=== PATIENT | female | born 1945 | race Caucasian/White ===

== ENCOUNTER → 2024-10-01 | Outpatient (CLI) | payer MEDICARE, MEDICAID, SELFPAY ==
[2024-10-01 12:05] LABS: Basophils % (Auto) 0 % (0-2.5); Eosinophils % (Auto) 0 % (0-10); Hemoglobin 9.4 g/dL (12.0-16.0); Immature Granulocytes % (Auto) 1 % (0-0); Immature Granulocytes Auto 0.05 Thou/mm3 (0.00-0.00); Lymphocytes % (Auto) 11 % (10-50); Mean Corpuscular HGB Conc 33.6 g/dl (31.0-37.0); Mean Corpuscular Hemoglobin 33.2 pg (25.0-35.0); Mean Corpuscular Volume 99 fL (80-100); Monocytes # (Auto) 0.6 Thou/mm3 (0.0-0.8); Monocytes % (Auto) 7 % (0-12); Neutrophils # (Auto) 7.2 Thou/mm3 (1.8-7.7); Neutrophils % (Auto) 81 % (37-80); Nucleated Red Blood Cell % 0 /100 WBC (0); Platelet Count 254 Thou/mm3 (140-440); Red Blood Count 2.83 Miln/mm3 (4.00-5.20)
[2024-10-01 12:12] LABS: Partial Thromboplastin Time 24.7 Seconds (22.0-36.0); Prothrombin Time 10.9 Seconds (9.0-12.2)
[2024-10-01 12:57] LABS: Alanine Aminotransferase 8 U/L (10-49); Albumin, Serum 3.8 gm/dL (3.4-4.8); Albumin/Globulin Ratio 1.3 (1.2-2.2); Alkaline Phosphatase 50 U/L (46-116); Anion Gap 8 (7-16); Aspartate Amino Transferase 18 U/L (0-34); BUN/Creatinine Ratio 23 Ratio (12-20); Bilirubin,Total 0.3 mg/dL (0.3-1.2); Blood Urea Nitrogen 18 mg/dL (9-23); Calcium 9.1 mg/dL (8.3-10.6); Calcium (Corrected) 9.3 mg/dL (8.5-10.1); Carbon Dioxide 34.2 mMol/L (20.0-31.0); Chloride 88 mMol/L (98-107); Creatinine (Component) 0.8 mg/dL (0.6-1.3); Glucose 104 mg/dL (74-106); Osmolality,Calculated 262 (275-295); Sodium 130 mMol/L (136-145); Total Protein 6.8 gm/dL (5.7-8.2); eGFR > 60 See Note
== END | disposition home or self-care (01) ==
PROVIDERS: PCP Physician Assistant; Referring Provider Internal Medicine Gastroenterology; Visit Provider Internal Medicine Gastroenterology
DX: D64.9 Anemia, unspecified (principal)
CPT/HCPCS: 36415; 80053; 85025; 85610; 85730

== ENCOUNTER → 2024-10-16 | Outpatient (CLI) | payer MEDICARE, MEDICAID, SELFPAY ==
[2024-10-16 14:20] LABS: Basophils % (Auto) 0 % (0-2.5); Eosinophils % (Auto) 0 % (0-10); Hematocrit 30.8 % (36.0-46.0); Hemoglobin 10.7 g/dL (12.0-16.0); Immature Granulocytes % (Auto) 0 % (0-0); Immature Granulocytes Auto 0.01 Thou/mm3 (0.00-0.00); Lymphocytes # (Auto) 1.6 Thou/mm3 (1.0-4.8); Lymphocytes % (Auto) 30 % (10-50); Mean Corpuscular HGB Conc 34.7 g/dl (31.0-37.0); Mean Corpuscular Hemoglobin 33.5 pg (25.0-35.0); Mean Corpuscular Volume 97 fL (80-100); Monocytes # (Auto) 0.4 Thou/mm3 (0.0-0.8); Monocytes % (Auto) 7 % (0-12); Neutrophils # (Auto) 3.3 Thou/mm3 (1.8-7.7); Neutrophils % (Auto) 62 % (37-80); Nucleated Red Blood Cell % 0 /100 WBC (0); Platelet Count 295 Thou/mm3 (140-440); RDW Standard Deviation 48.2 fL (36.4-46.3); Red Blood Count 3.19 Miln/mm3 (4.00-5.20); White Blood Count 5.3 Thou/mm3 (3.6-11.0)
[2024-10-16 14:48] LABS: Alanine Aminotransferase 9 U/L (10-49); Albumin/Globulin Ratio 1.3 (1.2-2.2); Alkaline Phosphatase 50 U/L (46-116); Anion Gap 8 (7-16); Aspartate Amino Transferase 21 U/L (0-34); BUN/Creatinine Ratio 23 Ratio (12-20); Bilirubin,Total 0.5 mg/dL (0.3-1.2); Blood Urea Nitrogen 16 mg/dL (9-23); Calcium 9.3 mg/dL (8.3-10.6); Calcium (Corrected) 9.3 mg/dL (8.5-10.1); Carbon Dioxide 31.9 mMol/L (20.0-31.0); Chloride 84 mMol/L (98-107); Creatinine (Component) 0.7 mg/dL (0.6-1.3); Folate 11.47 ng/mL (>5.38); Globulin 3.2 gm/dL (2.3-3.5); Glucose 123 mg/dL (74-106); LDH (Lactate Dehydrogenase) 138 U/L (120-246); Osmolality,Calculated 251 (275-295); Potassium 3.7 mMol/L (3.4-5.1); Sodium 124 mMol/L (136-145); Total Protein 7.2 gm/dL (5.7-8.2); Vitamin B12 484 pg/mL (211-911); eGFR > 60 See Note
[2024-10-16 15:26] LABS: Ferritin 818 ng/mL (7.3-270.7); Total Iron Binding Capacity 256 mcg/dL (250-425)
[2024-10-16 15:38] LABS: Iron 93 mcg/dL (50-170); Percent Iron Saturation 36 % (20-55); Unsaturated Iron Binding 163 (225-295)
== END | disposition home or self-care (01) ==
LOC: SCTO 12:59
PROVIDERS: PCP Family Medicine; Referring Provider Nurse Practitioner Family; Visit Provider Nurse Practitioner Family
DX: C85.85 Other specified types of non-Hodgkin lymphoma, lymph nodes of inguinal region and lower limb (principal)
CPT/HCPCS: 36415; 80053; 82607; 82728; 82746; 83540; 83550; 83615; 85025

== ENCOUNTER 2024-10-18 14:50 | Outpatient (RCR) | payer MEDICARE, MEDICAID, SELFPAY | END 2024-10-26 23:59 | disposition home or self-care (01) | LOC: SCTC 14:50 | PROVIDERS: PCP Family Medicine; Referring Provider Family Medicine; Visit Provider Nurse Practitioner Family | DX: Z08 Encounter for follow-up examination after completed treatment for malignant neoplasm (principal); Z85.72 Personal history of non-Hodgkin lymphomas; J44.9 Chronic obstructive pulmonary disease, unspecified; Z99.81 Dependence on supplemental oxygen; D51.9 Vitamin B12 deficiency anemia, unspecified; D50.9 Iron deficiency anemia, unspecified; E87.1 Hypo-osmolality and hyponatremia | CPT/HCPCS: 99212; G0463 ==

== ENCOUNTER → 2024-10-18 | Outpatient (CLI) | payer MEDICARE, MEDICAID, SELFPAY ==
[2024-10-18 17:38] LABS: Basophils % (Auto) 0 % (0-2.5); Eosinophils % (Auto) 0 % (0-10); Hemoglobin 10.3 g/dL (12.0-16.0); Immature Granulocytes % (Auto) 0 % (0-0); Immature Granulocytes Auto 0.02 Thou/mm3 (0.00-0.00); Lymphocytes # (Auto) 2.3 Thou/mm3 (1.0-4.8); Lymphocytes % (Auto) 34 % (10-50); Mean Corpuscular HGB Conc 34.3 g/dl (31.0-37.0); Mean Corpuscular Hemoglobin 33.8 pg (25.0-35.0); Mean Corpuscular Volume 98 fL (80-100); Monocytes # (Auto) 0.6 Thou/mm3 (0.0-0.8); Monocytes % (Auto) 8 % (0-12); Neutrophils % (Auto) 57 % (37-80); Nucleated Red Blood Cell % 0 /100 WBC (0); Platelet Count 288 Thou/mm3 (140-440); RDW Standard Deviation 48.5 fL (36.4-46.3); Red Blood Count 3.05 Miln/mm3 (4.00-5.20); White Blood Count 6.9 Thou/mm3 (3.6-11.0)
[2024-10-18 18:39] LABS: Alanine Aminotransferase < 7 U/L (10-49); Albumin, Serum 4.1 gm/dL (3.4-4.8); Albumin/Globulin Ratio 1.3 (1.2-2.2); Alkaline Phosphatase 55 U/L (46-116); Anion Gap 9 (7-16); Aspartate Amino Transferase 21 U/L (0-34); BUN/Creatinine Ratio 23 Ratio (12-20); Bilirubin,Total 0.4 mg/dL (0.3-1.2); Blood Urea Nitrogen 18 mg/dL (9-23); Calcium 9.2 mg/dL (8.3-10.6); Calcium (Corrected) 9.2 mg/dL (8.5-10.1); Carbon Dioxide 31.2 mMol/L (20.0-31.0); Chloride 82 mMol/L (98-107); Creatinine (Component) 0.8 mg/dL (0.6-1.3); Globulin 3.2 gm/dL (2.3-3.5); Glucose 94 mg/dL (74-106); Osmolality,Calculated 247 (275-295); Potassium 3.6 mMol/L (3.4-5.1); Sodium 122 mMol/L (136-145); Total Protein 7.3 gm/dL (5.7-8.2); eGFR > 60 See Note
== END | disposition home or self-care (01) ==
PROVIDERS: PCP Family Medicine; Referring Provider Nurse Practitioner Family; Visit Provider Nurse Practitioner Family
DX: C85.85 Other specified types of non-Hodgkin lymphoma, lymph nodes of inguinal region and lower limb (principal)
CPT/HCPCS: 36415; 80053; 85025

== ENCOUNTER 2024-10-19 12:53 | Emergency (ER) | payer MEDICARE, MEDICAID, SELFPAY ==
[2024-10-19 12:54] VITALS: BMI 21.5
[2024-10-19 13:29] VITALS: BP 111/66; PULSE 65; RESP 17; TEMP 36.9; O2SAT 93; BMI 21.5
--- NOTE | 2024-10-19 13:29 | PD.EDRECHK ---
ED Recheck Abnl Lab Rx-RME/HPI General Chief Complaint: Recheck/Abnormal Lab/Rx Stated Complaint: Per, Oncologist: low sodium Time Seen by Provider: 10/19/24 13:25 Arrival date/time: 10/19/24 12:53 RME / HPI RME / HPI narrative: 78-year-old female patient with significant history of T-cell lymphoma, was sent to [facility] from cancer center for hyponatremia. Apparently patient's sodium today was noted to be 122. Patient is complaining of on and off headache and abdominal discomfort. No vomiting no diarrhea no fever no cough. Patient is on 24/ oxygen due to COPD. Related Data Home Medications ?Medication ?Instructions ?Recorded ?Confirmed atorvastatin 20 mg tablet 10 mg PO HS 01/14/20 08/01/23 docusate sodium 100 mg capsule 200 mg PO BID 10/20/22 08/01/23 cetirizine 10 mg tablet 10 mg PO DAILY PRN Allergy Symptoms 05/03/23 08/01/23 famotidine 20 mg tablet 20 mg PO DAILY PRN Acid Reflux 05/03/23 08/01/23 fluticasone fur. 200 mcg-umeclid 2 inh inhalation QDAY PRN 05/03/23 08/01/23 62.5 mcg-vilant 25 mcg shortness of breath inhalat.powder (Trelegy Ellipta) acetaminophen 300 mg-codeine 30 mg 1 tab PO TID PRN Pain 06/07/23 08/01/23 tablet aspirin 81 mg capsule 81 mg PO QDAY 06/07/23 08/01/23 furosemide 20 mg tablet 20 mg PO QDAY 08/01/23 08/01/23 metoprolol succinate 25 mg 25 mg PO DAILY 08/01/23 08/01/23 tablet,extended release 24 hr sacubitril 24 mg-valsartan 26 mg 1 tab PO BID 08/01/23 08/01/23 tablet (Entresto) Previous Rx's ?Medication ?Instructions ?Recorded albuterol sulfate 90 mcg/actuation 2 puff inhalation Q6H PRN 10/23/22 aerosol inhaler shortness of breath or wheezing #6.7 grams levofloxacin 250 mg tablet 250 mg PO QDAY #3 tabs 08/02/23 sennosides 8.6 mg capsule (senna) 8.6 mg PO QDAY PRN constipation 08/03/23 #30 caps sodium chloride 1,000 mg soluble 1,000 mg PO QDAY #10 tabs 10/19/24 tablet Allergies Allergy/AdvReac Type Severity Reaction Status Date / Time ciprofloxacin [From Cipro] Allergy Severe Rash Verified 06/06/20 07:09 Sulfa (Sulfonamide Allergy Severe nausea, Verified 06/06/20 07:09 Antibiotics) itchy all over Review of Systems Review of Systems Narrative Review of Systems: Review of system reviewed and within normal limits except mentioned in HPI ED Exam Narrative Physical exam: VITAL SIGNS: Reviewed. GENERAL APPEARANCE: Alert and interactive, follows commands, no acute distress, HEAD AND FACE: Non-traumatic. ENT: PERRL, pink conjunctivitis, eyelid no trauma, Mucous membrane moist. NECK: Supple, nontender, no nuchal rigidity. CHEST: No tenderness, no crepitus, no paradoxical movement, no retractions. LUNGS: Clear, well ventilated, symmetric, no rales, no wheezing, no ronchi, no stridor, good breath sounds bilaterally. HEART: Regular rate, regular rhythm, no murmur, no gallops. ABDOMEN: Soft, positive bowel sounds, nondistended, no guarding, nontender, no rebound, no masses, RECTAL: Deferred. GENITAL: Deferred. NEUROLOGICAL: Gross motor function intact sensory function intact, Appropriate for age. MUSCULOSKELETAL: low back nontender, full range of motion. EXTREMITIES: Nontender, full range of motion. SKIN: Color pink, dry, no rash, no lacerations, no abrasions, no contusions. LYMPHATICS: Deferred. Course Quality Measures none Orders Category Date Time Status CBC [CBC] Stat Lab 10/19/24 13:54 Completed CMP [Comprehensive Metabolic Panel] Stat Lab 10/19/24 13:54 Completed Magnesium Stat Lab 10/19/24 13:54 Completed UA, C/S IF [Urinalysis, C/S if Indicated] Stat Lab 10/19/24 14:15 Completed Magnesium Sulfate 2 GM Ivpb [Magnesium Sulfate Ivpb] Med 10/19/24 15:27 Discontinued 2 gm in 50 ml IV X1 Sodium Chloride 0.9% 1000 ml [Ns] 1,000 ml Med 10/19/24 15:24 Discontinued IV 999 mls/hr Vital Signs Vital signs: Vital Signs Temperature 98.4 F 10/19/24 13:29 Pulse Rate 65 10/19/24 13:29 Respiratory Rate 17 10/19/24 13:29 Blood Pressure 111/66 10/19/24 13:29 Pulse Oximetry (%) 93 L 10/19/24 13:29 Oxygen Delivery Method Nasal Cannula 10/19/24 13:29 Oxygen Flow Rate 2 10/19/24 13:29 Recheck / Abnormal Lab / Rx MDM Narrative MDM Narrative:: 78-year-old female patient with significant history of T-cell lymphoma, was sent to us from [facility] for hyponatremia. Apparently patient's sodium today was noted to be 122. Patient is complaining of on and off headache and abdominal discomfort. No vomiting no diarrhea no fever no cough. Patient is on 24/7 oxygen due to COPD. Patient surgeon today was noted to be 122 magnesium of 1.4 the rest of the labs unremarkable. Urinalysis no UTI. Patient received IV NS and magnesium sulfate IV. Prior to discharge patient is denying any complaints. Patient appears nontoxic and hemodynamically stable. Patient discharged home and instructed to follow-up with primary care provider in 24 to 48 hours. Instructed to return to the emergency department immediately if worsening of symptoms Patient data External records reviewed:: None Clinical information provided by:: patient Social determinants that could affect healthcare access:: none Patient has the following chronic illnesses:: None How is presenting disease/condition affected by chronic disease/condition?: no chronic disease Evaluation data The following diagnostics were reviewed and interpreted by me:: lab results Lab and/or radiology exams considered but not ordered:: None Interpretation Summary: See results in MDM Medications / Prescriptions Medications or Prescriptions considered but not ordered:: None Medication administrations:: Medication Administration History Discontinued Medications Sodium Chloride (Ns) 1,000 mls @ 999 mls/hr IV .Q1H1M ONE Stop: 10/19/24 16:24 Last Admin: 10/19/24 20:37 Dose: 999 mls/hr Documented By: KIRSTEN Magnesium Sulfate (Magnesium Sulfate Ivpb) 2 gm in 50 mls @ 25 mls/hr IV X1 ONE Stop: 10/19/24 17:26 Last Admin: 10/19/24 20:36 Dose: 25 mls/hr Documented By: KIRSTEN Magnesium sulfate and IV fluid NS Consultations Consultation(s) initiated? (list below): No Diagnosis Recheck Differential Diagnosis: other (Hyponatremia, hypomagnesemia, dehydration) Most likely diagnosis given after review of the tests above:: Hyponatremia Admission Indicated Admission indicated?: not indicated Explain why admission is indicated or not indicated:: Stable Admission Request Was there a request for admission?: No Disposition Plan Disposition Plan: Discharge Discharge Attestation Discharge Attestation: The patient and all family members were given an opportunity to ask questions and understood the discharge instructions. Discharge instructions specifically effects, indications for sooner follow up or return to the emergency department, and the expected course of current diagnosis. Patient condition: Stable Discharge Plan Plan Patient Disposition: HOME (Self Care) Disposition Comment: Stable Prescriptions/Referrals Prescriptions/Med Rec: New sodium chloride 1,000 mg tablet,soluble 1,000 mg PO QDAY Qty: 10 0RF No Action atorvastatin 20 mg tablet 10 mg PO HS docusate sodium 100 mg Capsule 200 mg PO BID albuterol sulfate 90 mcg/actuation HFA aerosol inhaler 2 puff inhalation Q6H PRN (Reason: shortness of breath or wheezing) Qty: 6.7 0RF Trelegy Ellipta 200-62.5-25 mcg blister with device 2 inh INHALATION QDAY PRN (Reason: shortness of breath) cetirizine 10 mg tablet 10 mg PO DAILY PRN (Reason: Allergy Symptoms) famotidine 20 mg tablet 20 mg PO DAILY PRN (Reason: Acid Reflux) aspirin 81 mg Capsule 81 mg PO QDAY acetaminophen-codeine 300-30 mg tablet 1 tab PO TID PRN (Reason: Pain) metoprolol succinate 25 mg tablet extended release 24 hr 25 mg PO DAILY Entresto 24-26 mg tablet 1 tab PO BID furosemide 20 mg tablet 20 mg PO QDAY levofloxacin 250 mg Tablet 250 mg PO QDAY Qty: 3 0RF senna 8.6 mg capsule 8.6 mg PO QDAY PRN (Reason: constipation) Qty: 30 0RF Referrals: No Primary/Family,Physician [Primary Care Provider] - In 1 week Problem List Clinical Impression: Hyponatremia Patient/Caregiver Discharge Instructions Discharge Activity: activity as tolerated Education Materials: ED Hyponatremia Additional Instructions: Thank you for the opportunity for serving you today. You are stable for discharged . 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
[2024-10-19 14:16] LABS: Basophils % (Auto) 0 % (0-2.5); Eosinophils % (Auto) 1 % (0-10); Hematocrit 31.5 % (36.0-46.0); Hemoglobin 10.9 g/dL (12.0-16.0); Immature Granulocytes % (Auto) 0 % (0-0); Immature Granulocytes Auto 0.02 Thou/mm3 (0.00-0.00); Lymphocytes # (Auto) 2.2 Thou/mm3 (1.0-4.8); Lymphocytes % (Auto) 30 % (10-50); Mean Corpuscular HGB Conc 34.6 g/dl (31.0-37.0); Mean Corpuscular Hemoglobin 33.5 pg (25.0-35.0); Mean Corpuscular Volume 97 fL (80-100); Monocytes # (Auto) 0.4 Thou/mm3 (0.0-0.8); Monocytes % (Auto) 6 % (0-12); Neutrophils # (Auto) 4.6 Thou/mm3 (1.8-7.7); Neutrophils % (Auto) 63 % (37-80); Nucleated Red Blood Cell % 0 /100 WBC (0); Platelet Count 280 Thou/mm3 (140-440); RDW Standard Deviation 47.7 fL (36.4-46.3); Red Blood Count 3.25 Miln/mm3 (4.00-5.20); White Blood Count 7.3 Thou/mm3 (3.6-11.0)
[2024-10-19 14:23] LABS: Collection Type, Urine Clean Catch
[2024-10-19 14:42] LABS: Alanine Aminotransferase 8 U/L (10-49); Albumin, Serum 4.2 gm/dL (3.4-4.8); Albumin/Globulin Ratio 1.3 (1.2-2.2); Alkaline Phosphatase 53 U/L (46-116); Anion Gap 6 (7-16); Aspartate Amino Transferase 17 U/L (0-34); BUN/Creatinine Ratio 20 Ratio (12-20); Bilirubin,Total 0.5 mg/dL (0.3-1.2); Blood Urea Nitrogen 16 mg/dL (9-23); Calcium 9.1 mg/dL (8.3-10.6); Calcium (Corrected) 9.1 mg/dL (8.5-10.1); Carbon Dioxide 33.1 mMol/L (20.0-31.0); Chloride 83 mMol/L (98-107); Creatinine (Component) 0.8 mg/dL (0.6-1.3); Globulin 3.2 gm/dL (2.3-3.5); Glucose 105 mg/dL (74-106); Magnesium 1.4 mg/dL (1.6-2.6); Osmolality,Calculated 247 (275-295); Potassium 3.7 mMol/L (3.4-5.1); Sodium 122 mMol/L (136-145); Total Protein 7.4 gm/dL (5.7-8.2); eGFR > 60 See Note
[2024-10-19 14:51] LABS: Bilirubin,Urine Negative (Negative); Blood,Urine Negative (Negative); Clarity,Urine Clear (Clear/Hazy); Color,Urine Lt-Yellow (Lt Yel-Yel); Culture Indicated,Urine Not Indicated; Glucose, Urine Negative (Negative); Ketones,Urine Negative (Negative); Leukocyte Esterase,Urine Negative (Negative); Nitrite,Urine Negative (Negative); Protein,Urine Trace (Neg - Trace); RBC,Urine 2 /hpf (0-3); Squamous Epithelial Cell,Urine 3 /hpf (0-5); Urobilinogen,Urine Negative mg/dL (0.0-1.0); WBC,Urine 5 /hpf (0-5)
[2024-10-19 19:29] VITALS: BP 147/80; PULSE 72; RESP 18; TEMP 36.5; O2SAT 95
[2024-10-19] MEDS: Magnesium Sulfate 2 GM Ivpb 2 GM/50 ML BAG IV (20:36)
[2024-10-19] MEDS: SODIUM CHLORIDE 0.9% 1000 ML 1,000 ML 999 ML IV (20:37)
[2024-10-19 21:39] VITALS: BP 168/83; PULSE 72; RESP 18; TEMP 36.6; O2SAT 98
== END 2024-10-19 22:15 | disposition home or self-care (01) ==
PROVIDERS: Nurse Practitioner Family; Emergency Provider Emergency Medicine
DX: E87.1 Hypo-osmolality and hyponatremia (principal)
CPT/HCPCS: 36415; 80053; 81001; 83735; 85025; 96365; 96366; 99284; J3475; J7030

== ENCOUNTER 2024-10-28 20:53 | Inpatient (IN) | payer MEDICARE, MEDICAID, SELFPAY ==
[2024-10-28] VITALS (18 sets, daily range): BP systolic 119–207; BP diastolic 68–109; PULSE 95–122; RESP 20–34; TEMP 38–38.5; O2SAT 92–100; BMI 21.0
--- NOTE | 2024-10-28 20:56 | EDNOTE_ITS ---
ED SOB =RME/HPI General Chief Complaint: Shortness of Breath/Dyspnea Stated Complaint: SHORTNESS OF BREATH Time Seen by Provider: 10/28/24 20:57 Source: patient and EMS Arrival date/time: 10/28/24 20:53 Mode of arrival: EMS Limitations: no limitations RME / HPI RME / HPI Narrative: Dr. Briceno?s Main ED Evaluation: The patient is a 79-year-old female with a known history of COPD who was brought to the emergency department via ambulance due to worsening shortness of breath. The symptoms began two days ago with mild shortness of breath that progressively worsened. This morning, the patient experienced severe difficulty breathing, describing an inability to catch her breath. Upon EMS arrival, the patient was in respiratory distress, exhibiting audible wheezing and an oxygen saturation of 85%. She was noted to be tripoding and reported that her rescue inhaler was no longer providing relief. EMS initiated treatment with CPAP and administered two doses of albuterol, which provided partial improvement in her symptoms. The patient was also placed on cardiac monitoring during transport. Related Data Home Medications ?Medication ?Instructions ?Recorded ?Confirmed docusate sodium 100 mg capsule 200 mg PO BID 10/20/22 10/28/24 cetirizine 10 mg tablet 10 mg PO DAILY PRN Allergy S ymptoms 05/03/23 10/28/24 famotidine 20 mg tablet 20 mg PO DAILY PRN Acid Refl ux 05/03/23 10/28/24 fluticasone fur. 200 mcg-umeclid 2 inh inhalation QDAY PRN 05/03/23 10/28/24 62.5 mcg-vilant 25 mcg shortness of breath inhalat.powder (Trelegy Ellipta) acetaminophen 300 mg-codeine 30 mg 1 tab PO TID PRN Pa in 06/07/23 10/28/24 tablet metoprolol succinate 25 mg 25 mg PO DAILY 08/01/2311/20 tablet,extended release 24 hr sacubitril 24 mg-valsartan 26 mg 1 tab PO BID 08/01/23 10/28/24 tablet (Entresto) clopidogrel 75 mg tablet 75 mg PO DAILY 10/28/2411/20 hydrochlorothiazide 25 mg tablet 25 mg PO DAILY 10/28/24 lactulose 10 gram/15 mL oral 15 ml PO DAILY PRN consti pation 10/28/24 10/28/24 solution metolazone 2.5 mg tablet 2.5 mg PO DAILY 10/28/2411/20 prednisone 5 mg tablet 5 mg PO DAILY 10/28/2410/28 Previous Rx's ?Medication ?Instructions ?Recorded albuterol sulfate 90 mcg/actuation 2 puff inhalation Q 6H PRN 10/23/22 aerosol inhaler shortness of breath or wheez ing #6.7 grams sennosides 8.6 mg capsule (senna) 8.6 mg PO QDAY PRN c onstipation 08/03/23 #30 caps Allergies Allergy/AdvReac Type Severity Reaction Status Date / Time ciprofloxacin (From Cipro) Allergy Severe Rash Verified 10/28/24 21:18 Sulfa (Sulfonamide Allergy Severe nausea, Verified 10/28/24 21:18 Antibiotics) itchy all over Review of Systems Review of Systems Systems Reviewed: All systems reviewed, normal except as documented Past Medical History Past Medical History NEUROLOGIC: Positive Neurological Disorders, Cerebrovascular Accident and Transient Ischemic Attacks (TIA); Negative Seizures CARDIAC: Positive Atherosclerotic Heart Disease, Peripheral Vascular Disease, Hypercholesterolemia, Congestive Heart Failure, Deep Vein Thrombosis and Hypertension; Negative Cardiac Disorders RESPIRATORY: Positive Chronic Obstructive Pulmonary Disease (COPD), Asthma, Bronchitis and Pneumonia GASTROINTESTINAL: Positive Gastrointestinal Disorders and Obstructive Bowel GENITOURINARY: Negative Genitourinary Disorders or Renal Disease REPRODUCTIVE: Positive Previous Pregnancies MUSCULOSKELETAL: Positive Musculoskeletal Disorders and Arthritis ENT: Positive Cataracts and Deafness ENDOCRINE: Negative Endocrine Disorders, Diabetes Mellitus Type 1 or Diabetes M ellitus Type 2 HEMATOLOGIC: Positive Anemia and Clotting Problems; Negative Blood Disorders or Sickle Cell Disease PSYCHO/SOCIAL: Positive Depression and Anxiety OTHER HISTORY: Positive Hospitalization, Falls, Blood Transfusions, Chemotherapy, Chicken Pox, Measles, Mumps, Pertussis and Cancer; Negative Blood Transfusion Reaction or Anesthesia Reactions Family History FAMILY HISTORY: Positive Family Respiratory Disorders, Family Cancer and Family Surgery; Negative Family Cardiac Disorders Surgical History SURGICAL: Positive Vascular Surgery, Coronary Stent, Eye Surgery and Hysterectomy Social History SMOKING STATUS: Never smoker SECOND HAND EXPOSURE: No SUBSTANCE USE: does not use ED Exam Narrative Physical exam: GENERAL: In general the patient is awake, interactive, in an emergency department gurney. Currently on CPAP. HEAD/EYES/EARS/NOSE/THROAT: normo-cephalic, atraumatic, mucus membranes are moist. No cervical tenderness palpation midline. Supple neck. CARDIOVASCULAR: Heart rate tachycardic at 127 bpm, regular rhythm. no murmurs, heart sounds are not distant, strong pulses in all four extremities that are equal and symmetric bilateral upper and lower extremities, normal capillary refill. CHEST/PULMONARY: normal chest rise and fall. Increased chest wall retractions noted. Audible wheezing. No cyanosis or mottling observed. Oxygen saturation improving with CPAP. ABDOMEN: soft, not tender, no masses appreciated BACK: normal range of motion without pain. NEUROLOGICAL: cranio-facial features are symmetric, moves all four extremities equally without obvious limitations or weakness. EXTREMITY: no tenderness to palpation over the long bones or large joints of the bilateral upper and lower extremities, no joint swelling, no joint erythema, no signs of trauma, no unilateral leg swelling and no peripheral edema. Distal extremities show chronic vascular changes without acute signs of ischemia or cyanosis. SKIN: warm, dry, well-perfused, no jaundice, no rash, no telangiectasias or petechia. No mottling or cyanosis. PSYCH: calm, cooperative, no evidence of psychosis or agitation General Limitations: Present no limitations Course Course Course Narrative: CXR is ordered for determining etiology of shortness of breath. 2115 Sepsis alert initiated. Orders made at this time are congruent with ED Adult Sepsis Order List. Re-evaluation is to be completed. 2145 Sepsis reassessment performed consisting of lab review, vitals, physical exam including auscultation of heart, lungs, and visual evaluation of capillary refills, mucosal membranes and extremities. Quality Measures Current suspected stage: sepsis Possible source: unknown Blood cultures ordered: yes Antibiotic ordered: Yes Pertinent labs: 10/28/24 10/28/24 21:35 21:42 Lactic Acid 1.4 mMol/L (0.4-2.0) Procalcitonin 0.19 ng/ml (0.0-0.49) sepsis Orders Category Date Time Status COVID-19 Screening Questionnaire NOW Care 10/29/24 03:[address] Screening NOW Care 10/29/24 00:22 Active Decision to Admit X1 Care 10/29/24 03:14 Completed EKG (ED ONLY) *Do not use* NOW Care 10/28/24 21:[address] angio chest Stat Exams 10/29/24 00:22 Completed EKG (ED Only) Stat Exams 10/28/24 21:41 Ordered XR chest 1V portable Stat Exams 10/28/24 21:49 Completed ABG [Arterial Blood Gas] Stat Lab 10/28/24 22:30 Completed B-Type Natriuretic Peptide Stat Lab 10/28/24 21:35 Completed Blood Culture (Lab) Stat Lab 10/28/24 21:42 Results CBC Stat Lab 10/28/24 21:35 Completed Comprehensive Metabolic Panel Stat Lab 10/28/24 21:35 Completed Drug Screen,Urine Stat Lab 10/29/24 03:40 Completed Lactate (Lactic Acid) Stat Lab 10/28/24 21:42 Completed Magnesium Stat Lab 10/28/24 21:35 Completed Partial Thromboplastin Time Stat Lab 10/28/24 21:35 Completed Procalcitonin Stat Lab 10/28/24 21:35 Completed Prothrombin Time with INR Stat Lab 10/28/24 21:35 Completed Troponin I Stat Lab 10/28/24 21:35 Completed Urinalysis Stat Lab 10/29/24 03:40 Completed Acetaminophen Ivpb [Ofirmev Inj] Med 10/28/24 21:23 Discontinued 1,000 mg in 100 ml IV X1 Azithromycin Inj [Zithromax Inj] 500 mg Med 10/29/24 00:23 Discontinued Sodium Chloride 0.9% 250 ml [Ns] 250 ml IV QDAY Azithromycin Inj [Zithromax Inj] 500 mg Med 10/29/24 00:45 Discontinued Sodium Chloride 0.9% 250 ml [Ns] 250 ml IV X1 Ketorolac Inj [Toradol Inj] Med 10/28/24 23:26 Discontinued 30 mg IVP X1 ONE Levalbuterol Rt [Xopenex Rt Bhavana] Med 10/28/24 21:07 Discontinued 5 mg INH X1 ONE Magnesium Sulfate 2 GM Ivpb [Magnesium Sulfate Ivpb] Med 10/28/24 20:58 Discontinued 2 gm in 50 ml IV X1 MethylPREDNISolone.* [SoluMEDROL Inj] Med 10/28/24 20:57 Discontinued 125 mg IVP X1 ONE Sodium Chloride Rt Bhavana 0.9% [NS Rt Bhavana 0.9%] Med 10/28/24 21:07 Discontinued 3 ml INH PRN PRN cefTRIAXone [Rocephin] 1,000 mg Med 10/29/24 00:23 Discontinued Sodium Chloride 0.9% [Ns] 50 ml IV X1 BiPAP / CPAP NOW RT 10/28/24 21:01 Active Vital Signs Vital signs: Vital Signs Pulse Rate 122 H 10/28/24 21:02 Respiratory Rate 24 H 10/28/24 21:02 Pulse Oximetry (%) 93 L 10/28/24 21:02 Fraction of Inspired Oxygen 60 10/28/24 21:02 Procedures -ED EKG Interpretation #1: Additional EKG comment: The EKG, performed on 10/28/2024 at 21:04, shows sinus tachycardia with a heart rate of 108 bpm, poor baseline quality, and no ST elevations noted in leads II, aVF, or the inter-lateral leads. Shortness of Breath / Dyspnea MDM Narrative MDM Narrative:: The differential diagnosis includes COPD exacerbation, congestive heart failure (CHF), pneumonia (PNA), pulmonary embolism (PE), ST-elevation myocardial infarction (STEMI), [id number] myocardial infarction (NSTEMI), pericarditis, and issues related to medication or treatment noncompliance. Scribe Attestation: I, Cordell Huynh, am scribing for and in the presence of Dr. Briceno. Provider Notation: Although this document has been carefully reviewed, there may still be some phonetic and other typographical errors. These errors are purely grammatical due to imperfections in the software program and should not be construed in any way to compromise the substance of the patient's medical care during this visit. Patient data External records reviewed:: EMS form Clinical information provided by:: EMS Social determinants that could affect healthcare access:: none Patient has the following chronic illnesses:: see PMH How is presenting disease/condition affected by chronic disease/condition?: u neffected by Evaluation data The following diagnostics were reviewed and interpreted by me:: lab results, radiology exam(s) and EKG tracing(s) Lab and/or radiology exams considered but not ordered:: none Interpretation Summary: I personally reviewed the radiology data and agree with the radiologist's interpretation. CT angiogram of the chest with intravenous contrast Clinical History: Chronic obstructive pulmonary disease and shortness of breath Comparison: CT of June 18, 2023. Findings: There is no filling defect within the pulmonary artery divisions to suggest pulmonary thromboembolism. The mediastinum demonstrates no evidence of mass or lymphadenopathy. The thoracic aorta is unremarkable. There is no pericardial effusion. Mild to moderate lungs emphysema. Consolidation in the left upper lobe. Small consolidation in the right middle lobe. Consolidation in the right lower lobe. No evidence of pleural effusion or pneumothorax. Right renal simple cyst. Degenerative changes of the imaged portions of the spine. No acute fractures. Bilateral breast implants. Dilated left atrium. Impression: No CT evidence of pulmonary thromboembolism. Multifocal pneumonia in the background of emphysema. Dilated left atrium. Medications / Prescriptions Medications or Prescriptions considered but not ordered:: none Medication administrations:: Medication Administration History Acetaminophen (Acetaminophen 325 Mg Tablet) 650 mg PO Q6H PRN PRN Reason: PAIN SCALE 1-3 (mild Stop: 11/28/24 03:15 Acetaminophen (Acetaminophen 325 Mg Tablet) 650 mg PO Q6H PRN PRN Reason: Fever >100 Stop: 11/28/24 03:15 Acetaminophen/Codeine Phosphate (Acetaminophen W/Cod 300-30 Tablet) 1 tab PO TID LELE Stop: 11/03/24 05:59 Last Admin: 11/01/24 13:37 Dose: 1 tab Documented By: Admin: 11/01/24 06:28 Dose: 1 tab Documented By: Admin: 10/31/24 21:33 Dose: 1 tab Documented By: Admin: 10/31/24 15:29 Dose: 1 tab Documented By: Admin: 10/31/24 05:17 Dose: 1 tab Documented By: Admin: 10/30/24 21:11 Dose: 1 tab Documented By: Admin: 10/30/24 13:44 Dose: 1 tab Documented By: Admin: 10/30/24 05:22 Dose: 1 tab Documented By: Admin: 10/29/24 21:30 Dose: 1 tab Documented By: Admin: 10/29/24 13:33 Dose: Not Given Documented By: CB Non-Admin Reason: Pt states she only wants it in AM & before HS Admin: 10/29/24 07:59 Dose: 1 tab Documented By: BELGICA Azithromycin (Azithromycin 250 Mg Tablet) 250 mg PO HS LELE Stop: 11/03/24 20:59 Last Admin: 10/31/24 21:33 Dose: 250 mg Documented By: Admin: 10/30/24 21:11 Dose: 250 mg Documented By: Admin: 10/29/24 21:31 Dose: 250 mg Documented By: CCT Clopidogrel Bisulfate (Clopidogrel Bisulfate 75 Mg Tablet) 75 mg PO QDAY [facility] Stop: 11/28/24 08:59 Last Admin: 11/01/24 09:14 Dose: 75 mg Documented By: Admin: 10/31/24 09:55 Dose: 75 mg Documented By: Admin: 10/30/24 08:04 Dose: 75 mg Documented By: Admin: 10/29/24 09:34 Dose: 75 mg Documented By: Guaifenesin (Guaifenesin Syrup 200 Mg/10 Ml Udc) 100 mg PO QID [facility]; Protocol Stop: 12/01/24 16:59 Heparin Sodium (Porcine) (Heparin Sod Inj 5000 Unit/Ml Vial) 5,000 unit SC Q8HR [facility] Stop: 11/12/24 05:59 Last Admin: 11/01/24 13:37 Dose: 5,000 unit Documented By: BUNNY Co-signed By: VILMA Admin: 11/01/24 06:28 Dose: 5,000 unit Documented By: KYRA Co-signed By: RANDY Admin: 10/31/24 21:34 Dose: 5,000 unit Documented By: KYRA Co-signed By: RANDY Admin: 10/31/24 15:29 Dose: 5,000 unit Documented By: LAURIE Co-signed By: ARY Admin: 10/31/24 05:16 Dose: 5,000 unit Documented By: CODY Co-signed By: REY Admin: 10/30/24 21:10 Dose: 5,000 unit Documented By: CODY Co-signed By: REY Admin: 10/30/24 13:44 Dose: 5,000 unit Documented By: Co-signed By: KIRSTEN Admin: 10/30/24 05:22 Dose: 5,000 unit Documented By: CCT Co-signed By: RANDY(2) Admin: 10/29/24 21:41 Dose: 5,000 unit Documented By: CCT Co-signed By: JESSICA Admin: 10/29/24 13:33 Dose: Not Given Documented By: KIRSTEN Non-Admin Reason: Bleeding Admin: 10/29/24 07:58 Dose: 5,000 unit Documented By: BELGICA Co-signed By: NIKHIL Piperacillin/Tazobactam/Dextrose (Zosyn) 50 mls @ 12.5 mls/hr IV Q8HR [facility]; Protocol Stop: 11/08/24 13:59 Last Admin: 11/01/24 13:36 Dose: 12.5 mls/hr Documented By: BUNNY Ipratropium [place] (Ipratropium Rt 0.5 Mg/ 2.5 Ml Nebu) 0.5 mg INH Q6HRRT [facility] Stop: 11/30/24 18:59 Last Admin: 11/01/24 12:27 Dose: 0.5 mg Documented By: Admin: 11/01/24 06:13 Dose: 0.5 mg Documented By: Admin: 11/01/24 01:15 Dose: 0.5 mg Documented By: Admin: 10/31/24 19:30 Dose: 0.5 mg Documented By: ALEX Levalbuterol HCl (Levalbuterol Rt 1.25 Mg/0.5 Ml Nebu) 1.25 mg INH Q6HRRT [facility] Stop: 11/30/24 18:59 Last Admin: 11/01/24 12:26 Dose: 1.25 mg Documented By: Admin: 11/01/24 06:13 Dose: 1.25 mg Documented By: Admin: 11/01/24 01:15 Dose: 1.25 mg Documented By: Admin: 10/31/24 19:30 Dose: 1.25 mg Documented By: ALEX Melatonin (Melatonin 3 Mg Tablet) 6 mg PO [facility] Stop: 11/29/24 20:59 Last Admin: 10/31/24 21:33 Dose: 6 mg Documented By: Admin: 10/30/24 21:12 Dose: 6 mg Documented By: CODY Methylprednisolone Sodium Succinate (Methylprednisolone Sod Succ 40 Mg Vial) 40 mg IVP BID [facility] Stop: 11/04/24 20:59 Last Admin: 11/01/24 09:14 Dose: 40 mg Documented By: Admin: 10/31/24 21:33 Dose: 40 mg Documented By: Admin: 10/31/24 09:55 Dose: 40 mg Documented By: Admin: 10/30/24 21:13 Dose: 40 mg Documented By: CODY Naloxegol (Naloxegol Oxalate 25 Mg Tablet (Non-Formulary)) 12.5 mg PO ACBR [facility] Stop: 11/28/24 08:59 Last Admin: 11/01/24 06:28 Dose: 12.5 mg Documented By: Admin: 10/31/24 09:55 Dose: 12.5 mg Documented By: ER Ondansetron HCl (Ondansetron Inj 2 Mg/Ml Inj 2 Ml) 4 mg IV Q6H PRN; Protocol PRN Reason: NAUSEA OR VOMITING Stop: 11/28/24 03:15 Pantoprazole Sodium (Pantoprazole Inj 40 Mg Vial) 40 mg IVP QDAY [facility] Stop: 11/28/24 08:59 Last Admin: 11/01/24 09:14 Dose: 40 mg Documented By: Admin: 10/31/24 09:55 Dose: 40 mg Documented By: Admin: 10/30/24 08:05 Dose: 40 mg Documented By: Admin: 10/29/24 09:20 Dose: 40 mg Documented By: Pharmacy Consult (Pharmacy Renal Dose Adjustment 1 Ea) 1 each XX QDAY PRN PRN Reason: PROTOCOL Stop: 11/29/24 16:44 Polyethylene Glycol (Polyethylene Glycol 17 Gm Packet) 17 gm PO QDAY LELE Stop: 11/28/24 08:59 Last Admin: 11/01/24 09:14 Dose: 17 gm Documented By: Admin: 10/31/24 09:55 Dose: 17 gm Documented By: Admin: 10/30/24 08:04 Dose: 17 gm Documented By: Admin: 10/29/24 09:34 Dose: 17 gm Documented By: Sennosides (Senna/Docusate Sod 1 Tab Tablet) 1 tab PO QDAY PRN; Protocol PRN Reason: CONSTIPATION Stop: 11/28/24 04:29 Sodium Chloride (Sodium Chloride Rt Bhavana 0.9% 3 Ml Nebu) 3 ml INH PRN PRN PRN Reason: SOLN Stop: 11/30/24 15:59 Sodium Chloride (Sodium Chloride 1 Gm Tablet) 1 gm PO TID LELE Stop: 12/01/24 14:59 Last Admin: 11/01/24 15:37 Dose: 1 gm Documented By: LW Discontinued Medications Albuterol (Albuterol Rt 2.5 Mg/0.5 Ml Nebu) 10 mg INH X1 ONE Stop: 10/30/24 19:31 Last Admin: 10/30/24 20:15 Dose: 10 mg Documented By: ALEX Albuterol/Ipratropium (Albuterol/Ipratropium (Duoneb) Rt Bhavana 3 Ml Nebu) 3 ml INH Q6HRRT LELE Stop: 11/28/24 06:59 Last Admin: 10/31/24 09:22 Dose: Not Given Documented By: ER Non-Admin Reason: d/c chart clean up Admin: 10/31/24 09:21 Dose: Not Given Documented By: ER Non-Admin Reason: d/c chart clean up Admin: 10/30/24 01:23 Dose: Not Given Documented By: KARINA Non-Admin Reason: per MD [place] Admin: 10/29/24 18:57 Dose: 3 ml Documented By: KARINA Albuterol/Ipratropium (Albuterol/Ipratropium (Duoneb) Rt Bhavana 3 Ml Nebu) 3 ml INH X1 ONE Stop: 10/29/24 05:27 Last Admin: 10/29/24 05:29 Dose: 3 ml Documented By: LARRY Albuterol/Ipratropium (Albuterol/Ipratropium (Duoneb) Rt Bhavana 3 Ml Nebu) 3 ml INH Q2HR PRN PRN Reason: SHORTNESS OF BREATH OR WHEEZE Stop: 11/28/24 22:54 Last Admin: 10/29/24 22:59 Dose: 3 ml Documented By: KARINA Albuterol/Ipratropium (Albuterol/Ipratropium (Duoneb) Rt Bhavana 3 Ml Nebu) 3 ml INH Q4HRRT LELE Stop: 11/29/24 18:59 Last Admin: 10/31/24 09:21 Dose: Not Given Documented By: ER Non-Admin Reason: d/c chart clean up Albuterol/Ipratropium (Albuterol/Ipratropium (Duoneb) Rt Bhavana 3 Ml Nebu) 3 ml INH Q4HRRT LELE Stop: 11/29/24 22:59 Last Admin: 10/31/24 15:53 Dose: Not Given Documented By: JAMESON Non-Admin Reason: Patient Refused Admin: 10/31/24 11:22 Dose: Not Given Documented By: JAMESON Non-Admin Reason: Patient Refused Comments: Pt stated Albuterol makes her anxious Admin: 10/31/24 06:40 Dose: 3 ml Documented By: Admin: 10/31/24 03:15 Dose: 3 ml Documented By: Admin: 10/30/24 22:45 Dose: 3 ml Documented By: AL Albuterol/Ipratropium (Albuterol/Ipratropium (Duoneb) Rt Bhavana 3 Ml Nebu) 3 ml INH Q2HR PRN PRN Reason: SHORTNESS OF BREATH OR WHEEZE Stop: 11/29/24 18:59 Sodium Chloride 240 ml/ (Albuterol 80 mg) 0 ml TOP Q8H LELE Stop: 10/30/24 20:05 Last Admin: 10/31/24 09:21 Dose: Not Given Documented By: ER Non-Admin Reason: d/c chart clean up Magnesium Sulfate (Magnesium Sulfate Ivpb) 2 gm in 50 mls @ 25 mls/hr IV X1 ONE Stop: 10/28/24 22:57 Last Infusion: 10/28/24 21:32 Dose: Infused Documented By: Admin: 10/28/24 21:01 Dose: 25 mls/hr Documented By: KG Acetaminophen (Ofirmev Inj) 1,000 mg in 100 mls @ 250 mls/hr IV X1 ONE Stop: 10/28/24 21:46 Last Infusion: 10/28/24 22:48 Dose: Infused Documented By: Admin: 10/28/24 22:10 Dose: 250 mls/hr Documented By: TC Ceftriaxone Sodium 1,000 mg/ (Sodium Chloride) 50 mls @ 100 mls/hr IV X1 ONE Stop: 10/29/24 00:52 Last Infusion: 10/29/24 01:41 Dose: Infused Documented By: Admin: 10/29/24 01:07 Dose: 100 mls/hr Documented By: KG Azithromycin 500 mg/ Sodium (Chloride) 250 mls @ 250 mls/hr IV QDAY [facility] Stop: 11/05/24 00:22 Last Admin: 10/31/24 09:22 Dose: Not Given Documented By: ER Non-Admin Reason: d/c chart clean up Azithromycin 500 mg/ Sodium (Chloride) 250 mls @ 250 mls/hr IV X1 ONE Stop: 10/29/24 01:44 Last Infusion: 10/29/24 02:12 Dose: Infused Documented By: Admin: 10/29/24 01:17 Dose: 250 mls/hr Documented By: TC Sodium Chloride (Ns) 1,000 mls @ 70 mls/hr IV .[id number] ONE Stop: 10/29/24 17:33 Last Admin: 10/29/24 04:16 Dose: 70 mls/hr Documented By: MOHIT Ceftriaxone Sodium/Dextrose (Rocephin/D5w 1gm Iv Premix) 50 mls @ 100 mls/hr IV HS LELE Stop: 11/05/24 20:59 Last Admin: 10/31/24 21:33 Dose: 100 mls/hr Documented By: Infusion: 10/30/24 21:41 Dose: Infused Documented By: Admin: 10/30/24 21:11 Dose: 100 mls/hr Documented By: Infusion: 10/29/24 22:01 Dose: Infused Documented By: Admin: 10/29/24 21:31 Dose: 100 mls/hr Documented By: CHRIST Azithromycin 250 mg/ Sodium (Chloride) 250 mls @ 250 mls/hr IV QDAY LELE Stop: 11/05/24 03:17 Last Admin: 10/29/24 03:28 Dose: Not Given Documented By: MOHIT Non-Admin Reason: Duplicate Medication on eMAR Magnesium Sulfate (Magnesium Sulfate Ivpb) 4 gm in 50 mls @ 12.5 mls/hr IV X1 ONE Stop: 10/29/24 07:48 Last Admin: 10/29/24 04:16 Dose: 12.5 mls/hr Documented By: MOHIT Potassium Chloride (Kcl Ivpb) 10 meq in 100 mls @ 100 mls/hr IV Q1H LELE Stop: 10/29/24 13:30 Last Admin: 10/29/24 15:50 Dose: 50 mls/hr Documented By: Infusion: 10/29/24 14:10 Dose: Infused Documented By: Infusion: 10/29/24 13:25 Dose: 75 mls/hr Documented By: Admin: 10/29/24 12:33 Dose: 100 mls/hr Documented By: Magnesium Sulfate (Magnesium Sulfate Ivpb) 2 gm in 50 mls @ 25 mls/hr IV X1 ONE Stop: 10/30/24 01:32 Last Infusion: 10/30/24 01:45 Dose: Infused Documented By: Admin: 10/29/24 23:45 Dose: 25 mls/hr Documented By: CCT Piperacillin/Tazobactam/Dextrose (Zosyn) 50 mls @ 100 mls/hr IV X1 ONE Stop: 11/01/24 10:14 Last Admin: 11/01/24 10:37 Dose: 100 mls/hr Documented By: BUNNY Ipratropium [place] (Ipratropium Rt 0.5 Mg/ 2.5 Ml Nebu) 0.5 mg INH Q4HRRT [facility] Stop: 11/30/24 15:59 Last Admin: 10/31/24 17:02 Dose: Not Given Documented By: ER Non-Admin Reason: Patient Refused Ketorolac Tromethamine (Ketorolac Inj 30 Mg/Ml Vial) 30 mg IVP X1 ONE Stop: 10/28/24 23:27 Last Admin: 10/28/24 23:29 Dose: 30 mg Documented By: TC Levalbuterol HCl (Levalbuterol Rt 1.25 Mg/0.5 Ml Nebu) 5 mg INH X1 ONE Stop: 10/28/24 21:08 Last Admin: 10/28/24 21:12 Dose: 5 mg Documented By: LARRY Levalbuterol HCl (Levalbuterol Rt 0.63 Mg/3 Ml Nebu) 0.63 mg INH X1 ONE Stop: 10/30/24 03:16 Last Admin: 10/30/24 03:26 Dose: 0.63 mg Documented By: KARINA Levalbuterol HCl (Levalbuterol Rt 0.63 Mg/3 Ml Nebu) 0.63 mg INH Q6H PRN PRN Reason: WHEEZING Stop: 11/29/24 06:59 Levalbuterol HCl (Levalbuterol Rt 0.63 Mg/3 Ml Nebu) 0.63 mg INH Q6H [facility] Stop: 11/29/24 09:59 Levalbuterol HCl (Levalbuterol Rt 0.63 Mg/3 Ml Nebu) 0.63 mg INH Q6HRRT [facility] Stop: 11/29/24 12:59 Last Admin: 10/31/24 09:21 Dose: Not Given Documented By: ER Non-Admin Reason: d/c chart clean up Levalbuterol HCl (Levalbuterol Rt 1.25 Mg/0.5 Ml Nebu) 1.25 mg INH Q8HRRT [facility] Stop: 11/30/24 15:59 Last Admin: 10/31/24 17:02 Dose: Not Given Documented By: ER Non-Admin Reason: Patient Refused Lidocaine (Lidocaine 5% 1 Patch) 1 patch TOP X1 ONE Stop: 10/30/24 20:31 Last Admin: 10/30/24 21:12 Dose: 1 patch Documented By: CODY Lorazepam (Lorazepam 0.5 Mg Tablet) 0.5 mg PO X1 ONE Stop: 10/29/24 23:36 Last Admin: 10/29/24 23:45 Dose: 0.5 mg Documented By: CCT Lorazepam (Lorazepam 2 Mg/Ml Vial) 0.5 mg IVP X1 ONE Stop: 10/30/24 02:02 Last Admin: 10/30/24 02:36 Dose: 0.5 mg Documented By: CCT Methylprednisolone Sodium Succinate (Methylprednisolone Sod Succ 62.5 Mg/Ml 2ml Vial) 125 mg IVP X1 ONE Stop: 10/28/24 20:58 Last Admin: 10/28/24 21:01 Dose: 125 mg Documented By: KG Methylprednisolone Sodium Succinate (Methylprednisolone Sod Succ 40 Mg Vial) 40 mg IVP QDAY [facility] Stop: 11/03/24 08:59 Last Admin: 10/30/24 08:04 Dose: 40 mg Documented By: Admin: 10/29/24 09:33 Dose: 40 mg Documented By: Methylprednisolone Sodium Succinate (Methylprednisolone Sod Succ 40 Mg Vial) 40 mg IVP X1 ONE Stop: 10/30/24 09:53 Last Admin: 10/30/24 10:36 Dose: 40 mg Documented By: Naloxegol (Naloxegol Oxalate 25 Mg Tablet (Non-Formulary)) 12.5 mg PO QDAY [facility] Stop: 11/28/24 08:59 Last Admin: 10/30/24 08:20 Dose: 12.5 mg Documented By: Admin: 10/29/24 12:29 Dose: Not Given Documented By: CB Non-Admin Reason: Medication Not Available Oxycodone/Acetaminophen (Oxycodone/Apap 5/325 Tablet) 1 tab PO Q6H PRN PRN Reason: PAIN SCALE 4-6 (Moderate Stop: 11/03/24 03:15 Potassium Chloride (Potassium Chloride 20 Meq Tabcr) 40 meq PO X1 ONE Stop: 10/29/24 11:31 Last Admin: 10/29/24 12:34 Dose: 40 meq Documented By: Sacubitril/Valsartan (Sacubitril 24 Mg/Valsartan 26 Mg Tablet) 1 tab PO BID LELE Stop: 11/28/24 08:59 Last Admin: 11/01/24 09:14 Dose: 1 tab Documented By: Admin: 10/31/24 21:32 Dose: 1 tab Documented By: Admin: 10/31/24 09:55 Dose: 1 tab Documented By: Admin: 10/30/24 21:12 Dose: 1 tab Documented By: Admin: 10/30/24 08:04 Dose: 1 tab Documented By: Admin: 10/29/24 21:31 Dose: 1 tab Documented By: Admin: 10/29/24 09:34 Dose: 1 tab Documented By: Sodium Chloride (Sodium Chloride Rt Bhavana 0.9% 3 Ml Nebu) 3 ml INH PRN PRN PRN Reason: SOLN Stop: 11/27/24 21:06 Last Admin: 10/28/24 21:12 Dose: 3 ml Documented By: LARRY Sodium Chloride (Sodium Chloride Rt 10% 15 Ml Nebu) 5 ml INH X1 ONE Stop: 10/29/24 03:22 Last Admin: 10/29/24 05:00 Dose: 5 ml Documented By: LARRY Sodium Chloride (Sodium Chloride 1 Gm Tablet) 1 gm PO BID LELE Stop: 12/01/24 09:44 Last Admin: 11/01/24 10:37 Dose: 1 gm Documented By: BUNNY as above, if any Consultations Consultation(s) initiated? (list below): Yes Diagnosis Shortness of Breath Differential Diagnosis: other (see narrative) Most likely diagnosis given after review of the tests above:: see clinical impression Admission Indicated Admission indicated?: indicated Admission Request Was there a request for admission?: Yes Admission Attestation Admission request attestation: Discussed case with [] from Hospitalist service regarding admission. Discussed patients ED course, exam findings, labs, and radiology results. The Hospitalist [agrees,declines] to accept the patient for admission. Disposition Plan Disposition Plan: Admit Critical Care Time Critical Care Time Critical Care Time: Yes Total Critical Care Time (min.): 45 Attestation: The high probability of sudden, clinically significant deterioration in the patient?s condition required the highest level of my preparedness to intervene urgently. ? The services I provided to this patient were to treat and/or prevent clinically significant deterioration. Services included the following: chart data review, reviewing nursing notes and/or old charts, documentation time, strategy execution consultant collaboration regarding findings and treatment options, medication orders and management, direct patient care, vital sign assessments and ordering, interpreting and reviewing diagnostic studies and lab tests. ? Aggregate critical care time includes only time during which I was engaged in work directly related to the patient?s care, as described above, whether at bedside or elsewhere in the Emergency Department. It did not include time spent performing other reported procedures or the services of residents, students, nurses or physician assistants. Discharge Plan Plan Patient Disposition: Admit Acute Care w/in Hospital Patient condition on transfer: Stable Problem List Clinical Impression: Acute exacerbation of chronic obstructive pulmonary disease
[2024-10-28] MEDS: MethylPREDNISolone SOD SUCC 62.5 MG/ML 2ML VIAL 125 MG IVP (21:01)
[2024-10-28] MEDS: Magnesium Sulfate 2 GM Ivpb 2 GM/50 ML BAG IV (21:01)
[2024-10-28] MEDS: SODIUM CHLORIDE RT SOL 0.9% 3 ML NEBU INH (21:12)
[2024-10-28] MEDS: LEVALBUTEROL RT 1.25 MG/0.5 ML NEBU 5 MG INH (21:12)
--- NOTE | 2024-10-28 21:49 | XR_ITS ---
Examination: AP chest single view TECHNIQUE: AP portable upright chest single view Exam date and time: October 28, 2024 at 9:49 PM Comparison July 30, 2023 INDICATIONS: Shortness of breath today. FINDINGS: Moderate hyperexpansion Normal heart size. Minor scarring in the left mid lung Blunting of the left lateral costophrenic angle Prominent osteopenia IMPRESSION: COPD No pneumonia or pulmonary edema
[2024-10-28 21:51] LABS: Lactate (Lactic Acid) 1.4 mMol/L (0.4-2.0)
[2024-10-28 21:55] LABS: Basophils % (Auto) 0 % (0-2.5); Eosinophils # (Auto) 0.1 Thou/mm3 (0.0-0.5); Eosinophils % (Auto) 1 % (0-10); Hematocrit 31.9 % (36.0-46.0); Hemoglobin 11.2 g/dL (12.0-16.0); Immature Granulocytes % (Auto) 0 % (0-0); Immature Granulocytes Auto 0.05 Thou/mm3 (0.00-0.00); Lymphocytes # (Auto) 7.7 Thou/mm3 (1.0-4.8); Lymphocytes % (Auto) 55 % (10-50); Mean Corpuscular HGB Conc 35.1 g/dl (31.0-37.0); Mean Corpuscular Hemoglobin 34.3 pg (25.0-35.0); Mean Corpuscular Volume 98 fL (80-100); Monocytes # (Auto) 1.1 Thou/mm3 (0.0-0.8); Monocytes % (Auto) 8 % (0-12); Neutrophils # (Auto) 5.3 Thou/mm3 (1.8-7.7); Neutrophils % (Auto) 37 % (37-80); Nucleated Red Blood Cell % 0 /100 WBC (0); Platelet Count 202 Thou/mm3 (140-440); RDW Standard Deviation 47.9 fL (36.4-46.3); Red Blood Count 3.27 Miln/mm3 (4.00-5.20); White Blood Count 14.2 Thou/mm3 (3.6-11.0)
--- NOTE | 2024-10-28 21:56 | PC.RT ---
fio2 titrated to 45% at 21:25 sats 100%.
[2024-10-28 22:10] LABS: Partial Thromboplastin Time 21.9 Seconds (22.0-36.0); Prothrombin Time 10.7 Seconds (9.0-12.2)
[2024-10-28] MEDS: ACETAMINOPHEN IVPB 1,000 MG/100 ML VIAL 250 MG IV (22:10)
[2024-10-28 22:19] LABS: Alanine Aminotransferase 10 U/L (10-49); Albumin, Serum 4.3 gm/dL (3.4-4.8); Albumin/Globulin Ratio 1.2 (1.2-2.2); Alkaline Phosphatase 54 U/L (46-116); Anion Gap 9 (7-16); Aspartate Amino Transferase 35 U/L (0-34); BUN/Creatinine Ratio 24 Ratio (12-20); Bilirubin,Total 0.4 mg/dL (0.3-1.2); Blood Urea Nitrogen 17 mg/dL (9-23); Calcium 9.5 mg/dL (8.3-10.6); Calcium (Corrected) 9.5 mg/dL (8.5-10.1); Carbon Dioxide 33.1 mMol/L (20.0-31.0); Chloride 86 mMol/L (98-107); Creatinine (Component) 0.7 mg/dL (0.6-1.3); Estimated Creatinine Clearance 52.4 mL/min (>60); Globulin 3.5 gm/dL (2.3-3.5); Glucose 118 mg/dL (74-106); Magnesium 1.4 mg/dL (1.6-2.6); Osmolality,Calculated 259 (275-295); Potassium 3.9 mMol/L (3.4-5.1); Sodium 128 mMol/L (136-145); Total Protein 7.8 gm/dL (5.7-8.2); Troponin I < 0.020 ng/mL (0.0-0.045); eGFR > 60 See Note
[2024-10-28 22:23] LABS: Procalcitonin 0.19 ng/ml (0.0-0.49)
[2024-10-28 22:37] LABS: B-Type Natriuretic Peptide 1001 pg/mL (0-100)
[2024-10-28 22:37] LABS: Base Excess 7 (-3-3); HCO3 34 mEq/L (20-26); Inspired Oxygen, FIO2 45 %; O2 Saturation 96 % (91-98); PCO2 62 mmHg (32.0-48.0); PO2 93 mmHg (83-108); pH, Arterial 7.35 (7.35-7.45)
[2024-10-28 22:58] LABS: Allen Test Performed/OK; Puncture Site Left Radial
--- NOTE | 2024-10-28 23:01 | PC.RT ---
fio2 titrated to 30% per abg results.
[2024-10-28] MEDS: KETOROLAC INJ 30 MG/ML VIAL IVP (23:29)
[2024-10-29] VITALS (29 sets, daily range): BP systolic 114–174; BP diastolic 55–93; PULSE 70–130; RESP 17–32; TEMP 36.3–37.4; O2SAT 76–100
--- NOTE | 2024-10-29 00:22 | XR_ITS ---
Examination: CTA chest with intravenous contrast 2-D reconstructions 3-D reconstructions, vascular Date and time of exam: October 29, 2024 0056 hours Comparison July 30, 2023 INDICATIONS: Chest pain shortness of breath today CTDI: vol (mGy) 13.48 DLP: (mGycm) 305 Technique: Multiple axial sections of the thorax have been obtained. 3 mm slice thickness, from below the hemidiaphragms to above the apices of the lungs. Mediastinal and lung density settings have been obtained. 2-D sagittal and coronal reconstructions. 3-D angiographic renderings, 3-D volume renderings, 3D post processing, vascular maximum intensity projections obtained. Contrast administered is 100 cc Isovue-370 intravenous. Low dose protocols were performed. One or more of the following dose reduction techniques were used; automated exposure control, adjustment of the mA and/or KV according to patient size, use of iterative reconstruction technique. Findings: AP dimension ascending thoracic aorta 3.3 cm No thoracic aortic dissection Enlarged left atrium No pulmonary artery filling defects Mild right hilar lymphadenopathy Soft areas of opacity throughout both lungs consistent with pneumonia No significant pleural disease No visualized liver lesion Lateral right renal cyst 3.5 cm No definite gallstones IMPRESSION: Negative for pulmonary artery emboli Bilateral pneumonia
--- NOTE | 2024-10-29 00:38 | PC.NURSE ---
assisting primary RN for break. Pt straight cathed without any urine return. Purewick placed.
--- NOTE | 2024-10-29 00:48 | PC.NURSE ---
Pt to CT scan at this time. Rt came and switched pt from bipap to oxymask.
[2024-10-29] MEDS: AZITHROMYCIN INJ 500 MG in SODIUM CHLORIDE 0.9% 250 ML 250 ML 250 MG IV (01:17)
--- NOTE | 2024-10-29 02:16 | PRELIM_ITS ---
CT angiogram of the chest with intravenous contrast (axial sections with sagittal and coronal reformats) October 29, 2024 0056 hours Clinical History: Chronic obstructive pulmonary disease and shortness of breath Technique:Helical axial sections with sagittal and coronal reformats of the chest were obtained with intravenous contrast. Iterative reconstruction technique was employed to reduce patient radiation exposure. 3D/MIP reconstructed images were also provided. Comparison: CT of June 18, 2023. Findings: There is no filling defect within the pulmonary artery divisions to suggest pulmonary thromboembolism. The mediastinum demonstrates no evidence of mass or lymphadenopathy. The thoracic aorta is unremarkable. There is no pericardial effusion. Mild to moderate lungs emphysema. Consolidation in the left upper lobe. Small consolidation in the right middle lobe. Consolidation in the right lower lobe. No evidence of pleural effusion or pneumothorax. Right renal simple cyst. Degenerative changes of the imaged portions of the spine. No acute fractures. Bilateral breast implants. Dilated left atrium. Impression: No CT evidence of pulmonary thromboembolism. Multifocal pneumonia in the background of emphysema. Dilated left atrium. Report Electronically Signed By: Dimitri Gallagher 10/29/2024 2:16:05 AM [EST]
--- NOTE | 2024-10-29 03:30 | PD.RESHP ---
Documentation for date of: 10/29/24 HPI History of Present Illness History of present illness: This is a 71-year-old female with PMHx of COPD on 2 L home oxygen, Stage II diastolic dysfunction, HTN, possible A-fib, CVA, lymphoma in remission, PAD s/p vascular intervention of lower extremity, presenting to the ED with shortness of breath and cough. Reports 3 days of worsening dry, nonproductive cough and SOB, requiring increased dose of home oxygen. She states has been taking her home inhaler as prescribed but has persistent symptoms despite. She has not taken anything for the cough, had assumed it would go away. However, she decided to come to the hospital because of worsening SOB. Denies fever, chills, headaches, sick exposure, recent travel history, recent ANTIBIOTICS use, chest pain, chest pressure or palpitations, GI symptoms including abdominal pain or N/V/D/C, urinary symptoms such as dysuria, frequency or urgency. ED COURSE: T101.3, BP 207/109, HR 122, RR 24, initially on BiPAP, now on 1 L NC, satting mid 90s. WBC 14.2, Hgb 11 around baseline. Normal coag studies. Sodium 128, magnesium 1.4, AST 35, BNP 1000, troponin negative. UA negative for UTI. ABG showed pH 7.35, pCO2 62, pO2 93, bicarb 34. Negative COVID, influenza A/B. CXR no pneumonia or pulmonary edema. CTA chest showed multifocal pneumonia, chronic emphysema. She was started on BiPAP in ED. Currently on 1 L NC, satting well. ED gave STEROIDS, AZITHROMYCIN, and CEFTRIAXONE x 1. Patient admitted for COPD exacerbation. PMHx: COPD on 2 L home oxygen, HFpEF, HTN, possible A-fib, CVA, former in remission, PAD PSHx: LE vascular intervention for PAD. MEDS: CODEINE, ALBUTEROL, CETIRIZINE, CLOPIDOGREL, DOCUSATE, FAMOTIDINE, HYDROCHLOROTHIAZIDE, LACTULOSE, METOLAZONE, METOPROLOL SUCCINATE, PREDNISONE, ENTRESTO, senna, TRELEGY. ALLERGIES: SULFA DRUGS SH: Distant history of smoking, denies alcohol or drug use. Exam Vital Signs Temp Pulse Resp BP Pulse Ox O2 Del Method FiO2 99.3 F 89 18 118/61 100 CPAP 45 10/29/24 01:15 10/29/24 02:00 10/29/24 02:00 10/29/24 02:00 10/29/24 02:00 10/28/24 21:08 10/28/24 22:14 Narrative Exam GENERAL Ill-appearing elderly female, in mild distress due to cough. On 1 L NC, satting well, speaking in short sentences. HEENT NCAT.?DELFIN. Oral mucosa is moist. Patent Nares NECK Supple, nontender, no thyromegaly, no meningismus, no JVD, no step offs CHEST RRR, no m/g/r Coarse breath sound bilaterally, worse on the right. Diffuse bilateral wheezing No intercostal subcostal retraction Atraumatic, nontender, no crepitus, symmetrical expansion. ABDOMEN Soft, flat, nontender. No guarding/rebound tenderness/masses. Bowel sounds presents EXTREMITIES Nontender, no cyanosis, no edema No edema/cyanosis.? SKIN Warm and dry, no jaundice/rashes. Bilateral lower extremity senile purpura NEUROMUSCULAR No lumbar or midline, no CVA, no paraspinal muscle spasm or tenderness. Moves all 4 extremities well, with full ROM and good CSM. CASTLE x4, CN II-XII grossly intact. No focal neurologic deficits. PSYCHIATRY Normal mood and affect, cooperative, no SI or HI or hallucinations. Results: Labs 10/28/24 21:35 10/29/24 04:47 Labs: Short CBC 10/28/24 Range/Units 21:35 WBC 14.2 H (3.6-11.0) Thou/mm3 Hgb 11.2 L (12.0-16.0) g/dL Hct 31.9 L (36.0-46.0) % Plt Count 202 D (140-440) Thou/mm3 BMP 10/28/24 21:35 Sodium 128 L Potassium 3.9 Chloride 86 L Carbon Dioxide 33.1 H BUN 17 Creatinine 0.7 Glucose 118 H Calcium 9.5 Cardiac Enzymes 10/28/24 Range/Units 21:35 Troponin I < 0.020 (0.0-0.045) ng/mL Liver Function 10/28/24 Range/Units 21:35 Total Bilirubin 0.4 (0.3-1.2) mg/dL AST 35 H (0-34) U/L ALT 10 (10-49) U/L Alkaline Phosphatase 54 (46-116) U/L Albumin 4.3 (3.4-4.8) gm/dL ABG Interpretation ABG results: 10/28/24 22:30 ABG pH 7.35 ABG pCO2 62 H ABG pO2 93 ABG HCO3 34 H ABG O2 Saturation 96 ABG Base Excess 7 H Quality Measures Quality Measures sepsis Current suspected stage: ruled out Possible source: unknown Blood cultures ordered: yes Antibiotic ordered: Yes Advance care planning discussed with:: patient Medications Home Medications and Allergies Home Medications ?Medication ?Instructions ?Recorded ?Confirmed ?Type docusate sodium 100 mg capsule 200 mg PO BID 10/20/22 10/28/24 History cetirizine 10 mg tablet 10 mg PO DAILY PRN Allergy Symptoms 05/03/23 10/28/24 History famotidine 20 mg tablet 20 mg PO DAILY PRN Acid Reflux 05/03/23 10/28/24 History fluticasone fur. 200 mcg-umeclid 2 inh inhalation QDAY PRN 05/03/23 10/28/24 History 62.5 mcg-vilant 25 mcg shortness of breath inhalat.powder (Trelegy Ellipta) acetaminophen 300 mg-codeine 30 mg 1 tab PO TID PRN Pain 06/07/23 10/28/24 History tablet metoprolol succinate 25 mg 25 mg PO DAILY 08/01/23 10/28/24 History tablet,extended release 24 hr sacubitril 24 mg-valsartan 26 mg 1 tab PO BID 08/01/23 10/28/24 History tablet (Entresto) clopidogrel 75 mg tablet 75 mg PO DAILY 10/28/24 10/28/24 History hydrochlorothiazide 25 mg tablet 25 mg PO DAILY 10/28/24 10/28/24 History lactulose 10 gram/15 mL oral 15 ml PO DAILY PRN constipation 10/28/24 10/28/24 History solution metolazone 2.5 mg tablet 2.5 mg PO DAILY 10/28/24 10/28/24 History prednisone 5 mg tablet 5 mg PO DAILY 10/28/24 10/28/24 History Allergies Allergy/AdvReac Type Severity Reaction Status Date / Time ciprofloxacin (From Cipro) Allergy Severe Rash Verified 10/28/24 21:18 Sulfa (Sulfonamide Allergy Severe nausea, Verified 10/28/24 21:18 Antibiotics) itchy all over Visit Medications Acetaminophen (Acetaminophen 325 Mg Tablet) 650 mg PO Q6H PRN PRN Reason: PAIN SCALE 1-3 (mild Stop: 11/28/24 03:15 Acetaminophen (Acetaminophen 325 Mg Tablet) 650 mg PO Q6H PRN PRN Reason: Fever >100 Stop: 11/28/24 03:15 Albuterol/Ipratropium (Albuterol/Ipratropium (Duoneb) Rt Bhavana 3 Ml Nebu) 3 ml INH Q6HRRT LELE Stop: 11/28/24 06:59 Azithromycin 500 mg/ Sodium (Chloride) 250 mls @ 250 mls/hr IV QDAY [facility] Stop: 11/05/24 00:22 Sodium Chloride (Ns) 1,000 mls @ 70 mls/hr IV .[id number] ONE Stop: 10/29/24 17:33 Ceftriaxone Sodium/Dextrose (Rocephin/D5w 1gm Iv Premix) 50 mls @ 100 mls/hr IV QDAY [facility] Stop: 11/05/24 08:59 Azithromycin 250 mg/ Sodium (Chloride) 250 mls @ 250 mls/hr IV QDAY [facility] Stop: 11/05/24 03:17 Last Admin: 10/29/24 03:28 Dose: Not Given Methylprednisolone Sodium Succinate (Methylprednisolone Sod Succ 40 Mg Vial) 40 mg IVP QDAY [facility] Stop: 11/03/24 08:59 Ondansetron HCl (Ondansetron Inj 2 Mg/Ml Inj 2 Ml) 4 mg IV Q6H PRN; Protocol PRN Reason: NAUSEA OR VOMITING Stop: 11/28/24 03:15 Oxycodone/Acetaminophen (Oxycodone/Apap 5/325 Tablet) 1 tab PO Q6H PRN PRN Reason: PAIN SCALE 4-6 (Moderate Stop: 11/03/24 03:15 Pantoprazole Sodium (Pantoprazole Inj 40 Mg Vial) 40 mg IVP QDAY [facility] Stop: 11/28/24 08:59 Sodium Chloride (Sodium Chloride Rt Bhavana 0.9% 3 Ml Nebu) 3 ml INH PRN PRN PRN Reason: SOLN Stop: 11/27/24 21:06 Last Admin: 10/28/24 21:12 Dose: 3 ml Discontinued Medications Magnesium Sulfate (Magnesium Sulfate Ivpb) 2 gm in 50 mls @ 25 mls/hr IV X1 ONE Stop: 10/28/24 22:57 Last Infusion: 10/28/24 21:32 Dose: Infused Acetaminophen (Ofirmev Inj) 1,000 mg in 100 mls @ 250 mls/hr IV X1 ONE Stop: 10/28/24 21:46 Last Infusion: 10/28/24 22:48 Dose: Infused Ceftriaxone Sodium 1,000 mg/ (Sodium Chloride) 50 mls @ 100 mls/hr IV X1 ONE Stop: 10/29/24 00:52 Last Infusion: 10/29/24 01:41 Dose: Infused Azithromycin 500 mg/ Sodium (Chloride) 250 mls @ 250 mls/hr IV X1 ONE Stop: 10/29/24 01:44 Last Infusion: 10/29/24 02:12 Dose: Infused Ketorolac Tromethamine (Ketorolac Inj 30 Mg/Ml Vial) 30 mg IVP X1 ONE Stop: 10/28/24 23:27 Last Admin: 10/28/24 23:29 Dose: 30 mg Levalbuterol HCl (Levalbuterol Rt 1.25 Mg/0.5 Ml Nebu) 5 mg INH X1 ONE Stop: 10/28/24 21:08 Last Admin: 10/28/24 21:12 Dose: 5 mg Methylprednisolone Sodium Succinate (Methylprednisolone Sod Succ 62.5 Mg/Ml 2ml Vial) 125 mg IVP X1 ONE Stop: 10/28/24 20:58 Last Admin: 10/28/24 21:01 Dose: 125 mg Sodium Chloride (Sodium Chloride Rt 10% 15 Ml Nebu) 5 ml INH X1 ONE Stop: 10/29/24 03:22 Assessment & Plan Plan In summary: 71-year-old female PMHx of COPD on 2 L oxygen, HFpEF, HTN, possible A-fib, CVA, lymphoma in remission, PAD, presenting with cough and shortness of breath. Admitted for COPD exacerbation. Acute on chronic hypoxemic respiratory failure Sepsis secondary to pneumonia, 4/4 SIRS positive COPD exacerbation Possible CHF exacerbation Community-acquired pneumonia Has 3 days of dry cough and SOB, requiring increased oxygen requirement. History of COPD on 2 L home oxygen. BNP 1000, previously as high as >3200k. Last echo 2022, EF 55?60, diastolic dysfunction stage II. No signs of fluid overload. Wheezing and coarse breath sounds on exam. CXR clear. CTA showed focal pneumonia. Negative COVID and influenza. Met 4/4 SIRS criteria on admission. Tachypnea and tachycardia improved with BiPAP. Currently on 1 L NC, satting well. Less likely she has sepsis, no signs endorgan damage, but will proceed with gentle fluid as below. A1c 5.1 from 03/2024, normal lipid panel from 03/2024. ? Admission to telemetry ? Continue CEFTRIAXONE (2/3 to present) ? Continue AZITHROMYCIN (2/3 to present) ? Continue METHYLPREDNISOLONE (2/3 to present) ? Continue DuoNebs q.6h. PRN ? Continue home ENTRESTO 1 tab BID ? Oxygen PRN, titrate to 88-92% ? Pending echocardiogram ? Pending pancultures ? Pending TSH, free T4 ? Holding home METOPROLOL 25 mg daily possible CHF exacerbation. ? Consider resuming home HCTZ, METOLAZONE when hemodynamics permit ? Consider cocci IgG/IgM Hyponatremia Hypomagnesemia Sodium 128. Magnesium 1.4. Likely dehydrational and malnutrition. Reports decreased appetite and oral intake. ? Repleted magnesium ? Started 1 L normal saline at 70 cc/H Hypertensive urgencies (resolved) Tachycardia (resolved) HTN Admission BP 207/109, HR 122. Troponin negative. Likely reactive 2/2 hypoxemia. Currently BP 144/82, HR 82. ? Started home ENTRESTO BID ? Consider restarting home HCTZ and METOLAZONE as indicated. ? A-fib Per chart review. She is unaware of having A-fib. Not currently on medications. Appears in sinus rhythm on telemetry. ? Pending EKG Hx of CVA Hx of PAD Per chart review, she has history of CVA. Had vascular intervention for PAD previously. ? Continue home CLOPIDOGREL 75 mg daily Chronic constipation On multiple home bowel regimen. Likely related to chronic CODEINE use. Last bowel movement 7 days ago. Positive bowel sounds on exam. Advised against coding, however she states she is very dependent on CODEINE for pain. ? Started scheduled daily MOVANTIK, SENNA?DOCUSATE, and MIRALAX Chronic lumbago Narcotics dependency ? Continue home TYLENOL-CODEINE 1 tablet TID for pain. Health maintenance Diet: Cardiac GI prophylaxis: PROTONIX DVT prophylaxis: HEPARIN subcu CODE STATUS: Full code Disposition: COPD versus CHF exacerbation workup. Health maintenance Diet: Cardiac GI prophylaxis: PROTONIX DVT prophylaxis: HEPARIN subcu Antibiotics: CEFTRIAXONE, AZITHROMYCIN CODE STATUS: Full code Disposition: Manage COPD exacerbation. Patient case was discussed with attending, Emerita Sanchez MD. Laura Costa DO PGYI Attending Provider Attestation/Addendum I attest that I was physically present for the evaluation, physical examination, lab and imaging review of the patient with the residents. I discussed the case with the residents and agree with the findings and plans of care as documented above. Patient is a 71 years old female with past medical history of COPD on 2 L home oxygen, HFpEF, hypertension, possible A-fib, CVA, lymphoma in remission, PAD status post vascular intervention presented to the ED with complaint of shortness of breath and cough. Patient has been having dry nonproductive cough and shortness of breath for last 3 days needing increased home oxygen. She denies fever, chills, chest pain or palpitations. In the ED, she was found to have a temperature of 101.3, elevated blood pressure at 207/109, heart rate 122 and respiratory 22. Saturating well on nasal cannula. WBC count is 14.2, sodium 128, magnesium 1.4, BNP thousand. ABG was done, showed pH of 7.35, pCO2 62 and pO2 of 93. CTA chest was done which showed multifocal pneumonia and chronic emphysema. We will admit patient for acute on chronic hypoxemic respiratory failure likely secondary to COPD exacerbation from community acquired pneumonia. Patient appears dry on examination, less likely to be on CHF exacerbation although her BNP was thousand, which was improvement compared to her last visit. We will start patient on IV azithromycin and Rocephin along with steroids, DuoNebs, supplemental oxygen. We will also obtain an echocardiogram. Noted to have some electrolyte imbalances, we will correct accordingly. Nasrin Sanchez MD
--- NOTE | 2024-10-29 03:32 | ECHO_ITS ---
Transthoracic Echo Report Ht (in): 62 Wt (lb): 115 Exam Location: Echo Lab Status: Inpatient Graduate Internship: Karime Mayo Indications: Procedure Performed: BP: 163 / 84 HR: Technical Quality: Technically difficult study MEASUREMENTS (Male / Female) Normal Values 2D ECHO LV Diastolic Diameter PLAX 3.5 cm 4.2 - 5.9 / 3.9 - 5.3 cm LV Systolic Diameter PLAX 2.5 cm IVS Diastolic Thickness 1.1 cm 0.6 - 1.0 / 0.6 - 0.9 cm LVPW Diastolic Thickness 1.0 cm 0.6 - 1.0 / 0.6 - 0.9 cm LV Relative Wall Thickness 0.6 LVOT Diameter 1.3 cm M-MODE Aortic Root Diameter MM 1.8 cm AV Cusp Separation MM 1.2 cm DOPPLER AV Peak Velocity 116.0 cm/s AV Peak Gradient 5.4 mmHg AV Mean Gradient 3.0 mmHg AV Velocity Time Integral 22.5 cm LVOT Peak Velocity 103.0 cm/s LVOT Peak Gradient 4.2 mmHg LVOT Velocity Time Integral 18.1 cm AV Area Cont Eq vti 1.1 cm? AV Area Cont Eq pk 1.2 cm? MV Peak Velocity 84.6 cm/s MV Peak Gradient 2.9 mmHg MV Mean Velocity 62.2 cm/s MV Mean Gradient 2.0 mmHg MV Area PHT 4.9 cm? MR Peak Velocity 384.0 cm/s MR Peak Gradient 59.0 mmHg Mitral E Point Velocity 67.9 cm/s Mitral A Point Velocity 95.6 cm/s Mitral E to A Ratio 0.7 LV E' Lateral Velocity 6.5 cm/s Mitral E to LV E' Lateral Ratio 10.4 LV E' Septal Velocity 3.3 cm/s Mitral E to LV E' Septal Ratio 20.8 FINDINGS Left Ventricle Normal left ventricular size and systolic function with no obvious regional wall motion abnormalities. Mild LVH. Normal left ventricular diastolic filling pattern for age. The ejection fraction is visually estimated at 55%. Right Ventricle The right ventricle is normal in size and systolic function. Left Atrium Left atrium not well visualized. Right Atrium Right atrium is not well visualized. Atrial Septum The interatrial septum appears normal with no evidence of a shunt. Aorta The aorta is normal by two-dimensional, color flow and Doppler interrogation. Mitral Valve Mild mitral regurgitation. Moderate mitral annular calcification. Aortic Valve The aortic valve is trileaflet and normal by two-dimensional, color flow and Doppler interrogation. There is no significant aortic valve regurgitation. Tricuspid Valve The tricuspid valve is normal by two-dimensional, color flow and Doppler interrogation. There is no significant tricuspid valve regurgitation. Pulmonic Valve The pulmonic valve is not well visualized. There is no significant pulmonic valve regurgitation. Vessels The pulmonary artery appears normal. The inferior vena cava pulmonary and hepatic veins appear normal. Pericardium The pericardium is normal by two-dimensional imaging. There is no significant pericardial effusion. CONCLUSIONS Indication: Elevated BNP, dyspnea BiPAP Normal left ventricular size and function. Estimated EF 55%. RV is normal in size and systolic function. Moderate MAC with mild MR Guillermina Benz (Electronically Signed) Final Date: 31 October 2024 00:53
[2024-10-29 03:52] LABS: Collection Type, Urine Clean Catch; RBC,Urine 0 /hpf (0-3); WBC,Urine 0 /hpf (0-5)
[2024-10-29] MEDS: SODIUM CHLORIDE 0.9% 1000 ML 1,000 ML 70 ML IV (04:16)
[2024-10-29] MEDS: Magnesium Sulfate 4 GM Ivpb 4 GM/50 ML BAG IV (04:16)
[2024-10-29] MEDS: SODIUM CHLORIDE RT 10% 15 ML NEBU 5 ML INH (05:00)
--- NOTE | 2024-10-29 05:05 | PC.NURSE ---
Called resident, because pt became SOB and working harder to breath. Pt tripoding and placed back on BiPAP. Respiratory called and physican ordered another breathing tx for pt.
[2024-10-29 05:10] LABS: Bacteria,Urine Rare; Bilirubin,Urine Negative (Negative); Blood,Urine Negative (Negative); Clarity,Urine Clear (Clear/Hazy); Color,Urine Lt-Yellow (Lt Yel-Yel); Glucose, Urine Negative (Negative); Ketones,Urine Negative (Negative); Leukocyte Esterase,Urine Negative (Negative); Nitrite,Urine Negative (Negative); PH,Urine 6.5 (5.0-7.0); Protein,Urine 2+ (Neg - Trace); Specific Gravity,Urine 1.041 (1.001-1.035); Squamous Epithelial Cell,Urine < 1 /hpf (0-5); Urobilinogen,Urine Negative mg/dL (0.0-1.0)
[2024-10-29 05:13] LABS: Amphetamine/Methamp Scrn,U Negative (Negative); Barbiturate Screen,Urine Negative (Negative); Benzodiazepines Screen,Urine Negative (Negative); Benzoylecgonine Screen, Ur Negative (Negative); Fentanyl Screen,Urine Negative (Negative); Opiate Screen,Urine Positive (Negative); THC Screen,Urine Negative (Negative)
[2024-10-29] MEDS: ALBUTEROL/IPRATROPIUM (Duoneb) RT SOL 3 ML NEBU INH ×3 (05:29→22:59)
[2024-10-29 06:21] LABS: Free T4 (Free Thyroxine) 1.08 ng/dL (0.89-1.76); Thyroid Stimulating Hormone 0.34 uIU/mL (0.55-4.78)
[2024-10-29] MEDS: HEPARIN SOD INJ 5000 UNIT/ML VIAL SC ×2 (07:58→21:41)
[2024-10-29] MEDS: ACETAMINOPHEN w/COD 300-30 TABLET 1 TAB PO ×2 (07:59→21:30)
[2024-10-29] MEDS: PANTOPRAZOLE INJ 40 MG VIAL IVP (09:20)
[2024-10-29] MEDS: POLYETHYLENE GLYCOL 17 GM PACKET PO (09:34)
[2024-10-29] MEDS: CLOPIDOGREL BISULFATE 75 MG TABLET PO (09:34)
[2024-10-29] MEDS: SACUBITRIL 24 MG/VALSARTAN 26 MG TABLET 1 TAB PO ×2 (09:34→21:31)
[2024-10-29 09:53] LABS: Anion Gap 8 (7-16); BUN/Creatinine Ratio 27 Ratio (12-20); Blood Urea Nitrogen 19 mg/dL (9-23); Calcium 8.5 mg/dL (8.3-10.6); Carbon Dioxide 33.8 mMol/L (20.0-31.0); Chloride 85 mMol/L (98-107); Creatinine (Component) 0.7 mg/dL (0.6-1.3); Estimated Creatinine Clearance 52.4 mL/min (>60); Glucose 195 mg/dL (74-106); Osmolality,Calculated 262 (275-295); Potassium 3.2 mMol/L (3.4-5.1); Sodium 127 mMol/L (136-145); eGFR > 60 See Note
[2024-10-29] MEDS: POTASSIUM CHL 10 mEq IVPB 10 MEQ/100 ML BAG 100 MEQ IV (12:33)
[2024-10-29] MEDS: POTASSIUM CHLORIDE 20 mEq TABCR 40 MEQ PO (12:34)
[2024-10-29] MEDS: POTASSIUM CHL 10 mEq IVPB 10 MEQ/100 ML BAG 50 MEQ IV (15:50)
--- NOTE | 2024-10-29 19:11 | ESPR_ITS ---
<Statement entered by Loreto Estrella MD - 10/29/24 19:22> I discussed with and supervised my co-resident involved in the care of this patient. I agree with the assessment and plan as documented above. Patient seen and examine at bedside. She is feeling much better. Off BIPAP. ABG looks unremarkable for CO2 retention. Patient appears euvolemic on physical exam, trace swelling in legs. Sodium stable from admission despite NS. Suspect hyponatremia due to pulmonary infection. Will discontinue IVF, hold home metalozone and thiazide, and and order fluid restriction and urine electrolytes. Will continue IV antibiotics and follow up cultures. Loreto Estrella MD PGY-3 Documentation for date of: 10/29/24 Subjective Subjective Interval history: Patient seen and examined at bedside. States that her symptoms have improved with no shortness of breath, no chest pain, no fever noted. No longer on BiPAP and adequately saturating 98% O2 via 2 L nasal cannula. Physical exam positive for expiratory wheezing. WBC 14, sodium 127, osm 262 potassium 3.2, magnesium 1.4. Repleted potassium, follow-up with urine electrolytes and osmolarity, supportive care for pneumonia. Hold hydrochlorothiazide and metolazone due to hyponatremia. Continue fluid restriction repeat CMP. Exam Vital Signs Temp Pulse Resp BP Pulse Ox O2 Del Method O2 Flow Rate 97.9 F 88 19 146/85 H 100 BiPAP 2 10/29/24 16:00 10/29/24 19:00 10/29/24 19:00 10/29/24 16:00 10/29/24 19:00 10/29/24 08:06 10/29/24 19:00 FiO2 30 10/29/24 06:11 Narrative Exam General: Elderly female, sitting comfortably, no acute distress, cooperative HEENT: NCAT, No JVD noted. Mucosa moist. Pupils are equal and reactive to light bilaterally Cardiovascular: Normal S1 and S2. Regular rate and rhythm. Respiratory: No crackles, expiratory wheezing auscultated., On 2 L NC Abdomen: Soft, nontender, not distended, normal bowel sounds. Skin: Warm to touch, dry, or lower extremity dermatitis, senile purpura upper extremity Musculoskeletal: No gross injuries. Able to move all 4 extremities. No pitting edema Neuro: Alert and oriented x3. No focal neuro deficits. Psych: Normal affect and mood Objective Labs 11/01/24 04:15 11/01/24 21:10 Labs: Laboratory Results - last 24 hr 10/28/24 10/28/24 10/28/24 21:35 21:42 22:30 WBC 14.2 H RBC 3.27 L Hgb 11.2 L Hct 31.9 L MCV 98 MCH 34.3 MCHC 35.1 RDW Std Deviation 47.9 H Plt Count 202 D Neut % (Auto) 37 Lymph % (Auto) 55 H [place] % (Auto) 8 Eos % (Auto) 1 Baso % (Auto) 0 Neut # (Auto) 5.3 Lymph # (Auto) 7.7 H [place] # (Auto) 1.1 H Eos # (Auto) 0.1 Baso # (Auto) 0.0 Immature Gran # (Auto) 0.05 H Absolute Nucleated RBC 0.00 Immature Gran % 0 Nucleated RBC % 0 PT 10.7 INR 1.0 APTT 21.9 L Puncture Site Left Radial ABG pH 7.35 ABG pCO2 62 H ABG pO2 93 ABG HCO3 34 H ABG O2 Saturation 96 ABG Base Excess 7 H FiO2 45 Sodium 128 L Potassium 3.9 Chloride 86 L Carbon Dioxide 33.1 H Anion Gap 9 BUN 17 Creatinine 0.7 Estim Creat Clear Calc 52.4 L eGFR > 60 BUN/Creatinine Ratio 24 H Glucose 118 H Calculated Osmolality 259 L Lactic Acid 1.4 Calcium 9.5 Corrected Calcium 9.5 Magnesium 1.4 L Total Bilirubin 0.4 AST 35 H ALT 10 Alkaline Phosphatase 54 Troponin I < 0.020 B-Natriuretic Peptide 1001 H* Total Protein 7.8 Albumin 4.3 Globulin 3.5 Albumin/Globulin Ratio 1.2 Procalcitonin 0.19 TSH Free T4 Ur Collection Type Urine Color Urine Clarity Urine pH Ur Specific [place] Urine Protein Urine Glucose (UA) Urine Ketones Urine Blood Urine Nitrite Urine Bilirubin Urine Urobilinogen (Auto) Ur Leukocyte Esterase Urine RBC Urine WBC Ur Squamous Epith Cells Urine Bacteria Urine Opiates Screen Urine Fentanyl Screen Ur Barbiturates Screen U Amphetamin/Meth Scrn U Benzodiazepines Scrn U Cocaine Metab Screen U Marijuana (THC) Screen 10/29/24 10/29/24 03:40 04:47 WBC RBC Hgb Hct MCV MCH MCHC RDW Std Deviation Plt Count Neut % (Auto) Lymph % (Auto) [place] % (Auto) Eos % (Auto) Baso % (Auto) Neut # (Auto) Lymph # (Auto) [place] # (Auto) Eos # (Auto) Baso # (Auto) Immature Gran # (Auto) Absolute Nucleated RBC Immature Gran % Nucleated RBC % PT INR APTT Puncture Site ABG pH ABG pCO2 ABG pO2 ABG HCO3 ABG O2 Saturation ABG Base Excess FiO2 Sodium 127 L Potassium 3.2 L D Chloride 85 L Carbon Dioxide 33.8 H Anion Gap 8 BUN 19 Creatinine 0.7 Estim Creat Clear Calc 52.4 L eGFR > 60 BUN/Creatinine Ratio 27 H Glucose 195 H D Calculated Osmolality 262 L Lactic Acid Calcium 8.5 Corrected Calcium Magnesium Total Bilirubin AST ALT Alkaline Phosphatase Troponin I B-Natriuretic Peptide Total Protein Albumin Globulin Albumin/Globulin Ratio Procalcitonin TSH 0.34 L Free T4 1.08 Ur Collection Type Clean Catch Urine Color Lt-Yellow Urine Clarity Clear Urine pH 6.5 Ur Specific [place] 1.041 H Urine Protein 2+ A Urine Glucose (UA) Negative Urine Ketones Negative Urine Blood Negative Urine Nitrite Negative Urine Bilirubin Negative Urine Urobilinogen (Auto) Negative Ur Leukocyte Esterase Negative Urine RBC 0 Urine WBC 0 Ur Squamous Epith Cells < 1 Urine Bacteria Rare Urine Opiates Screen Positive A Urine Fentanyl Screen Negative Ur Barbiturates Screen Negative U Amphetamin/Meth Scrn Negative U Benzodiazepines Scrn Negative U Cocaine Metab Screen Negative U Marijuana (THC) Screen Negative ABG Interpretation ABG results: 10/28/24 22:30 ABG pH 7.35 ABG pCO2 62 H ABG pO2 93 ABG HCO3 34 H ABG O2 Saturation 96 ABG Base Excess 7 H Quality Measures Quality Measures sepsis Current suspected stage: sepsis Possible source: unknown Blood cultures ordered: yes Antibiotic ordered: Yes Advance care planning discussed with:: patient Assessment & Plan Assessment Current Active Medications: Generic Name Dose Route Start Last Admin Trade Name Freq PRN Reason Stop Dose Admin Acetaminophen 650 mg 10/29/24 03:16 Acetaminophen 325 Mg Tablet PO 11/28/24 03:15 Q6H PRN PAIN SCALE 1-3 (mild Acetaminophen 650 mg 10/29/24 03:16 Acetaminophen 325 Mg Tablet PO 11/28/24 03:15 Q6H PRN Fever >100 Acetaminophen/Codeine Phosphate 1 tab 10/29/24 06:00 10/29/24 13:33 Acetaminophen W/Cod 300-30 Tablet PO 11/03/24 05:59 Not Given TID LELE Albuterol/Ipratropium 3 ml 10/29/24 07:00 10/29/24 18:57 Albuterol/Ipratropium (Duoneb) Rt Bhavana 3 Ml Nebu INH 11/28/24 06:59 3 ml Q6HRRT LELE Administration Azithromycin 250 mg 10/29/24 21:00 Azithromycin 250 Mg Tablet PO 11/05/24 03:17 HS [facility] Clopidogrel Bisulfate 75 mg 10/29/24 09:00 10/29/24 09:34 Clopidogrel Bisulfate 75 Mg Tablet PO 11/28/24 08:59 75 mg QDAY LELE Administration Heparin Sodium (Porcine) 5,000 unit 10/29/24 06:00 10/29/24 13:33 Heparin Sod Inj 5000 Unit/Ml Vial SC 11/12/24 05:59 Not Given Q8HR LELE Ceftriaxone Sodium/Dextrose 50 mls @ 100 mls/hr 10/29/24 21:00 Rocephin/D5w 1gm Iv Premix IV 11/05/24 20:59 HS [facility] Methylprednisolone Sodium Succinate 40 mg 10/29/24 09:00 10/29/24 09:33 Methylprednisolone Sod Succ 40 Mg Vial IVP 11/03/24 08:59 40 mg QDAY LLEE Administration Naloxegol 12.5 mg 10/29/24 09:00 10/29/24 12:29 Naloxegol Oxalate 25 Mg Tablet (Non-Formulary) PO 11/28/24 08:59 Not Given QDAY LELE Ondansetron HCl 4 mg 10/29/24 03:16 Ondansetron Inj 2 Mg/Ml Inj 2 Ml IV 11/28/24 03:15 Q6H PRN NAUSEA OR VOMITING Protocol Pantoprazole Sodium 40 mg 10/29/24 09:00 10/29/24 09:20 Pantoprazole Inj 40 Mg Vial IVP 11/28/24 08:59 40 mg QDAY LELE Administration Polyethylene Glycol 17 gm 10/29/24 09:00 10/29/24 09:34 Polyethylene Glycol 17 Gm Packet PO 11/28/24 08:59 17 gm QDAY LELE Administration Sacubitril/Valsartan 1 tab 10/29/24 09:00 10/29/24 09:34 Sacubitril 24 Mg/Valsartan 26 Mg Tablet PO 11/28/24 08:59 1 tab BID LELE Administration Sennosides 1 tab 10/29/24 04:30 Senna/Docusate Sod 1 Tab Tablet PO 11/28/24 04:29 QDAY PRN CONSTIPATION Protocol Sodium Chloride 3 ml 10/28/24 21:07 10/28/24 21:12 Sodium Chloride Rt Bhavana 0.9% 3 Ml Nebu INH 11/27/24 21:06 3 ml PRN PRN Administration SOLN Plan 71-year-old female PMHx of COPD on 2 L oxygen, HFpEF, HTN, possible A-fib, CVA, lymphoma in remission, PAD, presenting with cough and shortness of breath. Admitted for COPD exacerbation. #Acute on chronic hypoxemic respiratory failure #Sepsis 2/2 pneumonia, 4/4 SIRS positive #COPD exacerbation #Hx HFpEF, 55-60% #Community-acquired pneumonia Has 3 days of dry cough and SOB, requiring increased oxygen requirement. History of COPD on 2 L home oxygen. BNP 1000, previously as high as >3200k. Last echo 2022, EF 55?60, diastolic dysfunction stage II. No signs of fluid overload. Wheezing and coarse breath sounds on exam. CTA showed focal pneumonia. Negative COVID and influenza. Met 4/4 SIRS criteria on admission. Tachypnea and tachycardia improved with BiPAP. A1c 5.1 from 03/2024, normal lipid panel from 03/2024. ? Continue CEFTRIAXONE (2/3 to present) ? Continue AZITHROMYCIN (2/3 to present) ? Continue METHYLPREDNISOLONE (2/3 to present) ? Continue DuoNebs q.6h. PRN ? Continue home ENTRESTO 1 tab BID ? Oxygen PRN, titrate to 88-92% ? Pending echocardiogram ? Pending pancultures ? Holding home METOPROLOL 25 mg daily possible CHF exacerbation. # Hypoosmolar hyponatremia #hypomagnesemia Sodium 128. Magnesium 1.4. DDx: dehydration, SIADH, diuretics Reports decreased appetite and oral intake. -keep Mg >2, K>4 -fluid restriction -follow up urine electrolytes/osmolarity -Hold HCTZ and metolazone in setting of hyponatremia -Repeat CMP #Hypertensive urgencies (resolved) #Tachycardia (resolved) #HTN Admission BP 207/109, HR 122. Troponin negative. Likely reactive 2/2 hypoxemia. ? continue home ENTRESTO BID ? Hold home HCTZ and METOLAZONE due to hyponatremia ? A-fib Per chart review. She is unaware of having A-fib. Not currently on medications. Appears in sinus rhythm on telemetry. ? Pending EKG #Hx of CVA #Hx of PAD Per chart review, she has history of CVA. Had vascular intervention for PAD previously. ? Continue home CLOPIDOGREL 75 mg daily #Chronic constipation On multiple home bowel regimen. Likely related to chronic CODEINE use. Last bowel movement 7 days ago. Positive bowel sounds on exam. Advised against codeine, however she states she is very dependent on CODEINE for pain. ? Started scheduled daily MOVANTIK, SENNA?DOCUSATE, and MIRALAX #Chronic back pain #Narcotics dependency ? Continue home TYLENOL-CODEINE 1 tablet TID for pain. Health maintenance Diet: Cardiac GI prophylaxis: PROTONIX DVT prophylaxis: HEPARIN subcu CODE STATUS: Full code Disposition: tx PNA, hyponatremia The patient's management plan was discussed with my attending physician Dr. Lehman and senior Dr. Estrella. Damaris Ragsdale, PGY-1 Attending Provider Attestation/Addendum Face to face evaluation was performed by me. I have personally seen and examined the patient. I discussed the assessment and plan with the entire medicine team. I reviewed available medical records, imaging studies, laboratory results. I agree with the above subjective data, objective findings, assessment and plan except as corrected by me or noted below #Acute on chronic hypoxemic respiratory failure #Sepsis 2/2 pneumonia, POA, without septic shock #COPD with acute exacerbation #Hx HFpEF, 55-60% seems to be compensated #Community-acquired pneumonia [employer] was called, ICU team consulted for evaluation of the patient and help with Resp failure management requiring BiPAP ABG repeat was worse, went up on IPAP , repeat ABG again Systemic steroids RSV+ Abxs
--- NOTE | 2024-10-29 20:38 | PC.RT ---
sputum sample collected and sent to lab at this time.
[2024-10-29] MEDS: AZITHROMYCIN 250 MG TABLET PO (21:31)
[2024-10-29] MEDS: cefTRIAXone/D5w 1gm IV premix 50 ML IV (21:31)
--- NOTE | 2024-10-29 23:25 | PC.NURSE ---
Called hospitalist spoke to resident Dr. Yudy Amaro. Made aware pt was placed on the Bipap, pt desaturated to 76 after breathing tx. However, pt states she does not want the Bipap, she feels claustrophobic. Per Dr. Yudy Amaro, will come see pt.
--- NOTE | 2024-10-29 23:35 | PC.NURSE ---
Dr. Yudy Amaro and Juan RT at bedside. Per Md, will put in orders for Magnesium IV and PO Ativan.
--- NOTE | 2024-10-29 23:36 | PC.RT ---
called to bedside by RN stating the pt was SOB, upon arrival md was contacted to order a duoneb PRN and medication was given. post treatment pts breathing became labored and desaturated to 76%. pt placed on bipap, and RN called to bedside refused to cont wearing the bipap stating it makes her claustrophobic. MD winston stated for me to hold the breathing treatments for the night.
[2024-10-29] MEDS: Magnesium Sulfate 2 GM Ivpb 2 GM/50 ML BAG IV (23:45)
[2024-10-29] MEDS: LORazepam 0.5 MG TABLET PO (23:45)
[2024-10-30] VITALS (17 sets, daily range): BP systolic 121–173; BP diastolic 77–100; PULSE 95–125; RESP 17–29; TEMP 36.2–36.6; O2SAT 93–100; BMI 21.0
--- NOTE | 2024-10-30 02:00 | PC.NURSE ---
At this time, pt states she is claustrophobic and wants the Bipap off. Called hospitalist, spoke resident Dr. Costa made aware pt is anxious and wanting Bipap removed. Per Md will order medications for anxiety.
[2024-10-30] MEDS: LORazepam 2 MG/ML VIAL 0.5 MG IVP (02:36)
--- NOTE | 2024-10-30 03:10 | PC.NURSE ---
At this time, pt removed Bipap, refuses Bipap. RT at bedside. Placed on 2LNC. Called hospital, spoke to Dr. Costa. Made aware of current situation. Per MD will put in new orders for breathing tx.
[2024-10-30] MEDS: LEVALBUTEROL RT 0.63 MG/3 ML NEBU INH (03:26)
--- NOTE | 2024-10-30 03:45 | PC.NURSE ---
Both Emelia and Maninder RT at bedside. Educated pt the benefits of using Bipap. Pt verbalized understanding and agreed to have Bipap on again.
[2024-10-30 04:43] LABS: Base Excess 6 (-3-3); HCO3 35 mEq/L (20-26); Inspired Oxygen, FIO2 45 %; O2 Saturation 97 % (91-98); PCO2 76 mmHg (32.0-48.0); PO2 95 mmHg (83-108); pH, Arterial 7.27 (7.35-7.45)
[2024-10-30 04:47] LABS: Allen Test Performed/OK; Puncture Site Left Radial
--- NOTE | 2024-10-30 04:55 | PC.NURSE ---
Resident Dr. Amaro and attending MD at bedside. Aware of increased respiratory rate and work of breathing, HR in 120-130s, and BP 170/90 throughout the night. Pt currently on Bipap, setting of Bipap changed as per MD order.. Pt is awake/alert/oriented x3. Verbalized understanding with plan of care.
[2024-10-30] MEDS: ACETAMINOPHEN w/COD 300-30 TABLET 1 TAB PO ×3 (05:22→21:11)
[2024-10-30] MEDS: HEPARIN SOD INJ 5000 UNIT/ML VIAL SC ×3 (05:22→21:10)
[2024-10-30 06:16] LABS: Basophils % (Auto) 0 % (0-2.5); Eosinophils % (Auto) 0 % (0-10); Hematocrit 33.5 % (36.0-46.0); Hemoglobin 11.1 g/dL (12.0-16.0); Immature Granulocytes % (Auto) 0 % (0-0); Immature Granulocytes Auto 0.05 Thou/mm3 (0.00-0.00); Lymphocytes # (Auto) 1.6 Thou/mm3 (1.0-4.8); Lymphocytes % (Auto) 13 % (10-50); Mean Corpuscular HGB Conc 33.1 g/dl (31.0-37.0); Mean Corpuscular Hemoglobin 33.6 pg (25.0-35.0); Mean Corpuscular Volume 102 fL (80-100); Monocytes % (Auto) 8 % (0-12); Neutrophils # (Auto) 9.9 Thou/mm3 (1.8-7.7); Neutrophils % (Auto) 79 % (37-80); Nucleated Red Blood Cell % 0 /100 WBC (0); Platelet Count 275 Thou/mm3 (140-440); RDW Standard Deviation 50.5 fL (36.4-46.3); White Blood Count 12.5 Thou/mm3 (3.6-11.0)
[2024-10-30 06:39] LABS: Alanine Aminotransferase 31 U/L (10-49); Albumin, Serum 4.3 gm/dL (3.4-4.8); Albumin/Globulin Ratio 1.2 (1.2-2.2); Alkaline Phosphatase 59 U/L (46-116); Anion Gap 9 (7-16); Aspartate Amino Transferase 69 U/L (0-34); BUN/Creatinine Ratio 20 Ratio (12-20); Bilirubin,Total 0.3 mg/dL (0.3-1.2); Blood Urea Nitrogen 16 mg/dL (9-23); Calcium 9.2 mg/dL (8.3-10.6); Calcium (Corrected) 9.2 mg/dL (8.5-10.1); Carbon Dioxide 30.7 mMol/L (20.0-31.0); Chloride 87 mMol/L (98-107); Creatinine (Component) 0.8 mg/dL (0.6-1.3); Estimated Creatinine Clearance 45.8 mL/min (>60); Globulin 3.6 gm/dL (2.3-3.5); Glucose 128 mg/dL (74-106); Magnesium 3.1 mg/dL (1.6-2.6); Osmolality,Calculated 258 (275-295); Phosphorous 3.9 mg/dL (2.4-5.1); Potassium 4.6 mMol/L (3.4-5.1); Sodium 127 mMol/L (136-145); Total Protein 7.9 gm/dL (5.7-8.2); eGFR > 60 See Note
[2024-10-30 06:45] LABS: Base Excess 5 (-3-3); HCO3 34 mEq/L (20-26); Inspired Oxygen, FIO2 45 %; O2 Saturation 98 % (91-98); PCO2 75 mmHg (32.0-48.0); PO2 103 mmHg (83-108); pH, Arterial 7.26 (7.35-7.45)
[2024-10-30 06:47] LABS: Allen Test Performed/OK; Puncture Site Left Radial
[2024-10-30] MEDS: CLOPIDOGREL BISULFATE 75 MG TABLET PO (08:04)
[2024-10-30] MEDS: SACUBITRIL 24 MG/VALSARTAN 26 MG TABLET 1 TAB PO ×2 (08:04→21:12)
[2024-10-30] MEDS: POLYETHYLENE GLYCOL 17 GM PACKET PO (08:04)
[2024-10-30] MEDS: PANTOPRAZOLE INJ 40 MG VIAL IVP (08:05)
[2024-10-30] MEDS: NALOXEGOL OXALATE 25 MG TABLET (NON-FORMULARY) 12.5 MG PO (08:20)
--- NOTE | 2024-10-30 09:44 | XR_ITS ---
Examination: AP chest single view TECHNIQUE: AP portable sitting chest single view Exam date and time: October 30, 2024 1002 hours INDICATIONS: Difficulty breathing today FINDINGS: Normal heart size No lobar pneumonia Prominent osteopenia IMPRESSION: No pneumonia or pulmonary edema
--- NOTE | 2024-10-30 09:54 | PC.SS ---
Patient Sachin Conte is a 79 Year old female admitted for COPD Exacerbation. SS met with patient at bedside, however patient had a hard time breathing, Dr. Estrella at bedside. SS informed patient that SS would contact Patients sonNegro. SS attempted to contact patient's son, SS left Voicemail. SS contacted patients daughter in law, Lisa Conte. She reports patient lives at home with them. She reports she assist patient with ADL's, patient is on 2L of 02. Patient utilizes a wheelchair. Choice of pharmacy is [facility]. Patient's PCP is Dutch Casillas. At time of discharge patient will return home, patients daughter in law informed SS they do not want SNF for patient. Family will provide transportation. Next of Kin: Negro Smith Discharge Plan: Home
[2024-10-30 11:26] LABS: Respiratory Syncytial Virus Ag Positive (Negative)
[2024-10-30 11:53] LABS: Allen Test Not Performed; Base Excess 3 (-3-3); HCO3 33 mEq/L (20-26); Inspired Oxygen, FIO2 45 %; O2 Saturation 98 % (91-98); PCO2 81 mmHg (32.0-48.0); PO2 106 mmHg (83-108); Puncture Site Right Radial; pH, Arterial 7.21 (7.35-7.45)
--- NOTE | 2024-10-30 12:13 | PC.RT ---
Dr Eller aware of ABG results. No new orders at this time.
--- NOTE | 2024-10-30 13:32 | ESPR_ITS ---
<Statement entered by Loreto Estrella MD - 10/30/24 18:27> I discussed with and supervised my co-resident involved in the care of this patient. I agree with the assessment and plan as documented above. Patient had RR this morning for respiratory distress, refusing BIPAP. Explained to patient importance of wearing BIPAP due to worsening hypercarbonemia. With family at bedside, patient tolerated BIPAP and hypercarbonemia on ABGs improved. See rapid response note. Blood and urine culture return positive for GPC. Pending final cultures. Will continue IV antibiotics, increase steroids, and give magnesium. If respiratory status does not improve, patient may need to be intubated. Patient is agreeable to intubation should it come to that. Loreto Estrella MD PGY-3 Documentation for date of: 10/30/24 Subjective Subjective Interval history: Patient was seen at bedside this morning. Today patient had a rapid response called due to increased work of breathing and she was eventually placed on BiPAP, please refer to event note from today for more details. After the rapid response was called patient remained on BiPAP and repeat ABG was drawn which showed worsening acidosis as well as hypercapnia. ICU was consulted due to worsening respiratory distress and possibility for need of intubation. Patient remained on BiPAP aftrer rapid for which another repeat ABG was drawn later in the afternoon and showed improvement in the patient's acidosis as well as hypercapnia. Will follow-up with ABG at 4 PM. Patient was found to be RSV positive. No other complaints at this time. Exam Vital Signs Temp Pulse Resp BP Pulse Ox O2 Del Method O2 Flow Rate 97.8 F 121 H 25 H 166/86 H 97 BiPAP 2 10/30/24 08:00 10/30/24 10:47 10/30/24 10:47 10/30/24 08:00 10/30/24 10:47 10/30/24 08:00 10/30/24 08:00 FiO2 45 10/30/24 10:47 Narrative Exam General: A/O x3, moderate respiratory distress, ill appearing thin elderly Eyes: PERRL, EOMI. Anicteric, vision grossly intact. Ears: No ear pain, no ear discharge, Hearing mildly impaired Nose: No nasal discharge. Mouth/Throat: Dry mucous membranes, no redness, no lesions. Neck: Neck supple, non-tender, no cervical lymphadenopathy. Lungs: Wheezing, No accessory muscle use. Cardio: Normal S1/S2, regular rhythm, no murmurs, no JVD Abdomen: Soft, non-tender, no palpable masses, peristalsis present, no guarding or rebound. Extremities: Symmetrical, no significant deformities, no peripheral edema , non-tender, peripheral pulses presents. Skin: No rashes, no lesions, warm to touch. Neuro: No focal neurological deficits. motor and sensory intact Psych: Cooperative, appropriate mood and effect. Objective Labs 10/30/24 04:47 10/30/24 17:00 Labs: Laboratory Results - last 24 hr 10/30/24 10/30/24 10/30/24 04:30 04:47 06:40 WBC 12.5 H RBC 3.30 L Hgb 11.1 L Hct 33.5 L MCV 102 H MCH 33.6 MCHC 33.1 RDW Std Deviation 50.5 H Plt Count 275 D Neut % (Auto) 79 Lymph % (Auto) 13 [place] % (Auto) 8 Eos % (Auto) 0 Baso % (Auto) 0 Neut # (Auto) 9.9 H Lymph # (Auto) 1.6 [place] # (Auto) 1.0 H Eos # (Auto) 0.0 Baso # (Auto) 0.0 Immature Gran # (Auto) 0.05 H Absolute Nucleated RBC 0.00 Immature Gran % 0 Nucleated RBC % 0 Puncture Site Left Radial Left Radial ABG pH 7.27 L 7.26 L ABG pCO2 76 H* D 75 H* ABG pO2 95 103 ABG HCO3 35 H 34 H ABG O2 Saturation 97 98 ABG Base Excess 6 H 5 H FiO2 45 45 Sodium 127 L Potassium 4.6 D Chloride 87 L Carbon Dioxide 30.7 Anion Gap 9 BUN 16 Creatinine 0.8 Estim Creat Clear Calc 45.8 L eGFR > 60 BUN/Creatinine Ratio 20 Glucose 128 H D Calculated Osmolality 258 L Calcium 9.2 Corrected Calcium 9.2 Phosphorus 3.9 Magnesium 3.1 H Total Bilirubin 0.3 AST 69 H ALT 31 Alkaline Phosphatase 59 Total Protein 7.9 Albumin 4.3 Globulin 3.6 H Albumin/Globulin Ratio 1.2 RSV Rapid 10/30/24 10/30/24 10:43 11:00 WBC RBC Hgb Hct MCV MCH MCHC RDW Std Deviation Plt Count Neut % (Auto) Lymph % (Auto) [place] % (Auto) Eos % (Auto) Baso % (Auto) Neut # (Auto) Lymph # (Auto) [place] # (Auto) Eos # (Auto) Baso # (Auto) Immature Gran # (Auto) Absolute Nucleated RBC Immature Gran % Nucleated RBC % Puncture Site Right Radial ABG pH 7.21 L ABG pCO2 81 H* ABG pO2 106 ABG HCO3 33 H ABG O2 Saturation 98 ABG Base Excess 3 FiO2 45 Sodium Potassium Chloride Carbon Dioxide Anion Gap BUN Creatinine Estim Creat Clear Calc eGFR BUN/Creatinine Ratio Glucose Calculated Osmolality Calcium Corrected Calcium Phosphorus Magnesium Total Bilirubin AST ALT Alkaline Phosphatase Total Protein Albumin Globulin Albumin/Globulin Ratio RSV Rapid Positive A ABG Interpretation ABG results: 10/28/24 10/30/24 10/30/24 22:30 04:30 06:40 ABG pH 7.35 7.27 L 7.26 L ABG pCO2 62 H 76 H* D 75 H* ABG pO2 93 95 103 ABG HCO3 34 H 35 H 34 H ABG O2 Saturation 96 97 98 ABG Base Excess 7 H 6 H 5 H 10/30/24 11:00 ABG pH 7.21 L ABG pCO2 81 H* ABG pO2 106 ABG HCO3 33 H ABG O2 Saturation 98 ABG Base Excess 3 Quality Measures Quality Measures sepsis Current suspected stage: ruled out Possible source: unknown Blood cultures ordered: yes Antibiotic ordered: Yes Advance care planning discussed with:: patient and child Assessment & Plan Assessment Current Active Medications: Generic Name Dose Route Start Last Admin Trade Name Freq PRN Reason Stop Dose Admin Acetaminophen 650 mg 10/29/24 03:16 Acetaminophen 325 Mg Tablet PO 11/28/24 03:15 Q6H PRN PAIN SCALE 1-3 (mild Acetaminophen 650 mg 10/29/24 03:16 Acetaminophen 325 Mg Tablet PO 11/28/24 03:15 Q6H PRN Fever >100 Acetaminophen/Codeine Phosphate 1 tab 10/29/24 06:00 10/30/24 05:22 Acetaminophen W/Cod 300-30 Tablet PO 11/03/24 05:59 1 tab TID LELE Administration Albuterol/Ipratropium 3 ml 10/29/24 07:00 10/30/24 01:23 Albuterol/Ipratropium (Duoneb) Rt Bhavana 3 Ml Nebu INH 11/28/24 06:59 Not Given Q6HRRT LELE Albuterol/Ipratropium 3 ml 10/29/24 22:55 10/29/24 22:59 Albuterol/Ipratropium (Duoneb) Rt Bhavana 3 Ml Nebu INH 11/28/24 22:54 3 ml Q2HR PRN Administration SHORTNESS OF BREATH OR WHEEZE Azithromycin 250 mg 10/29/24 21:00 10/29/24 21:31 Azithromycin 250 Mg Tablet PO 11/05/24 03:17 250 mg HS LELE Administration Clopidogrel Bisulfate 75 mg 10/29/24 09:00 10/30/24 08:04 Clopidogrel Bisulfate 75 Mg Tablet PO 11/28/24 08:59 75 mg QDAY LELE Administration Heparin Sodium (Porcine) 5,000 unit 10/29/24 06:00 10/30/24 05:22 Heparin Sod Inj 5000 Unit/Ml Vial SC 11/12/24 05:59 5,000 unit Q8HR LELE Administration Ceftriaxone Sodium/Dextrose 50 mls @ 100 mls/hr 10/29/24 21:00 10/29/24 21:31 Rocephin/D5w 1gm Iv Premix IV 11/05/24 20:59 100 mls/hr HS LELE Administration Levalbuterol HCl 0.63 mg 10/30/24 13:00 Levalbuterol Rt 0.63 Mg/3 Ml Nebu INH 11/29/24 12:59 Q6HRRT LELE Melatonin 6 mg 10/30/24 21:00 Melatonin 3 Mg Tablet PO 11/29/24 20:59 HS LELE Methylprednisolone Sodium Succinate 40 mg 10/30/24 21:00 Methylprednisolone Sod Succ 40 Mg Vial IVP 11/04/24 20:59 BID LELE Naloxegol 12.5 mg 10/29/24 09:00 10/30/24 08:20 Naloxegol Oxalate 25 Mg Tablet (Non-Formulary) PO 11/28/24 08:59 12.5 mg QDAY LELE Administration Ondansetron HCl 4 mg 10/29/24 03:16 Ondansetron Inj 2 Mg/Ml Inj 2 Ml IV 11/28/24 03:15 Q6H PRN NAUSEA OR VOMITING Protocol Pantoprazole Sodium 40 mg 10/29/24 09:00 10/30/24 08:05 Pantoprazole Inj 40 Mg Vial IVP 11/28/24 08:59 40 mg QDAY LELE Administration Polyethylene Glycol 17 gm 10/29/24 09:00 10/30/24 08:04 Polyethylene Glycol 17 Gm Packet PO 11/28/24 08:59 17 gm QDAY LELE Administration Sacubitril/Valsartan 1 tab 10/29/24 09:00 10/30/24 08:04 Sacubitril 24 Mg/Valsartan 26 Mg Tablet PO 11/28/24 08:59 1 tab BID LELE Administration Sennosides 1 tab 10/29/24 04:30 Senna/Docusate Sod 1 Tab Tablet PO 11/28/24 04:29 QDAY PRN CONSTIPATION Protocol Sodium Chloride 3 ml 10/28/24 21:07 10/28/24 21:12 Sodium Chloride Rt Bhavana 0.9% 3 Ml Nebu INH 11/27/24 21:06 3 ml PRN PRN Administration SOLN Plan 79-year-old female with past medical history of COPD (2 L O2 at home), HFpEF (55 to 60% on 2022), hypertension, CVA, 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 #Acute on chronic hypoxic and hypercapnic respiratory failure likely secondary to #COPD exacerbation in the setting of #Community-acquired pneumonia, RSV positive #Respiratory acidosis #Hx of COPD #GPC bacteremia? ? Patient came in initially with complaints of cough, shortness of breath, and increased requirements of oxygen. ? Patient has a history of COPD ??Patient met SIRS 4 out of 4 criteria on admission, but there was no signs of endorgan damage ? qSOFA score of 1 ? Initial chest x-ray showed vascular congestion ?Chest CTA showed bilateral pneumonia ?Repeat chest x-ray on 10/30/2024 showed no pneumonia pulmonary edema ?Blood cultures grew GPC's preliminary ? Latest ABG showed pH 7.32, pCO2 61, pO2 121 Plan: ?Continue azithromycin and Rocephin [10/29/2024?] ? Continue albuterol/ipratropium every 4 hours ? Continue methylprednisolone 40 mg twice daily [12/13/2024?] ? Pending blood and urine cultures ? 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 Patient sodium appears to be low in the past was 122 on September. ? DDx includes SIADH versus dehydration versus medication induced as he was on hydrochlorothiazide and metolazone Plan: ? Fluid restrictions ?Urine sodium and electrolytes pending ? Holding hydrochlorothiazide metolazone ?Will continue to monitor #Hx of HFpEF (55 to 60% on 2022) ?Patient came in initially with complaints of shortness of breath and requiring increased levels of oxygen ? Patient does not seem to be in CHF exacerbation at this time she does not appear to be fluid overloaded and there is no pulmonary edema. ? BNP initially was 1001 Plan: ? Echo pending ?Will continue Entresto ? Fluid restrictions ? Cardiac diet ? Will continue to monitor #Hypertensive urgency #Hx of hypertension ? Patient came in with blood pressure of 207/109 ? Patient's blood pressure continues to be elevated today at 163/84 Plan: ? Will continue patient on Entresto ? 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 #Hx of CVA #Hx of PAD ? Continue Plavix #Hx of chronic constipation in the setting of #Chronic back pain on narcotics ? Continue patient's Tylenol?codeine 1 tablet 3 times daily for pain ? Continue scheduled daily Movantik, senna, and MiraLAX Disposition: Patient admitted to telemetry. Diet: Regular GI prophylaxis: protonix DVT prophylaxis: heparin sc Code: full code Case disclosed with Attending Dr. Lehman and My senior Dr. Estrella PGY3. Naresh Camargo PGY1 Attending Provider Attestation/Addendum Face to face evaluation was performed by me. I have personally seen and examined the patient. I discussed the assessment and plan with the entire medicine team. I reviewed available medical records, imaging studies, laboratory results. 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 ICU consultation, discussed with Dr Ross, they will evaluate the patient, if not improved/or worse upgrade to ICU
--- NOTE | 2024-10-30 13:32 | PD.RESEVENT ---
Documentation for date of: 10/30/24 Event Note Event Note: Rapid response was called at around 9:30 AM this morning due to patient having increased work of breathing with tachypnea. At this time patient was saturating well at 94%. Patient was also tachycardic in the 110s and she did have some visible increased work of breathing. At this time patient did not want to be placed on the BiPAP, but after discussing with the patient the risk about her not being on the BiPAP and benefits of her being on the BiPAP she agreed to being on the BiPAP. During this time patient was also given 1 extra dose of steroids 40 mg, ABG was ordered, chest x-ray was ordered, and Solu-Medrol was then scheduled for twice daily. At the end of the rapid response patient was on BiPAP and saturating well. Case disclosed with Attending Dr. Fallon Camargo PGY1
[2024-10-30 14:50] LABS: Cocci Serology, IgM Negative (Negative)
[2024-10-30 14:54] LABS: Base Excess 4 (-3-3); HCO3 31 mEq/L (20-26); Inspired Oxygen, FIO2 45 %; O2 Saturation 98 % (91-98); PCO2 61 mmHg (32.0-48.0); PO2 121 mmHg (83-108); pH, Arterial 7.32 (7.35-7.45)
[2024-10-30 14:56] LABS: Allen Test Performed/OK; Puncture Site Right Brachial
[2024-10-30 17:39] LABS: Base Excess 4 (-3-3); HCO3 31 mEq/L (20-26); Inspired Oxygen, FIO2 40 %; O2 Saturation 98 % (91-98); PCO2 56 mmHg (32.0-48.0); PO2 106 mmHg (83-108); pH, Arterial 7.35 (7.35-7.45)
[2024-10-30 17:41] LABS: Alanine Aminotransferase 25 U/L (10-49); Albumin/Globulin Ratio 1.2 (1.2-2.2); Alkaline Phosphatase 50 U/L (46-116); Anion Gap 10 (7-16); Aspartate Amino Transferase 45 U/L (0-34); BUN/Creatinine Ratio 26 Ratio (12-20); Bilirubin,Total 0.2 mg/dL (0.3-1.2); Blood Urea Nitrogen 23 mg/dL (9-23); Calcium 8.8 mg/dL (8.3-10.6); Calcium (Corrected) 8.8 mg/dL (8.5-10.1); Carbon Dioxide 28.7 mMol/L (20.0-31.0); Chloride 86 mMol/L (98-107); Creatinine (Component) 0.9 mg/dL (0.6-1.3); Estimated Creatinine Clearance 40.7 mL/min (>60); Globulin 3.3 gm/dL (2.3-3.5); Glucose 137 mg/dL (74-106); Osmolality,Calculated 257 (275-295); Potassium 4.9 mMol/L (3.4-5.1); Sodium 125 mMol/L (136-145); Total Protein 7.3 gm/dL (5.7-8.2); eGFR > 60 See Note
[2024-10-30 17:44] LABS: Allen Test Performed/OK; Puncture Site Right Brachial
--- NOTE | 2024-10-30 19:05 | ESCONSULT_ITS ---
HPI Data of Consult Requesting Physician: Jessie Arias MD Admitting Provider: Nasrin Sanchez MD Attending Provider: Jessie Arias MD Primary Care Provider: Dutch Casillas MD Consult Narrative History of present illness: Sachin Conte is a 71-year-old female with a past medical history of COPD on 2 L home oxygen, HFpEF (EF 55-60% in 2022), CVA, lymphoma in remission (last treatment 7 years ago), and PAD s/p vascular intervention in lower extremity who presented to the ED with shortness of breath and associated worsening, dry cough with increased home oxygen requirements for approximately 3 days prior to admission. Denied fever, chills, or sick contacts at home but son at bedside states that she was recently in ED for hyponatremia on 10/19. In ED, patient noted to be saturating 93% and was started on BiPAP but was then able to be weaned down to 1 L nasal cannula, saturating in the mid 90s. ABG in ED obtained showed pH of 7.35, pCO2 62, pO2 93, and HCO3 34. Found to be positive for RSV, negative for COVID and influenza A/P. CXR without any infiltrates, CTA chest showed multifocal pneumonia and chronic emphysema. Labs significant for sodium 128, osm 259, magnesium 1.4, BNP 1000, troponin negative. Given azithromycin, ceftriaxone, and steroids. Admitted for acute on chronic hypoxic respiratory failure secondary to COPD exacerbation. On 10/30, patient had rapid response for tachypnea and increased work of breathing but was noted to be saturating well at 94% and was tachycardic in 110s. She was eventually placed on BiPAP and given extra dose of steroids. ABG and CXR were ordered and Solu-Medrol was changed to twice daily. ABG showed pH 7.2, pCO2 81, and pO2 116. CXR unchanged. Afterwards, ICU was consulted for acute hypercapnic respiratory failure and patient will be upgraded to ICU for close monitoring. BiPAP settings were changed to FiO2 40% and AVAPS mode and ABG has since improved, showing pH of 7.35, pCO2 56, pO2 106. cc:: cc: Jessie Arias MD Review of Systems Review of Systems Systems Reviewed: All systems reviewed, normal except as documented Exam Vital Signs Temp Pulse Resp BP Pulse Ox O2 Del Method O2 Flow Rate 97.8 F 95 29 H 121/77 94 L BiPAP 2 10/30/24 16:00 10/30/24 16:00 10/30/24 16:21 10/30/24 16:00 10/30/24 16:21 10/30/24 16:00 10/30/24 16:00 FiO2 40 10/30/24 16:21 Narrative Exam General: pleasant, frail and elderly woman, AOx3, no acute distress HEENT: NC/AT, mucous membranes moist, bilateral sclera anicteric Cardiovascular: regular rate and rhythm, S1/S2 present, no murmurs appreciated Pulmonary: bibasilar crackles appreciated on auscultation Abdominal: soft, non-tender, non-distended, midline scar present in lower quarants Musculoskeletal: bilateral breast augmentation, no peripheral edema, dorsalis pedis pulse unappreciable B/L, posterior popliteal pulse unappreciable on R, posterior popliteal 2+ on L, femoral pulse 2+ B/L Skin: purpura in upper and lower extremities bilaterally Neuro: CN II-XII intact, no focal deficits, sensation intact, strength 4/5 in upper and lower extremities bilaterally Results Labs 10/31/24 04:27 10/31/24 04:27 Labs: Short CBC 10/30/24 Range/Units 04:47 WBC 12.5 H (3.6-11.0) Thou/mm3 Hgb 11.1 L (12.0-16.0) g/dL Hct 33.5 L (36.0-46.0) % Plt Count 275 D (140-440) Thou/mm3 BMP 10/30/24 10/30/24 04:47 17:00 Sodium 127 L 125 L Potassium 4.6 D 4.9 Chloride 87 L 86 L Carbon Dioxide 30.7 28.7 BUN 16 23 Creatinine 0.8 0.9 Glucose 128 H D 137 H Calcium 9.2 8.8 Liver Function 10/30/24 10/30/24 Range/Units 04:47 17:00 Total Bilirubin 0.3 0.2 L (0.3-1.2) mg/dL AST 69 H 45 H (0-34) U/L ALT 31 25 (10-49) U/L Alkaline Phosphatase 59 50 (46-116) U/L Albumin 4.3 4.0 (3.4-4.8) gm/dL ABG Interpretation ABG results: 10/28/24 10/30/24 10/30/24 22:30 04:30 06:40 ABG pH 7.35 7.27 L 7.26 L ABG pCO2 62 H 76 H* D 75 H* ABG pO2 93 95 103 ABG HCO3 34 H 35 H 34 H ABG O2 Saturation 96 97 98 ABG Base Excess 7 H 6 H 5 H 10/30/24 10/30/24 10/30/24 11:00 14:47 17:32 ABG pH 7.21 L 7.32 L D 7.35 ABG pCO2 81 H* 61 H D 56 H ABG pO2 106 121 H 106 ABG HCO3 33 H 31 H 31 H ABG O2 Saturation 98 98 98 ABG Base Excess 3 4 H 4 H Quality Measures Quality Measures sepsis Current suspected stage: ruled out Possible source: unknown Blood cultures ordered: yes Antibiotic ordered: Yes Advance care planning discussed with:: patient and child Medications Home Medications and Allergies Home Medications ?Medication ?Instructions ?Recorded ?Confirmed ?Type docusate sodium 100 mg capsule 200 mg PO BID 10/20/22 10/28/24 History cetirizine 10 mg tablet 10 mg PO DAILY PRN Allergy S ymptoms 05/03/23 10/28/24 History famotidine 20 mg tablet 20 mg PO DAILY PRN Acid Refl ux 05/03/23 10/28/24 History fluticasone fur. 200 mcg-umeclid 2 inh inhalation QDAY PRN 05/03/23 10/28/24 History 62.5 mcg-vilant 25 mcg shortness of breath inhalat.powder (Trelegy Ellipta) acetaminophen 300 mg-codeine 30 mg 1 tab PO TID PRN Pa in 06/07/23 10/28/24 History tablet metoprolol succinate 25 mg 25 mg PO DAILY 08/01/2311/20 History tablet,extended release 24 hr sacubitril 24 mg-valsartan 26 mg 1 tab PO BID 08/01/23 10/28/24 History tablet (Entresto) clopidogrel 75 mg tablet 75 mg PO DAILY 10/28/2411/20 History hydrochlorothiazide 25 mg tablet 25 mg PO DAILY 10/28/24 History lactulose 10 gram/15 mL oral 15 ml PO DAILY PRN consti pation 10/28/24 10/28/24 History solution metolazone 2.5 mg tablet 2.5 mg PO DAILY 10/28/2411/20 History prednisone 5 mg tablet 5 mg PO DAILY 10/28/2410/28 History Allergies Allergy/AdvReac Type Severity Reaction Status Date / Time ciprofloxacin (From Cipro) Allergy Severe Rash Verified 10/28/24 21:18 Sulfa (Sulfonamide Allergy Severe nausea, Verified 10/28/24 21:18 Antibiotics) itchy all over Visit Medications Acetaminophen (Acetaminophen 325 Mg Tablet) 650 mg PO Q6H PRN PRN Reason: PAIN SCALE 1-3 (mild Stop: 11/28/24 03:15 Acetaminophen (Acetaminophen 325 Mg Tablet) 650 mg PO Q6H PRN PRN Reason: Fever >100 Stop: 11/28/24 03:15 Acetaminophen/Codeine Phosphate (Acetaminophen W/Cod 300-30 Tablet) 1 tab PO TID [facility] Stop: 11/03/24 05:59 Last Admin: 10/30/24 13:44 Dose: 1 tab Albuterol/Ipratropium (Albuterol/Ipratropium (Duoneb) Rt Bhavana 3 Ml Nebu) 3 ml INH Q4HRRT LELE Stop: 11/29/24 22:59 Albuterol/Ipratropium (Albuterol/Ipratropium (Duoneb) Rt Bhavana 3 Ml Nebu) 3 ml INH Q2HR PRN PRN Reason: SHORTNESS OF BREATH OR WHEEZE Stop: 11/29/24 18:59 Azithromycin (Azithromycin 250 Mg Tablet) 250 mg PO HS [facility] Stop: 11/05/24 03:17 Last Admin: 10/29/24 21:31 Dose: 250 mg Clopidogrel Bisulfate (Clopidogrel Bisulfate 75 Mg Tablet) 75 mg PO QDAY LELE Stop: 11/28/24 08:59 Last Admin: 10/30/24 08:04 Dose: 75 mg Heparin Sodium (Porcine) (Heparin Sod Inj 5000 Unit/Ml Vial) 5,000 unit SC Q8HR LELE Stop: 11/12/24 05:59 Last Admin: 10/30/24 13:44 Dose: 5,000 unit Ceftriaxone Sodium/Dextrose (Rocephin/D5w 1gm Iv Premix) 50 mls @ 100 mls/hr IV HS [facility] Stop: 11/05/24 20:59 Last Admin: 10/29/24 21:31 Dose: 100 mls/hr Melatonin (Melatonin 3 Mg Tablet) 6 mg PO HS [facility] Stop: 11/29/24 20:59 Methylprednisolone Sodium Succinate (Methylprednisolone Sod Succ 40 Mg Vial) 40 mg IVP BID [facility] Stop: 11/04/24 20:59 Naloxegol (Naloxegol Oxalate 25 Mg Tablet (Non-Formulary)) 12.5 mg PO QDAY [facility] Stop: 11/28/24 08:59 Last Admin: 10/30/24 08:20 Dose: 12.5 mg Ondansetron HCl (Ondansetron Inj 2 Mg/Ml Inj 2 Ml) 4 mg IV Q6H PRN; Protocol PRN Reason: NAUSEA OR VOMITING Stop: 11/28/24 03:15 Pantoprazole Sodium (Pantoprazole Inj 40 Mg Vial) 40 mg IVP QDAY [facility] Stop: 11/28/24 08:59 Last Admin: 10/30/24 08:05 Dose: 40 mg Pharmacy Consult (Pharmacy Renal Dose Adjustment 1 Ea) 1 each XX QDAY PRN PRN Reason: PROTOCOL Stop: 11/29/24 16:44 Polyethylene Glycol (Polyethylene Glycol 17 Gm Packet) 17 gm PO QDAY [facility] Stop: 11/28/24 08:59 Last Admin: 10/30/24 08:04 Dose: 17 gm Sacubitril/Valsartan (Sacubitril 24 Mg/Valsartan 26 Mg Tablet) 1 tab PO BID [facility] Stop: 11/28/24 08:59 Last Admin: 10/30/24 08:04 Dose: 1 tab Sennosides (Senna/Docusate Sod 1 Tab Tablet) 1 tab PO QDAY PRN; Protocol PRN Reason: CONSTIPATION Stop: 11/28/24 04:29 Sodium Chloride (Sodium Chloride Rt Bhavana 0.9% 3 Ml Nebu) 3 ml INH PRN PRN PRN Reason: SOLN Stop: 11/27/24 21:06 Last Admin: 10/28/24 21:12 Dose: 3 ml Discontinued Medications Albuterol/Ipratropium (Albuterol/Ipratropium (Duoneb) Rt Bhavana 3 Ml Nebu) 3 ml INH Q6HRRT [facility] Stop: 11/28/24 06:59 Last Admin: 10/30/24 01:23 Dose: Not Given Albuterol/Ipratropium (Albuterol/Ipratropium (Duoneb) Rt Bhavana 3 Ml Nebu) 3 ml INH X1 ONE Stop: 10/29/24 05:27 Last Admin: 10/29/24 05:29 Dose: 3 ml Albuterol/Ipratropium (Albuterol/Ipratropium (Duoneb) Rt Bhavana 3 Ml Nebu) 3 ml INH Q2HR PRN PRN Reason: SHORTNESS OF BREATH OR WHEEZE Stop: 11/28/24 22:54 Last Admin: 10/29/24 22:59 Dose: 3 ml Albuterol/Ipratropium (Albuterol/Ipratropium (Duoneb) Rt Bhavana 3 Ml Nebu) 3 ml INH Q4HRRT [facility] Stop: 11/29/24 18:59 Magnesium Sulfate (Magnesium Sulfate Ivpb) 2 gm in 50 mls @ 25 mls/hr IV X1 ONE Stop: 10/28/24 22:57 Last Infusion: 10/28/24 21:32 Dose: Infused Acetaminophen (Ofirmev Inj) 1,000 mg in 100 mls @ 250 mls/hr IV X1 ONE Stop: 10/28/24 21:46 Last Infusion: 10/28/24 22:48 Dose: Infused Ceftriaxone Sodium 1,000 mg/ (Sodium Chloride) 50 mls @ 100 mls/hr IV X1 ONE Stop: 10/29/24 00:52 Last Infusion: 10/29/24 01:41 Dose: Infused Azithromycin 500 mg/ Sodium (Chloride) 250 mls @ 250 mls/hr IV QDAY LELE Stop: 11/05/24 00:22 Azithromycin 500 mg/ Sodium (Chloride) 250 mls @ 250 mls/hr IV X1 ONE Stop: 10/29/24 01:44 Last Infusion: 10/29/24 02:12 Dose: Infused Sodium Chloride (Ns) 1,000 mls @ 70 mls/hr IV .[id number] ONE Stop: 10/29/24 17:33 Last Admin: 10/29/24 04:16 Dose: 70 mls/hr Azithromycin 250 mg/ Sodium (Chloride) 250 mls @ 250 mls/hr IV QDAY LELE Stop: 11/05/24 03:17 Last Admin: 10/29/24 03:28 Dose: Not Given Magnesium Sulfate (Magnesium Sulfate Ivpb) 4 gm in 50 mls @ 12.5 mls/hr IV X1 ONE Stop: 10/29/24 07:48 Last Admin: 10/29/24 04:16 Dose: 12.5 mls/hr Potassium Chloride (Kcl Ivpb) 10 meq in 100 mls @ 100 mls/hr IV Q1H LELE Stop: 10/29/24 13:30 Last Admin: 10/29/24 15:50 Dose: 50 mls/hr Magnesium Sulfate (Magnesium Sulfate Ivpb) 2 gm in 50 mls @ 25 mls/hr IV X1 ONE Stop: 10/30/24 01:32 Last Infusion: 10/30/24 01:45 Dose: Infused Ketorolac Tromethamine (Ketorolac Inj 30 Mg/Ml Vial) 30 mg IVP X1 ONE Stop: 10/28/24 23:27 Last Admin: 10/28/24 23:29 Dose: 30 mg Levalbuterol HCl (Levalbuterol Rt 1.25 Mg/0.5 Ml Nebu) 5 mg INH X1 ONE Stop: 10/28/24 21:08 Last Admin: 10/28/24 21:12 Dose: 5 mg Levalbuterol HCl (Levalbuterol Rt 0.63 Mg/3 Ml Nebu) 0.63 mg INH X1 ONE Stop: 10/30/24 03:16 Last Admin: 10/30/24 03:26 Dose: 0.63 mg Levalbuterol HCl (Levalbuterol Rt 0.63 Mg/3 Ml Nebu) 0.63 mg INH Q6H PRN PRN Reason: WHEEZING Stop: 11/29/24 06:59 Levalbuterol HCl (Levalbuterol Rt 0.63 Mg/3 Ml Nebu) 0.63 mg INH Q6H LELE Stop: 11/29/24 09:59 Levalbuterol HCl (Levalbuterol Rt 0.63 Mg/3 Ml Nebu) 0.63 mg INH Q6HRRT LELE Stop: 11/29/24 12:59 Lorazepam (Lorazepam 0.5 Mg Tablet) 0.5 mg PO X1 ONE Stop: 10/29/24 23:36 Last Admin: 10/29/24 23:45 Dose: 0.5 mg Lorazepam (Lorazepam 2 Mg/Ml Vial) 0.5 mg IVP X1 ONE Stop: 10/30/24 02:02 Last Admin: 10/30/24 02:36 Dose: 0.5 mg Methylprednisolone Sodium Succinate (Methylprednisolone Sod Succ 62.5 Mg/Ml 2ml Vial) 125 mg IVP X1 ONE Stop: 10/28/24 20:58 Last Admin: 10/28/24 21:01 Dose: 125 mg Methylprednisolone Sodium Succinate (Methylprednisolone Sod Succ 40 Mg Vial) 40 mg IVP QDAY LELE Stop: 11/03/24 08:59 Last Admin: 10/30/24 08:04 Dose: 40 mg Methylprednisolone Sodium Succinate (Methylprednisolone Sod Succ 40 Mg Vial) 40 mg IVP X1 ONE Stop: 10/30/24 09:53 Last Admin: 10/30/24 10:36 Dose: 40 mg Oxycodone/Acetaminophen (Oxycodone/Apap 5/325 Tablet) 1 tab PO Q6H PRN PRN Reason: PAIN SCALE 4-6 (Moderate Stop: 11/03/24 03:15 Potassium Chloride (Potassium Chloride 20 Meq Tabcr) 40 meq PO X1 ONE Stop: 10/29/24 11:31 Last Admin: 10/29/24 12:34 Dose: 40 meq Sodium Chloride (Sodium Chloride Rt 10% 15 Ml Nebu) 5 ml INH X1 ONE Stop: 10/29/24 03:22 Last Admin: 10/29/24 05:00 Dose: 5 ml Assessment & Plan Plan Sachin Conte is a 71-year-old female with a past medical history of COPD on 2 L home oxygen, HFpEF (EF 55-60% in 2022), CVA, lymphoma in remission (last treatment 7 years ago), and PAD s/p vascular intervention in lower extremity who was admitted for acute on chronic hypoxic respiratory failure secondary to COPD exacerbation. ICU consulted acute hypercapnic respiratory failure and patient will be upgraded to ICU for close monitoring. Neurological #History of CVA ? Plavix Cardiovascular #HFpEF (EF 55-60%) Presented with BNP 1000 with SOB. Does have crackles on exam but no lower extremity edema and CXR not suggestive of fluid overload. If symptoms do not resolve, can consider trial of diuretics. ? Entresto ? Holding home metoprolol ? Pending echo #PAD status post vascular procedure ? Clopidogrel 75 mg p.o. daily #Hypertensive urgency, resolved BP currently stable. Has home metoprolol and HCTZ that are currently being held for possible CHF exacerbation and hypoosmolar hyponatremia, respectively. Pulmonary #Acute hypercapnic respiratory failure Rapid response for tachypnea and increased work of breathing but was noted to be saturating well at 94% and was tachycardic in 110s. She was eventually placed on BiPAP and given extra dose of steroids. ABG and CXR were ordered and Solu- Medrol was changed to twice daily. ABG showed pH 7.2, pCO2 81, and pO2 116. CXR unchanged. Afterwards, ICU was consulted for acute hypercapnic respiratory failure and patient will be upgraded to ICU for close monitoring. BiPAP settings were changed to FiO2 40% and AVAPS mode and ABG has since improved, showing pH of 7.35, pCO2 56, pO2 106. ? Continue BiPAP, FiO2 40%, AVAPS mode #COPD exacerbation secondary to RSV pneumonia Presents with increased oxygen requirements, dry cough, and shortness of breath. Has been compliant with home medications. ? Albuterol 10 mg inh administered over 1 hour x1 ? Duonebs q4hr ? Solu-Medrol 40 mg IV twice daily #RSV pneumonia #Community-acquired pneumonia ? See infectious disease below Renal #Hypoosmolar hyponatremia Sodium of 127 and has home prescription of hydrochlorothiazide. Consider possible SIADH/paraneoplastic syndrome as patient has a long-standing history of tobacco use and COPD. ? Hold hydrochlorothiazide ? Follow-up urine electrolytes Gastrointestinal #Transaminitis ? Continue to monitor Hematological #Leukocytosis, improving #Chronic microcytic anemia, stable Endocine #Subclinical hypothyroidism TSH 0.34, T4 WNL ? No treatment indicated Infectious disease #RSV pneumonia ? Chest physiotherapy ? Supportive treatment #Community-acquired pneumonia ? Ceftriaxone and azithromycin Hospital management: Disposition: acute on chronic hypoxic respiratory failure requiring BiPAP Pressors: none Sedation: none Fluids: not indicated Diet: regular Lines: peripheral DVT prophylaxis: heparin SC q8hr GI prophylaxis: pantoprazole 40 mg IV daily Rosalino: Kaity luis CODE STATUS: full code ----- Plan discussed with attending physician Dr. Ross. Edgar Harkins MD PGY-1 Internal Medicine Attending Provider Attestation/Addendum pt seen and examined with resident. agree with above, in brief this is a 79yo F admitted to the floor with RSV and COPDE. She developed respiratory acidosis and a bipap was placed. An ICU consult was requested. Pt was seen in her room on medsurge with family at bedside. Pt has a h/o chronic resp failure and is on 2lts home O2 with a 55yr h/o smoking. On exam there is some increase WOB noted. She is awake alert and mentating. This is a thin elderly female in NAD. lung murillo very diminished with scattered expiratory wheeze, HRRR. D/w family at bedside and pt is full code with intubation and CPR. At this point in time due to her tenous respiratory state with respiratory acidosis on bipap will transfer to the ICU for possible intubation. Pts bipap was changed to AVAPS mode and will see if adjustments improve her overall status. labs, imaging, records reviewed case d/w ICU team and family ~55ccmin required for eval, exam , review, intervention, discussion and formulation of POC for this critically ill pt with acute/chronic resp failure at high risk for further and ongoing decompensation.
[2024-10-30] MEDS: ALBUTEROL RT 2.5 MG/0.5 ML NEBU 10 MG INH (20:15)
[2024-10-30] MEDS: cefTRIAXone/D5w 1gm IV premix 50 ML IV (21:11)
[2024-10-30] MEDS: AZITHROMYCIN 250 MG TABLET PO (21:11)
[2024-10-30] MEDS: LIDOCAINE 5% 1 PATCH TOP (21:12)
[2024-10-30] MEDS: MELATONIN 3 MG TABLET 6 MG PO (21:12)
[2024-10-30] MEDS: ALBUTEROL/IPRATROPIUM (Duoneb) RT SOL 3 ML NEBU INH (22:45)
[2024-10-31] VITALS (24 sets, daily range): BP systolic 138–184; BP diastolic 74–113; PULSE 89–126; RESP 15–35; O2SAT 89–100
[2024-10-31] MEDS: ALBUTEROL/IPRATROPIUM (Duoneb) RT SOL 3 ML NEBU INH ×2 (03:15→06:40)
[2024-10-31 04:50] LABS: Basophils % (Auto) 0 % (0-2.5); Eosinophils % (Auto) 0 % (0-10); Hematocrit 30.3 % (36.0-46.0); Hemoglobin 10.2 g/dL (12.0-16.0); Immature Granulocytes % (Auto) 1 % (0-0); Immature Granulocytes Auto 0.06 Thou/mm3 (0.00-0.00); Lymphocytes # (Auto) 0.8 Thou/mm3 (1.0-4.8); Lymphocytes % (Auto) 7 % (10-50); Mean Corpuscular HGB Conc 33.7 g/dl (31.0-37.0); Mean Corpuscular Hemoglobin 33.6 pg (25.0-35.0); Mean Corpuscular Volume 100 fL (80-100); Monocytes # (Auto) 0.5 Thou/mm3 (0.0-0.8); Monocytes % (Auto) 5 % (0-12); Neutrophils # (Auto) 9.8 Thou/mm3 (1.8-7.7); Neutrophils % (Auto) 88 % (37-80); Nucleated Red Blood Cell % 0 /100 WBC (0); Platelet Count 258 Thou/mm3 (140-440); RDW Standard Deviation 48.2 fL (36.4-46.3); Red Blood Count 3.04 Miln/mm3 (4.00-5.20); White Blood Count 11.2 Thou/mm3 (3.6-11.0)
[2024-10-31 05:07] LABS: Alanine Aminotransferase 20 U/L (10-49); Albumin/Globulin Ratio 1.2 (1.2-2.2); Alkaline Phosphatase 50 U/L (46-116); Anion Gap 8 (7-16); Aspartate Amino Transferase 38 U/L (0-34); BUN/Creatinine Ratio 33 Ratio (12-20); Bilirubin,Total 0.2 mg/dL (0.3-1.2); Blood Urea Nitrogen 30 mg/dL (9-23); Calcium 8.9 mg/dL (8.3-10.6); Calcium (Corrected) 8.9 mg/dL (8.5-10.1); Chloride 85 mMol/L (98-107); Creatinine (Component) 0.9 mg/dL (0.6-1.3); Estimated Creatinine Clearance 37.8 mL/min (>60); Globulin 3.3 gm/dL (2.3-3.5); Glucose 133 mg/dL (74-106); Magnesium 2.6 mg/dL (1.6-2.6); Osmolality,Calculated 257 (275-295); Phosphorous 4.7 mg/dL (2.4-5.1); Potassium 4.6 mMol/L (3.4-5.1); Sodium 124 mMol/L (136-145); Total Protein 7.3 gm/dL (5.7-8.2); eGFR > 60 See Note
[2024-10-31] MEDS: HEPARIN SOD INJ 5000 UNIT/ML VIAL SC ×3 (05:16→21:34)
[2024-10-31] MEDS: ACETAMINOPHEN w/COD 300-30 TABLET 1 TAB PO ×3 (05:17→21:33)
--- NOTE | 2024-10-31 08:55 | PC.PT ---
PT eval will be canceled 2/ patient was transferred to ICU.
[2024-10-31] MEDS: PANTOPRAZOLE INJ 40 MG VIAL IVP (09:55)
[2024-10-31] MEDS: CLOPIDOGREL BISULFATE 75 MG TABLET PO (09:55)
[2024-10-31] MEDS: NALOXEGOL OXALATE 25 MG TABLET (NON-FORMULARY) 12.5 MG PO (09:55)
[2024-10-31] MEDS: SACUBITRIL 24 MG/VALSARTAN 26 MG TABLET 1 TAB PO ×2 (09:55→21:32)
[2024-10-31] MEDS: POLYETHYLENE GLYCOL 17 GM PACKET PO (09:55)
--- NOTE | 2024-10-31 10:36 | PD.RESPRO ---
Documentation for date of: 10/31/24 Exam Vital Signs Temp Pulse Resp BP Pulse Ox O2 Del Method O2 Flow Rate 97.8 F 113 H 24 H 121/77 100 BiPAP 2 10/30/24 16:00 10/31/24 06:53 10/31/24 06:53 10/30/24 16:00 10/31/24 06:53 10/30/24 16:00 10/30/24 16:00 FiO2 426 10/31/24 06:53 Objective Labs 10/31/24 04:27 10/31/24 04:27 Labs: Laboratory Results - last 24 hr 10/30/24 10/30/24 10/30/24 09:00 10:43 11:00 WBC RBC Hgb Hct MCV MCH MCHC RDW Std Deviation Plt Count Neut % (Auto) Lymph % (Auto) [place] % (Auto) Eos % (Auto) Baso % (Auto) Neut # (Auto) Lymph # (Auto) [place] # (Auto) Eos # (Auto) Baso # (Auto) Immature Gran # (Auto) Absolute Nucleated RBC Immature Gran % Nucleated RBC % Puncture Site Right Radial ABG pH 7.21 L ABG pCO2 81 H* ABG pO2 106 ABG HCO3 33 H ABG O2 Saturation 98 ABG Base Excess 3 FiO2 45 Sodium Potassium Chloride Carbon Dioxide Anion Gap BUN Creatinine Estim Creat Clear Calc eGFR BUN/Creatinine Ratio Glucose Calculated Osmolality Calcium Corrected Calcium Phosphorus Magnesium Total Bilirubin AST ALT Alkaline Phosphatase Total Protein Albumin Globulin Albumin/Globulin Ratio Coccidioides IgM Ab Negative RSV Rapid Positive A 10/30/24 10/30/24 10/30/24 14:47 17:00 17:32 WBC RBC Hgb Hct MCV MCH MCHC RDW Std Deviation Plt Count Neut % (Auto) Lymph % (Auto) [place] % (Auto) Eos % (Auto) Baso % (Auto) Neut # (Auto) Lymph # (Auto) [place] # (Auto) Eos # (Auto) Baso # (Auto) Immature Gran # (Auto) Absolute Nucleated RBC Immature Gran % Nucleated RBC % Puncture Site Right Brachial Right Brachial ABG pH 7.32 L D 7.35 ABG pCO2 61 H D 56 H ABG pO2 121 H 106 ABG HCO3 31 H 31 H ABG O2 Saturation 98 98 ABG Base Excess 4 H 4 H FiO2 45 40 Sodium 125 L Potassium 4.9 Chloride 86 L Carbon Dioxide 28.7 Anion Gap 10 BUN 23 Creatinine 0.9 Estim Creat Clear Calc 40.7 L eGFR > 60 BUN/Creatinine Ratio 26 H Glucose 137 H Calculated Osmolality 257 L Calcium 8.8 Corrected Calcium 8.8 Phosphorus Magnesium Total Bilirubin 0.2 L AST 45 H ALT 25 Alkaline Phosphatase 50 Total Protein 7.3 Albumin 4.0 Globulin 3.3 Albumin/Globulin Ratio 1.2 Coccidioides IgM Ab RSV Rapid 10/31/24 04:27 WBC 11.2 H RBC 3.04 L Hgb 10.2 L Hct 30.3 L MCV 100 MCH 33.6 MCHC 33.7 RDW Std Deviation 48.2 H Plt Count 258 Neut % (Auto) 88 H Lymph % (Auto) 7 L [place] % (Auto) 5 Eos % (Auto) 0 Baso % (Auto) 0 Neut # (Auto) 9.8 H Lymph # (Auto) 0.8 L [place] # (Auto) 0.5 Eos # (Auto) 0.0 Baso # (Auto) 0.0 Immature Gran # (Auto) 0.06 H Absolute Nucleated RBC 0.00 Immature Gran % 1 H Nucleated RBC % 0 Puncture Site ABG pH ABG pCO2 ABG pO2 ABG HCO3 ABG O2 Saturation ABG Base Excess FiO2 Sodium 124 L Potassium 4.6 Chloride 85 L Carbon Dioxide 31.0 Anion Gap 8 BUN 30 H Creatinine 0.9 Estim Creat Clear Calc 37.8 L eGFR > 60 BUN/Creatinine Ratio 33 H Glucose 133 H Calculated Osmolality 257 L Calcium 8.9 Corrected Calcium 8.9 Phosphorus 4.7 Magnesium 2.6 Total Bilirubin 0.2 L AST 38 H ALT 20 Alkaline Phosphatase 50 Total Protein 7.3 Albumin 4.0 Globulin 3.3 Albumin/Globulin Ratio 1.2 Coccidioides IgM Ab RSV Rapid ABG Interpretation ABG results: 10/28/24 10/30/24 10/30/24 22:30 04:30 06:40 ABG pH 7.35 7.27 L 7.26 L ABG pCO2 62 H 76 H* D 75 H* ABG pO2 93 95 103 ABG HCO3 34 H 35 H 34 H ABG O2 Saturation 96 97 98 ABG Base Excess 7 H 6 H 5 H 10/30/24 10/30/24 10/30/24 11:00 14:47 17:32 ABG pH 7.21 L 7.32 L D 7.35 ABG pCO2 81 H* 61 H D 56 H ABG pO2 106 121 H 106 ABG HCO3 33 H 31 H 31 H ABG O2 Saturation 98 98 98 ABG Base Excess 3 4 H 4 H Quality Measures Quality Measures sepsis Possible source: unknown Blood cultures ordered: yes Assessment & Plan Assessment Current Active Medications: Generic Name Dose Route Start Last Admin Trade Name Freq PRN Reason Stop Dose Admin Acetaminophen 650 mg 10/29/24 03:16 Acetaminophen 325 Mg Tablet PO 11/28/24 03:15 Q6H PRN PAIN SCALE 1-3 (mild Acetaminophen 650 mg 10/29/24 03:16 Acetaminophen 325 Mg Tablet PO 11/28/24 03:15 Q6H PRN Fever >100 Acetaminophen/Codeine Phosphate 1 tab 10/29/24 06:00 10/31/24 05:17 Acetaminophen W/Cod 300-30 Tablet PO 11/03/24 05:59 1 tab TID LELE Administration Albuterol/Ipratropium 3 ml 10/30/24 23:00 10/31/24 06:40 Albuterol/Ipratropium (Duoneb) Rt Bhavana 3 Ml Nebu INH 11/29/24 22:59 3 ml Q4HRRT LELE Administration Albuterol/Ipratropium 3 ml 10/30/24 19:00 Albuterol/Ipratropium (Duoneb) Rt Bhavana 3 Ml Nebu INH 11/29/24 18:59 Q2HR PRN SHORTNESS OF BREATH OR WHEEZE Azithromycin 250 mg 10/29/24 21:00 10/30/24 21:11 Azithromycin 250 Mg Tablet PO 11/05/24 03:17 250 mg HS LELE Administration Clopidogrel Bisulfate 75 mg 10/29/24 09:00 10/31/24 09:55 Clopidogrel Bisulfate 75 Mg Tablet PO 11/28/24 08:59 75 mg QDAY LELE Administration Heparin Sodium (Porcine) 5,000 unit 10/29/24 06:00 10/31/24 05:16 Heparin Sod Inj 5000 Unit/Ml Vial SC 11/12/24 05:59 5,000 unit Q8HR LELE Administration Ceftriaxone Sodium/Dextrose 50 mls @ 100 mls/hr 10/29/24 21:00 10/30/24 21:11 Rocephin/D5w 1gm Iv Premix IV 11/05/24 20:59 100 mls/hr HS LELE Administration Melatonin 6 mg 10/30/24 21:00 10/30/24 21:12 Melatonin 3 Mg Tablet PO 11/29/24 20:59 6 mg HS LELE Administration Methylprednisolone Sodium Succinate 40 mg 10/30/24 21:00 10/31/24 09:55 Methylprednisolone Sod Succ 40 Mg Vial IVP 11/04/24 20:59 40 mg BID LELE Administration Naloxegol 12.5 mg 10/31/24 09:00 10/31/24 09:55 Naloxegol Oxalate 25 Mg Tablet (Non-Formulary) PO 11/28/24 08:59 12.5 mg ACBR LELE Administration Ondansetron HCl 4 mg 10/29/24 03:16 Ondansetron Inj 2 Mg/Ml Inj 2 Ml IV 11/28/24 03:15 Q6H PRN NAUSEA OR VOMITING Protocol Pantoprazole Sodium 40 mg 10/29/24 09:00 10/31/24 09:55 Pantoprazole Inj 40 Mg Vial IVP 11/28/24 08:59 40 mg QDAY LELE Administration Pharmacy Consult 1 each 10/30/24 16:45 Pharmacy Renal Dose Adjustment 1 Ea XX 11/29/24 16:44 QDAY PRN PROTOCOL Polyethylene Glycol 17 gm 10/29/24 09:00 10/31/24 09:55 Polyethylene Glycol 17 Gm Packet PO 11/28/24 08:59 17 gm QDAY LELE Administration Sacubitril/Valsartan 1 tab 10/29/24 09:00 10/31/24 09:55 Sacubitril 24 Mg/Valsartan 26 Mg Tablet PO 11/28/24 08:59 1 tab BID LELE Administration Sennosides 1 tab 10/29/24 04:30 Senna/Docusate Sod 1 Tab Tablet PO 11/28/24 04:29 QDAY PRN CONSTIPATION Protocol Sodium Chloride 3 ml 10/28/24 21:07 10/28/24 21:12 Sodium Chloride Rt Bhavana 0.9% 3 Ml Nebu INH 11/27/24 21:06 3 ml PRN PRN Administration SOLN
--- NOTE | 2024-10-31 12:10 | ESPR_ITS ---
Documentation for date of: 10/31/24 Subjective Subjective Interval history: Sachin Conte is a 71-year-old female with a past medical history of COPD on 2 L home oxygen, HFpEF (EF 55-60% in 2022), CVA, lymphoma in remission (last treatment 7 years ago), and PAD s/p vascular intervention in lower extremity who presented to the ED with shortness of breath and associated worsening, dry cough with increased home oxygen requirements for approximately 3 days prior to admission. Denied fever, chills, or sick contacts at home but son at bedside states that she was recently in ED for hyponatremia on 10/19. In ED, patient noted to be saturating 93% and was started on BiPAP but was then able to be weaned down to 1 L nasal cannula, saturating in the mid 90s. ABG in ED obtained showed pH of 7.35, pCO2 62, pO2 93, and HCO3 34. Found to be positive for RSV, negative for COVID and influenza A/P. CXR without any infiltrates, CTA chest showed multifocal pneumonia and chronic emphysema. Labs significant for sodium 128, osm 259, magnesium 1.4, BNP 1000, troponin negative. Given azithromycin, ceftriaxone, and steroids. Admitted for acute on chronic hypoxic respiratory failure secondary to COPD exacerbation. On 10/30, patient had rapid response for tachypnea and increased work of breathing but was noted to be saturating well at 94% and was tachycardic in 110s. She was eventually placed on BiPAP and given extra dose of steroids. ABG and CXR were ordered and Solu-Medrol was changed to twice daily. ABG showed pH 7.2, pCO2 81, and pO2 116. CXR unchanged. Afterwards, ICU was consulted for acute hypercapnic respiratory failure and patient will be upgraded to ICU for close monitoring. BiPAP settings were changed to FiO2 40% and AVAPS mode and ABG has since improved, showing pH of 7.35, pCO2 56, pO2 106. 10/31: No acute overnight events noted. She was able to tolerate BiPAP 40% throughout the night but was transition to 2 L nasal cannula at around 9 AM and has been tolerating saturating well, in mid 90s. Urine output 200 cc during shift but also noted to have wet pads so likely not an accurate UOP. Lidocaine patch also placed during retail sales vitamin consultant. Patient was monitored in ICU while on 2 L nasal cannula and has maintained her O2 well. Repeat ABGs yesterday showed continuous improvement and scheduled DuoNebs were changed from every 6 hours to every 4 hours with every 2 hours as needed. Given patient's stable clinical status, will be downgraded to floors. Exam Vital Signs Temp Pulse Resp BP Pulse Ox O2 Del Method O2 Flow Rate 97.8 F 113 H 24 H 121/77 100 BiPAP 2 10/30/24 16:00 10/31/24 08:00 10/31/24 06:53 10/30/24 16:00 10/31/24 06:53 10/30/24 16:00 10/30/24 16:00 FiO2 426 10/31/24 06:53 Narrative Exam General: pleasant, frail and elderly woman on 2 L NC, AOx3, no acute distress HEENT: NC/AT, mucous membranes moist, bilateral sclera anicteric Cardiovascular: regular rate and rhythm, S1/S2 present, no murmurs appreciated Pulmonary: inspiratory wheezes and expiratory crackles on auscultation Abdominal: soft, non-tender, non-distended, midline scar present in lower quadrants Musculoskeletal: bilateral breast augmentation, no peripheral edema, L dorsalis pedis and posterior tibial unappreciable, L femoral 2+, R dorsalis pedis unappreciable, R posterior popliteal and femoral 2+ Skin: purpura in upper and lower extremities bilaterally Neuro: CN II-XII intact, no focal deficits, sensation intact, strength 4/5 in upper and lower extremities bilaterally Objective Labs 11/01/24 04:15 11/01/24 17:15 Labs: Laboratory Results - last 24 hr 10/30/24 10/30/24 10/30/24 09:00 14:47 17:00 WBC RBC Hgb Hct MCV MCH MCHC RDW Std Deviation Plt Count Neut % (Auto) Lymph % (Auto) Baker % (Auto) Eos % (Auto) Baso % (Auto) Neut # (Auto) Lymph # (Auto) Baker # (Auto) Eos # (Auto) Baso # (Auto) Immature Gran # (Auto) Absolute Nucleated RBC Immature Gran % Nucleated RBC % Puncture Site Right Brachial ABG pH 7.32 L D ABG pCO2 61 H D ABG pO2 121 H ABG HCO3 31 H ABG O2 Saturation 98 ABG Base Excess 4 H FiO2 45 Sodium 125 L Potassium 4.9 Chloride 86 L Carbon Dioxide 28.7 Anion Gap 10 BUN 23 Creatinine 0.9 Estim Creat Clear Calc 40.7 L eGFR > 60 BUN/Creatinine Ratio 26 H Glucose 137 H Calculated Osmolality 257 L Calcium 8.8 Corrected Calcium 8.8 Phosphorus Magnesium Total Bilirubin 0.2 L AST 45 H ALT 25 Alkaline Phosphatase 50 Total Protein 7.3 Albumin 4.0 Globulin 3.3 Albumin/Globulin Ratio 1.2 Coccidioides IgM Ab Negative 10/30/24 10/31/24 17:32 04:27 WBC 11.2 H RBC 3.04 L Hgb 10.2 L Hct 30.3 L MCV 100 MCH 33.6 MCHC 33.7 RDW Std Deviation 48.2 H Plt Count 258 Neut % (Auto) 88 H Lymph % (Auto) 7 L Baker % (Auto) 5 Eos % (Auto) 0 Baso % (Auto) 0 Neut # (Auto) 9.8 H Lymph # (Auto) 0.8 L Baker # (Auto) 0.5 Eos # (Auto) 0.0 Baso # (Auto) 0.0 Immature Gran # (Auto) 0.06 H Absolute Nucleated RBC 0.00 Immature Gran % 1 H Nucleated RBC % 0 Puncture Site Right Brachial ABG pH 7.35 ABG pCO2 56 H ABG pO2 106 ABG HCO3 31 H ABG O2 Saturation 98 ABG Base Excess 4 H FiO2 40 Sodium 124 L Potassium 4.6 Chloride 85 L Carbon Dioxide 31.0 Anion Gap 8 BUN 30 H Creatinine 0.9 Estim Creat Clear Calc 37.8 L eGFR > 60 BUN/Creatinine Ratio 33 H Glucose 133 H Calculated Osmolality 257 L Calcium 8.9 Corrected Calcium 8.9 Phosphorus 4.7 Magnesium 2.6 Total Bilirubin 0.2 L AST 38 H ALT 20 Alkaline Phosphatase 50 Total Protein 7.3 Albumin 4.0 Globulin 3.3 Albumin/Globulin Ratio 1.2 Coccidioides IgM Ab ABG Interpretation ABG results: 10/28/24 10/30/24 10/30/24 22:30 04:30 06:40 ABG pH 7.35 7.27 L 7.26 L ABG pCO2 62 H 76 H* D 75 H* ABG pO2 93 95 103 ABG HCO3 34 H 35 H 34 H ABG O2 Saturation 96 97 98 ABG Base Excess 7 H 6 H 5 H 10/30/24 10/30/24 10/30/24 11:00 14:47 17:32 ABG pH 7.21 L 7.32 L D 7.35 ABG pCO2 81 H* 61 H D 56 H ABG pO2 106 121 H 106 ABG HCO3 33 H 31 H 31 H ABG O2 Saturation 98 98 98 ABG Base Excess 3 4 H 4 H Quality Measures Quality Measures sepsis Current suspected stage: ruled out Possible source: unknown Blood cultures ordered: yes Antibiotic ordered: Yes Advance care planning discussed with:: patient and child Assessment & Plan Assessment Current Active Medications: Generic Name Dose Route Start Last Admin Trade Name Freq PRN Reason Stop Dose Admin Acetaminophen 650 mg 10/29/24 03:16 Acetaminophen 325 Mg Tablet PO 11/28/24 03:15 Q6H PRN PAIN SCALE 1-3 (mild Acetaminophen 650 mg 10/29/24 03:16 Acetaminophen 325 Mg Tablet PO 11/28/24 03:15 Q6H PRN Fever >100 Acetaminophen/Codeine Phosphate 1 tab 10/29/24 06:00 10/31/24 05:17 Acetaminophen W/Cod 300-30 Tablet PO 11/03/24 05:59 1 tab TID LELE Administration Albuterol/Ipratropium 3 ml 10/30/24 23:00 10/31/24 06:40 Albuterol/Ipratropium (Duoneb) Rt Bhavana 3 Ml Nebu INH 11/29/24 22:59 3 ml Q4HRRT LELE Administration Albuterol/Ipratropium 3 ml 10/30/24 19:00 Albuterol/Ipratropium (Duoneb) Rt Bhavana 3 Ml Nebu INH 11/29/24 18:59 Q2HR PRN SHORTNESS OF BREATH OR WHEEZE Azithromycin 250 mg 10/29/24 21:00 10/30/24 21:11 Azithromycin 250 Mg Tablet PO 11/05/24 03:17 250 mg HS LELE Administration Clopidogrel Bisulfate 75 mg 10/29/24 09:00 10/31/24 09:55 Clopidogrel Bisulfate 75 Mg Tablet PO 11/28/24 08:59 75 mg QDAY LELE Administration Heparin Sodium (Porcine) 5,000 unit 10/29/24 06:00 10/31/24 05:16 Heparin Sod Inj 5000 Unit/Ml Vial SC 11/12/24 05:59 5,000 unit Q8HR LELE Administration Ceftriaxone Sodium/Dextrose 50 mls @ 100 mls/hr 10/29/24 21:00 10/30/24 21:11 Rocephin/D5w 1gm Iv Premix IV 11/05/24 20:59 100 mls/hr HS LELE Administration Melatonin 6 mg 10/30/24 21:00 10/30/24 21:12 Melatonin 3 Mg Tablet PO 11/29/24 20:59 6 mg HS LELE Administration Methylprednisolone Sodium Succinate 40 mg 10/30/24 21:00 10/31/24 09:55 Methylprednisolone Sod Succ 40 Mg Vial IVP 11/04/24 20:59 40 mg BID LELE Administration Naloxegol 12.5 mg 10/31/24 09:00 10/31/24 09:55 Naloxegol Oxalate 25 Mg Tablet (Non-Formulary) PO 11/28/24 08:59 12.5 mg ACBR LELE Administration Ondansetron HCl 4 mg 10/29/24 03:16 Ondansetron Inj 2 Mg/Ml Inj 2 Ml IV 11/28/24 03:15 Q6H PRN NAUSEA OR VOMITING Protocol Pantoprazole Sodium 40 mg 10/29/24 09:00 10/31/24 09:55 Pantoprazole Inj 40 Mg Vial IVP 11/28/24 08:59 40 mg QDAY LELE Administration Pharmacy Consult 1 each 10/30/24 16:45 Pharmacy Renal Dose Adjustment 1 Ea XX 11/29/24 16:44 QDAY PRN PROTOCOL Polyethylene Glycol 17 gm 10/29/24 09:00 10/31/24 09:55 Polyethylene Glycol 17 Gm Packet PO 11/28/24 08:59 17 gm QDAY LELE Administration Sacubitril/Valsartan 1 tab 10/29/24 09:00 10/31/24 09:55 Sacubitril 24 Mg/Valsartan 26 Mg Tablet PO 11/28/24 08:59 1 tab BID LELE Administration Sennosides 1 tab 10/29/24 04:30 Senna/Docusate Sod 1 Tab Tablet PO 11/28/24 04:29 QDAY PRN CONSTIPATION Protocol Sodium Chloride 3 ml 10/28/24 21:07 10/28/24 21:12 Sodium Chloride Rt Bhavana 0.9% 3 Ml Nebu INH 11/27/24 21:06 3 ml PRN PRN Administration SOLN Plan Sachin Conte is a 71-year-old female with a past medical history of COPD on 2 L home oxygen, HFpEF (EF 55-60% in 2022), CVA, lymphoma in remission (last treatment 7 years ago), and PAD s/p vascular intervention in lower extremity who was admitted for acute on chronic hypoxic respiratory failure secondary to COPD exacerbation. ICU consulted acute hypercapnic respiratory failure and patient will be upgraded to ICU for close monitoring. Neurological #History of CVA ? Plavix Cardiovascular #HFpEF (EF 55-60%) Presented with BNP 1000 with SOB. Does have crackles on exam but no lower extremity edema and CXR not suggestive of fluid overload. If symptoms do not resolve, can consider trial of diuretics. ? Entresto ? Holding home metoprolol ? Pending echo #PAD status post vascular procedure ? Clopidogrel 75 mg p.o. daily #Hypertensive urgency, resolved BP currently stable. Has home metoprolol and HCTZ that are currently being held for possible CHF exacerbation and hypoosmolar hyponatremia, respectively. Pulmonary #Acute hypercapnic respiratory failure Rapid response for tachypnea and increased work of breathing but was noted to be saturating well at 94% and was tachycardic in 110s. She was eventually placed on BiPAP and given extra dose of steroids. ABG and CXR were ordered and Solu- Medrol was changed to twice daily. ABG showed pH 7.2, pCO2 81, and pO2 116. CXR unchanged. Afterwards, ICU was consulted for acute hypercapnic respiratory failure and patient will be upgraded to ICU for close monitoring. BiPAP settings were changed to FiO2 40% and AVAPS mode and ABG has since improved, showing pH of 7.35, pCO2 56, pO2 106. Continued to be on BiPAP overnight and tolerated well. She was then taken off BiPAP around 9:15 AM and transitioned to 2 L NC and has since tolerated it well. ? See COPD exacerbation below #COPD exacerbation secondary to RSV pneumonia Presents with increased oxygen requirements, dry cough, and shortness of breath. Has been compliant with home medications. ? Albuterol 10 mg inh administered over 1 hour x1 ? Duonebs q4hr ? Solu-Medrol 40 mg IV twice daily #RSV pneumonia #Community-acquired pneumonia ? See infectious disease below Renal #Hypoosmolar hyponatremia Sodium of 127 and has home prescription of hydrochlorothiazide. Consider possible SIADH/paraneoplastic syndrome as patient has a long-standing history of tobacco use and COPD. ? Hold hydrochlorothiazide ? Follow-up urine electrolytes Gastrointestinal #Transaminitis ? Continue to monitor Hematological #Leukocytosis, improving #Chronic microcytic anemia, stable Endocine #Subclinical hypothyroidism TSH 0.34, T4 WNL ? No treatment indicated Infectious disease #RSV pneumonia Chest physiotherapy no longer indicated as patient does not appear to have mucosal secretions or coarse lung sounds on exam. ? Supportive treatment #Community-acquired pneumonia ? Ceftriaxone and azithromycin Hospital management: Disposition: acute on chronic hypoxic respiratory failure requiring BiPAP Pressors: none Sedation: none Fluids: not indicated Diet: regular Lines: peripheral DVT prophylaxis: heparin SC q8hr GI prophylaxis: pantoprazole 40 mg IV daily Jerry: Kaity luis CODE STATUS: full code ----- Plan discussed with attending physician Dr. Ross. Edgar Harkins MD PGY-1 Internal Medicine Attending Provider Attestation/Addendum pt seen and examined, agree with above. In brief this is a 79yo F admitted to the ICU for acute hypercapneic resp failure with COPDE on bipap. Overnight she has improved and is down to 2lts NC. She has some underlying anxiety however overall is doing much better. On exam the lung murillo have improved with decreased expiratory wheeze. Overall she is much better and would cont with nebs q4hrs. At this point in time she can be downgraded back to med tele case d/w ICU team and family at bedside labs, imaging, records reviewed ~36min required for eval, exam , review, intervention, discussion and formulation of POC for this pt
--- NOTE | 2024-10-31 13:49 | PD.RESEVENT ---
Documentation for date of: 10/31/24 Event Note Event Note: 79-year-old female with past medical history of COPD (2 L O2 at home), HFpEF (55 to 60% on 2022), hypertension, CVA, 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 Patient was upgraded to the ICU on 10/30/2024 after she had increased work of breathing and there was a possibility for the patient to be intubated given her worsening respiratory distress. Today patient is saturating well on 2 L of O2 by nasal cannula. Patient's ABG also improved. At this time patient will be downgraded to the medical floors on 11/01/2024 and assigned to team C. Case disclosed with Attending Dr. Max Camargo PGY1
--- NOTE | 2024-10-31 16:15 | PC.SS ---
Update: Patient currently on nasal cannula, transitions to C-PAP at night. Patient is not receiving pressor support. P.O. feeding. Possible downgrade to Med/Surg.
[2024-10-31] MEDS: LEVALBUTEROL RT 1.25 MG/0.5 ML NEBU INH (19:30)
[2024-10-31] MEDS: IPRATROPIUM RT 0.5 MG/ 2.5 ML NEBU INH (19:30)
[2024-10-31] MEDS: MELATONIN 3 MG TABLET 6 MG PO (21:33)
[2024-10-31] MEDS: AZITHROMYCIN 250 MG TABLET PO (21:33)
[2024-10-31] MEDS: cefTRIAXone/D5w 1gm IV premix 50 ML IV (21:33)
[2024-11-01] VITALS (14 sets, daily range): BP systolic 135–144; BP diastolic 70–100; PULSE 103–125; RESP 18–26; TEMP 36.1–36.9; O2SAT 92–99; BMI 18.7; BMI 18.8
[2024-11-01] MEDS: IPRATROPIUM RT 0.5 MG/ 2.5 ML NEBU INH ×4 (01:15→18:20)
[2024-11-01] MEDS: LEVALBUTEROL RT 1.25 MG/0.5 ML NEBU INH ×4 (01:15→18:20)
[2024-11-01 04:38] LABS: Basophils % (Auto) 0 % (0-2.5); Eosinophils % (Auto) 0 % (0-10); Hemoglobin 9.5 g/dL (12.0-16.0); Immature Granulocytes % (Auto) 1 % (0-0); Immature Granulocytes Auto 0.07 Thou/mm3 (0.00-0.00); Lymphocytes # (Auto) 1.1 Thou/mm3 (1.0-4.8); Lymphocytes % (Auto) 9 % (10-50); Mean Corpuscular HGB Conc 33.9 g/dl (31.0-37.0); Mean Corpuscular Hemoglobin 33.6 pg (25.0-35.0); Mean Corpuscular Volume 99 fL (80-100); Monocytes # (Auto) 0.5 Thou/mm3 (0.0-0.8); Monocytes % (Auto) 4 % (0-12); Neutrophils # (Auto) 10.2 Thou/mm3 (1.8-7.7); Neutrophils % (Auto) 86 % (37-80); Nucleated Red Blood Cell % 0 /100 WBC (0); Platelet Count 232 Thou/mm3 (140-440); RDW Standard Deviation 45.5 fL (36.4-46.3); Red Blood Count 2.83 Miln/mm3 (4.00-5.20); White Blood Count 11.8 Thou/mm3 (3.6-11.0)
[2024-11-01 05:01] LABS: Alanine Aminotransferase 17 U/L (10-49); Albumin, Serum 3.6 gm/dL (3.4-4.8); Albumin/Globulin Ratio 1.2 (1.2-2.2); Alkaline Phosphatase 49 U/L (46-116); Anion Gap 6 (7-16); Aspartate Amino Transferase 30 U/L (0-34); BUN/Creatinine Ratio 57 Ratio (12-20); Bilirubin,Total 0.2 mg/dL (0.3-1.2); Blood Urea Nitrogen 51 mg/dL (9-23); Calcium 9.1 mg/dL (8.3-10.6); Calcium (Corrected) 9.4 mg/dL (8.5-10.1); Carbon Dioxide 31.6 mMol/L (20.0-31.0); Chloride 84 mMol/L (98-107); Creatinine (Component) 0.9 mg/dL (0.6-1.3); Estimated Creatinine Clearance 37.8 mL/min (>60); Glucose 136 mg/dL (74-106); Magnesium 2.4 mg/dL (1.6-2.6); Osmolality,Calculated 261 (275-295); Phosphorous 4.4 mg/dL (2.4-5.1); Sodium 122 mMol/L (136-145); Total Protein 6.6 gm/dL (5.7-8.2); eGFR > 60 See Note
[2024-11-01] MEDS: NALOXEGOL OXALATE 25 MG TABLET (NON-FORMULARY) 12.5 MG PO (06:28)
[2024-11-01] MEDS: HEPARIN SOD INJ 5000 UNIT/ML VIAL SC ×3 (06:28→21:40)
[2024-11-01] MEDS: ACETAMINOPHEN w/COD 300-30 TABLET 1 TAB PO ×3 (06:28→21:39)
[2024-11-01] MEDS: POLYETHYLENE GLYCOL 17 GM PACKET PO (09:14)
[2024-11-01] MEDS: PANTOPRAZOLE INJ 40 MG VIAL IVP (09:14)
[2024-11-01] MEDS: SACUBITRIL 24 MG/VALSARTAN 26 MG TABLET 1 TAB PO (09:14)
[2024-11-01] MEDS: CLOPIDOGREL BISULFATE 75 MG TABLET PO (09:14)
[2024-11-01] MEDS: SODIUM CHLORIDE 1 GM TABLET PO ×3 (10:37→21:39)
[2024-11-01] MEDS: PIPER/TAZO 3.375 GM 50 ML IV ×3 (10:37→21:40)
[2024-11-01 10:53] LABS: Sodium 121 mMol/L (136-145)
--- NOTE | 2024-11-01 11:26 | ESPR_ITS ---
<Statement entered by Loreto Estrella MD - 11/01/24 11:51> Patient seen and examined at bedside. Saturating well on NC. No acute complaints other than feeling hungry. RSV+. Sputum culturew grew pseudomonas, blood culture grew MSSA and urine culture grew E Faecalis. Discontinued rocephin and started Zosyn for coverage of all 3 bacterias. Sodium is low, urine electrolytes pending. Does not appear volume overloaded on exam. Will restart home sodium tablets and follow sodium closely. Loreto Estrella MD PGY-3 Documentation for date of: 11/01/24 Subjective Subjective Interval history: Patient was seen at bedside this morning. No overnight events. Patient was on BiPAP throughout the night and this morning with some sedation nasal cannula again and she was saturating well on 3 to 4 L. Patient sputum came back positive for Pseudomonas, urine culture came back positive for Enterococcus faecalis, and blood culture came back MSSA. Change antibiotics to Zosyn and azithromycin and will get infectious disease consult. Start patient on sodium tablets twice daily as sodium is downtrending and currently at 122, Na check q4h. Will continue to monitor. Exam Vital Signs Temp Pulse Resp BP Pulse Ox O2 Del Method O2 Flow Rate 98.4 F 103 H 26 H 144/75 H 99 BiPAP 2 11/01/24 04:00 11/01/24 06:15 11/01/24 06:15 11/01/24 04:00 11/01/24 06:15 10/30/24 16:00 11/01/24 04:00 FiO2 40 11/01/24 06:15 Narrative Exam General: A/O x3, no acute distress, ill appearing thin elderly Eyes: PERRL, EOMI. Anicteric, vision grossly intact. Ears: No ear pain, no ear discharge, Hearing mildly impaired Nose: No nasal discharge. Mouth/Throat: Dry mucous membranes, no redness, no lesions. Neck: Neck supple, non-tender, no cervical lymphadenopathy. Lungs: Expiratory Wheezing with some inspiratory crackles, No accessory muscle use. Cardio: Normal S1/S2, regular rhythm, no murmurs, no JVD Abdomen: Soft, non-tender, no palpable masses, peristalsis present, no guarding or rebound. Extremities: Symmetrical, no significant deformities, no peripheral edema , non-tender, peripheral pulses presents. Skin: No rashes, no lesions, warm to touch. АНДРЕЙ LE venous stasis changes and L UE with red discoloration from elbow level to wrist. Neuro: No focal neurological deficits. motor and sensory intact Psych: Cooperative, appropriate mood and effect. Objective Labs 11/01/24 04:15 11/01/24 09:55 Labs: Laboratory Results - last 24 hr 11/01/24 11/01/24 04:15 09:55 WBC 11.8 H RBC 2.83 L Hgb 9.5 L Hct 28.0 L MCV 99 MCH 33.6 MCHC 33.9 RDW Std Deviation 45.5 Plt Count 232 Neut % (Auto) 86 H Lymph % (Auto) 9 L Nicholas % (Auto) 4 Eos % (Auto) 0 Baso % (Auto) 0 Neut # (Auto) 10.2 H Lymph # (Auto) 1.1 Nicholas # (Auto) 0.5 Eos # (Auto) 0.0 Baso # (Auto) 0.0 Immature Gran # (Auto) 0.07 H Absolute Nucleated RBC 0.00 Immature Gran % 1 H Nucleated RBC % 0 Sodium 122 L 121 L Potassium 5.0 Chloride 84 L Carbon Dioxide 31.6 H Anion Gap 6 L BUN 51 H Creatinine 0.9 Estim Creat Clear Calc 37.8 L eGFR > 60 BUN/Creatinine Ratio 57 H Glucose 136 H Calculated Osmolality 261 L Calcium 9.1 Corrected Calcium 9.4 Phosphorus 4.4 Magnesium 2.4 Total Bilirubin 0.2 L AST 30 ALT 17 Alkaline Phosphatase 49 Total Protein 6.6 Albumin 3.6 Globulin 3.0 Albumin/Globulin Ratio 1.2 ABG Interpretation ABG results: 10/28/24 10/30/24 10/30/24 22:30 04:30 06:40 ABG pH 7.35 7.27 L 7.26 L ABG pCO2 62 H 76 H* D 75 H* ABG pO2 93 95 103 ABG HCO3 34 H 35 H 34 H ABG O2 Saturation 96 97 98 ABG Base Excess 7 H 6 H 5 H 10/30/24 10/30/24 10/30/24 11:00 14:47 17:32 ABG pH 7.21 L 7.32 L D 7.35 ABG pCO2 81 H* 61 H D 56 H ABG pO2 106 121 H 106 ABG HCO3 33 H 31 H 31 H ABG O2 Saturation 98 98 98 ABG Base Excess 3 4 H 4 H Quality Measures Quality Measures sepsis Current suspected stage: ruled out Possible source: unknown Blood cultures ordered: yes Antibiotic ordered: Yes Advance care planning discussed with:: patient and child Assessment & Plan Assessment Current Active Medications: Generic Name Dose Route Start Last Admin Trade Name Freq PRN Reason Stop Dose Admin Acetaminophen 650 mg 10/29/24 03:16 Acetaminophen 325 Mg Tablet PO 11/28/24 03:15 Q6H PRN PAIN SCALE 1-3 (mild Acetaminophen 650 mg 10/29/24 03:16 Acetaminophen 325 Mg Tablet PO 11/28/24 03:15 Q6H PRN Fever >100 Acetaminophen/Codeine Phosphate 1 tab 10/29/24 06:00 11/01/24 06:28 Acetaminophen W/Cod 300-30 Tablet PO 11/03/24 05:59 1 tab TID LELE Administration Azithromycin 250 mg 10/29/24 21:00 10/31/24 21:33 Azithromycin 250 Mg Tablet PO 11/03/24 20:59 250 mg HS LELE Administration Clopidogrel Bisulfate 75 mg 10/29/24 09:00 11/01/24 09:14 Clopidogrel Bisulfate 75 Mg Tablet PO 11/28/24 08:59 75 mg QDAY LELE Administration Heparin Sodium (Porcine) 5,000 unit 10/29/24 06:00 11/01/24 06:28 Heparin Sod Inj 5000 Unit/Ml Vial SC 11/12/24 05:59 5,000 unit Q8HR LELE Administration Piperacillin/Tazobactam/Dextrose 50 mls @ 12.5 mls/hr 11/01/24 14:00 Zosyn IV 11/08/24 13:59 Q8HR LELE Protocol Ipratropium [place] 0.5 mg 10/31/24 19:00 11/01/24 06:13 Ipratropium Rt 0.5 Mg/ 2.5 Ml Nebu INH 11/30/24 18:59 0.5 mg Q6HRRT LELE Administration Levalbuterol HCl 1.25 mg 10/31/24 19:00 11/01/24 06:13 Levalbuterol Rt 1.25 Mg/0.5 Ml Nebu INH 11/30/24 18:59 1.25 mg Q6HRRT LELE Administration Melatonin 6 mg 10/30/24 21:00 10/31/24 21:33 Melatonin 3 Mg Tablet PO 11/29/24 20:59 6 mg HS LELE Administration Methylprednisolone Sodium Succinate 40 mg 10/30/24 21:00 11/01/24 09:14 Methylprednisolone Sod Succ 40 Mg Vial IVP 11/04/24 20:59 40 mg BID LELE Administration Naloxegol 12.5 mg 10/31/24 09:00 11/01/24 06:28 Naloxegol Oxalate 25 Mg Tablet (Non-Formulary) PO 11/28/24 08:59 12.5 mg ACBR LELE Administration Ondansetron HCl 4 mg 10/29/24 03:16 Ondansetron Inj 2 Mg/Ml Inj 2 Ml IV 11/28/24 03:15 Q6H PRN NAUSEA OR VOMITING Protocol Pantoprazole Sodium 40 mg 10/29/24 09:00 11/01/24 09:14 Pantoprazole Inj 40 Mg Vial IVP 11/28/24 08:59 40 mg QDAY LELE Administration Pharmacy Consult 1 each 10/30/24 16:45 Pharmacy Renal Dose Adjustment 1 Ea XX 11/29/24 16:44 QDAY PRN PROTOCOL Polyethylene Glycol 17 gm 10/29/24 09:00 11/01/24 09:14 Polyethylene Glycol 17 Gm Packet PO 11/28/24 08:59 17 gm QDAY LELE Administration Sacubitril/Valsartan 1 tab 10/29/24 09:00 11/01/24 09:14 Sacubitril 24 Mg/Valsartan 26 Mg Tablet PO 11/28/24 08:59 1 tab BID LELE Administration Sennosides 1 tab 10/29/24 04:30 Senna/Docusate Sod 1 Tab Tablet PO 11/28/24 04:29 QDAY PRN CONSTIPATION Protocol Sodium Chloride 3 ml 10/31/24 16:00 Sodium Chloride Rt Bhavana 0.9% 3 Ml Nebu INH 11/30/24 15:59 PRN PRN SOLN Sodium Chloride 1 gm 11/01/24 09:45 11/01/24 10:37 Sodium Chloride 1 Gm Tablet PO 12/01/24 09:44 1 gm BID LELE Administration Plan 79-year-old female with past medical history of COPD (2 L O2 at home), HFpEF (55 to 60% on 2022), hypertension, CVA, lymphoma currently on remission, chronic back pain on narcotics, and chronic constipation, and PAD who was admitted to the hospital on 10/29/2024 due to acute on chronic hypoxic respiratory failure likely secondary to COPD exacerbation in the setting of community-acquired pneumonia. #Acute on chronic hypoxic and hypercapnic respiratory failure likely secondary to #COPD exacerbation in the setting of #Pneumonia, RSV positive and Pseudomonas #Respiratory acidosis, improving #Hx of COPD #MSSA bacteremia #E. Faecalis in urine ? Patient came in initially with complaints of cough, shortness of breath, and increased requirements of oxygen. ? Patient has a history of COPD ??Patient met SIRS 4 out of 4 criteria on admission, but there was no signs of endorgan damage ? qSOFA score of 1 ? Initial chest x-ray showed vascular congestion ?Initial Chest CTA showed bilateral pneumonia ?Repeat chest x-ray on 10/30/2024 showed no pneumonia pulmonary edema ? Latest ABG showed pH 7.32, pCO2 61, pO2 121 - Rocephin [10/29/2024?11/01/2024] ? Blood culture grew MSSA ? Urine cultures grew Enterococcus faecalis ? Sputum cultures grew Pseudomonas Plan: ?Continue azithromycin [10/29/2024?] ? Started Zosyn [03/15/2025?] ? Continue breathing treatments ? Continue methylprednisolone 40 mg twice daily [12/13/2024?] ? License Inspector consulted, appreciate recommendations ? ID consulted, appreciate commendations ?Will continue to monitor #Hypoosmolar hyponatremia, chronic ?Patient came in with sodium of 127, currently 122. ? Patient sodium appears to be low in the past was 122 on September. ? DDx includes SIADH versus dehydration versus medication induced as he was on hydrochlorothiazide and metolazone Plan: ? Fluid restrictions - Na tab BID ?Urine sodium and electrolytes pending -Na check q4h ? Holding hydrochlorothiazide metolazone ?Will continue to monitor #Hx of HFpEF (55% on 10/2023) ?Patient came in initially with complaints of shortness of breath and requiring increased levels of oxygen ? Patient does not seem to be in CHF exacerbation at this time she does not appear to be fluid overloaded and there is no pulmonary edema. ? BNP initially was 1001 ? Echo showed 55% EF Plan: ?Will continue Entresto ? Fluid restrictions ? Cardiac diet ? Will continue to monitor #Hypertensive urgency #Hx of hypertension ? Patient came in with blood pressure of 207/109 ? Patient's blood pressure continues to be elevated today at 163/84 Plan: ? Will continue patient on Entresto ? Will hold off on patient's home medication beta-yola as she is on [employer] exacerbation. #Hx of CVA #Hx of PAD ? Continue Plavix #Hx of chronic constipation in the setting of #Chronic back pain on narcotics ? Continue patient's Tylenol?codeine 1 tablet 3 times daily for pain ? Continue scheduled daily Movantik, senna, and MiraLAX Disposition: Patient seen in telemetry, Zosyn/Ncithro to cover MSSA, Pseudo, E. faecalis. Pending ID consult. Continue Na checks q4h and Na tab BID Diet: Regular GI prophylaxis: protonix DVT prophylaxis: heparin sc Code: full code Case disclosed with Attending Dr. Santana and My senior Dr. Estrella PGY3. Naresh Camargo PGY1 Attending Provider Attestation/Addendum I, Mulu Santana, DO, attest that I was physically present for the jones portions of the service and evaluated the patient with the resident and I reviewed and discussed the case with the resident and agree with the resident's findings and plans of care as documented above Patient seen and evaluated this AM. Patient downgraded from ICU and currently on 4L/NC. She complains of productive sputum and noted to have scattered rhonchi. Patient uses 2L/NC at home and, as per daughter in law, has been declining in functional status. Pt ambulates with walker at home, but requires wheelchair assistance when leaving the house. Will continue with steroids, chest PT and IV abx. Patient found to have pseudomonas in sputum, enterococcus in urine and MSSA in blood. Will switch abx to zosyn and obtain further recommendations from ID to further narrow abx.
[2024-11-01 12:27] LABS: Cocci Serology, IgG Negative (Negative)
[2024-11-01 14:09] LABS: Sodium 118 mMol/L (136-145)
--- NOTE | 2024-11-01 15:56 | PC.SS ---
Patient has been downgraded from ICU to tele.
--- NOTE | 2024-11-01 17:36 | ESCONSULT_ITS ---
HPI Data of Consult Consult date: 11/01/24 Requesting Physician: Mulu Santana DO Admitting Provider: Nasrin Sanchez MD Attending Provider: Mulu Santana DO Primary Care Provider: Dutch Casillas MD Consult Narrative Reason for consult: Severe hyponatremia History of present illness: Mr. Conte is a 79-year-old female with significant past medical history of COPD on 2 L home oxygen, HFpEF, hypertension, possible A-fib, CVA, lymphoma in remission, PAD s/p vascular intervention of lower extremity presented to ED with shortness of breath and was found to have COPD exacerbation secondary to RSV pneumonia. She was initially admitted to ICU, and was on BiPAP, later downgraded to telemetry unit. Currently, patient reported mild SOB, but denied any headache, lightheadedness, nausea or vomiting, subjective fever or chills, any changes in bowel or bladder habit or leg edema. During evaluation, her vitals were significant for blood pressure 141/70, pulse rate 116, and saturating 97% on 4 L NC. Labs are significant for white count 11.8, hemoglobin 9.5, chemistry panel significant for sodium of 118, bicarb 31.6, chloride 84, BUN 51 with creatinine 0.9 and calculated osmolality 261. Echo has been significant for ejection fraction 55%. Chest x-ray significant for no pneumonia or pulmonary edema. PMH: As mentioned above PSHx: Lower extremity vascular intervention for PAD Meds: Codeine, albuterol, cetirizine, clopidogrel, docusate, famotidine, HCTZ, lactulose, metolazone, metoprolol succinate, prednisone, Entresto, senna, Trelegy. Allergies: Sulfa drugs Social history: Remote history of smoking, denies alcohol or drug use. Nephrology consultation was done for further management of severe hyponatremia. cc:: cc: Mulu Santana DO Review of Systems Review of Systems Systems Reviewed: All systems reviewed, normal except as documented Past Medical History Past Medical History NEUROLOGIC: Positive Neurological Disorders, Cerebrovascular Accident and Transient Ischemic Attacks (TIA); Negative Seizures CARDIAC: Positive Cardiac Disorders, Atherosclerotic Heart Disease, Peripheral Vascular Disease, Hypercholesterolemia, Congestive Heart Failure, Deep Vein Thrombosis and Hypertension RESPIRATORY: Positive Chronic Obstructive Pulmonary Disease (COPD), Asthma (COPD), Bronchitis and Pneumonia GASTROINTESTINAL: Positive Gastrointestinal Disorders and Obstructive Bowel GENITOURINARY: Negative Genitourinary Disorders or Renal Disease REPRODUCTIVE: Positive Previous Pregnancies MUSCULOSKELETAL: Positive Musculoskeletal Disorders and Arthritis ENT: Positive Cataracts and Deafness (Yun Hearing Aides) ENDOCRINE: Negative Endocrine Disorders, Diabetes Mellitus Type 1 or Diabetes Mellitus Type 2 HEMATOLOGIC: Positive Anemia and Clotting Problems; Negative Blood Disorders or Sickle Cell Disease PSYCHO/SOCIAL: Positive Depression and Anxiety OTHER HISTORY: Positive Hospitalization, Falls, Blood Transfusions, Chemotherapy, Chicken Pox, Measles, Mumps, Pertussis and Cancer; Negative Blood Transfusion Reaction or Anesthesia Reactions Family History FAMILY HISTORY: Positive Family Respiratory Disorders, Family Cancer and Family Surgery; Negative Family Cardiac Disorders Surgical History SURGICAL: Positive Vascular Surgery, Coronary Stent, Eye Surgery and Hysterectomy (+ yun salpingoophorectomy) Social History SMOKING STATUS: Former smoker SECOND HAND EXPOSURE: No SUBSTANCE USE: does not use Exam Vital Signs Temp Pulse Resp BP Pulse Ox O2 Del Method O2 Flow Rate 97.3 F 116 H 20 141/70 H 99 Nasal Cannula 4 11/01/24 12:00 11/01/24 12:28 11/01/24 12:28 11/01/24 12:00 11/01/24 12:28 11/01/24 12:00 11/01/24 12:28 FiO2 40 11/01/24 08:00 Narrative Exam General: Elderly cooperative female, hard of hearing, no acute distress, Alert and Oriented x 3 HEENT: Moist mucous membranes, oropharynx clear Neck: Supple, No masses, No JVD CVS: Tachycardic, no murmur or rubs Lungs: Distant and decreased breath sound with wheezing throughout the lung field, mild crackles over lower bibasilar lung field, no rhonchi Abd: Soft, NT/ND, +BS, no organomegaly Ext: No edema, warm and well perfused, right leg darkening skin changes Psych: Tired appearing Results Labs 11/01/24 04:15 11/01/24 17:15 Labs: Short CBC 11/01/24 Range/Units 04:15 WBC 11.8 H (3.6-11.0) Thou/mm3 Hgb 9.5 L (12.0-16.0) g/dL Hct 28.0 L (36.0-46.0) % Plt Count 232 (140-440) Thou/mm3 BMP 11/01/24 11/01/24 11/01/24 04:15 09:55 13:30 Sodium 122 L 121 L 118 L* Potassium 5.0 Chloride 84 L Carbon Dioxide 31.6 H BUN 51 H Creatinine 0.9 Glucose 136 H Calcium 9.1 Liver Function 11/01/24 Range/Units 04:15 Total Bilirubin 0.2 L (0.3-1.2) mg/dL AST 30 (0-34) U/L ALT 17 (10-49) U/L Alkaline Phosphatase 49 (46-116) U/L Albumin 3.6 (3.4-4.8) gm/dL ABG Interpretation ABG results: 10/28/24 10/30/24 10/30/24 22:30 04:30 06:40 ABG pH 7.35 7.27 L 7.26 L ABG pCO2 62 H 76 H* D 75 H* ABG pO2 93 95 103 ABG HCO3 34 H 35 H 34 H ABG O2 Saturation 96 97 98 ABG Base Excess 7 H 6 H 5 H 10/30/24 10/30/24 10/30/24 11:00 14:47 17:32 ABG pH 7.21 L 7.32 L D 7.35 ABG pCO2 81 H* 61 H D 56 H ABG pO2 106 121 H 106 ABG HCO3 33 H 31 H 31 H ABG O2 Saturation 98 98 98 ABG Base Excess 3 4 H 4 H Quality Measures Quality Measures sepsis Current suspected stage: sepsis Possible source: unknown Blood cultures ordered: yes Antibiotic ordered: Yes Advance care planning discussed with:: patient and other (Daughter in law's) Medications Home Medications and Allergies Home Medications ?Medication ?Instructions ?Recorded ?Confirmed ?Type docusate sodium 100 mg capsule 200 mg PO BID 10/20/22 10/28/24 History cetirizine 10 mg tablet 10 mg PO DAILY PRN Allergy S ymptoms 05/03/23 10/28/24 History famotidine 20 mg tablet 20 mg PO DAILY PRN Acid Refl ux 05/03/23 10/28/24 History fluticasone fur. 200 mcg-umeclid 2 inh inhalation QDAY PRN 05/03/23 10/28/24 History 62.5 mcg-vilant 25 mcg shortness of breath inhalat.powder (Trelegy Ellipta) acetaminophen 300 mg-codeine 30 mg 1 tab PO TID PRN Pa in 06/07/23 10/28/24 History tablet metoprolol succinate 25 mg 25 mg PO DAILY 08/01/2311/20 History tablet,extended release 24 hr sacubitril 24 mg-valsartan 26 mg 1 tab PO BID 08/01/23 10/28/24 History tablet (Entresto) clopidogrel 75 mg tablet 75 mg PO DAILY 10/28/2411/20 History hydrochlorothiazide 25 mg tablet 25 mg PO DAILY 10/28/24 History lactulose 10 gram/15 mL oral 15 ml PO DAILY PRN consti pation 10/28/24 10/28/24 History solution metolazone 2.5 mg tablet 2.5 mg PO DAILY 10/28/2411/20 History prednisone 5 mg tablet 5 mg PO DAILY 10/28/2410/28 History Allergies Allergy/AdvReac Type Severity Reaction Status Date / [facility]ergy Severe Rash Verified 10/28/24 21:18 Sulfa (Sulfonamide Allergy Severe nausea, Verified 10/28/24 21:18 Antibiotics) itchy all over Visit Medications Acetaminophen (Acetaminophen 325 Mg Tablet) 650 mg PO Q6H PRN PRN Reason: PAIN SCALE 1-3 (mild Stop: 11/28/24 03:15 Acetaminophen (Acetaminophen 325 Mg Tablet) 650 mg PO Q6H PRN PRN Reason: Fever >100 Stop: 11/28/24 03:15 Acetaminophen/Codeine Phosphate (Acetaminophen W/Cod 300-30 Tablet) 1 tab PO TID [facility] Stop: 11/03/24 05:59 Last Admin: 11/01/24 13:37 Dose: 1 tab Azithromycin (Azithromycin 250 Mg Tablet) 250 mg PO HS [facility] Stop: 11/03/24 20:59 Last Admin: 10/31/24 21:33 Dose: 250 mg Clopidogrel Bisulfate (Clopidogrel Bisulfate 75 Mg Tablet) 75 mg PO QDAY [facility] Stop: 11/28/24 08:59 Last Admin: 11/01/24 09:14 Dose: 75 mg Guaifenesin (Guaifenesin Syrup 200 Mg/10 Ml Udc) 100 mg PO QID [facility]; Protocol Stop: 12/01/24 16:59 Heparin Sodium (Porcine) (Heparin Sod Inj 5000 Unit/Ml Vial) 5,000 unit SC Q8HR [facility] Stop: 11/12/24 05:59 Last Admin: 11/01/24 13:37 Dose: 5,000 unit Piperacillin/Tazobactam/Dextrose (Zosyn) 50 mls @ 12.5 mls/hr IV Q8HR [facility]; Protocol Stop: 11/08/24 13:59 Last Admin: 11/01/24 13:36 Dose: 12.5 mls/hr Ipratropium Woodward (Ipratropium Rt 0.5 Mg/ 2.5 Ml Nebu) 0.5 mg INH Q6HRRT [facility] Stop: 11/30/24 18:59 Last Admin: 11/01/24 12:27 Dose: 0.5 mg Levalbuterol HCl (Levalbuterol Rt 1.25 Mg/0.5 Ml Nebu) 1.25 mg INH Q6HRRT [facility] Stop: 11/30/24 18:59 Last Admin: 11/01/24 12:26 Dose: 1.25 mg Melatonin (Melatonin 3 Mg Tablet) 6 mg PO HS [facility] Stop: 11/29/24 20:59 Last Admin: 10/31/24 21:33 Dose: 6 mg Methylprednisolone Sodium Succinate (Methylprednisolone Sod Succ 40 Mg Vial) 40 mg IVP BID [facility] Stop: 11/04/24 20:59 Last Admin: 11/01/24 09:14 Dose: 40 mg Naloxegol (Naloxegol Oxalate 25 Mg Tablet (Non-Formulary)) 12.5 mg PO ACBR [facility] Stop: 11/28/24 08:59 Last Admin: 11/01/24 06:28 Dose: 12.5 mg Ondansetron HCl (Ondansetron Inj 2 Mg/Ml Inj 2 Ml) 4 mg IV Q6H PRN; Protocol PRN Reason: NAUSEA OR VOMITING Stop: 11/28/24 03:15 Pantoprazole Sodium (Pantoprazole Inj 40 Mg Vial) 40 mg IVP QDAY [facility] Stop: 11/28/24 08:59 Last Admin: 11/01/24 09:14 Dose: 40 mg Pharmacy Consult (Pharmacy Renal Dose Adjustment 1 Ea) 1 each XX QDAY PRN PRN Reason: PROTOCOL Stop: 11/29/24 16:44 Polyethylene Glycol (Polyethylene Glycol 17 Gm Packet) 17 gm PO QDAY [facility] Stop: 11/28/24 08:59 Last Admin: 11/01/24 09:14 Dose: 17 gm Sennosides (Senna/Docusate Sod 1 Tab Tablet) 1 tab PO QDAY PRN; Protocol PRN Reason: CONSTIPATION Stop: 11/28/24 04:29 Sodium Chloride (Sodium Chloride Rt Bhavana 0.9% 3 Ml Nebu) 3 ml INH PRN PRN PRN Reason: SOLN Stop: 11/30/24 15:59 Sodium Chloride (Sodium Chloride 1 Gm Tablet) 1 gm PO TID [facility] Stop: 12/01/24 14:59 Last Admin: 11/01/24 15:37 Dose: 1 gm Discontinued Medications Albuterol (Albuterol Rt 2.5 Mg/0.5 Ml Nebu) 10 mg INH X1 ONE Stop: 10/30/24 19:31 Last Admin: 10/30/24 20:15 Dose: 10 mg Albuterol/Ipratropium (Albuterol/Ipratropium (Duoneb) Rt Bhavana 3 Ml Nebu) 3 ml INH Q6HRRT [facility] Stop: 11/28/24 06:59 Last Admin: 10/31/24 09:22 Dose: Not Given Albuterol/Ipratropium (Albuterol/Ipratropium (Duoneb) Rt Bhavana 3 Ml Nebu) 3 ml INH X1 ONE Stop: 10/29/24 05:27 Last Admin: 10/29/24 05:29 Dose: 3 ml Albuterol/Ipratropium (Albuterol/Ipratropium (Duoneb) Rt Bhavana 3 Ml Nebu) 3 ml INH Q2HR PRN PRN Reason: SHORTNESS OF BREATH OR WHEEZE Stop: 11/28/24 22:54 Last Admin: 10/29/24 22:59 Dose: 3 ml Albuterol/Ipratropium (Albuterol/Ipratropium (Duoneb) Rt Bhavana 3 Ml Nebu) 3 ml INH Q4HRRT [facility] Stop: 11/29/24 18:59 Last Admin: 10/31/24 09:21 Dose: Not Given Albuterol/Ipratropium (Albuterol/Ipratropium (Duoneb) Rt Bhavana 3 Ml Nebu) 3 ml INH Q4HRRT [facility] Stop: 11/29/24 22:59 Last Admin: 10/31/24 15:53 Dose: Not Given Albuterol/Ipratropium (Albuterol/Ipratropium (Duoneb) Rt Bhavana 3 Ml Nebu) 3 ml INH Q2HR PRN PRN Reason: SHORTNESS OF BREATH OR WHEEZE Stop: 11/29/24 18:59 Sodium Chloride 240 ml/ (Albuterol 80 mg) 0 ml TOP Q8H [facility] Stop: 10/30/24 20:05 Last Admin: 10/31/24 09:21 Dose: Not Given Magnesium Sulfate (Magnesium Sulfate Ivpb) 2 gm in 50 mls @ 25 mls/hr IV X1 ONE Stop: 10/28/24 22:57 Last Infusion: 10/28/24 21:32 Dose: Infused Acetaminophen (Ofirmev Inj) 1,000 mg in 100 mls @ 250 mls/hr IV X1 ONE Stop: 10/28/24 21:46 Last Infusion: 10/28/24 22:48 Dose: Infused Ceftriaxone Sodium 1,000 mg/ (Sodium Chloride) 50 mls @ 100 mls/hr IV X1 ONE Stop: 10/29/24 00:52 Last Infusion: 10/29/24 01:41 Dose: Infused Azithromycin 500 mg/ Sodium (Chloride) 250 mls @ 250 mls/hr IV QDAY [facility] Stop: 11/05/24 00:22 Last Admin: 10/31/24 09:22 Dose: Not Given Azithromycin 500 mg/ Sodium (Chloride) 250 mls @ 250 mls/hr IV X1 ONE Stop: 10/29/24 01:44 Last Infusion: 10/29/24 02:12 Dose: Infused Sodium Chloride (Ns) 1,000 mls @ 70 mls/hr IV .[id number] ONE Stop: 10/29/24 17:33 Last Admin: 10/29/24 04:16 Dose: 70 mls/hr Ceftriaxone Sodium/Dextrose (Rocephin/D5w 1gm Iv Premix) 50 mls @ 100 mls/hr IV HS [facility] Stop: 11/05/24 20:59 Last Admin: 10/31/24 21:33 Dose: 100 mls/hr Azithromycin 250 mg/ Sodium (Chloride) 250 mls @ 250 mls/hr IV QDAY [facility] Stop: 11/05/24 03:17 Last Admin: 10/29/24 03:28 Dose: Not Given Magnesium Sulfate (Magnesium Sulfate Ivpb) 4 gm in 50 mls @ 12.5 mls/hr IV X1 ONE Stop: 10/29/24 07:48 Last Admin: 10/29/24 04:16 Dose: 12.5 mls/hr Potassium Chloride (Kcl Ivpb) 10 meq in 100 mls @ 100 mls/hr IV Q1H [facility] Stop: 10/29/24 13:30 Last Admin: 10/29/24 15:50 Dose: 50 mls/hr Magnesium Sulfate (Magnesium Sulfate Ivpb) 2 gm in 50 mls @ 25 mls/hr IV X1 ONE Stop: 10/30/24 01:32 Last Infusion: 10/30/24 01:45 Dose: Infused Piperacillin/Tazobactam/Dextrose (Zosyn) 50 mls @ 100 mls/hr IV X1 ONE Stop: 11/01/24 10:14 Last Admin: 11/01/24 10:37 Dose: 100 mls/hr Ipratropium Woodward (Ipratropium Rt 0.5 Mg/ 2.5 Ml Nebu) 0.5 mg INH Q4HRRT [facility] Stop: 11/30/24 15:59 Last Admin: 10/31/24 17:02 Dose: Not Given Ketorolac Tromethamine (Ketorolac Inj 30 Mg/Ml Vial) 30 mg IVP X1 ONE Stop: 10/28/24 23:27 Last Admin: 10/28/24 23:29 Dose: 30 mg Levalbuterol HCl (Levalbuterol Rt 1.25 Mg/0.5 Ml Nebu) 5 mg INH X1 ONE Stop: 10/28/24 21:08 Last Admin: 10/28/24 21:12 Dose: 5 mg Levalbuterol HCl (Levalbuterol Rt 0.63 Mg/3 Ml Nebu) 0.63 mg INH X1 ONE Stop: 10/30/24 03:16 Last Admin: 10/30/24 03:26 Dose: 0.63 mg Levalbuterol HCl (Levalbuterol Rt 0.63 Mg/3 Ml Nebu) 0.63 mg INH Q6H PRN PRN Reason: WHEEZING Stop: 11/29/24 06:59 Levalbuterol HCl (Levalbuterol Rt 0.63 Mg/3 Ml Nebu) 0.63 mg INH Q6H [facility] Stop: 11/29/24 09:59 Levalbuterol HCl (Levalbuterol Rt 0.63 Mg/3 Ml Nebu) 0.63 mg INH Q6HRRT [facility] Stop: 11/29/24 12:59 Last Admin: 10/31/24 09:21 Dose: Not Given Levalbuterol HCl (Levalbuterol Rt 1.25 Mg/0.5 Ml Nebu) 1.25 mg INH Q8HRRT [facility] Stop: 11/30/24 15:59 Last Admin: 10/31/24 17:02 Dose: Not Given Lidocaine (Lidocaine 5% 1 Patch) 1 patch TOP X1 ONE Stop: 10/30/24 20:31 Last Admin: 10/30/24 21:12 Dose: 1 patch Lorazepam (Lorazepam 0.5 Mg Tablet) 0.5 mg PO X1 ONE Stop: 10/29/24 23:36 Last Admin: 10/29/24 23:45 Dose: 0.5 mg Lorazepam (Lorazepam 2 Mg/Ml Vial) 0.5 mg IVP X1 ONE Stop: 10/30/24 02:02 Last Admin: 10/30/24 02:36 Dose: 0.5 mg Methylprednisolone Sodium Succinate (Methylprednisolone Sod Succ 62.5 Mg/Ml 2ml Vial) 125 mg IVP X1 ONE Stop: 10/28/24 20:58 Last Admin: 10/28/24 21:01 Dose: 125 mg Methylprednisolone Sodium Succinate (Methylprednisolone Sod Succ 40 Mg Vial) 40 mg IVP QDAY [facility] Stop: 11/03/24 08:59 Last Admin: 10/30/24 08:04 Dose: 40 mg Methylprednisolone Sodium Succinate (Methylprednisolone Sod Succ 40 Mg Vial) 40 mg IVP X1 ONE Stop: 10/30/24 09:53 Last Admin: 10/30/24 10:36 Dose: 40 mg Naloxegol (Naloxegol Oxalate 25 Mg Tablet (Non-Formulary)) 12.5 mg PO QDAY [facility] Stop: 11/28/24 08:59 Last Admin: 10/30/24 08:20 Dose: 12.5 mg Oxycodone/Acetaminophen (Oxycodone/Apap 5/325 Tablet) 1 tab PO Q6H PRN PRN Reason: PAIN SCALE 4-6 (Moderate Stop: 11/03/24 03:15 Potassium Chloride (Potassium Chloride 20 Meq Tabcr) 40 meq PO X1 ONE Stop: 10/29/24 11:31 Last Admin: 10/29/24 12:34 Dose: 40 meq Sacubitril/Valsartan (Sacubitril 24 Mg/Valsartan 26 Mg Tablet) 1 tab PO BID [facility] Stop: 11/28/24 08:59 Last Admin: 11/01/24 09:14 Dose: 1 tab Sodium Chloride (Sodium Chloride Rt Bhavana 0.9% 3 Ml Nebu) 3 ml INH PRN PRN PRN Reason: SOLN Stop: 11/27/24 21:06 Last Admin: 10/28/24 21:12 Dose: 3 ml Sodium Chloride (Sodium Chloride Rt 10% 15 Ml Nebu) 5 ml INH X1 ONE Stop: 10/29/24 03:22 Last Admin: 10/29/24 05:00 Dose: 5 ml Sodium Chloride (Sodium Chloride 1 Gm Tablet) 1 gm PO BID [facility] Stop: 12/01/24 09:44 Last Admin: 11/01/24 10:37 Dose: 1 gm Assessment & Plan Plan The patient is a 79-year-old female with significant past medical history of COPD on 2 L home oxygen, HFpEF, hypertension, possible A-fib, CVA, lymphoma in remission, PAD s/p vascular intervention of lower extremity presented to ED with shortness of breath and was found to have COPD exacerbation secondary to RSV pneumonia further complicated by Pseudomonas aeruginosa pneumonia. Nephrology consultation was done for further management of severe hypoosmolar hypervolemic hyponatremia. #Severe hyponatremia Likely secondary to SIADH in the setting of acute exacerbation of COPD secondary to RSV pneumonia. 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 Presented with sodium level up 128 that slowly trended down to 118 this morning, with possible CHF exacerbation and calculated osmolality 261. -Started the patient on salt tablet 1 g 3 times daily -Sodium level every 4 hourly -Goal level of sodium will be 124 in 24 hours. -We will consider 3% hypertonic saline 40 cc/h for 3 hours if sodium level does not improve from 118 or if patient develops any encephalopathy. -Continue to monitor closely #Elevated BUN Likely catabolic state in the setting of severe current illness with bacteremia, COPD exacerbation and possible UTI, steroids -Continue to monitor BUN levels daily -Treat underlying cause #Acute on chronic hypoxic and hypercapnic respiratory failure likely secondary to #COPD exacerbation in the setting of #Pneumonia, RSV positive and Pseudomonas #Respiratory acidosis, improving #Hx of COPD #MSSA bacteremia #E. Faecalis in urine #Hypoosmolar hyponatremia, chronic #Hx of HFpEF (55% on 10/2023) #Hypertensive urgency #Hx of hypertension #Hx of CVA #Hx of PAD #Hx of chronic constipation in the setting of #Chronic back pain on narcotics -Management deferred to primary hospitalist team Your opportunity to participate nephrology team in this patient care. The patient's management plan was discussed with my attending physician MD Raciel Mahan MD, PGY2 Attending Provider Attestation/Addendum Patient seen and examined with resident physician Dr. Hernandez. Note reviewed, agree with findings and recommendations. Patient noted to have severe hyponatremia-asymptomatic. Did drop from 122-118. Suspect SIADH from underlying pulmonary process. Agree with starting him on salt tablets. Fluid restriction. If no improvement will consider 3% hypertonic saline and close monitoring of the serum sodium. Medications have been reviewed. Significant elevation in BUN probably related to catabolic state from steroids, underlying infection Thank you Khadijah for allowing me to participate in the care of Ms. Conte
[2024-11-01] MEDS: guaiFENesin SYRUP 200 MG/10 ML UDC 100 MG PO ×2 (17:40→21:40)
[2024-11-01 18:42] LABS: Uric Acid 7.7 mg/dL (3.1-7.8)
[2024-11-01 19:27] LABS: Sodium 118 mMol/L (136-145)
[2024-11-01 21:32] LABS: Sodium 118 mMol/L (136-145)
[2024-11-01 21:36] LABS: Sodium,Urine Random < 10.0 mMol/L (20.0-110.0)
[2024-11-01] MEDS: MELATONIN 3 MG TABLET 6 MG PO (21:38)
[2024-11-01] MEDS: AZITHROMYCIN 250 MG TABLET PO (21:39)
[2024-11-02] VITALS (16 sets, daily range): BP systolic 133–146; BP diastolic 74–89; PULSE 100–132; RESP 12–28; TEMP 36.1–36.8; O2SAT 90–100; BMI 20.7
[2024-11-02] MEDS: IPRATROPIUM RT 0.5 MG/ 2.5 ML NEBU INH ×4 (01:25→20:10)
[2024-11-02] MEDS: LEVALBUTEROL RT 1.25 MG/0.5 ML NEBU INH ×4 (01:25→20:09)
[2024-11-02 01:47] LABS: Sodium 121 mMol/L (136-145)
[2024-11-02 05:52] LABS: Basophils % (Auto) 0 % (0-2.5); Eosinophils % (Auto) 0 % (0-10); Hemoglobin 9.5 g/dL (12.0-16.0); Immature Granulocytes % (Auto) 1 % (0-0); Immature Granulocytes Auto 0.07 Thou/mm3 (0.00-0.00); Lymphocytes # (Auto) 0.8 Thou/mm3 (1.0-4.8); Lymphocytes % (Auto) 9 % (10-50); Mean Corpuscular HGB Conc 35.2 g/dl (31.0-37.0); Mean Corpuscular Hemoglobin 34.4 pg (25.0-35.0); Mean Corpuscular Volume 98 fL (80-100); Monocytes # (Auto) 0.3 Thou/mm3 (0.0-0.8); Monocytes % (Auto) 3 % (0-12); Neutrophils # (Auto) 8.6 Thou/mm3 (1.8-7.7); Neutrophils % (Auto) 87 % (37-80); Nucleated Red Blood Cell # 0.04 Thou/mm3 (0.00-0.00); Nucleated Red Blood Cell % 0 /100 WBC (0); Platelet Count 269 Thou/mm3 (140-440); RDW Standard Deviation 43.7 fL (36.4-46.3); Red Blood Count 2.76 Miln/mm3 (4.00-5.20); White Blood Count 9.9 Thou/mm3 (3.6-11.0)
[2024-11-02] MEDS: ACETAMINOPHEN w/COD 300-30 TABLET 1 TAB PO ×2 (06:21→13:28)
[2024-11-02] MEDS: NALOXEGOL OXALATE 25 MG TABLET (NON-FORMULARY) 12.5 MG PO (06:21)
[2024-11-02] MEDS: guaiFENesin SYRUP 200 MG/10 ML UDC 100 MG PO ×3 (06:21→16:55)
[2024-11-02] MEDS: SODIUM CHLORIDE 1 GM TABLET PO (06:21)
[2024-11-02] MEDS: HEPARIN SOD INJ 5000 UNIT/ML VIAL SC ×3 (06:26→21:26)
[2024-11-02] MEDS: PIPER/TAZO 3.375 GM 50 ML IV (06:26)
[2024-11-02 06:48] LABS: Alanine Aminotransferase 17 U/L (10-49); Albumin, Serum 3.7 gm/dL (3.4-4.8); Albumin/Globulin Ratio 1.3 (1.2-2.2); Alkaline Phosphatase 43 U/L (46-116); Anion Gap 7 (7-16); Aspartate Amino Transferase 29 U/L (0-34); BUN/Creatinine Ratio 52 Ratio (12-20); Bilirubin,Total 0.2 mg/dL (0.3-1.2); Blood Urea Nitrogen 52 mg/dL (9-23); Calcium 9.4 mg/dL (8.3-10.6); Calcium (Corrected) 9.6 mg/dL (8.5-10.1); Carbon Dioxide 30.5 mMol/L (20.0-31.0); Chloride 81 mMol/L (98-107); Globulin 2.8 gm/dL (2.3-3.5); Glucose 122 mg/dL (74-106); Magnesium 2.1 mg/dL (1.6-2.6); Osmolality,Calculated 253 (275-295); Phosphorous 3.1 mg/dL (2.4-5.1); Potassium 5.6 mMol/L (3.4-5.1); Total Protein 6.5 gm/dL (5.7-8.2); eGFR 58 See Note
[2024-11-02 07:21] LABS: Sodium 118 mMol/L (136-145)
[2024-11-02 07:50] LABS: Hepatitis C Antibody Non Reactive (Non React)
--- NOTE | 2024-11-02 09:05 | ESPR_ITS ---
Documentation for date of: 11/02/24 Subjective Subjective Interval history: Ms. Conte is a 79-year-old female with significant past medical history of COPD on 2 L home oxygen, HFpEF, hypertension, possible A-fib, CVA, lymphoma in remission, PAD s/p vascular intervention of lower extremity presented to ED with shortness of breath and was found to have COPD exacerbation secondary to RSV pneumonia. She was initially admitted to ICU, and was on BiPAP, later downgraded to telemetry unit. Currently, patient reported mild SOB, but denied any headache, lightheadedness, nausea or vomiting, subjective fever or chills, any changes in bowel or bladder habit or leg edema. During evaluation, her vitals were significant for blood pressure 141/70, pulse rate 116, and saturating 97% on 4 L NC. Labs are significant for white count 11.8, hemoglobin 9.5, chemistry panel significant for sodium of 118, bicarb 31.6, chloride 84, BUN 51 with creatinine 0.9 and calculated osmolality 261. Echo has been significant for ejection fraction 55%. Chest x-ray significant for no pneumonia or pulmonary edema. PMH: As mentioned above PSHx: Lower extremity vascular intervention for PAD Meds: Codeine, albuterol, cetirizine, clopidogrel, docusate, famotidine, HCTZ, lactulose, metolazone, metoprolol succinate, prednisone, Entresto, senna, Trelegy. Allergies: Sulfa drugs Social history: Remote history of smoking, denies alcohol or drug use. Nephrology consultation was done for further management of severe hyponatremia. 11/02/2024: The patient reported doing well, and admitted mild abdominal upset. She denied any headache, chest pain, fever or chills. Her vitals were significant for blood pressure 133/82, pulse 111, saturating 99% on 3 L NC. Physical examination was significant for distant breath sound and wheezing. CBC at baseline, sodium overnight increased up to 121, but this morning again came back to 118. She was started on 3% hypertonic saline, we will continue to monitor her sodium level every 4 hourly, and goal level of correction would be 124. We will also continue with salt tablet 1 g 3 times daily. Exam Vital Signs Temp Pulse Resp BP Pulse Ox O2 Del Method O2 Flow Rate 97.5 F 111 H 14 133/82 H 99 Nasal Cannula 3 11/02/24 08:00 11/02/24 08:00 11/02/24 08:00 11/02/24 08:00 11/02/24 08:00 11/02/24 08:00 11/02/24 08:00 FiO2 40 11/02/24 06:21 Narrative Exam General: Elderly cooperative female, hard of hearing, no acute distress, Alert and Oriented x 3 HEENT: Moist mucous membranes, oropharynx clear Neck: Supple, No masses, No JVD CVS: Tachycardic, no murmur or rubs Lungs: Distant and decreased breath sound with wheezing throughout the lung field, mild crackles over lower bibasilar lung field, no rhonchi Abd: Soft, NT/ND, +BS, no organomegaly Ext: No edema, warm and well perfused, bilateral leg darkening skin changes Psych: Appropriate mood and affect Objective Labs 11/04/24 05:42 11/04/24 05:42 Labs: Laboratory Results - last 24 hr 10/30/24 11/01/24 11/01/24 09:00 09:55 13:30 WBC RBC Hgb Hct MCV MCH MCHC RDW Std Deviation Plt Count Neut % (Auto) Lymph % (Auto) [place] % (Auto) Eos % (Auto) Baso % (Auto) Neut # (Auto) Lymph # (Auto) [place] # (Auto) Eos # (Auto) Baso # (Auto) Immature Gran # (Auto) Absolute Nucleated RBC Immature Gran % Nucleated RBC % Sodium 121 L 118 L* Potassium Chloride Carbon Dioxide Anion Gap BUN Creatinine Estim Creat Clear Calc eGFR BUN/Creatinine Ratio Glucose Calculated Osmolality Uric Acid Calcium Corrected Calcium Phosphorus Magnesium Total Bilirubin AST ALT Alkaline Phosphatase Total Protein Albumin Globulin Albumin/Globulin Ratio Ur Random Sodium Coccidioides IgG Ab Negative Hepatitis C Antibody 11/01/24 11/01/24 11/01/24 17:15 18:15 21:10 WBC RBC Hgb Hct MCV MCH MCHC RDW Std Deviation Plt Count Neut % (Auto) Lymph % (Auto) [place] % (Auto) Eos % (Auto) Baso % (Auto) Neut # (Auto) Lymph # (Auto) [place] # (Auto) Eos # (Auto) Baso # (Auto) Immature Gran # (Auto) Absolute Nucleated RBC Immature Gran % Nucleated RBC % Sodium 118 L* 118 L* Potassium Chloride Carbon Dioxide Anion Gap BUN Creatinine Estim Creat Clear Calc eGFR BUN/Creatinine Ratio Glucose Calculated Osmolality Uric Acid 7.7 Calcium Corrected Calcium Phosphorus Magnesium Total Bilirubin AST ALT Alkaline Phosphatase Total Protein Albumin Globulin Albumin/Globulin Ratio Ur Random Sodium < 10.0 L Coccidioides IgG Ab Hepatitis C Antibody 11/02/24 11/02/24 11/02/24 01:19 05:31 05:35 WBC 9.9 RBC 2.76 L Hgb 9.5 L Hct 27.0 L MCV 98 MCH 34.4 MCHC 35.2 RDW Std Deviation 43.7 Plt Count 269 D Neut % (Auto) 87 H Lymph % (Auto) 9 L [place] % (Auto) 3 Eos % (Auto) 0 Baso % (Auto) 0 Neut # (Auto) 8.6 H Lymph # (Auto) 0.8 L [place] # (Auto) 0.3 Eos # (Auto) 0.0 Baso # (Auto) 0.0 Immature Gran # (Auto) 0.07 H Absolute Nucleated RBC 0.04 H Immature Gran % 1 H Nucleated RBC % 0 Sodium 121 L 118 L* Potassium 5.6 H D Chloride 81 L Carbon Dioxide 30.5 Anion Gap 7 BUN 52 H Creatinine 1.0 Estim Creat Clear Calc 35.0 L eGFR 58 L BUN/Creatinine Ratio 52 H Glucose 122 H Calculated Osmolality 253 L Uric Acid Calcium 9.4 Corrected Calcium 9.6 Phosphorus 3.1 Magnesium 2.1 Total Bilirubin 0.2 L AST 29 ALT 17 Alkaline Phosphatase 43 L Total Protein 6.5 Albumin 3.7 Globulin 2.8 Albumin/Globulin Ratio 1.3 Ur Random Sodium Coccidioides IgG Ab Hepatitis C Antibody Non Reactive ABG Interpretation ABG results: 10/28/24 10/30/24 10/30/24 22:30 04:30 06:40 ABG pH 7.35 7.27 L 7.26 L ABG pCO2 62 H 76 H* D 75 H* ABG pO2 93 95 103 ABG HCO3 34 H 35 H 34 H ABG O2 Saturation 96 97 98 ABG Base Excess 7 H 6 H 5 H 10/30/24 10/30/24 10/30/24 11:00 14:47 17:32 ABG pH 7.21 L 7.32 L D 7.35 ABG pCO2 81 H* 61 H D 56 H ABG pO2 106 121 H 106 ABG HCO3 33 H 31 H 31 H ABG O2 Saturation 98 98 98 ABG Base Excess 3 4 H 4 H Quality Measures Quality Measures sepsis Current suspected stage: sepsis Possible source: unknown Blood cultures ordered: yes Antibiotic ordered: Yes Advance care planning discussed with:: patient Assessment & Plan Assessment Current Active Medications: Generic Name Dose Route Start Last Admin Trade Name Freq PRN Reason Stop Dose Admin Acetaminophen 650 mg 10/29/24 03:16 Acetaminophen 325 Mg Tablet PO 11/28/24 03:15 Q6H PRN PAIN SCALE 1-3 (mild Acetaminophen 650 mg 10/29/24 03:16 Acetaminophen 325 Mg Tablet PO 11/28/24 03:15 Q6H PRN Fever >100 Acetaminophen/Codeine Phosphate 1 tab 10/29/24 06:00 11/02/24 06:21 Acetaminophen W/Cod 300-30 Tablet PO 11/03/24 05:59 1 tab TID LELE Administration Azithromycin 250 mg 10/29/24 21:00 11/01/24 21:39 Azithromycin 250 Mg Tablet PO 11/03/24 20:59 250 mg HS LELE Administration Clopidogrel Bisulfate 75 mg 10/29/24 09:00 11/01/24 09:14 Clopidogrel Bisulfate 75 Mg Tablet PO 11/28/24 08:59 75 mg QDAY LELE Administration Guaifenesin 100 mg 11/01/24 17:00 11/02/24 06:21 Guaifenesin Syrup 200 Mg/10 Ml Udc PO 12/01/24 16:59 100 mg QID LELE Administration Protocol Heparin Sodium (Porcine) 5,000 unit 10/29/24 06:00 11/02/24 06:26 Heparin Sod Inj 5000 Unit/Ml Vial SC 11/12/24 05:59 5,000 unit Q8HR LELE Administration Piperacillin/Tazobactam/Dextrose 50 mls @ 12.5 mls/hr 11/01/24 14:00 11/02/24 06:26 Zosyn IV 11/08/24 13:59 12.5 mls/hr Q8HR LELE Administration Protocol Sodium Chloride 500 ml/ IV 500 mls @ 40 mls/hr 11/02/24 08:41 Miscellaneous Supplies IV 11/02/24 21:10 X1 ONE Ipratropium Nerinx 0.5 mg 10/31/24 19:00 11/02/24 06:19 Ipratropium Rt 0.5 Mg/ 2.5 Ml Nebu INH 11/30/24 18:59 0.5 mg Q6HRRT LELE Administration Levalbuterol HCl 1.25 mg 10/31/24 19:00 11/02/24 06:19 Levalbuterol Rt 1.25 Mg/0.5 Ml Nebu INH 11/30/24 18:59 1.25 mg Q6HRRT LELE Administration Melatonin 6 mg 10/30/24 21:00 11/01/24 21:38 Melatonin 3 Mg Tablet PO 11/29/24 20:59 6 mg HS LELE Administration Methylprednisolone Sodium Succinate 40 mg 10/30/24 21:00 11/01/24 21:39 Methylprednisolone Sod Succ 40 Mg Vial IVP 11/04/24 20:59 40 mg BID LELE Administration Naloxegol 12.5 mg 10/31/24 09:00 11/02/24 06:21 Naloxegol Oxalate 25 Mg Tablet (Non-Formulary) PO 11/28/24 08:59 12.5 mg ACBR LELE Administration Ondansetron HCl 4 mg 10/29/24 03:16 Ondansetron Inj 2 Mg/Ml Inj 2 Ml IV 11/28/24 03:15 Q6H PRN NAUSEA OR VOMITING Protocol Pantoprazole Sodium 40 mg 10/29/24 09:00 11/01/24 09:14 Pantoprazole Inj 40 Mg Vial IVP 11/28/24 08:59 40 mg QDAY LELE Administration Pharmacy Consult 1 each 10/30/24 16:45 Pharmacy Renal Dose Adjustment 1 Ea XX 11/29/24 16:44 QDAY PRN PROTOCOL Polyethylene Glycol 17 gm 10/29/24 09:00 11/01/24 09:14 Polyethylene Glycol 17 Gm Packet PO 11/28/24 08:59 17 gm QDAY LELE Administration Sennosides 1 tab 10/29/24 04:30 Senna/Docusate Sod 1 Tab Tablet PO 11/28/24 04:29 QDAY PRN CONSTIPATION Protocol Sodium Chloride 3 ml 10/31/24 16:00 Sodium Chloride Rt Bhavana 0.9% 3 Ml Nebu INH 11/30/24 15:59 PRN PRN SOLN Sodium Chloride 1 gm 11/01/24 15:00 11/02/24 06:21 Sodium Chloride 1 Gm Tablet PO 12/01/24 14:59 1 gm TID LELE Administration Plan The patient is a 79-year-old female with significant past medical history of COPD on 2 L home oxygen, HFpEF, hypertension, possible A-fib, CVA, lymphoma in remission, PAD s/p vascular intervention of lower extremity presented to ED with shortness of breath and was found to have COPD exacerbation secondary to RSV pneumonia further complicated by Pseudomonas aeruginosa pneumonia. Nephrology consultation was done for further management of severe hypoosmolar hypervolemic hyponatremia. #Severe hyponatremia Likely secondary to SIADH in the setting of acute exacerbation of COPD secondary to RSV pneumonia. 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 Presented with sodium level up 128 that slowly trended down to 118 this morning, with possible CHF exacerbation and calculated osmolality 261. -Started the patient on salt tablet 1 g 3 times daily -Sodium level every 4 hourly -Goal level of sodium will be 124 in 24 hours. -Started on 3% hypertonic saline 40 cc/h with goal level of sodium to be 124 in 24 hours. -Continue to monitor closely #Elevated BUN Likely catabolic state in the setting of severe current illness with bacteremia, COPD exacerbation and possible UTI, steroids -Continue to monitor BUN levels daily -Treat underlying cause #Acute on chronic hypoxic and hypercapnic respiratory failure likely secondary to #COPD exacerbation in the setting of #Pneumonia, RSV positive and Pseudomonas #Respiratory acidosis, improving #Hx of COPD #MSSA bacteremia #E. Faecalis in urine #Hypoosmolar hyponatremia, chronic #Hx of HFpEF (55% on 10/2023) #Hypertensive urgency #Hx of hypertension #Hx of CVA #Hx of PAD #Hx of chronic constipation in the setting of #Chronic back pain on narcotics -Management deferred to primary hospitalist team Your opportunity to participate nephrology team in this patient care. The patient's management plan was discussed with my attending physician MD Raciel Mahan MD, PGY2 Attending Provider Attestation/Addendum Patient seen and examined with resident physician Dr. Hernandez. Note reviewed, agree with findings and recommendations. Patient noted to have severe hyponatremia-asymptomatic. Did drop from 122-118. Suspect SIADH from underlying pulmonary process. Agree with starting him on salt tablets. Fluid restriction. If no improvement will consider 3% hypertonic saline and close monitoring of the serum sodium. Medications have been reviewed. Significant elevation in BUN probably related to catabolic state from steroids, underlying infection 11/02/2024 patient was started on 3% hypertonic saline as sodium did not improve. Will monitor closely. No more than 4 to 6 mEq in 24 hours. Her pulmonary status still remains poor with significant wheezing and rhonchi. Patient has a severe COPD exacerbation. On steroids.
[2024-11-02 09:37] LABS: Sodium 120 mMol/L (136-145)
--- NOTE | 2024-11-02 09:52 | PD.IDPROG ---
Subjective Subjective Interval history: pt with copd exac. ok to move to po abx. psa on cx. [place]. Exam Vital Signs Temp Pulse Resp BP Pulse Ox O2 Del Method O2 Flow Rate 97.5 F 111 H 14 133/82 H 99 Nasal Cannula 3 11/02/24 08:00 11/02/24 08:00 11/02/24 08:00 11/02/24 08:00 11/02/24 08:00 11/02/24 08:00 11/02/24 08:00 FiO2 40 11/02/24 06:21 Narrative Exam ON 3 lpm O2. is on 2 lpm at home. poor historian and very [place]. Objective - Internal Medicine Labs 11/02/24 05:31 11/02/24 08:55 Labs: Laboratory Results - last 24 hr 10/30/24 11/01/24 11/01/24 09:00 09:55 13:30 WBC RBC Hgb Hct MCV MCH MCHC RDW Std Deviation Plt Count Neut % (Auto) Lymph % (Auto) [place] % (Auto) Eos % (Auto) Baso % (Auto) Neut # (Auto) Lymph # (Auto) [place] # (Auto) Eos # (Auto) Baso # (Auto) Immature Gran # (Auto) Absolute Nucleated RBC Immature Gran % Nucleated RBC % Sodium 121 L 118 L* Potassium Chloride Carbon Dioxide Anion Gap BUN Creatinine Estim Creat Clear Calc eGFR BUN/Creatinine Ratio Glucose Calculated Osmolality Uric Acid Calcium Corrected Calcium Phosphorus Magnesium Total Bilirubin AST ALT Alkaline Phosphatase Total Protein Albumin Globulin Albumin/Globulin Ratio Ur Random Sodium Coccidioides IgG Ab Negative Hepatitis C Antibody 11/01/24 11/01/24 11/01/24 17:15 18:15 21:10 WBC RBC Hgb Hct MCV MCH MCHC RDW Std Deviation Plt Count Neut % (Auto) Lymph % (Auto) [place] % (Auto) Eos % (Auto) Baso % (Auto) Neut # (Auto) Lymph # (Auto) [place] # (Auto) Eos # (Auto) Baso # (Auto) Immature Gran # (Auto) Absolute Nucleated RBC Immature Gran % Nucleated RBC % Sodium 118 L* 118 L* Potassium Chloride Carbon Dioxide Anion Gap BUN Creatinine Estim Creat Clear Calc eGFR BUN/Creatinine Ratio Glucose Calculated Osmolality Uric Acid 7.7 Calcium Corrected Calcium Phosphorus Magnesium Total Bilirubin AST ALT Alkaline Phosphatase Total Protein Albumin Globulin Albumin/Globulin Ratio Ur Random Sodium < 10.0 L Coccidioides IgG Ab Hepatitis C Antibody 11/02/24 11/02/24 11/02/24 01:19 05:31 05:35 WBC 9.9 RBC 2.76 L Hgb 9.5 L Hct 27.0 L MCV 98 MCH 34.4 MCHC 35.2 RDW Std Deviation 43.7 Plt Count 269 D Neut % (Auto) 87 H Lymph % (Auto) 9 L [place] % (Auto) 3 Eos % (Auto) 0 Baso % (Auto) 0 Neut # (Auto) 8.6 H Lymph # (Auto) 0.8 L [place] # (Auto) 0.3 Eos # (Auto) 0.0 Baso # (Auto) 0.0 Immature Gran # (Auto) 0.07 H Absolute Nucleated RBC 0.04 H Immature Gran % 1 H Nucleated RBC % 0 Sodium 121 L 118 L* Potassium 5.6 H D Chloride 81 L Carbon Dioxide 30.5 Anion Gap 7 BUN 52 H Creatinine 1.0 Estim Creat Clear Calc 35.0 L eGFR 58 L BUN/Creatinine Ratio 52 H Glucose 122 H Calculated Osmolality 253 L Uric Acid Calcium 9.4 Corrected Calcium 9.6 Phosphorus 3.1 Magnesium 2.1 Total Bilirubin 0.2 L AST 29 ALT 17 Alkaline Phosphatase 43 L Total Protein 6.5 Albumin 3.7 Globulin 2.8 Albumin/Globulin Ratio 1.3 Ur Random Sodium Coccidioides IgG Ab Hepatitis C Antibody Non Reactive 11/02/24 08:55 WBC RBC Hgb Hct MCV MCH MCHC RDW Std Deviation Plt Count Neut % (Auto) Lymph % (Auto) [place] % (Auto) Eos % (Auto) Baso % (Auto) Neut # (Auto) Lymph # (Auto) [place] # (Auto) Eos # (Auto) Baso # (Auto) Immature Gran # (Auto) Absolute Nucleated RBC Immature Gran % Nucleated RBC % Sodium 120 L Potassium Chloride Carbon Dioxide Anion Gap BUN Creatinine Estim Creat Clear Calc eGFR BUN/Creatinine Ratio Glucose Calculated Osmolality Uric Acid Calcium Corrected Calcium Phosphorus Magnesium Total Bilirubin AST ALT Alkaline Phosphatase Total Protein Albumin Globulin Albumin/Globulin Ratio Ur Random Sodium Coccidioides IgG Ab Hepatitis C Antibody ABG Interpretation ABG results: 10/28/24 10/30/24 10/30/24 22:30 04:30 06:40 ABG pH 7.35 7.27 L 7.26 L ABG pCO2 62 H 76 H* D 75 H* ABG pO2 93 95 103 ABG HCO3 34 H 35 H 34 H ABG O2 Saturation 96 97 98 ABG Base Excess 7 H 6 H 5 H 10/30/24 10/30/24 10/30/24 11:00 14:47 17:32 ABG pH 7.21 L 7.32 L D 7.35 ABG pCO2 81 H* 61 H D 56 H ABG pO2 106 121 H 106 ABG HCO3 33 H 31 H 31 H ABG O2 Saturation 98 98 98 ABG Base Excess 3 4 H 4 H Assessment & Plan A&P Narrative copd exac acute on chronic resp failure, hypoxic hx cva hx pvd, s/p vascular intervention [place], very changed to po levaquin for remainder of 7d. psa may or may not be pathogenic for her but since we can treat it , we will. quinolones also are effective for atypical infection so no need for azithro. can see tuesday if she remains in house at that time. Time Spent With Patient Time: Total time spent is greater than 50% in coordination of care (as documented) at patient's floor/unit and/or counseling patient:
--- NOTE | 2024-11-02 09:56 | PD.IDPROG ---
Subjective Subjective Interval history: few complaints. not a great historian. very [place]. Exam Vital Signs Temp Pulse Resp BP Pulse Ox O2 Del Method O2 Flow Rate 97.5 F 111 H 14 133/82 H 99 Nasal Cannula 3 11/02/24 08:00 11/02/24 08:00 11/02/24 08:00 11/02/24 08:00 11/02/24 08:00 11/02/24 08:00 11/02/24 08:00 FiO2 40 11/02/24 06:21 Narrative Exam benign. ON O2 at 3 lpm but is on 2 lpm at home Objective - Internal Medicine Labs 11/02/24 05:31 11/02/24 08:55 Labs: Laboratory Results - last 24 hr 10/30/24 11/01/24 11/01/24 09:00 09:55 13:30 WBC RBC Hgb Hct MCV MCH MCHC RDW Std Deviation Plt Count Neut % (Auto) Lymph % (Auto) [place] % (Auto) Eos % (Auto) Baso % (Auto) Neut # (Auto) Lymph # (Auto) [place] # (Auto) Eos # (Auto) Baso # (Auto) Immature Gran # (Auto) Absolute Nucleated RBC Immature Gran % Nucleated RBC % Sodium 121 L 118 L* Potassium Chloride Carbon Dioxide Anion Gap BUN Creatinine Estim Creat Clear Calc eGFR BUN/Creatinine Ratio Glucose Calculated Osmolality Uric Acid Calcium Corrected Calcium Phosphorus Magnesium Total Bilirubin AST ALT Alkaline Phosphatase Total Protein Albumin Globulin Albumin/Globulin Ratio Ur Random Sodium Coccidioides IgG Ab Negative Hepatitis C Antibody 11/01/24 11/01/24 11/01/24 17:15 18:15 21:10 WBC RBC Hgb Hct MCV MCH MCHC RDW Std Deviation Plt Count Neut % (Auto) Lymph % (Auto) [place] % (Auto) Eos % (Auto) Baso % (Auto) Neut # (Auto) Lymph # (Auto) [place] # (Auto) Eos # (Auto) Baso # (Auto) Immature Gran # (Auto) Absolute Nucleated RBC Immature Gran % Nucleated RBC % Sodium 118 L* 118 L* Potassium Chloride Carbon Dioxide Anion Gap BUN Creatinine Estim Creat Clear Calc eGFR BUN/Creatinine Ratio Glucose Calculated Osmolality Uric Acid 7.7 Calcium Corrected Calcium Phosphorus Magnesium Total Bilirubin AST ALT Alkaline Phosphatase Total Protein Albumin Globulin Albumin/Globulin Ratio Ur Random Sodium < 10.0 L Coccidioides IgG Ab Hepatitis C Antibody 11/02/24 11/02/24 11/02/24 01:19 05:31 05:35 WBC 9.9 RBC 2.76 L Hgb 9.5 L Hct 27.0 L MCV 98 MCH 34.4 MCHC 35.2 RDW Std Deviation 43.7 Plt Count 269 D Neut % (Auto) 87 H Lymph % (Auto) 9 L [place] % (Auto) 3 Eos % (Auto) 0 Baso % (Auto) 0 Neut # (Auto) 8.6 H Lymph # (Auto) 0.8 L [place] # (Auto) 0.3 Eos # (Auto) 0.0 Baso # (Auto) 0.0 Immature Gran # (Auto) 0.07 H Absolute Nucleated RBC 0.04 H Immature Gran % 1 H Nucleated RBC % 0 Sodium 121 L 118 L* Potassium 5.6 H D Chloride 81 L Carbon Dioxide 30.5 Anion Gap 7 BUN 52 H Creatinine 1.0 Estim Creat Clear Calc 35.0 L eGFR 58 L BUN/Creatinine Ratio 52 H Glucose 122 H Calculated Osmolality 253 L Uric Acid Calcium 9.4 Corrected Calcium 9.6 Phosphorus 3.1 Magnesium 2.1 Total Bilirubin 0.2 L AST 29 ALT 17 Alkaline Phosphatase 43 L Total Protein 6.5 Albumin 3.7 Globulin 2.8 Albumin/Globulin Ratio 1.3 Ur Random Sodium Coccidioides IgG Ab Hepatitis C Antibody Non Reactive 11/02/24 08:55 WBC RBC Hgb Hct MCV MCH MCHC RDW Std Deviation Plt Count Neut % (Auto) Lymph % (Auto) [place] % (Auto) Eos % (Auto) Baso % (Auto) Neut # (Auto) Lymph # (Auto) [place] # (Auto) Eos # (Auto) Baso # (Auto) Immature Gran # (Auto) Absolute Nucleated RBC Immature Gran % Nucleated RBC % Sodium 120 L Potassium Chloride Carbon Dioxide Anion Gap BUN Creatinine Estim Creat Clear Calc eGFR BUN/Creatinine Ratio Glucose Calculated Osmolality Uric Acid Calcium Corrected Calcium Phosphorus Magnesium Total Bilirubin AST ALT Alkaline Phosphatase Total Protein Albumin Globulin Albumin/Globulin Ratio Ur Random Sodium Coccidioides IgG Ab Hepatitis C Antibody ABG Interpretation ABG results: 10/28/24 10/30/24 10/30/24 22:30 04:30 06:40 ABG pH 7.35 7.27 L 7.26 L ABG pCO2 62 H 76 H* D 75 H* ABG pO2 93 95 103 ABG HCO3 34 H 35 H 34 H ABG O2 Saturation 96 97 98 ABG Base Excess 7 H 6 H 5 H 10/30/24 10/30/24 10/30/24 11:00 14:47 17:32 ABG pH 7.21 L 7.32 L D 7.35 ABG pCO2 81 H* 61 H D 56 H ABG pO2 106 121 H 106 ABG HCO3 33 H 31 H 31 H ABG O2 Saturation 98 98 98 ABG Base Excess 3 4 H 4 H Assessment & Plan A&P Narrative copd exac with neg cxr and pos smoking hx acute on chronic resp failure, hypoxic and hypercarbic (mixed) hx cva hx pvd, s/p vascular intervention [place], very possible pneumonia changed to po doxy for remainder of 7d. psa may or may not be pathogenic for her, cipro allergy noted. doxy is also effective for atypical pathogens so no need for additional azithro. not neg cocci testing 10/30/24and prior can see tuesday if she remains in house at that time. stopped iv steroids. ok to go with po and let her go back where she was living. wean steroids as you normally would. Time Spent With Patient Time: Total time spent is greater than 50% in coordination of care (as documented) at patient's floor/unit and/or counseling patient:
[2024-11-02] MEDS: POLYETHYLENE GLYCOL 17 GM PACKET PO (10:18)
[2024-11-02] MEDS: CLOPIDOGREL BISULFATE 75 MG TABLET PO (10:18)
[2024-11-02] MEDS: PANTOPRAZOLE INJ 40 MG VIAL IVP (10:18)
[2024-11-02] MEDS: SOD POLYSTYRENE SULFON SUSP 15 GM/60 ML BTL 30 GM PO (10:37)
[2024-11-02] MEDS: SODIUM CHLORIDE 3%(Hypertonic) 500 ML in PRE-MIXED 1 BAG 40 ML IV (10:38)
--- NOTE | 2024-11-02 12:41 | ESCONSULT_ITS ---
RE: CHOCO BAUER : 1945 DATE OF CONSULTATION: 11/02/2024 REFERRING PHYSICIAN: Dr. Santana, hospitalist. REASON FOR CONSULTATION: Acute on chronic respiratory failure, both hypoxic and hypercarbic with possible pneumonia on imaging, particularly CT, but not seen on x-ray. She has a history of stroke, lymphoma in remission, and COPD on home oxygen. She states she lives with her brother, but is positive for RSV, but is in isolation for such. She has both hypoxic and hypercarbic gases and has stabilized. She has been given azithromycin vanco, and steroids. The IV treatment is probably overkill at this point. She would probably go to pills. 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 PAST MEDICAL HISTORY: Her medical problems include significant hardness of hearing, COPD, prior stroke, history of lymphoma and known peripheral vascular disease. She is markedly hyponatremic, which is likely multifactorial. PAST SURGICAL HISTORY: She has had a prior vascular intervention procedure. ALLERGIES: KNOWN NOTED. NOTED IN THE RECORD CIPRO AND SULFA. CIPRO CAUSES A RASH. I DO NOT KNOW ABOUT OTHER QUINOLONEs. SULFA CAUSED ITCHING ALL over DOXYCYCLINE ALSO IS EFFECTIVE FOR ATYPICAL ORGANISMS. THERE IS NO NEED FOR ADDITIONAL AZITHROMYCIN COVERAGE. SHE MOST LIKELY HAS RSV. PE: benign A : copd exac from RSV COPD ETC. RECOMMENDATIONS: I am going to go ahead and change her to the doxycycline. She can try to get her home. Her sputum is properly colonized with pseudomonas, so additional efforts to target that are probably unnecessary. Treatment is due to on Tuesday, after about a week of treatment. DT: 10:03:39 TT: 11:09:00 Ref: [id number] - TID: [id number] MTDD
--- NOTE | 2024-11-02 13:42 | ESPR_ITS ---
<Statement entered by Loreto Estrella MD - 11/02/24 14:43> I discussed with and supervised my co-resident involved in the care of this patient. I agree with the assessment and plan as documented above. Patient seen and examined at bedside. This morning, patient on NC. Finished breakfast, feeling full. Still sounds congested on auscultation. Regarding labs, leukocytosis improved. Remains hyponatremic at 118 this morning, despite sodium tablets. Patient asymptomatic. Nephrology consulted and recommended starting hypertonic saline. Hyperkalemia also noted, given kayexelate. ID Dr. Marin consulted and antibiotics changed to doxycyline. Will follow up repeat cultures. Loreto Estrella MD PGY-3 Documentation for date of: 11/02/24 Subjective Subjective Interval history: Patient seen and examined at bedside. No acute events overnight. Per nephrology recommendations, patient was started on 3% hypertonic saline at 40 cc/h for treatment of hypoosmolar hyponatremia. No signs of encephalopathy. Continue sodium check every 4 hours, most recent sodium was 120. Correction of no more than 128 in next 24 hrs. ID, Dr Marin was consulted for patient's RSV, Pseudomonas pneumonia and MSSA bacteremia. Per his recommendations, azithromycin and Zosyn were stopped. Patient to continue with doxycycline for another 3 days covering atypicals as well. Oxygen requirement is improving. 3 L NC saturating 99% this morning. Continue to titrate O2. Leukocytosis improving to 9.9. CMP significant for hyperkalemia 5.6. Patient was started on Kayexalate. Continue PT, chest physiotherapy, continue to hold Entresto in setting of hyponatremia/hyperkalemia. Exam Vital Signs Temp Pulse Resp BP Pulse Ox O2 Del Method O2 Flow Rate 97.9 F 117 H 21 H 143/89 H 100 Nasal Cannula 3 11/02/24 12:00 11/02/24 12:04 11/02/24 12:04 11/02/24 12:11/02/24 12:11/02/24 12:11/02/24 12:04 FiO2 40 11/02/24 06:21 Narrative Exam General: A/O x3, no acute distress, ill appearing thin elderly Eyes: PERRL, EOMI. Anicteric, vision grossly intact. Ears: No ear pain, no ear discharge, Hearing impaired Nose: No nasal discharge. Mouth/Throat: Dry mucous membranes Neck: Neck supple, non-tender, no cervical lymphadenopathy. Lungs: b/L rhonci, No accessory muscle use, on 3L NC Cardio: Normal S1/S2, regular rhythm, no murmurs, b/L JVD, tachycardic Abdomen: Soft, non-tender, no palpable masses, peristalsis present, no guarding or rebound. Extremities: no significant deformities, no peripheral edema , non-tender Skin: АНДРЕЙ LE venous stasis changes and L UE with red discoloration from elbow level to wrist. Neuro: No focal neurological deficits. motor and sensory intact Psych: Cooperative, appropriate mood and effect. Objective Labs 11/02/24 05:31 11/02/24 13:15 Labs: Laboratory Results - last 24 hr 11/01/24 11/01/24 11/01/24 13:30 17:15 18:15 WBC RBC Hgb Hct MCV MCH MCHC RDW Std Deviation Plt Count Neut % (Auto) Lymph % (Auto) [place] % (Auto) Eos % (Auto) Baso % (Auto) Neut # (Auto) Lymph # (Auto) [place] # (Auto) Eos # (Auto) Baso # (Auto) Immature Gran # (Auto) Absolute Nucleated RBC Immature Gran % Nucleated RBC % Sodium 118 L* 118 L* Potassium Chloride Carbon Dioxide Anion Gap BUN Creatinine Estim Creat Clear Calc eGFR BUN/Creatinine Ratio Glucose Calculated Osmolality Uric Acid 7.7 Calcium Corrected Calcium Phosphorus Magnesium Total Bilirubin AST ALT Alkaline Phosphatase Total Protein Albumin Globulin Albumin/Globulin Ratio Ur Random Sodium < 10.0 L Hepatitis C Antibody 11/01/24 11/02/24 11/02/24 21:10 01:19 05:31 WBC 9.9 RBC 2.76 L Hgb 9.5 L Hct 27.0 L MCV 98 MCH 34.4 MCHC 35.2 RDW Std Deviation 43.7 Plt Count 269 D Neut % (Auto) 87 H Lymph % (Auto) 9 L [place] % (Auto) 3 Eos % (Auto) 0 Baso % (Auto) 0 Neut # (Auto) 8.6 H Lymph # (Auto) 0.8 L [place] # (Auto) 0.3 Eos # (Auto) 0.0 Baso # (Auto) 0.0 Immature Gran # (Auto) 0.07 H Absolute Nucleated RBC 0.04 H Immature Gran % 1 H Nucleated RBC % 0 Sodium 118 L* 121 L 118 L* Potassium 5.6 H D Chloride 81 L Carbon Dioxide 30.5 Anion Gap 7 BUN 52 H Creatinine 1.0 Estim Creat Clear Calc 35.0 L eGFR 58 L BUN/Creatinine Ratio 52 H Glucose 122 H Calculated Osmolality 253 L Uric Acid Calcium 9.4 Corrected Calcium 9.6 Phosphorus 3.1 Magnesium 2.1 Total Bilirubin 0.2 L AST 29 ALT 17 Alkaline Phosphatase 43 L Total Protein 6.5 Albumin 3.7 Globulin 2.8 Albumin/Globulin Ratio 1.3 Ur Random Sodium Hepatitis C Antibody 11/02/24 11/02/24 05:35 08:55 WBC RBC Hgb Hct MCV MCH MCHC RDW Std Deviation Plt Count Neut % (Auto) Lymph % (Auto) [place] % (Auto) Eos % (Auto) Baso % (Auto) Neut # (Auto) Lymph # (Auto) [place] # (Auto) Eos # (Auto) Baso # (Auto) Immature Gran # (Auto) Absolute Nucleated RBC Immature Gran % Nucleated RBC % Sodium 120 L Potassium Chloride Carbon Dioxide Anion Gap BUN Creatinine Estim Creat Clear Calc eGFR BUN/Creatinine Ratio Glucose Calculated Osmolality Uric Acid Calcium Corrected Calcium Phosphorus Magnesium Total Bilirubin AST ALT Alkaline Phosphatase Total Protein Albumin Globulin Albumin/Globulin Ratio Ur Random Sodium Hepatitis C Antibody Non Reactive ABG Interpretation ABG results: 10/28/24 10/30/24 10/30/24 22:30 04:30 06:40 ABG pH 7.35 7.27 L 7.26 L ABG pCO2 62 H 76 H* D 75 H* ABG pO2 93 95 103 ABG HCO3 34 H 35 H 34 H ABG O2 Saturation 96 97 98 ABG Base Excess 7 H 6 H 5 H 10/30/24 10/30/24 10/30/24 11:00 14:47 17:32 ABG pH 7.21 L 7.32 L D 7.35 ABG pCO2 81 H* 61 H D 56 H ABG pO2 106 121 H 106 ABG HCO3 33 H 31 H 31 H ABG O2 Saturation 98 98 98 ABG Base Excess 3 4 H 4 H Quality Measures Quality Measures sepsis Current suspected stage: sepsis Possible source: unknown Blood cultures ordered: yes Antibiotic ordered: Yes Advance care planning discussed with:: child Assessment & Plan Assessment Current Active Medications: Generic Name Dose Route Start Last Admin Trade Name Freq PRN Reason Stop Dose Admin Acetaminophen 650 mg 10/29/24 03:16 Acetaminophen 325 Mg Tablet PO 11/28/24 03:15 Q6H PRN PAIN SCALE 1-3 (mild Acetaminophen 650 mg 10/29/24 03:16 Acetaminophen 325 Mg Tablet PO 11/28/24 03:15 Q6H PRN Fever >100 Acetaminophen/Codeine Phosphate 1 tab 10/29/24 06:00 11/02/24 13:28 Acetaminophen W/Cod 300-30 Tablet PO 11/03/24 05:59 1 tab TID LELE Administration Clopidogrel Bisulfate 75 mg 10/29/24 09:00 11/02/24 10:18 Clopidogrel Bisulfate 75 Mg Tablet PO 11/28/24 08:59 75 mg QDAY LELE Administration Doxycycline Hyclate 100 mg 11/02/24 21:00 Doxycycline 100 Mg Tablet PO 11/05/24 12:00 BID LELE Guaifenesin 100 mg 11/01/24 17:00 11/02/24 11:37 Guaifenesin Syrup 200 Mg/10 Ml Udc PO 12/01/24 16:59 100 mg QID LELE Administration Protocol Heparin Sodium (Porcine) 5,000 unit 10/29/24 06:00 11/02/24 13:34 Heparin Sod Inj 5000 Unit/Ml Vial SC 11/12/24 05:59 5,000 unit Q8HR LELE Administration Sodium Chloride 500 ml/ IV 500 mls @ 40 mls/hr 11/02/24 09:30 11/02/24 10:38 Miscellaneous Supplies IV 11/02/24 21:59 40 mls/hr X1 ONE Administration Protocol Ipratropium [place] 0.5 mg 10/31/24 19:00 11/02/24 12:00 Ipratropium Rt 0.5 Mg/ 2.5 Ml Nebu INH 11/30/24 18:59 0.5 mg Q6HRRT LELE Administration Levalbuterol HCl 1.25 mg 10/31/24 19:00 11/02/24 12:00 Levalbuterol Rt 1.25 Mg/0.5 Ml Nebu INH 11/30/24 18:59 1.25 mg Q6HRRT LELE Administration Melatonin 6 mg 10/30/24 21:00 11/01/24 21:38 Melatonin 3 Mg Tablet PO 11/29/24 20:59 6 mg HS LELE Administration Ondansetron HCl 4 mg 10/29/24 03:16 Ondansetron Inj 2 Mg/Ml Inj 2 Ml IV 11/28/24 03:15 Q6H PRN NAUSEA OR VOMITING Protocol Pantoprazole Sodium 40 mg 10/29/24 09:00 11/02/24 10:18 Pantoprazole Inj 40 Mg Vial IVP 11/28/24 08:59 40 mg QDAY LELE Administration Pharmacy Consult 1 each 10/30/24 16:45 Pharmacy Renal Dose Adjustment 1 Ea XX 11/29/24 16:44 QDAY PRN PROTOCOL Polyethylene Glycol 17 gm 10/29/24 09:00 11/02/24 10:18 Polyethylene Glycol 17 Gm Packet PO 11/28/24 08:59 17 gm QDAY LELE Administration Sennosides 1 tab 10/29/24 04:30 Senna/Docusate Sod 1 Tab Tablet PO 11/28/24 04:29 QDAY PRN CONSTIPATION Protocol Sodium Chloride 3 ml 10/31/24 16:00 Sodium Chloride Rt Bhavana 0.9% 3 Ml Nebu INH 11/30/24 15:59 PRN PRN SOLN Sodium Chloride 1 gm 11/01/24 15:00 11/02/24 06:21 Sodium Chloride 1 Gm Tablet PO 12/01/24 14:59 1 gm TID LELE Administration Plan 79-year-old female with past medical history of COPD (2 L O2 at home), HFpEF (55 to 60% on 2022), hypertension, CVA, lymphoma currently on remission, chronic back pain on narcotics, and chronic constipation, and PAD who was admitted to the hospital on 10/29/2024 due to acute on chronic hypoxic respiratory failure likely secondary to COPD exacerbation in the setting of community-acquired pneumonia. #Acute on chronic hypoxic and hypercapnic respiratory failure likely secondary to #COPD exacerbation in the setting of #Pneumonia, RSV positive and Pseudomonas #Respiratory acidosis, improving #Hx of COPD #MSSA bacteremia #E. Faecalis in urine ? Patient came in initially with complaints of cough, shortness of breath, and increased requirements of oxygen. ? Patient has a history of COPD ??Patient met SIRS 4 out of 4 criteria on admission, but there was no signs of endorgan damage ? qSOFA score of 1 ? Initial chest x-ray showed vascular congestion ?Initial Chest CTA showed bilateral pneumonia ?Repeat chest x-ray on 10/30/2024 showed no pneumonia pulmonary edema ? Latest ABG showed pH 7.32, pCO2 61, pO2 121 - Rocephin [10/29/2024?11/01/2024] ? Blood culture grew MSSA ? Urine cultures grew Enterococcus faecalis ? Sputum cultures grew Pseudomonas Plan: ?Per ID, recs to stop azithromycin [10/29/2024?11/02/24] ? stop Zosyn [10/28/2024?11/02/24) ? Continue breathing treatments ? per ID, stopped methylprednisolone 40 mg twice daily [10/29/2024?11/02/24) ? Trip Motor Operator consulted, appreciate recommendations ? ID consulted, appreciate commendations ?Will continue to monitor #Hypoosmolar hyponatremia, chronic ?Patient came in with sodium of 127, currently 122. ? Patient sodium appears to be low in the past was 122 on September. ? DDx includes SIADH versus dehydration versus medication induced as he was on hydrochlorothiazide and metolazone Plan: ? Fluid restrictions -per nephro, start 3% hypertonic saline -Correction goal: No more than 128 over next 24 hours. - stopped Na tab BID ?Urine sodium and electrolytes pending -Na check q4h ? Holding hydrochlorothiazide metolazone ?Will continue to monitor #Hyperkalemia DDx: medication induced (pts takes entresto) -hold entresto -start Kayexalate -daily CMP #Hx of HFpEF (55% on 10/2023) ?Patient came in initially with complaints of shortness of breath and requiring increased levels of oxygen ? Patient does not seem to be in CHF exacerbation at this time she does not appear to be fluid overloaded and there is no pulmonary edema. ? BNP initially was 1001 ? Echo showed 55% EF Plan: ? Hold Entresto in setting of hyponatremia/hypokalemia ? Fluid restrictions ? Cardiac diet ? Will continue to monitor #Hypertensive urgency-resovled #Hx of hypertension ? Patient came in with blood pressure of 207/109 ? Patient's blood pressure continues to be elevated today at 163/84 Plan: ? hold Entresto ? metoprolol trartrate 20mg x1 #Hx of CVA #Hx of PAD ? Continue Plavix #Hx of chronic constipation in the setting of #Chronic back pain on narcotics ? Continue patient's Tylenol?codeine 1 tablet 3 times daily for pain ? Continue scheduled daily senna, and MiraLAX Disposition: telemetry,doxy for MSSA bacteremia, Pseudo PNA, E. faecalis UTI, tx hypernatremia Diet: Regular GI prophylaxis: protonix DVT prophylaxis: heparin sc Code: full code Case disclosed with Attending Dr. Santana and senior Dr. Estrella PGY3. Damaris Ragsdale, PGY1 Attending Provider Attestation/Addendum Mulu Mooney, DO, attest that I was physically present for the jones portions of the service and evaluated the patient with the resident and I reviewed and discussed the case with the resident and agree with the resident's findings and plans of care as documented above Patient seen and evaluated this AM. Patient states she is feeling well, denies fevers, chills, dizziness, lightheadness, headache, nausea or vomiting. Patient continues to have productive sputum and rhonchi. Encouraged patient to use acapella , but patient is not understanding instructions well. Will order different method of chest PT. Seen by ID and abx switched to doxycycline. Pending Physical therapy evaluation. Sodium of 120 this AM, started on 3% NS, will continue to trend sodium every 4 hours. Kayexalate given due to hyperkalemia. Continue [facility] fluid restriction of 1200mL daily.
--- NOTE | 2024-11-02 13:53 | XR_ITS ---
Examination: Venous duplex lower extremity sonogram, bilateral. Date and time of exam: November 02, 2024 1531 hrs. Indications: Leg discoloration and pain this week Technique: Multiple sonographic images of the deep venous system have been obtained. B-mode/2-D grayscale imaging of vascular structures and Doppler spectral analysis (waveforms) and color performed Both legs are examined. Findings: Deep venous systems do not demonstrate abnormal echogenicity. All visualized deep veins exhibit compressibility. All visualized deep veins exhibit augmentation. Impression: Negative for deep vein thrombosis
--- NOTE | 2024-11-02 13:58 | EKG_ITS ---
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
[2024-11-02 14:06] LABS: Sodium 122 mMol/L (136-145)
[2024-11-02] MEDS: METOPROLOL TARTRATE 25 MG TABLET PO (14:13)
--- NOTE | 2024-11-02 16:43 | PC.RT ---
Pt not oriented, unable to follow instructions for acapella device
[2024-11-02 17:54] LABS: Potassium 5.2 mMol/L (3.4-5.1); Sodium 125 mMol/L (136-145)
--- NOTE | 2024-11-02 18:26 | EKG_ITS ---
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
--- NOTE | 2024-11-02 18:33 | XR_ITS ---
Examination: AP chest single view Technique one AP portable upright chest single view Exam date and time: November 02, 2024 1857 hrs. Comparison October 30, 2024 Indications: Hypoxia today. Findings: Normal heart size No pneumonia or pulmonary edema Minor subsegmental atelectasis right base with accentuation basilar bronchovascular markings Impression: Right basilar bronchitis No lobar pneumonia or pulmonary edema
[2024-11-02 18:39] LABS: Allen Test Performed/OK; Base Excess 8 (-3-3); HCO3 36 mEq/L (20-26); Inspired Oxygen, FIO2 40 %; O2 Saturation 99 % (91-98); PCO2 67 mmHg (32.0-48.0); PO2 106 mmHg (83-108); Puncture Site Right Radial; pH, Arterial 7.34 (7.35-7.45)
[2024-11-02 19:07] LABS: Basophils % (Auto) 0 % (0-2.5); Eosinophils % (Auto) 0 % (0-10); Hematocrit 27.9 % (36.0-46.0); Hemoglobin 9.6 g/dL (12.0-16.0); Immature Granulocytes % (Auto) 1 % (0-0); Immature Granulocytes Auto 0.08 Thou/mm3 (0.00-0.00); Lymphocytes # (Auto) 1.5 Thou/mm3 (1.0-4.8); Lymphocytes % (Auto) 13 % (10-50); Mean Corpuscular HGB Conc 34.4 g/dl (31.0-37.0); Mean Corpuscular Hemoglobin 34.2 pg (25.0-35.0); Mean Corpuscular Volume 99 fL (80-100); Monocytes % (Auto) 10 % (0-12); Neutrophils # (Auto) 8.3 Thou/mm3 (1.8-7.7); Neutrophils % (Auto) 76 % (37-80); Nucleated Red Blood Cell # 0.02 Thou/mm3 (0.00-0.00); Nucleated Red Blood Cell % 0 /100 WBC (0); Platelet Count 321 Thou/mm3 (140-440); RDW Standard Deviation 46.1 fL (36.4-46.3); Red Blood Count 2.81 Miln/mm3 (4.00-5.20); White Blood Count 10.8 Thou/mm3 (3.6-11.0)
[2024-11-02 19:34] LABS: Lactate (Lactic Acid) 1.7 mMol/L (0.4-2.0)
[2024-11-02 21:38] LABS: Sodium 129 mMol/L (136-145)
[2024-11-02] MEDS: DOXYCYCLINE INJ 100 MG in SODIUM CHLORIDE 0.9% (P) 100 ML IV (22:58)
[2024-11-03] VITALS (14 sets, daily range): BP systolic 117–148; BP diastolic 68–82; PULSE 72–110; RESP 13–27; TEMP 36.1–36.7; O2SAT 88–100; BMI 20.9
[2024-11-03] MEDS: LEVALBUTEROL RT 1.25 MG/0.5 ML NEBU INH ×4 (00:44→18:56)
[2024-11-03] MEDS: IPRATROPIUM RT 0.5 MG/ 2.5 ML NEBU INH ×4 (00:44→18:56)
[2024-11-03 02:13] LABS: Sodium 130 mMol/L (136-145)
[2024-11-03] MEDS: HEPARIN SOD INJ 5000 UNIT/ML VIAL SC ×2 (05:43→21:31)
[2024-11-03 05:58] LABS: Basophils % (Auto) 0 % (0-2.5); Eosinophils % (Auto) 0 % (0-10); Hematocrit 27.1 % (36.0-46.0); Hemoglobin 9.1 g/dL (12.0-16.0); Immature Granulocytes % (Auto) 1 % (0-0); Immature Granulocytes Auto 0.07 Thou/mm3 (0.00-0.00); Lymphocytes # (Auto) 2.1 Thou/mm3 (1.0-4.8); Lymphocytes % (Auto) 24 % (10-50); Mean Corpuscular HGB Conc 33.6 g/dl (31.0-37.0); Mean Corpuscular Hemoglobin 33.5 pg (25.0-35.0); Mean Corpuscular Volume 100 fL (80-100); Monocytes # (Auto) 1.2 Thou/mm3 (0.0-0.8); Monocytes % (Auto) 13 % (0-12); Neutrophils # (Auto) 5.5 Thou/mm3 (1.8-7.7); Neutrophils % (Auto) 62 % (37-80); Nucleated Red Blood Cell # 0.03 Thou/mm3 (0.00-0.00); Nucleated Red Blood Cell % 0 /100 WBC (0); Platelet Count 237 Thou/mm3 (140-440); RDW Standard Deviation 46.6 fL (36.4-46.3); Red Blood Count 2.72 Miln/mm3 (4.00-5.20); White Blood Count 8.8 Thou/mm3 (3.6-11.0)
[2024-11-03 07:11] LABS: Alanine Aminotransferase 15 U/L (10-49); Albumin, Serum 3.3 gm/dL (3.4-4.8); Albumin/Globulin Ratio 1.3 (1.2-2.2); Alkaline Phosphatase 36 U/L (46-116); Anion Gap 6 (7-16); Aspartate Amino Transferase 28 U/L (0-34); BUN/Creatinine Ratio 53 Ratio (12-20); Bilirubin,Total 0.2 mg/dL (0.3-1.2); Blood Urea Nitrogen 42 mg/dL (9-23); Calcium 8.6 mg/dL (8.3-10.6); Calcium (Corrected) 9.2 mg/dL (8.5-10.1); Chloride 91 mMol/L (98-107); Creatinine (Component) 0.8 mg/dL (0.6-1.3); Estimated Creatinine Clearance 43.7 mL/min (>60); Globulin 2.6 gm/dL (2.3-3.5); Glucose 102 mg/dL (74-106); Magnesium 1.8 mg/dL (1.6-2.6); Osmolality,Calculated 271 (275-295); Phosphorous 2.6 mg/dL (2.4-5.1); Potassium 4.8 mMol/L (3.4-5.1); Sodium 130 mMol/L (136-145); Total Protein 5.9 gm/dL (5.7-8.2); eGFR > 60 See Note
[2024-11-03] MEDS: POLYETHYLENE GLYCOL 17 GM PACKET PO (09:05)
[2024-11-03] MEDS: PANTOPRAZOLE INJ 40 MG VIAL IVP (09:05)
[2024-11-03] MEDS: SODIUM CHLORIDE 1 GM TABLET PO ×2 (09:05→20:43)
[2024-11-03] MEDS: CLOPIDOGREL BISULFATE 75 MG TABLET PO (09:10)
[2024-11-03] MEDS: DOXYCYCLINE INJ 100 MG in SODIUM CHLORIDE 0.9% (P) 100 ML IV ×2 (09:35→20:38)
--- NOTE | 2024-11-03 09:49 | ESPR_ITS ---
Documentation for date of: 11/03/24 Subjective Subjective Interval history: Patient was seen at bedside this morning. No overnight events. Patient was on the BiPAP ON and was saturating at 100% therefore transition to nasal cannula, but she desaturated when taken off Bipap therefore was placed back on Bipap. She did not have any increased breathing today and her lung sounds are clear bilateral today. Patient was started on doxycycline IV given that she has some difficulty swallowing. No other complaints at this time. Will continue to monitor. Exam Vital Signs Temp Pulse Resp BP Pulse Ox O2 Del Method O2 Flow Rate 97.6 F 95 18 147/82 H 100 BiPAP 3 11/03/24 08:00 11/03/24 08:00 11/03/24 08:00 11/03/24 08:00 11/03/24 08:00 11/03/24 08:00 11/02/24 20:00 FiO2 70 11/03/24 06:42 Narrative Exam General: A/O x3, no acute distress, ill appearing thin elderly Eyes: PERRL, EOMI. Anicteric, vision grossly intact. Ears: No ear pain, no ear discharge, Hearing impaired Nose: No nasal discharge. Mouth/Throat: Dry mucous membranes Neck: Neck supple, non-tender, no cervical lymphadenopathy. Lungs: Clear, No accessory muscle use, on 3L NC Cardio: Normal S1/S2, regular rhythm, no murmurs, b/L JVD, tachycardic Abdomen: Soft, non-tender, no palpable masses, peristalsis present, no guarding or rebound. Extremities: no significant deformities, no peripheral edema , non-tender Skin: АНДРЕЙ LE venous stasis changes and L UE with red discoloration from elbow level to wrist. Neuro: No focal neurological deficits. motor and sensory intact Psych: Cooperative, appropriate mood and effect. Objective Labs 11/04/24 05:42 11/04/24 05:42 Labs: Laboratory Results - last 24 hr 11/02/24 11/02/24 11/02/24 13:15 17:34 18:32 WBC 10.8 RBC 2.81 L Hgb 9.6 L Hct 27.9 L MCV 99 MCH 34.2 MCHC 34.4 RDW Std Deviation 46.1 Plt Count 321 D Neut % (Auto) 76 Lymph % (Auto) 13 [place] % (Auto) 10 Eos % (Auto) 0 Baso % (Auto) 0 Neut # (Auto) 8.3 H Lymph # (Auto) 1.5 [place] # (Auto) 1.0 H Eos # (Auto) 0.0 Baso # (Auto) 0.0 Immature Gran # (Auto) 0.08 H Absolute Nucleated RBC 0.02 H Immature Gran % 1 H Nucleated RBC % 0 Puncture Site Right Radial ABG pH 7.34 L ABG pCO2 67 H ABG pO2 106 ABG HCO3 36 H ABG O2 Saturation 99 H ABG Base Excess 8 H FiO2 40 Sodium 122 L 125 L Potassium 5.2 H Chloride Carbon Dioxide Anion Gap BUN Creatinine Estim Creat Clear Calc eGFR BUN/Creatinine Ratio Glucose Calculated Osmolality Lactic Acid Calcium Corrected Calcium Phosphorus Magnesium Total Bilirubin AST ALT Alkaline Phosphatase Total Protein Albumin Globulin Albumin/Globulin Ratio 11/02/24 11/02/24 11/03/24 19:13 21:05 01:25 WBC RBC Hgb Hct MCV MCH MCHC RDW Std Deviation Plt Count Neut % (Auto) Lymph % (Auto) [place] % (Auto) Eos % (Auto) Baso % (Auto) Neut # (Auto) Lymph # (Auto) [place] # (Auto) Eos # (Auto) Baso # (Auto) Immature Gran # (Auto) Absolute Nucleated RBC Immature Gran % Nucleated RBC % Puncture Site ABG pH ABG pCO2 ABG pO2 ABG HCO3 ABG O2 Saturation ABG Base Excess FiO2 Sodium 129 L 130 L Potassium Chloride Carbon Dioxide Anion Gap BUN Creatinine Estim Creat Clear Calc eGFR BUN/Creatinine Ratio Glucose Calculated Osmolality Lactic Acid 1.7 Calcium Corrected Calcium Phosphorus Magnesium Total Bilirubin AST ALT Alkaline Phosphatase Total Protein Albumin Globulin Albumin/Globulin Ratio 11/03/24 05:15 WBC 8.8 RBC 2.72 L Hgb 9.1 L Hct 27.1 L MCV 100 MCH 33.5 MCHC 33.6 RDW Std Deviation 46.6 H Plt Count 237 D Neut % (Auto) 62 Lymph % (Auto) 24 [place] % (Auto) 13 H Eos % (Auto) 0 Baso % (Auto) 0 Neut # (Auto) 5.5 Lymph # (Auto) 2.1 [place] # (Auto) 1.2 H Eos # (Auto) 0.0 Baso # (Auto) 0.0 Immature Gran # (Auto) 0.07 H Absolute Nucleated RBC 0.03 H Immature Gran % 1 H Nucleated RBC % 0 Puncture Site ABG pH ABG pCO2 ABG pO2 ABG HCO3 ABG O2 Saturation ABG Base Excess FiO2 Sodium 130 L Potassium 4.8 Chloride 91 L Carbon Dioxide 33.0 H Anion Gap 6 L BUN 42 H Creatinine 0.8 Estim Creat Clear Calc 43.7 L eGFR > 60 BUN/Creatinine Ratio 53 H Glucose 102 Calculated Osmolality 271 L Lactic Acid Calcium 8.6 Corrected Calcium 9.2 Phosphorus 2.6 Magnesium 1.8 Total Bilirubin 0.2 L AST 28 ALT 15 Alkaline Phosphatase 36 L Total Protein 5.9 Albumin 3.3 L Globulin 2.6 Albumin/Globulin Ratio 1.3 ABG Interpretation ABG results: 10/28/24 10/30/24 10/30/24 22:30 04:30 06:40 ABG pH 7.35 7.27 L 7.26 L ABG pCO2 62 H 76 H* D 75 H* ABG pO2 93 95 103 ABG HCO3 34 H 35 H 34 H ABG O2 Saturation 96 97 98 ABG Base Excess 7 H 6 H 5 H 10/30/24 10/30/24 10/30/24 11:00 14:47 17:32 ABG pH 7.21 L 7.32 L D 7.35 ABG pCO2 81 H* 61 H D 56 H ABG pO2 106 121 H 106 ABG HCO3 33 H 31 H 31 H ABG O2 Saturation 98 98 98 ABG Base Excess 3 4 H 4 H 11/02/24 18:32 ABG pH 7.34 L ABG pCO2 67 H ABG pO2 106 ABG HCO3 36 H ABG O2 Saturation 99 H ABG Base Excess 8 H Quality Measures Quality Measures sepsis Current suspected stage: ruled out Possible source: unknown Blood cultures ordered: yes Antibiotic ordered: Yes Advance care planning discussed with:: patient Assessment & Plan Assessment Current Active Medications: Generic Name Dose Route Start Last Admin Trade Name Freq PRN Reason Stop Dose Admin Acetaminophen 650 mg 10/29/24 03:16 Acetaminophen 325 Mg Tablet PO 11/28/24 03:15 Q6H PRN PAIN SCALE 1-3 (mild Acetaminophen 650 mg 10/29/24 03:16 Acetaminophen 325 Mg Tablet PO 11/28/24 03:15 Q6H PRN Fever >100 Clopidogrel Bisulfate 75 mg 10/29/24 09:00 11/02/24 10:18 Clopidogrel Bisulfate 75 Mg Tablet PO 11/28/24 08:59 75 mg QDAY LELE Administration Guaifenesin 100 mg 11/01/24 17:00 11/03/24 05:43 Guaifenesin Syrup 200 Mg/10 Ml Udc PO 12/01/24 16:59 Not Given QID LELE Protocol Heparin Sodium (Porcine) 5,000 unit 10/29/24 06:00 11/03/24 05:43 Heparin Sod Inj 5000 Unit/Ml Vial SC 11/12/24 05:59 5,000 unit Q8HR LELE Administration Doxycycline Hyclate 100 mg/ 100 mls @ 100 mls/hr 11/02/24 22:30 11/02/24 22:58 Sodium Chloride IV 11/09/24 22:29 100 mls/hr BID LELE Administration Ipratropium [place] 0.5 mg 10/31/24 19:00 11/03/24 06:39 Ipratropium Rt 0.5 Mg/ 2.5 Ml Nebu INH 11/30/24 18:59 0.5 mg Q6HRRT LELE Administration Levalbuterol HCl 1.25 mg 10/31/24 19:00 11/03/24 06:39 Levalbuterol Rt 1.25 Mg/0.5 Ml Nebu INH 11/30/24 18:59 1.25 mg Q6HRRT LELE Administration Melatonin 6 mg 10/30/24 21:00 11/02/24 21:59 Melatonin 3 Mg Tablet PO 11/29/24 20:59 Not Given HS LELE Ondansetron HCl 4 mg 10/29/24 03:16 Ondansetron Inj 2 Mg/Ml Inj 2 Ml IV 11/28/24 03:15 Q6H PRN NAUSEA OR VOMITING Protocol Pantoprazole Sodium 40 mg 10/29/24 09:00 11/02/24 10:18 Pantoprazole Inj 40 Mg Vial IVP 11/28/24 08:59 40 mg QDAY LELE Administration Pharmacy Consult 1 each 10/30/24 16:45 Pharmacy Renal Dose Adjustment 1 Ea XX 11/29/24 16:44 QDAY PRN PROTOCOL Polyethylene Glycol 17 gm 10/29/24 09:00 11/02/24 10:18 Polyethylene Glycol 17 Gm Packet PO 11/28/24 08:59 17 gm QDAY LELE Administration Sennosides 1 tab 10/29/24 04:30 Senna/Docusate Sod 1 Tab Tablet PO 11/28/24 04:29 QDAY PRN CONSTIPATION Protocol Sodium Chloride 3 ml 10/31/24 16:00 Sodium Chloride Rt Bhavana 0.9% 3 Ml Nebu INH 11/30/24 15:59 PRN PRN SOLN Sodium Chloride 1 gm 11/02/24 21:00 11/02/24 22:01 Sodium Chloride 1 Gm Tablet PO 12/02/24 20:59 Not Given BID LELE Plan 79-year-old female with past medical history of COPD (2 L O2 at home), HFpEF (55 to 60% on 2022), hypertension, CVA, lymphoma currently on remission, chronic back pain on narcotics, and chronic constipation, and PAD who was admitted to the hospital on 10/29/2024 due to acute on chronic hypoxic respiratory failure likely secondary to COPD exacerbation in the setting of community-acquired pneumonia. #Acute on chronic hypoxic and hypercapnic respiratory failure likely secondary to #COPD exacerbation in the setting of #Pneumonia, RSV positive and Pseudomonas #Respiratory acidosis, improving #Hx of COPD #MSSA bacteremia #E. Faecalis in urine ? Patient came in initially with complaints of cough, shortness of breath, and increased requirements of oxygen. ? Patient has a history of COPD ?Patient met SIRS 4 out of 4 criteria on admission, but there was no signs of endorgan damage ? qSOFA score of 1 ? Initial chest x-ray showed vascular congestion ?Initial Chest CTA showed bilateral pneumonia ?Repeat chest x-ray on 10/30/2024 showed no pneumonia pulmonary edema ? Latest ABG showed pH 7.32, pCO2 61, pO2 121 - Rocephin [10/29/2024?11/01/2024] ? Blood culture grew MSSA ? Urine cultures grew Enterococcus faecalis ? Sputum cultures grew Pseudomonas -DC'd azithromycin and Zosyn Plan: ?Continue Doxycycline 100 mg BID [11/02/2024-11/09/2024] ? Continue breathing treatments ? Continue methylprednisolone 40 mg twice daily [12/13/2024?] ? Kiss Setter Hand consulted, appreciate recommendations ? ID consulted, appreciate commendations ?Will continue to monitor #Hypoosmolar hyponatremia, chronic ?Patient came in with sodium of 127, currently 130. ? Patient sodium appears to be low in the past was 122 on September. ? DDx includes SIADH versus dehydration versus medication induced as he was on hydrochlorothiazide and metolazone ?Urine sodium less than 10 Plan: ? Fluid restrictions - Na tab BID ? Holding hydrochlorothiazide metolazone ?Will continue to monitor #Hyperkalemia ? Patient potassium yesterday was 5.6 and down trended to 5 point 2 in the evening ? Potassium today 4.8 Plan: ? Hold Entresto ? Will continue to monitor #Hx of HFpEF (55% on 10/2023) ?Patient came in initially with complaints of shortness of breath and requiring increased levels of oxygen ? Patient does not seem to be in CHF exacerbation at this time she does not appear to be fluid overloaded and there is no pulmonary edema. ? BNP initially was 1001 ? Echo showed 55% EF Plan: ?Will hold Entresto given hyponatremia and hyperkalemia ? Fluid restrictions ? Cardiac diet ? Will continue to monitor #Hypertensive urgency #Hx of hypertension ? Patient came in with blood pressure of 207/109 ? Patient's blood pressure continues to be elevated today at 163/84 Plan: ? Will hold Entresto given hyponatremia and hyperkalemia ? Will hold off on patient's home medication beta-yola as she is on [employer] exacerbation. #Hx of CVA #Hx of PAD ? Continue Plavix #Hx of chronic constipation in the setting of #Chronic back pain on narcotics ? Continue patient's Tylenol?codeine 1 tablet 3 times daily for pain ? Continue scheduled daily Movantik, senna, and MiraLAX Disposition: Patient seen in telemetry, [facility] to cover MSSA, Pseudo, E. faecalis. Continue Na tab BID Diet: NPO GI prophylaxis: protonix DVT prophylaxis: heparin sc Code: full code Case disclosed with Attending Dr. Max Camargo PGY1 Attending Provider Attestation/Addendum I, Mulu Santana, DO, attest that I was physically present for the jones portions of the service and evaluated the patient with the resident and I reviewed and discussed the case with the resident and agree with the resident's findings and plans of care as documented above Patient seeen and evaluated this AM. She was unable to tolerate NC this morning and now requires BiPap. Patient complaining that BiPap mask is leaking air. However, b/l rhonchi appears improved. Will continue to titrate O2 on BiPap. Sodium improved. 3% NS discontinued overnight, will continue with salt tabs.
[2024-11-03 10:15] LABS: Sodium 130 mMol/L (136-145)
[2024-11-03 10:24] LABS: Base Excess 13 (-3-3); HCO3 39 mEq/L (20-26); Inspired Oxygen, FIO2 80 %; O2 Saturation 99 % (91-98); PCO2 61 mmHg (32.0-48.0); PO2 238 mmHg (83-108); pH, Arterial 7.42 (7.35-7.45)
[2024-11-03 10:30] LABS: Allen Test Not Performed; Puncture Site Right Radial
--- NOTE | 2024-11-03 11:17 | ESPR_ITS ---
Documentation for date of: 11/03/24 Subjective Subjective Interval history: Ms. Conte is a 79-year-old female with significant past medical history of COPD on 2 L home oxygen, HFpEF, hypertension, possible A-fib, CVA, lymphoma in remission, PAD s/p vascular intervention of lower extremity presented to ED with shortness of breath and was found to have COPD exacerbation secondary to RSV pneumonia. She was initially admitted to ICU, and was on BiPAP, later downgraded to telemetry unit. Currently, patient reported mild SOB, but denied any headache, lightheadedness, nausea or vomiting, subjective fever or chills, any changes in bowel or bladder habit or leg edema. During evaluation, her vitals were significant for blood pressure 141/70, pulse rate 116, and saturating 97% on 4 L NC. Labs are significant for white count 11.8, hemoglobin 9.5, chemistry panel significant for sodium of 118, bicarb 31.6, chloride 84, BUN 51 with creatinine 0.9 and calculated osmolality 261. Echo has been significant for ejection fraction 55%. Chest x-ray significant for no pneumonia or pulmonary edema. PMH: As mentioned above PSHx: Lower extremity vascular intervention for PAD Meds: Codeine, albuterol, cetirizine, clopidogrel, docusate, famotidine, HCTZ, lactulose, metolazone, metoprolol succinate, prednisone, Entresto, senna, Trelegy. Allergies: Sulfa drugs Social history: Remote history of smoking, denies alcohol or drug use. Nephrology consultation was done for further management of severe hyponatremia. 11/02/2024: The patient reported doing well, and admitted mild abdominal upset. She denied any headache, chest pain, fever or chills. Her vitals were significant for blood pressure 133/82, pulse 111, saturating 99% on 3 L NC. Physical examination was significant for distant breath sound and wheezing. CBC at baseline, sodium overnight increased up to 121, but this morning again came back to 118. She was started on 3% hypertonic saline, we will continue to monitor her sodium level every 4 hourly, and goal level of correction would be 124. We will also continue with salt tablet 1 g 3 times daily. 11/03/2024: The patient was interviewed and examined at the bed side this morning. She was placed on BiPAP, vitals were significant for blood pressure 127/82 and saturating 100% on 80% FiO2. Labs are significant for hemoglobin 9.1, ABG revealed pCO2 61, bicarb 39 and pH 7.42. Chemistry pane significant for sodium of 130, hypertonic saline was discontinued yesterday evening, we will continue with sodium tablet 1 g twice daily. The patient seems to have respiratory acidosis compensated by metabolic alkalosis. We will continue to monitor sodium. Exam Vital Signs Temp Pulse Resp BP Pulse Ox O2 Del Method O2 Flow Rate 97.6 F 110 H 25 H 147/82 H 100 BiPAP 3 11/03/24 08:00 11/03/24 10:32 11/03/24 10:32 11/03/24 08:00 11/03/24 10:32 11/03/24 08:00 11/02/24 20:00 FiO2 80 11/03/24 10:32 Narrative Exam General: Elderly cooperative female, hard of hearing, no acute distress, Alert and Oriented x 3, on BiPAP HEENT: Moist mucous membranes, oropharynx clear Neck: Supple, No masses, No JVD CVS: Tachycardic, no murmur or rubs Lungs: Distant and decreased breath sound with wheezing throughout the lung field, mild crackles over lower bibasilar lung field, no rhonchi Abd: Soft, NT/ND, +BS, no organomegaly Ext: No edema, warm and well perfused, bilateral leg darkening skin changes Psych: Appropriate mood and affect Objective Labs 11/04/24 05:42 11/04/24 05:42 Labs: Laboratory Results - last 24 hr 11/02/24 11/02/24 11/02/24 13:15 17:34 18:32 WBC 10.8 RBC 2.81 L Hgb 9.6 L Hct 27.9 L MCV 99 MCH 34.2 MCHC 34.4 RDW Std Deviation 46.1 Plt Count 321 D Neut % (Auto) 76 Lymph % (Auto) 13 [place] % (Auto) 10 Eos % (Auto) 0 Baso % (Auto) 0 Neut # (Auto) 8.3 H Lymph # (Auto) 1.5 [place] # (Auto) 1.0 H Eos # (Auto) 0.0 Baso # (Auto) 0.0 Immature Gran # (Auto) 0.08 H Absolute Nucleated RBC 0.02 H Immature Gran % 1 H Nucleated RBC % 0 Puncture Site Right Radial ABG pH 7.34 L ABG pCO2 67 H ABG pO2 106 ABG HCO3 36 H ABG O2 Saturation 99 H ABG Base Excess 8 H FiO2 40 Sodium 122 L 125 L Potassium 5.2 H Chloride Carbon Dioxide Anion Gap BUN Creatinine Estim Creat Clear Calc eGFR BUN/Creatinine Ratio Glucose Calculated Osmolality Lactic Acid Calcium Corrected Calcium Phosphorus Magnesium Total Bilirubin AST ALT Alkaline Phosphatase Total Protein Albumin Globulin Albumin/Globulin Ratio 11/02/24 11/02/24 11/03/24 19:13 21:05 01:25 WBC RBC Hgb Hct MCV MCH MCHC RDW Std Deviation Plt Count Neut % (Auto) Lymph % (Auto) [place] % (Auto) Eos % (Auto) Baso % (Auto) Neut # (Auto) Lymph # (Auto) [place] # (Auto) Eos # (Auto) Baso # (Auto) Immature Gran # (Auto) Absolute Nucleated RBC Immature Gran % Nucleated RBC % Puncture Site ABG pH ABG pCO2 ABG pO2 ABG HCO3 ABG O2 Saturation ABG Base Excess FiO2 Sodium 129 L 130 L Potassium Chloride Carbon Dioxide Anion Gap BUN Creatinine Estim Creat Clear Calc eGFR BUN/Creatinine Ratio Glucose Calculated Osmolality Lactic Acid 1.7 Calcium Corrected Calcium Phosphorus Magnesium Total Bilirubin AST ALT Alkaline Phosphatase Total Protein Albumin Globulin Albumin/Globulin Ratio 11/03/24 11/03/24 11/03/24 05:15 09:43 10:15 WBC 8.8 RBC 2.72 L Hgb 9.1 L Hct 27.1 L MCV 100 MCH 33.5 MCHC 33.6 RDW Std Deviation 46.6 H Plt Count 237 D Neut % (Auto) 62 Lymph % (Auto) 24 [place] % (Auto) 13 H Eos % (Auto) 0 Baso % (Auto) 0 Neut # (Auto) 5.5 Lymph # (Auto) 2.1 [place] # (Auto) 1.2 H Eos # (Auto) 0.0 Baso # (Auto) 0.0 Immature Gran # (Auto) 0.07 H Absolute Nucleated RBC 0.03 H Immature Gran % 1 H Nucleated RBC % 0 Puncture Site Right Radial ABG pH 7.42 ABG pCO2 61 H ABG pO2 238 H D ABG HCO3 39 H ABG O2 Saturation 99 H ABG Base Excess 13 H FiO2 80 Sodium 130 L 130 L Potassium 4.8 Chloride 91 L Carbon Dioxide 33.0 H Anion Gap 6 L BUN 42 H Creatinine 0.8 Estim Creat Clear Calc 43.7 L eGFR > 60 BUN/Creatinine Ratio 53 H Glucose 102 Calculated Osmolality 271 L Lactic Acid Calcium 8.6 Corrected Calcium 9.2 Phosphorus 2.6 Magnesium 1.8 Total Bilirubin 0.2 L AST 28 ALT 15 Alkaline Phosphatase 36 L Total Protein 5.9 Albumin 3.3 L Globulin 2.6 Albumin/Globulin Ratio 1.3 ABG Interpretation ABG results: 10/28/24 10/30/24 10/30/24 22:30 04:30 06:40 ABG pH 7.35 7.27 L 7.26 L ABG pCO2 62 H 76 H* D 75 H* ABG pO2 93 95 103 ABG HCO3 34 H 35 H 34 H ABG O2 Saturation 96 97 98 ABG Base Excess 7 H 6 H 5 H 10/30/24 10/30/24 10/30/24 11:00 14:47 17:32 ABG pH 7.21 L 7.32 L D 7.35 ABG pCO2 81 H* 61 H D 56 H ABG pO2 106 121 H 106 ABG HCO3 33 H 31 H 31 H ABG O2 Saturation 98 98 98 ABG Base Excess 3 4 H 4 H 11/02/24 11/03/24 18:32 10:15 ABG pH 7.34 L 7.42 ABG pCO2 67 H 61 H ABG pO2 106 238 H D ABG HCO3 36 H 39 H ABG O2 Saturation 99 H 99 H ABG Base Excess 8 H 13 H Quality Measures Quality Measures sepsis Current suspected stage: sepsis Possible source: unknown Blood cultures ordered: yes Antibiotic ordered: Yes Advance care planning discussed with:: child Assessment & Plan Assessment Current Active Medications: Generic Name Dose Route Start Last Admin Trade Name Freq PRN Reason Stop Dose Admin Acetaminophen 650 mg 10/29/24 03:16 Acetaminophen 325 Mg Tablet PO 11/28/24 03:15 Q6H PRN PAIN SCALE 1-3 (mild Acetaminophen 650 mg 10/29/24 03:16 Acetaminophen 325 Mg Tablet PO 11/28/24 03:15 Q6H PRN Fever >100 Clopidogrel Bisulfate 75 mg 10/29/24 09:00 11/02/24 10:18 Clopidogrel Bisulfate 75 Mg Tablet PO 11/28/24 08:59 75 mg QDAY LELE Administration Guaifenesin 100 mg 11/01/24 17:00 11/03/24 05:43 Guaifenesin Syrup 200 Mg/10 Ml Udc PO 12/01/24 16:59 Not Given QID LELE Protocol Heparin Sodium (Porcine) 5,000 unit 10/29/24 06:00 11/03/24 05:43 Heparin Sod Inj 5000 Unit/Ml Vial SC 11/12/24 05:59 5,000 unit Q8HR LELE Administration Doxycycline Hyclate 100 mg/ 100 mls @ 100 mls/hr 11/02/24 22:30 11/02/24 22:58 Sodium Chloride IV 11/09/24 22:29 100 mls/hr BID LELE Administration Ipratropium [place] 0.5 mg 10/31/24 19:00 11/03/24 06:39 Ipratropium Rt 0.5 Mg/ 2.5 Ml Nebu INH 11/30/24 18:59 0.5 mg Q6HRRT LELE Administration Levalbuterol HCl 1.25 mg 10/31/24 19:00 11/03/24 06:39 Levalbuterol Rt 1.25 Mg/0.5 Ml Nebu INH 11/30/24 18:59 1.25 mg Q6HRRT LELE Administration Melatonin 6 mg 10/30/24 21:00 11/02/24 21:59 Melatonin 3 Mg Tablet PO 11/29/24 20:59 Not Given HS LELE Ondansetron HCl 4 mg 10/29/24 03:16 Ondansetron Inj 2 Mg/Ml Inj 2 Ml IV 11/28/24 03:15 Q6H PRN NAUSEA OR VOMITING Protocol Pantoprazole Sodium 40 mg 10/29/24 09:00 11/02/24 10:18 Pantoprazole Inj 40 Mg Vial IVP 11/28/24 08:59 40 mg QDAY LELE Administration Pharmacy Consult 1 each 10/30/24 16:45 Pharmacy Renal Dose Adjustment 1 Ea XX 11/29/24 16:44 QDAY PRN PROTOCOL Polyethylene Glycol 17 gm 10/29/24 09:00 11/02/24 10:18 Polyethylene Glycol 17 Gm Packet PO 11/28/24 08:59 17 gm QDAY LELE Administration Sennosides 1 tab 10/29/24 04:30 Senna/Docusate Sod 1 Tab Tablet PO 11/28/24 04:29 QDAY PRN CONSTIPATION Protocol Sodium Chloride 3 ml 10/31/24 16:00 Sodium Chloride Rt Bhavana 0.9% 3 Ml Nebu INH 11/30/24 15:59 PRN PRN SOLN Sodium Chloride 1 gm 11/02/24 21:00 11/02/24 22:01 Sodium Chloride 1 Gm Tablet PO 12/02/24 20:59 Not Given BID LELE Plan The patient is a 79-year-old female with significant past medical history of COPD on 2 L home oxygen, HFpEF, hypertension, possible A-fib, CVA, lymphoma in remission, PAD s/p vascular intervention of lower extremity presented to ED with shortness of breath and was found to have COPD exacerbation secondary to RSV pneumonia further complicated by Pseudomonas aeruginosa pneumonia. Nephrology consultation was done for further management of severe hypoosmolar hypervolemic hyponatremia. #Mild to moderate hypoosmolar hypervolemic hyponatremia Likely secondary to SIADH in the setting of acute exacerbation of COPD secondary to RSV pneumonia. 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 Presented with sodium level up 128 that slowly trended down to 118 this morning, with possible CHF exacerbation and calculated osmolality 261. -Continue with sodium tablet 1 g daily -Sodium level every 4 hourly -Goal level of sodium will be 136 in 24 hours -Continue to monitor closely #Elevated BUN, improving Likely catabolic state in the setting of severe current illness with bacteremia, COPD exacerbation and possible UTI, steroids -Continue to monitor BUN levels daily -Treat underlying cause #Respiratory acidosis fully compensated by metabolic alkalosis ABG revealed pCO2 61, bicarb 39 and pH 7.42 -Continue to treat underlying COPD exacerbation -May consider adding acetylcysteine inhalation for thickening secretions #Acute on chronic hypoxic and hypercapnic respiratory failure likely secondary to #COPD exacerbation in the setting of #Pneumonia, RSV positive and Pseudomonas #Respiratory acidosis, improving #Hx of COPD #MSSA bacteremia #E. Faecalis in urine #Hypoosmolar hyponatremia, chronic #Hx of HFpEF (55% on 10/2023) #Hypertensive urgency #Hx of hypertension #Hx of CVA #Hx of PAD #Hx of chronic constipation in the setting of #Chronic back pain on narcotics -Management deferred to primary hospitalist team Your opportunity to participate nephrology team in this patient care. The patient's management plan was discussed with my attending physician MD Raciel Mahan MD, PGY2 Attending Provider Attestation/Addendum Patient seen and examined with resident physician Dr. Hernandez. Note reviewed, agree with findings and recommendations. Patient noted to have severe hyponatremia-asymptomatic. Did drop from 122-118. Suspect SIADH from underlying pulmonary process. Agree with starting him on salt tablets. Fluid restriction. If no improvement will consider 3% hypertonic saline and close monitoring of the serum sodium. Medications have been reviewed. Significant elevation in BUN probably related to catabolic state from steroids, underlying infection 11/02/2024 patient was started on 3% hypertonic saline as sodium did not improve. Will monitor closely. No more than 4 to 6 mEq in 24 hours. Her pulmonary status still remains poor with significant wheezing and rhonchi. Patient has a severe COPD exacerbation. On steroids. 11/03/2024 patient currently seen in telemetry. On BiPAP. Still with a significant hypercarbic respiratory failure. Sodium improved and 3% hypertonic saline was discontinued. Currently on salt tablets. Spoke to family at bedside and Dr. Santana.
--- NOTE | 2024-11-03 12:56 | PC.PT ---
11/03/2024 PT eval performed and recommends SNF Rehab to recover before returning home d/t deconditioning from illness and hospitalization
[2024-11-03] MEDS: MELATONIN 3 MG TABLET 6 MG PO (20:43)
[2024-11-03] MEDS: guaiFENesin SYRUP 200 MG/10 ML UDC 100 MG PO (20:43)
[2024-11-04] VITALS (11 sets, daily range): BP systolic 124–154; BP diastolic 66–85; PULSE 90–112; RESP 12–31; TEMP 36.1–36.6; O2SAT 97–100; BMI 20.7
[2024-11-04] MEDS: IPRATROPIUM RT 0.5 MG/ 2.5 ML NEBU INH ×4 (01:16→18:15)
[2024-11-04] MEDS: LEVALBUTEROL RT 1.25 MG/0.5 ML NEBU INH ×4 (01:16→18:15)
[2024-11-04 06:02] LABS: Basophils % (Auto) 0 % (0-2.5); Eosinophils % (Auto) 0 % (0-10); Hematocrit 26.7 % (36.0-46.0); Immature Granulocytes % (Auto) 1 % (0-0); Immature Granulocytes Auto 0.11 Thou/mm3 (0.00-0.00); Lymphocytes # (Auto) 2.5 Thou/mm3 (1.0-4.8); Lymphocytes % (Auto) 26 % (10-50); Mean Corpuscular HGB Conc 33.7 g/dl (31.0-37.0); Mean Corpuscular Hemoglobin 34.1 pg (25.0-35.0); Mean Corpuscular Volume 101 fL (80-100); Monocytes % (Auto) 10 % (0-12); Neutrophils % (Auto) 62 % (37-80); Nucleated Red Blood Cell % 0 /100 WBC (0); Platelet Count 302 Thou/mm3 (140-440); RDW Standard Deviation 49.2 fL (36.4-46.3); Red Blood Count 2.64 Miln/mm3 (4.00-5.20); White Blood Count 9.7 Thou/mm3 (3.6-11.0)
[2024-11-04] MEDS: guaiFENesin SYRUP 200 MG/10 ML UDC 100 MG PO ×4 (06:05→20:29)
[2024-11-04] MEDS: HEPARIN SOD INJ 5000 UNIT/ML VIAL SC ×3 (06:06→21:10)
[2024-11-04 06:22] LABS: Alanine Aminotransferase 12 U/L (10-49); Albumin, Serum 3.2 gm/dL (3.4-4.8); Albumin/Globulin Ratio 1.3 (1.2-2.2); Alkaline Phosphatase 39 U/L (46-116); Anion Gap 5 (7-16); Aspartate Amino Transferase 17 U/L (0-34); BUN/Creatinine Ratio 52 Ratio (12-20); Bilirubin,Total 0.3 mg/dL (0.3-1.2); Blood Urea Nitrogen 31 mg/dL (9-23); Calcium 8.8 mg/dL (8.3-10.6); Calcium (Corrected) 9.4 mg/dL (8.5-10.1); Carbon Dioxide 35.3 mMol/L (20.0-31.0); Chloride 95 mMol/L (98-107); Creatinine (Component) 0.6 mg/dL (0.6-1.3); Estimated Creatinine Clearance 58.3 mL/min (>60); Globulin 2.5 gm/dL (2.3-3.5); Glucose 97 mg/dL (74-106); Magnesium 1.6 mg/dL (1.6-2.6); Osmolality,Calculated 276 (275-295); Phosphorous 2.5 mg/dL (2.4-5.1); Potassium 3.7 mMol/L (3.4-5.1); Sodium 135 mMol/L (136-145); Total Protein 5.7 gm/dL (5.7-8.2); eGFR > 60 See Note
[2024-11-04] MEDS: DOXYCYCLINE INJ 100 MG in SODIUM CHLORIDE 0.9% (P) 100 ML IV (08:28)
[2024-11-04] MEDS: PANTOPRAZOLE INJ 40 MG VIAL IVP (08:28)
[2024-11-04] MEDS: POLYETHYLENE GLYCOL 17 GM PACKET PO (08:29)
[2024-11-04] MEDS: CLOPIDOGREL BISULFATE 75 MG TABLET PO (08:29)
[2024-11-04] MEDS: SODIUM CHLORIDE 1 GM TABLET PO ×2 (08:29→11:00)
--- NOTE | 2024-11-04 10:06 | PD.RESPRO ---
Documentation for date of: 11/04/24 Subjective Subjective Interval history: Patient was seen at bedside this morning. No overnight events. Repeat blood cultures have been negative in 48 hours. Patient still currently on BiPAP, but will transition to high flow nasal cannula today as she does not have any increased work of breathing and her lungs sound clear bilateral. She is still AO x 3. АНДРЕЙ UE swollen mildly likely third spacing, will keep АНДРЕЙ UE elevated. No other complaints this time. Exam Vital Signs Temp Pulse Resp BP Pulse Ox O2 Del Method O2 Flow Rate 97.3 F 103 H 18 138/73 H 100 BiPAP 3 11/04/24 08:00 11/04/24 08:00 11/04/24 08:00 11/04/24 08:00 11/04/24 08:00 11/04/24 08:00 11/04/24 04:00 FiO2 60 11/04/24 06:23 Narrative Exam General: A/O x3, no acute distress, ill appearing thin elderly on Bipap. Eyes: PERRL, EOMI. Anicteric, vision grossly intact. Ears: No ear pain, no ear discharge, Hearing impaired Nose: No nasal discharge. Mouth/Throat: Dry mucous membranes Neck: Neck supple, non-tender, no cervical lymphadenopathy. Lungs: Clear, No accessory muscle use, on Bipap Cardio: Normal S1/S2, regular rhythm, no murmurs, b/L JVD, tachycardic Abdomen: Soft, non-tender, no palpable masses, peristalsis present, no guarding or rebound. Extremities: no significant deformities, no peripheral edema , non-tender Skin: АНДРЕЙ LE venous stasis changes and L UE with red discoloration from elbow level to wrist. АНДРЕЙ UE swollen mildly likely third spacing. Neuro: No focal neurological deficits. motor and sensory intact Psych: Cooperative, appropriate mood and effect. Objective Labs 11/05/24 05:21 11/05/24 05:21 Labs: Laboratory Results - last 24 hr 11/03/24 11/03/24 11/04/24 09:43 10:15 05:42 WBC 9.7 RBC 2.64 L Hgb 9.0 L Hct 26.7 L MCV 101 H MCH 34.1 MCHC 33.7 RDW Std Deviation 49.2 H Plt Count 302 D Neut % (Auto) 62 Lymph % (Auto) 26 [place] % (Auto) 10 Eos % (Auto) 0 Baso % (Auto) 0 Neut # (Auto) 6.0 Lymph # (Auto) 2.5 [place] # (Auto) 1.0 H Eos # (Auto) 0.0 Baso # (Auto) 0.0 Immature Gran # (Auto) 0.11 H Absolute Nucleated RBC 0.00 Immature Gran % 1 H Nucleated RBC % 0 Puncture Site Right Radial ABG pH 7.42 ABG pCO2 61 H ABG pO2 238 H D ABG HCO3 39 H ABG O2 Saturation 99 H ABG Base Excess 13 H FiO2 80 Sodium 130 L 135 L Potassium 3.7 D Chloride 95 L Carbon Dioxide 35.3 H Anion Gap 5 L BUN 31 H Creatinine 0.6 Estim Creat Clear Calc 58.3 L eGFR > 60 BUN/Creatinine Ratio 52 H Glucose 97 Calculated Osmolality 276 Calcium 8.8 Corrected Calcium 9.4 Phosphorus 2.5 Magnesium 1.6 Total Bilirubin 0.3 AST 17 ALT 12 Alkaline Phosphatase 39 L Total Protein 5.7 Albumin 3.2 L Globulin 2.5 Albumin/Globulin Ratio 1.3 ABG Interpretation ABG results: 10/28/24 10/30/24 10/30/24 22:30 04:30 06:40 ABG pH 7.35 7.27 L 7.26 L ABG pCO2 62 H 76 H* D 75 H* ABG pO2 93 95 103 ABG HCO3 34 H 35 H 34 H ABG O2 Saturation 96 97 98 ABG Base Excess 7 H 6 H 5 H 10/30/24 10/30/24 10/30/24 11:00 14:47 17:32 ABG pH 7.21 L 7.32 L D 7.35 ABG pCO2 81 H* 61 H D 56 H ABG pO2 106 121 H 106 ABG HCO3 33 H 31 H 31 H ABG O2 Saturation 98 98 98 ABG Base Excess 3 4 H 4 H 11/02/24 11/03/24 18:32 10:15 ABG pH 7.34 L 7.42 ABG pCO2 67 H 61 H ABG pO2 106 238 H D ABG HCO3 36 H 39 H ABG O2 Saturation 99 H 99 H ABG Base Excess 8 H 13 H Quality Measures Quality Measures sepsis Current suspected stage: ruled out Possible source: unknown Blood cultures ordered: yes Antibiotic ordered: Yes Advance care planning discussed with:: patient Assessment & Plan Assessment Current Active Medications: Generic Name Dose Route Start Last Admin Trade Name Sanderq PRN Reason Stop Dose Admin Acetaminophen 650 mg 10/29/24 03:16 Acetaminophen 325 Mg Tablet PO 11/28/24 03:15 Q6H PRN PAIN SCALE 1-3 (mild Acetaminophen 650 mg 10/29/24 03:16 Acetaminophen 325 Mg Tablet PO 11/28/24 03:15 Q6H PRN Fever >100 Clopidogrel Bisulfate 75 mg 10/29/24 09:00 11/04/24 08:29 Clopidogrel Bisulfate 75 Mg Tablet PO 11/28/24 08:59 75 mg QDAY LELE Administration Guaifenesin 100 mg 11/01/24 17:00 11/04/24 06:05 Guaifenesin Syrup 200 Mg/10 Ml Udc PO 12/01/24 16:59 100 mg QID LELE Administration Protocol Heparin Sodium (Porcine) 5,000 unit 10/29/24 06:00 11/04/24 06:06 Heparin Sod Inj 5000 Unit/Ml Vial SC 11/12/24 05:59 5,000 unit Q8HR LELE Administration Doxycycline Hyclate 100 mg/ 100 mls @ 100 mls/hr 11/02/24 22:30 11/04/24 08:28 Sodium Chloride IV 11/09/24 22:29 100 mls/hr BID LELE Administration Ipratropium [place] 0.5 mg 10/31/24 19:00 11/04/24 06:21 Ipratropium Rt 0.5 Mg/ 2.5 Ml Nebu INH 11/30/24 18:59 0.5 mg Q6HRRT LELE Administration Levalbuterol HCl 1.25 mg 10/31/24 19:00 11/04/24 06:21 Levalbuterol Rt 1.25 Mg/0.5 Ml Nebu INH 11/30/24 18:59 1.25 mg Q6HRRT LELE Administration Melatonin 6 mg 10/30/24 21:00 11/03/24 20:43 Melatonin 3 Mg Tablet PO 11/29/24 20:59 6 mg HS LELE Administration Ondansetron HCl 4 mg 10/29/24 03:16 Ondansetron Inj 2 Mg/Ml Inj 2 Ml IV 11/28/24 03:15 Q6H PRN NAUSEA OR VOMITING Protocol Pantoprazole Sodium 40 mg 10/29/24 09:00 11/04/24 08:28 Pantoprazole Inj 40 Mg Vial IVP 11/28/24 08:59 40 mg QDAY LELE Administration Pharmacy Consult 1 each 10/30/24 16:45 Pharmacy Renal Dose Adjustment 1 Ea XX 11/29/24 16:44 QDAY PRN PROTOCOL Polyethylene Glycol 17 gm 10/29/24 09:00 11/04/24 08:29 Polyethylene Glycol 17 Gm Packet PO 11/28/24 08:59 17 gm QDAY LELE Administration Sennosides 1 tab 10/29/24 04:30 Senna/Docusate Sod 1 Tab Tablet PO 11/28/24 04:29 QDAY PRN CONSTIPATION Protocol Sodium Chloride 3 ml 10/31/24 16:00 Sodium Chloride Rt Bhavana 0.9% 3 Ml Nebu INH 11/30/24 15:59 PRN PRN SOLN Sodium Chloride 1 gm 11/04/24 09:00 Sodium Chloride 1 Gm Tablet PO 12/04/24 08:59 DAILY LELE Plan 79-year-old female with past medical history of COPD (2 L O2 at home), HFpEF (55 to 60% on 2022), hypertension, CVA, lymphoma currently on remission, chronic back pain on narcotics, and chronic constipation, and PAD who was admitted to the hospital on 10/29/2024 due to acute on chronic hypoxic respiratory failure likely secondary to COPD exacerbation in the setting of community-acquired pneumonia. #Acute on chronic hypoxic and hypercapnic respiratory failure likely secondary to #COPD exacerbation in the setting of #Pneumonia, RSV positive and Pseudomonas #Respiratory acidosis, improving #Hx of COPD #MSSA bacteremia #E. Faecalis in urine ? Patient came in initially with complaints of cough, shortness of breath, and increased requirements of oxygen. ? Patient has a history of COPD ?Patient met SIRS 4 out of 4 criteria on admission, but there was no signs of endorgan damage ? qSOFA score of 1 ? Initial chest x-ray showed vascular congestion ?Initial Chest CTA showed bilateral pneumonia ?Repeat chest x-ray on 10/30/2024 showed no pneumonia pulmonary edema ? Latest ABG showed pH 7.32, pCO2 61, pO2 121 - Rocephin [10/29/2024?11/01/2024] ? Blood culture grew MSSA ? Urine cultures grew Enterococcus faecalis ? Sputum cultures grew Pseudomonas -DC'd azithromycin and Zosyn Plan: ?Continue Doxycycline 100 mg BID [11/02/2024-11/05/2024] ? Continue breathing treatments ? Continue methylprednisolone 40 mg twice daily [12/13/2024?] ? Cleaner And [employer]er consulted, appreciate recommendations ? ID consulted, appreciate commendations ?Will continue to monitor #Hypoosmolar hyponatremia, chronic ?Patient came in with sodium of 127, currently 135. ? Patient sodium appears to be low in the past was 122 on September. ? DDx includes SIADH versus dehydration versus medication induced as he was on hydrochlorothiazide and metolazone ?Urine sodium less than 10 Plan: ? Fluid restrictions - Na tab BID ? Holding hydrochlorothiazide metolazone ?Will continue to monitor #Hyperkalemia ? Patient potassium yesterday was 5.6 and down trended to 5 point 2 in the evening ? Potassium today 3.7 Plan: ? Hold Entresto ? Will continue to monitor #Hx of HFpEF (55% on 10/2023) ?Patient came in initially with complaints of shortness of breath and requiring increased levels of oxygen ? Patient does not seem to be in CHF exacerbation at this time she does not appear to be fluid overloaded and there is no pulmonary edema. ? BNP initially was 1001 ? Echo showed 55% EF Plan: ?Will hold Entresto given hyponatremia and hyperkalemia ? Fluid restrictions ? Cardiac diet ? Will continue to monitor #Hypertensive urgency #Hx of hypertension ? Patient came in with blood pressure of 207/109 ? Patient's blood pressure continues to be elevated today at 163/84 Plan: ? Will hold Entresto given hyponatremia and hyperkalemia ? Will hold off on patient's home medication beta-yola as she is on [employer]OWER [employer] exacerbation. #Hx of CVA #Hx of PAD ? Continue Plavix #Hx of chronic constipation in the setting of #Chronic back pain on narcotics ? Continue patient's Tylenol?codeine 1 tablet 3 times daily for pain ? Continue scheduled daily Movantik, senna, and MiraLAX Disposition: Patient seen in telemetry, Bethanie to cover MSSA, Pseudo, E. faecalis. Continue Na tab BID Diet: NPO GI prophylaxis: protonix DVT prophylaxis: heparin sc Code: full code Case disclosed with Attending Dr. Max Camargo PGY1 Attending Provider Attestation/Addendum I, Mulu Santana DO, attest that I was physically present for the jones portions of the service and evaluated the patient with the resident and I reviewed and discussed the case with the resident and agree with the resident's findings and plans of care as documented above Patient seen and evaluated this AM. No acute events overnight. Patient remains on BiPap and states that she is feeling improved. Patient on 16/6 with Fio2 of 35%. Will continue to wean off biPap and chest PT.Will add mucomyst as patient continues to have scattered rhonchi.
--- NOTE | 2024-11-04 14:22 | ESPR_ITS ---
Documentation for date of: 11/04/24 Subjective Subjective Interval history: Interval history: Ms. Conte is a 79-year-old female with significant past medical history of COPD on 2 L home oxygen, HFpEF, hypertension, possible A-fib, CVA, lymphoma in remission, PAD s/p vascular intervention of lower extremity presented to ED with shortness of breath and was found to have COPD exacerbation secondary to RSV pneumonia. She was initially admitted to ICU, and was on BiPAP, later downgraded to telemetry unit. Currently, patient reported mild SOB, but denied any headache, lightheadedness, nausea or vomiting, subjective fever or chills, any changes in bowel or bladder habit or leg edema. During evaluation, her vitals were significant for blood pressure 141/70, pulse rate 116, and saturating 97% on 4 L NC. Labs are significant for white count 11.8, hemoglobin 9.5, chemistry panel significant for sodium of 118, bicarb 31.6, chloride 84, BUN 51 with creatinine 0.9 and calculated osmolality 261. Echo has been significant for ejection fraction 55%. Chest x-ray significant for no pneumonia or pulmonary edema. PMH: As mentioned above PSHx: Lower extremity vascular intervention for PAD Meds: Codeine, albuterol, cetirizine, clopidogrel, docusate, famotidine, HCTZ, lactulose, metolazone, metoprolol succinate, prednisone, Entresto, senna, Trelegy. Allergies: Sulfa drugs Social history: Remote history of smoking, denies alcohol or drug use. Nephrology consultation was done for further management of severe hyponatremia. 11/02/2024: The patient reported doing well, and admitted mild abdominal upset. She denied any headache, chest pain, fever or chills. Her vitals were significant for blood pressure 133/82, pulse 111, saturating 99% on 3 L NC. Physical examination was significant for distant breath sound and wheezing. CBC at baseline, sodium overnight increased up to 121, but this morning again came back to 118. She was started on 3% hypertonic saline, we will continue to monitor her sodium level every 4 hourly, and goal level of correction would be 124. We will also continue with salt tablet 1 g 3 times daily. 11/03/2024: The patient was interviewed and examined at the bed side this morning. She was placed on BiPAP, vitals were significant for blood pressure 127/82 and saturating 100% on 80% FiO2. Labs are significant for hemoglobin 9.1, ABG revealed pCO2 61, bicarb 39 and pH 7.42. Chemistry pane significant for sodium of 130, hypertonic saline was discontinued yesterday evening, we will continue with sodium tablet 1 g twice daily. The patient seems to have respiratory acidosis compensated by metabolic alkalosis. We will continue to monitor sodium. 11/04/2024 patient currently seen in telemetry. Family at bedside. On BiPAP. With severe COPD exacerbation. Review of Systems Review of Systems Narrative Review of Systems: Pain or shortness of breath. Very hard of hearing. Exam Vital Signs Temp Pulse Resp BP Pulse Ox O2 Del Method O2 Flow Rate 36.1 C 112 H 19 145/77 H 100 Nasal Cannula 2 11/04/24 20:00 11/04/24 20:00 11/04/24 20:00 11/04/24 20:00 11/04/24 20:00 11/04/24 20:00 11/04/24 20:00 FiO2 60 11/04/24 20:00 Narrative Exam General: Elderly cooperative female, hard of hearing, no acute distress, Alert and Oriented x 3, on BiPAP HEENT: Moist mucous membranes, oropharynx clear Neck: Supple, No masses, No JVD CVS: Tachycardic, no murmur or rubs Lungs: Distant and decreased breath sound with wheezing throughout the lung field, mild crackles over lower bibasilar lung field, no rhonchi Abd: Soft, NT/ND, +BS, no organomegaly Ext: No edema, warm and well perfused, bilateral leg darkening skin changes Psych: Appropriate mood and affect Objective Labs 11/06/24 05:25 11/05/24 05:21 Labs: Laboratory Results - last 24 hr 11/04/24 05:42 WBC 9.7 RBC 2.64 L Hgb 9.0 L Hct 26.7 L MCV 101 H MCH 34.1 MCHC 33.7 RDW Std Deviation 49.2 H Plt Count 302 D Neut % (Auto) 62 Lymph % (Auto) 26 [place] % (Auto) 10 Eos % (Auto) 0 Baso % (Auto) 0 Neut # (Auto) 6.0 Lymph # (Auto) 2.5 [place] # (Auto) 1.0 H Eos # (Auto) 0.0 Baso # (Auto) 0.0 Immature Gran # (Auto) 0.11 H Absolute Nucleated RBC 0.00 Immature Gran % 1 H Nucleated RBC % 0 Sodium 135 L Potassium 3.7 D Chloride 95 L Carbon Dioxide 35.3 H Anion Gap 5 L BUN 31 H Creatinine 0.6 Estim Creat Clear Calc 58.3 L eGFR > 60 BUN/Creatinine Ratio 52 H Glucose 97 Calculated Osmolality 276 Calcium 8.8 Corrected Calcium 9.4 Phosphorus 2.5 Magnesium 1.6 Total Bilirubin 0.3 AST 17 ALT 12 Alkaline Phosphatase 39 L Total Protein 5.7 Albumin 3.2 L Globulin 2.5 Albumin/Globulin Ratio 1.3 ABG Interpretation ABG results: 10/28/24 10/30/24 10/30/24 22:30 04:30 06:40 ABG pH 7.35 7.27 L 7.26 L ABG pCO2 62 H 76 H* D 75 H* ABG pO2 93 95 103 ABG HCO3 34 H 35 H 34 H ABG O2 Saturation 96 97 98 ABG Base Excess 7 H 6 H 5 H 10/30/24 10/30/24 10/30/24 11:00 14:47 17:32 ABG pH 7.21 L 7.32 L D 7.35 ABG pCO2 81 H* 61 H D 56 H ABG pO2 106 121 H 106 ABG HCO3 33 H 31 H 31 H ABG O2 Saturation 98 98 98 ABG Base Excess 3 4 H 4 H 11/02/24 11/03/24 18:32 10:15 ABG pH 7.34 L 7.42 ABG pCO2 67 H 61 H ABG pO2 106 238 H D ABG HCO3 36 H 39 H ABG O2 Saturation 99 H 99 H ABG Base Excess 8 H 13 H Assessment & Plan Additional Assessment & Plan Additional Plan: The patient is a 79-year-old female with significant past medical history of COPD on 2 L home oxygen, HFpEF, hypertension, possible A-fib, CVA, lymphoma in remission, PAD s/p vascular intervention of lower extremity presented to ED with shortness of breath and was found to have COPD exacerbation secondary to RSV pneumonia further complicated by Pseudomonas aeruginosa pneumonia. Nephrology consultation was done for further management of severe hypoosmolar hypervolemic hyponatremia. #Mild to moderate hypoosmolar hypervolemic hyponatremia Likely secondary to SIADH in the setting of acute exacerbation of COPD secondary to RSV pneumonia. 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 Presented with sodium level up 128 that slowly trended down to 118 this morning, with possible CHF exacerbation and calculated osmolality 261. -Continue with sodium tablet 1 g daily -Sodium level every 4 hourly -Goal level of sodium will be 136 in 24 hours -Continue to monitor closely #Elevated BUN, improving Likely catabolic state in the setting of severe current illness with bacteremia, COPD exacerbation and possible UTI, steroids -Continue to monitor BUN levels daily -Treat underlying cause #Respiratory acidosis fully compensated by metabolic alkalosis ABG revealed pCO2 61, bicarb 39 and pH 7.42 -Continue to treat underlying COPD exacerbation -May consider adding acetylcysteine inhalation for thickening secretions #Acute on chronic hypoxic and hypercapnic respiratory failure likely secondary to #COPD exacerbation in the setting of #Pneumonia, RSV positive and Pseudomonas #Respiratory acidosis, improving #Hx of COPD #MSSA bacteremia #E. Faecalis in urine #Hypoosmolar hyponatremia, chronic #Hx of HFpEF (55% on 10/2023) #Hypertensive urgency #Hx of hypertension #Hx of CVA #Hx of PAD #Hx of chronic constipation in the setting of #Chronic back pain on narcotics -Management deferred to primary hospitalist team Care discussed with Dr. Santana Quality - progress note Quality Measures Quality Measures: VTE prophylaxis Reason for Continued Stay Reason for Continued Stay: further monitoring
[2024-11-04] MEDS: DOXYCYCLINE 100 MG TABLET PO (20:29)
[2024-11-04] MEDS: MELATONIN 3 MG TABLET 6 MG PO (20:29)
[2024-11-05] VITALS (10 sets, daily range): BP systolic 135–142; BP diastolic 66–76; PULSE 98–115; RESP 7–24; TEMP 36.3–37.1; O2SAT 95–100; BMI 20.7
[2024-11-05] MEDS: IPRATROPIUM RT 0.5 MG/ 2.5 ML NEBU INH ×4 (00:05→18:00)
[2024-11-05] MEDS: LEVALBUTEROL RT 1.25 MG/0.5 ML NEBU INH ×4 (00:05→18:00)
[2024-11-05] MEDS: DiphenhydrAMINE ELIX 25 MG/10 ML UDC PO (00:41)
--- NOTE | 2024-11-05 04:07 | EKG_ITS ---
[facility] Test Date: 2024-11-05 Pat Name: CHOCO BAUER Department: Room: [facility] Gender: Female Press Smith Helper: RENEA : 1945 Requested By: Kisha Amaro Order Number: [id number] Reading MD: Kisha Amaro Measurements Intervals [place] Rate: 100 P: 66 [place]: 148 QRS: 62 QRSD: 84 T: 91 QT: 333 QTc: 430 Interpretive Statements SINUS TACHYCARDIA POSSIBLE INFERIOR MYOCARDIAL INFARCTION , PROBABLY OLD ABNORMAL RHYTHM ECG Compared to ECG 11/02/2024 18:23:01 Myocardial infarct finding now present T-wave abnormality no longer present /store/[id number]
[2024-11-05] MEDS: HEPARIN SOD INJ 5000 UNIT/ML VIAL SC ×3 (05:31→21:51)
[2024-11-05] MEDS: guaiFENesin SYRUP 200 MG/10 ML UDC 100 MG PO ×4 (05:32→21:50)
[2024-11-05 06:07] LABS: Basophils % (Auto) 0 % (0-2.5); Eosinophils % (Auto) 0 % (0-10); Hematocrit 23.8 % (36.0-46.0); Immature Granulocytes % (Auto) 1 % (0-0); Immature Granulocytes Auto 0.15 Thou/mm3 (0.00-0.00); Lymphocytes # (Auto) 2.9 Thou/mm3 (1.0-4.8); Lymphocytes % (Auto) 28 % (10-50); Mean Corpuscular HGB Conc 33.2 g/dl (31.0-37.0); Mean Corpuscular Hemoglobin 33.3 pg (25.0-35.0); Mean Corpuscular Volume 100 fL (80-100); Monocytes # (Auto) 1.1 Thou/mm3 (0.0-0.8); Monocytes % (Auto) 10 % (0-12); Neutrophils # (Auto) 6.3 Thou/mm3 (1.8-7.7); Neutrophils % (Auto) 61 % (37-80); Nucleated Red Blood Cell # 0.02 Thou/mm3 (0.00-0.00); Nucleated Red Blood Cell % 0 /100 WBC (0); Platelet Count 306 Thou/mm3 (140-440); RDW Standard Deviation 49.1 fL (36.4-46.3); Red Blood Count 2.37 Miln/mm3 (4.00-5.20); White Blood Count 10.4 Thou/mm3 (3.6-11.0)
[2024-11-05 06:11] LABS: Hemoglobin 7.9 g/dL (12.0-16.0)
[2024-11-05 08:05] LABS: Alanine Aminotransferase 10 U/L (10-49); Albumin/Globulin Ratio 1.3 (1.2-2.2); Alkaline Phosphatase 41 U/L (46-116); Anion Gap 2 (7-16); Aspartate Amino Transferase 16 U/L (0-34); BUN/Creatinine Ratio 46 Ratio (12-20); Bilirubin,Total 0.3 mg/dL (0.3-1.2); Blood Urea Nitrogen 32 mg/dL (9-23); Calcium 8.6 mg/dL (8.3-10.6); Calcium (Corrected) 9.4 mg/dL (8.5-10.1); Carbon Dioxide 36.6 mMol/L (20.0-31.0); Chloride 95 mMol/L (98-107); Creatinine (Component) 0.7 mg/dL (0.6-1.3); Globulin 2.4 gm/dL (2.3-3.5); Glucose 100 mg/dL (74-106); Magnesium 1.5 mg/dL (1.6-2.6); Osmolality,Calculated 275 (275-295); Phosphorous 2.7 mg/dL (2.4-5.1); Potassium 3.5 mMol/L (3.4-5.1); Sodium 134 mMol/L (136-145); Total Protein 5.4 gm/dL (5.7-8.2); eGFR > 60 See Note
[2024-11-05] MEDS: DOXYCYCLINE 100 MG TABLET PO (08:29)
[2024-11-05] MEDS: PANTOPRAZOLE INJ 40 MG VIAL IVP (08:29)
[2024-11-05] MEDS: SODIUM CHLORIDE 1 GM TABLET PO (08:29)
[2024-11-05] MEDS: CLOPIDOGREL BISULFATE 75 MG TABLET PO (08:29)
[2024-11-05] MEDS: Magnesium Sulfate 4 GM Ivpb 4 GM/50 ML BAG IV (08:29)
--- NOTE | 2024-11-05 08:30 | ESPR_ITS ---
<Statement entered by Loreto Estrella MD - 11/05/24 14:43> I discussed with and supervised my co-resident involved in the care of this patient. I agree with the assessment and plan as documented above. Patient seen and examined at bedside. Clinically, patient appears significantly better. She is awake, alert, saturating on 3L NC without problem. Today is her last day of antibiotics (doxycyline). Sodium levels have improved. Anticipate discharge within the next 24-48 hours to SNF as long as oxygen requirements are at 2-3L NC. Patient will benefit from Trilogy or CPAP machine at night on discharge. Loreto Estrella MD PGY-3 Documentation for date of: 11/05/24 Subjective Subjective Interval history: Patient was seen at bedside this morning. No overnight events. Patient's oxygen requirements have significantly improved and she is currently on nasal cannula at 3 L and saturating well. She is feeling a lot better today and her lungs continue to sound clear bilateral. Will have physical therapy walk with the patient today and anticipate possible discharge in the next 24 to 48 hours. Exam Vital Signs Temp Pulse Resp BP Pulse Ox O2 Del Method O2 Flow Rate 98.0 F 102 H 19 136/76 H 100 Nasal Cannula 3 11/05/24 08:00 11/05/24 08:00 11/05/24 08:00 11/05/24 08:00 11/05/24 08:00 11/05/24 08:00 11/05/24 08:00 FiO2 60 11/04/24 23:58 Narrative Exam General: A/O x3, no acute distress, ill appearing thin elderly on NC 3L. Eyes: PERRL, EOMI. Anicteric, vision grossly intact. Ears: No ear pain, no ear discharge, Hearing impaired Nose: No nasal discharge. Mouth/Throat: Dry mucous membranes Neck: Neck supple, non-tender, no cervical lymphadenopathy. Lungs: Clear, No accessory muscle use, on Bipap Cardio: Normal S1/S2, regular rhythm, no murmurs, b/L JVD, tachycardic Abdomen: Soft, non-tender, no palpable masses, peristalsis present, no guarding or rebound. Extremities: no significant deformities, no peripheral edema , non-tender Skin: АНДРЕЙ LE venous stasis changes and L UE with red discoloration from elbow level to wrist. АНДРЕЙ UE swollen, improved . Neuro: No focal neurological deficits. motor and sensory intact Psych: Cooperative, appropriate mood and effect. Objective Labs 11/05/24 05:21 11/05/24 05:21 Labs: Laboratory Results - last 24 hr 11/05/24 05:21 WBC 10.4 RBC 2.37 L Hgb 7.9 L Hct 23.8 L MCV 100 MCH 33.3 MCHC 33.2 RDW Std Deviation 49.1 H Plt Count 306 Neut % (Auto) 61 Lymph % (Auto) 28 [place] % (Auto) 10 Eos % (Auto) 0 Baso % (Auto) 0 Neut # (Auto) 6.3 Lymph # (Auto) 2.9 S[place]th # (Auto) 1.1 H Eos # (Auto) 0.0 Baso # (Auto) 0.0 Immature Gran # (Auto) 0.15 H Absolute Nucleated RBC 0.02 H Immature Gran % 1 H Nucleated RBC % 0 Sodium 134 L Potassium 3.5 Chloride 95 L Carbon Dioxide 36.6 H Anion Gap 2 L BUN 32 H Creatinine 0.7 Estim Creat Clear Calc 50.0 L eGFR > 60 BUN/Creatinine Ratio 46 H Glucose 100 Calculated Osmolality 275 Calcium 8.6 Corrected Calcium 9.4 Phosphorus 2.7 Magnesium 1.5 L Total Bilirubin 0.3 AST 16 ALT 10 Alkaline Phosphatase 41 L Total Protein 5.4 L Albumin 3.0 L Globulin 2.4 Albumin/Globulin Ratio 1.3 ABG Interpretation ABG results: 10/28/24 10/30/24 10/30/24 22:30 04:30 06:40 ABG pH 7.35 7.27 L 7.26 L ABG pCO2 62 H 76 H* D 75 H* ABG pO2 93 95 103 ABG HCO3 34 H 35 H 34 H ABG O2 Saturation 96 97 98 ABG Base Excess 7 H 6 H 5 H 10/30/24 10/30/24 10/30/24 11:00 14:47 17:32 ABG pH 7.21 L 7.32 L D 7.35 ABG pCO2 81 H* 61 H D 56 H ABG pO2 106 121 H 106 ABG HCO3 33 H 31 H 31 H ABG O2 Saturation 98 98 98 ABG Base Excess 3 4 H 4 H 11/02/24 11/03/24 18:32 10:15 ABG pH 7.34 L 7.42 ABG pCO2 67 H 61 H ABG pO2 106 238 H D ABG HCO3 36 H 39 H ABG O2 Saturation 99 H 99 H ABG Base Excess 8 H 13 H Quality Measures Quality Measures sepsis Current suspected stage: ruled out Possible source: unknown Blood cultures ordered: yes Antibiotic ordered: Yes Advance care planning discussed with:: patient Assessment & Plan Assessment Current Active Medications: Generic Name Dose Route Start Last Admin Trade Name Freq PRN Reason Stop Dose Admin Acetaminophen 650 mg 10/29/24 03:16 Acetaminophen 325 Mg Tablet PO 11/28/24 03:15 Q6H PRN PAIN SCALE 1-3 (mild Acetaminophen 650 mg 10/29/24 03:16 Acetaminophen 325 Mg Tablet PO 11/28/24 03:15 Q6H PRN Fever >100 Clopidogrel Bisulfate 75 mg 10/29/24 09:00 11/05/24 08:29 Clopidogrel Bisulfate 75 Mg Tablet PO 11/28/24 08:59 75 mg QDAY LELE Administration Doxycycline Hyclate 100 mg 11/04/24 21:00 11/05/24 08:29 Doxycycline 100 Mg Tablet PO 11/05/24 12:00 100 mg BID LELE Administration Guaifenesin 100 mg 11/01/24 17:00 11/05/24 05:32 Guaifenesin Syrup 200 Mg/10 Ml Udc PO 12/01/24 16:59 100 mg QID LELE Administration Protocol Heparin Sodium (Porcine) 5,000 unit 10/29/24 06:00 11/05/24 05:31 Heparin Sod Inj 5000 Unit/Ml Vial SC 11/12/24 05:59 5,000 unit Q8HR LELE Administration Magnesium Sulfate 4 gm in 50 mls @ 12.5 mls/hr 11/05/24 08:13 11/05/24 08:29 Magnesium Sulfate Ivpb IV 11/05/24 12:12 12.5 mls/hr X1 ONE Administration Ipratropium [place] 0.5 mg 10/31/24 19:00 11/05/24 06:20 Ipratropium Rt 0.5 Mg/ 2.5 Ml Nebu INH 11/30/24 18:59 0.5 mg Q6HRRT LELE Administration Levalbuterol HCl 1.25 mg 10/31/24 19:00 11/05/24 06:20 Levalbuterol Rt 1.25 Mg/0.5 Ml Nebu INH 11/30/24 18:59 1.25 mg Q6HRRT LELE Administration Melatonin 6 mg 10/30/24 21:00 11/04/24 20:29 Melatonin 3 Mg Tablet PO 11/29/24 20:59 6 mg HS LELE Administration Ondansetron HCl 4 mg 10/29/24 03:16 Ondansetron Inj 2 Mg/Ml Inj 2 Ml IV 11/28/24 03:15 Q6H PRN NAUSEA OR VOMITING Protocol Pantoprazole Sodium 40 mg 10/29/24 09:00 11/05/24 08:29 Pantoprazole Inj 40 Mg Vial IVP 11/28/24 08:59 40 mg QDAY LELE Administration Pharmacy Consult 1 each 10/30/24 16:45 Pharmacy Renal Dose Adjustment 1 Ea XX 11/29/24 16:44 QDAY PRN PROTOCOL Polyethylene Glycol 17 gm 10/29/24 09:00 11/05/24 08:29 Polyethylene Glycol 17 Gm Packet PO 11/28/24 08:59 Not Given QDAY LELE Sennosides 1 tab 10/29/24 04:30 Senna/Docusate Sod 1 Tab Tablet PO 11/28/24 04:29 QDAY PRN CONSTIPATION Protocol Sodium Chloride 3 ml 10/31/24 16:00 Sodium Chloride Rt Bhavana 0.9% 3 Ml Nebu INH 11/30/24 15:59 PRN PRN SOLN Sodium Chloride 1 gm 11/04/24 09:00 11/05/24 08:29 Sodium Chloride 1 Gm Tablet PO 12/04/24 08:59 1 gm DAILY LELE Administration Plan 79-year-old female with past medical history of COPD (2 L O2 at home), HFpEF (55 to 60% on 2022), hypertension, CVA, lymphoma currently on remission, chronic back pain on narcotics, and chronic constipation, and PAD who was admitted to the hospital on 10/29/2024 due to acute on chronic hypoxic respiratory failure likely secondary to COPD exacerbation in the setting of community-acquired pneumonia. #Acute on chronic hypoxic and hypercapnic respiratory failure likely secondary to #COPD exacerbation in the setting of #Pneumonia, RSV positive and Pseudomonas #Respiratory acidosis, improving #Hx of COPD #MSSA bacteremia #E. Faecalis in urine ? Patient came in initially with complaints of cough, shortness of breath, and increased requirements of oxygen. ? Patient has a history of COPD ?Patient met SIRS 4 out of 4 criteria on admission, but there was no signs of endorgan damage ? qSOFA score of 1 ? Initial chest x-ray showed vascular congestion ?Initial Chest CTA showed bilateral pneumonia ?Repeat chest x-ray on 10/30/2024 showed no pneumonia pulmonary edema ? Latest ABG showed pH 7.32, pCO2 61, pO2 121 - Rocephin [10/29/2024?11/01/2024] ? Blood culture grew MSSA ? Urine cultures grew Enterococcus faecalis ? Sputum cultures grew Pseudomonas -DC'd azithromycin and Zosyn ? DC'd methylprednisolone Plan: ?Finished Doxycycline 100 mg BID [11/02/2024-11/05/2024] - started Rocephin [11/05/2024-11/15/2024] by ID ? Continue breathing treatments ? Information Technology Coordinator consulted, appreciate recommendations ? ID consulted, appreciate commendations ?Will continue to monitor #Hypoosmolar hyponatremia, chronic ?Patient came in with sodium of 127, currently 134. ? Patient sodium appears to be low in the past was 122 on September. ? DDx includes SIADH versus dehydration versus medication induced as he was on hydrochlorothiazide and metolazone ?Urine sodium less than 10 Plan: ? Fluid restrictions - Na tab qday ? Holding hydrochlorothiazide metolazone ?Will continue to monitor #Hyperkalemia ? Patient potassium yesterday was 5.6 and down trended to 5 point 2 in the evening ? Potassium today 3.5 Plan: ? Hold Entresto ? Will continue to monitor #Hx of HFpEF (55% on 10/2023) ?Patient came in initially with complaints of shortness of breath and requiring increased levels of oxygen ? Patient does not seem to be in CHF exacerbation at this time she does not appear to be fluid overloaded and there is no pulmonary edema. ? BNP initially was 1001 ? Echo showed 55% EF Plan: ?Will hold Entresto given hyponatremia and hyperkalemia ? Fluid restrictions ? Cardiac diet ? Will continue to monitor #Hypertensive urgency #Hx of hypertension ? Patient came in with blood pressure of 207/109 ? Patient's blood pressure 136/70 this AM Plan: ? Will hold Entresto given hyponatremia and hyperkalemia ? 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 #Hx of CVA #Hx of PAD ? Continue Plavix #Hx of chronic constipation in the setting of #Chronic back pain on narcotics ? Continue patient's Tylenol?codeine 1 tablet 3 times daily for pain ? Continue scheduled daily Movantik, senna, and MiraLAX Disposition: Patient seen in telemetry, finished Doxy to cover MSSA, Pseudo, E. faecalis. Continue Na tab BID Diet: NPO GI prophylaxis: protonix DVT prophylaxis: heparin sc Code: full code Case disclosed with Attending Dr. Santana and my senior Dr. Estrella PGY3 Naresh Camargo PGY1 Attending Provider Attestation/Addendum I, Mulu Santana, DO, attest that I was physically present for the jones portions of the service and evaluated the patient with the resident and I reviewed and discussed the case with the resident and agree with the resident's findings and plans of care as documented above Patient seen and evaluated this AM. Patient currently on 3L/NC and states she is feeling better. No acute events overnight. Continue with BiPap at night and will order Trelegy for SNF on discharge. Will order PT to work with patient. Anticipate DC within next 24-48h if patient condition remains stable
--- NOTE | 2024-11-05 08:46 | PD.RESPRO ---
Documentation for date of: 11/05/24 Subjective Subjective Interval history: Ms. Conte is a 79-year-old female with significant past medical history of COPD on 2 L home oxygen, HFpEF, hypertension, possible A-fib, CVA, lymphoma in remission, PAD s/p vascular intervention of lower extremity presented to ED with shortness of breath and was found to have COPD exacerbation secondary to RSV pneumonia. She was initially admitted to ICU, and was on BiPAP, later downgraded to telemetry unit. Currently, patient reported mild SOB, but denied any headache, lightheadedness, nausea or vomiting, subjective fever or chills, any changes in bowel or bladder habit or leg edema. During evaluation, her vitals were significant for blood pressure 141/70, pulse rate 116, and saturating 97% on 4 L NC. Labs are significant for white count 11.8, hemoglobin 9.5, chemistry panel significant for sodium of 118, bicarb 31.6, chloride 84, BUN 51 with creatinine 0.9 and calculated osmolality 261. Echo has been significant for ejection fraction 55%. Chest x-ray significant for no pneumonia or pulmonary edema. PMH: As mentioned above PSHx: Lower extremity vascular intervention for PAD Meds: Codeine, albuterol, cetirizine, clopidogrel, docusate, famotidine, HCTZ, lactulose, metolazone, metoprolol succinate, prednisone, Entresto, senna, Trelegy. Allergies: Sulfa drugs Social history: Remote history of smoking, denies alcohol or drug use. Nephrology consultation was done for further management of severe hyponatremia. 11/02/2024: The patient reported doing well, and admitted mild abdominal upset. She denied any headache, chest pain, fever or chills. Her vitals were significant for blood pressure 133/82, pulse 111, saturating 99% on 3 L NC. Physical examination was significant for distant breath sound and wheezing. CBC at baseline, sodium overnight increased up to 121, but this morning again came back to 118. She was started on 3% hypertonic saline, we will continue to monitor her sodium level every 4 hourly, and goal level of correction would be 124. We will also continue with salt tablet 1 g 3 times daily. 11/03/2024: The patient was interviewed and examined at the bed side this morning. She was placed on BiPAP, vitals were significant for blood pressure 127/82 and saturating 100% on 80% FiO2. Labs are significant for hemoglobin 9.1, ABG revealed pCO2 61, bicarb 39 and pH 7.42. Chemistry pane significant for sodium of 130, hypertonic saline was discontinued yesterday evening, we will continue with sodium tablet 1 g twice daily. The patient seems to have respiratory acidosis compensated by metabolic alkalosis. We will continue to monitor sodium. 11/05/2024: The patient was interviewed and examined at the bedside this morning. She was saturating 100% on 3 L NC. Her vitals were fairly stable with pulse rate 102. Her hemoglobin trended down to 7.9 chemistry panel significant for sodium 134, potassium 3.5, chloride 95, bicarb 36, BUN 32 and creatinine 0.7 magnesium 1.5. Exam Vital Signs Temp Pulse Resp BP Pulse Ox O2 Del Method O2 Flow Rate 98.0 F 102 H 19 136/76 H 100 Nasal Cannula 3 11/05/24 08:00 11/05/24 08:00 11/05/24 08:00 11/05/24 08:00 11/05/24 08:00 11/05/24 08:00 11/05/24 08:00 FiO2 60 11/04/24 23:58 Narrative Exam General: Elderly cooperative female, hard of hearing, no acute distress, Alert and Oriented x 3, on nasal cannula HEENT: Moist mucous membranes, oropharynx clear Neck: Supple, No masses, No JVD CVS: Tachycardic, no murmur or rubs Lungs: Mild wheezing throughout the lung field, no crackles or rhonchi appreciated Abd: Soft, NT/ND, +BS, no organomegaly Ext: No edema, warm and well perfused, bilateral leg darkening skin changes Psych: Appropriate mood and affect Objective Labs 11/06/24 05:25 11/05/24 05:21 Labs: Laboratory Results - last 24 hr 11/05/24 05:21 WBC 10.4 RBC 2.37 L Hgb 7.9 L Hct 23.8 L MCV 100 MCH 33.3 MCHC 33.2 RDW Std Deviation 49.1 H Plt Count 306 Neut % (Auto) 61 Lymph % (Auto) 28 [place] % (Auto) 10 Eos % (Auto) 0 Baso % (Auto) 0 Neut # (Auto) 6.3 Lymph # (Auto) 2.9 [place] # (Auto) 1.1 H Eos # (Auto) 0.0 Baso # (Auto) 0.0 Immature Gran # (Auto) 0.15 H Absolute Nucleated RBC 0.02 H Immature Gran % 1 H Nucleated RBC % 0 Sodium 134 L Potassium 3.5 Chloride 95 L Carbon Dioxide 36.6 H Anion Gap 2 L BUN 32 H Creatinine 0.7 Estim Creat Clear Calc 50.0 L eGFR > 60 BUN/Creatinine Ratio 46 H Glucose 100 Calculated Osmolality 275 Calcium 8.6 Corrected Calcium 9.4 Phosphorus 2.7 Magnesium 1.5 L Total Bilirubin 0.3 AST 16 ALT 10 Alkaline Phosphatase 41 L Total Protein 5.4 L Albumin 3.0 L Globulin 2.4 Albumin/Globulin Ratio 1.3 ABG Interpretation ABG results: 10/28/24 10/30/24 10/30/24 22:30 04:30 06:40 ABG pH 7.35 7.27 L 7.26 L ABG pCO2 62 H 76 H* D 75 H* ABG pO2 93 95 103 ABG HCO3 34 H 35 H 34 H ABG O2 Saturation 96 97 98 ABG Base Excess 7 H 6 H 5 H 10/30/24 10/30/24 10/30/24 11:00 14:47 17:32 ABG pH 7.21 L 7.32 L D 7.35 ABG pCO2 81 H* 61 H D 56 H ABG pO2 106 121 H 106 ABG HCO3 33 H 31 H 31 H ABG O2 Saturation 98 98 98 ABG Base Excess 3 4 H 4 H 11/02/24 11/03/24 18:32 10:15 ABG pH 7.34 L 7.42 ABG pCO2 67 H 61 H ABG pO2 106 238 H D ABG HCO3 36 H 39 H ABG O2 Saturation 99 H 99 H ABG Base Excess 8 H 13 H Quality Measures Quality Measures sepsis Current suspected stage: ruled out Possible source: unknown Blood cultures ordered: yes Antibiotic ordered: Yes Advance care planning discussed with:: patient Assessment & Plan Assessment Current Active Medications: Generic Name Dose Route Start Last Admin Trade Name Freq PRN Reason Stop Dose Admin Acetaminophen 650 mg 10/29/24 03:16 Acetaminophen 325 Mg Tablet PO 11/28/24 03:15 Q6H PRN PAIN SCALE 1-3 (mild Acetaminophen 650 mg 10/29/24 03:16 Acetaminophen 325 Mg Tablet PO 11/28/24 03:15 Q6H PRN Fever >100 Clopidogrel Bisulfate 75 mg 10/29/24 09:00 11/05/24 08:29 Clopidogrel Bisulfate 75 Mg Tablet PO 11/28/24 08:59 75 mg QDAY LELE Administration Doxycycline Hyclate 100 mg 11/04/24 21:00 11/05/24 08:29 Doxycycline 100 Mg Tablet PO 11/05/24 12:00 100 mg BID LELE Administration Guaifenesin 100 mg 11/01/24 17:00 11/05/24 05:32 Guaifenesin Syrup 200 Mg/10 Ml Udc PO 12/01/24 16:59 100 mg QID LELE Administration Protocol Heparin Sodium (Porcine) 5,000 unit 10/29/24 06:00 11/05/24 05:31 Heparin Sod Inj 5000 Unit/Ml Vial SC 11/12/24 05:59 5,000 unit Q8HR LELE Administration Magnesium Sulfate 4 gm in 50 mls @ 12.5 mls/hr 11/05/24 08:13 11/05/24 08:29 Magnesium Sulfate Ivpb IV 11/05/24 12:12 12.5 mls/hr X1 ONE Administration Ipratropium [place] 0.5 mg 10/31/24 19:00 11/05/24 06:20 Ipratropium Rt 0.5 Mg/ 2.5 Ml Nebu INH 11/30/24 18:59 0.5 mg Q6HRRT LELE Administration Levalbuterol HCl 1.25 mg 10/31/24 19:00 11/05/24 06:20 Levalbuterol Rt 1.25 Mg/0.5 Ml Nebu INH 11/30/24 18:59 1.25 mg Q6HRRT LELE Administration Melatonin 6 mg 10/30/24 21:00 11/04/24 20:29 Melatonin 3 Mg Tablet PO 11/29/24 20:59 6 mg HS LELE Administration Ondansetron HCl 4 mg 10/29/24 03:16 Ondansetron Inj 2 Mg/Ml Inj 2 Ml IV 11/28/24 03:15 Q6H PRN NAUSEA OR VOMITING Protocol Pantoprazole Sodium 40 mg 10/29/24 09:00 11/05/24 08:29 Pantoprazole Inj 40 Mg Vial IVP 11/28/24 08:59 40 mg QDAY LELE Administration Pharmacy Consult 1 each 10/30/24 16:45 Pharmacy Renal Dose Adjustment 1 Ea XX 11/29/24 16:44 QDAY PRN PROTOCOL Polyethylene Glycol 17 gm 10/29/24 09:00 11/05/24 08:29 Polyethylene Glycol 17 Gm Packet PO 11/28/24 08:59 Not Given QDAY LELE Sennosides 1 tab 10/29/24 04:30 Senna/Docusate Sod 1 Tab Tablet PO 11/28/24 04:29 QDAY PRN CONSTIPATION Protocol Sodium Chloride 3 ml 10/31/24 16:00 Sodium Chloride Rt Bhavana 0.9% 3 Ml Nebu INH 11/30/24 15:59 PRN PRN SOLN Sodium Chloride 1 gm 11/04/24 09:00 11/05/24 08:29 Sodium Chloride 1 Gm Tablet PO 12/04/24 08:59 1 gm DAILY LELE Administration Plan The patient is a 79-year-old female with significant past medical history of COPD on 2 L home oxygen, HFpEF, hypertension, possible A-fib, CVA, lymphoma in remission, PAD s/p vascular intervention of lower extremity presented to ED with shortness of breath and was found to have COPD exacerbation secondary to RSV pneumonia further complicated by Pseudomonas aeruginosa pneumonia. Nephrology consultation was done for further management of severe hypoosmolar hypervolemic hyponatremia. #Mild hypoosmolar hypervolemic hyponatremia Likely secondary to SIADH in the setting of acute exacerbation of COPD secondary to RSV pneumonia. 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 Presented with sodium level up 128 that slowly trended down to 118 this morning, with possible CHF exacerbation and calculated osmolality 261. -Continue with sodium tablet 1 g daily -Sodium level daily #Hypomagnesemia Magnesium level 1.5 on 11/05/2024 -Repleted with 4 g magnesium sulfate -Daily a.m. labs for any #Elevated BUN, improving Likely catabolic state in the setting of severe current illness with bacteremia, COPD exacerbation and possible UTI, steroids -Continue to monitor BUN levels daily -Treat underlying cause #Respiratory acidosis fully compensated by metabolic alkalosis ABG revealed pCO2 61, bicarb 39 and pH 7.42 on 11/05/2024 -Continue to treat underlying COPD exacerbation -May consider adding acetylcysteine inhalation for thickening secretions #Acute on chronic hypoxic and hypercapnic respiratory failure likely secondary to #COPD exacerbation in the setting of #Pneumonia, RSV positive and Pseudomonas #Respiratory acidosis, improving #Hx of COPD #MSSA bacteremia #E. Faecalis in urine #Hypoosmolar hyponatremia, chronic #Hx of HFpEF (55% on 10/2023) #Hypertensive urgency #Hx of hypertension #Hx of CVA #Hx of PAD #Hx of chronic constipation in the setting of #Chronic back pain on narcotics -Management deferred to primary hospitalist team Your opportunity to participate nephrology team in this patient care. The patient's management plan was discussed with my attending physician MD Raciel Mahan MD, PGY2 Attending Provider Attestation/Addendum Patient seen and examined with resident physician Dr. Hernandez. Note reviewed, agree with findings and recommendations. Patient noted to have severe hyponatremia-asymptomatic. Did drop from 122-118. Suspect SIADH from underlying pulmonary process. Agree with starting him on salt tablets. Fluid restriction. If no improvement will consider 3% hypertonic saline and close monitoring of the serum sodium. Medications have been reviewed. Significant elevation in BUN probably related to catabolic state from steroids, underlying infection 11/02/2024 patient was started on 3% hypertonic saline as sodium did not improve. Will monitor closely. No more than 4 to 6 mEq in 24 hours. Her pulmonary status still remains poor with significant wheezing and rhonchi. Patient has a severe COPD exacerbation. On steroids. 11/03/2024 patient currently seen in telemetry. On BiPAP. Still with a significant hypercarbic respiratory failure. Sodium improved and 3% hypertonic saline was discontinued. Currently on salt tablets. Spoke to family at bedside and Dr. Santana. 11/05/2024 patient currently seen in telemetry. Transition to nasal cannula. Feeling much better. Sodium improved. Decrease salt tablets to daily.
--- NOTE | 2024-11-05 09:21 | PD.IDPROG ---
Subjective Subjective Interval history: repeat bc neg2/7 at >48 h. echo 10/29/24 neg as well. Exam Vital Signs Temp Pulse Resp BP Pulse Ox O2 Del Method O2 Flow Rate 98.0 F 102 H 19 136/76 H 100 Nasal Cannula 3 11/05/24 08:00 11/05/24 08:00 11/05/24 08:00 11/05/24 08:00 11/05/24 08:00 11/05/24 08:00 11/05/24 08:00 FiO2 60 11/04/24 23:58 Narrative Exam limited visit Objective - Internal Medicine Labs 11/05/24 05:21 11/05/24 05:21 Labs: Laboratory Results - last 24 hr 11/05/24 05:21 WBC 10.4 RBC 2.37 L Hgb 7.9 L Hct 23.8 L MCV 100 MCH 33.3 MCHC 33.2 RDW Std Deviation 49.1 H Plt Count 306 Neut % (Auto) 61 Lymph % (Auto) 28 [place] % (Auto) 10 Eos % (Auto) 0 Baso % (Auto) 0 Neut # (Auto) 6.3 Lymph # (Auto) 2.9 [place] # (Auto) 1.1 H Eos # (Auto) 0.0 Baso # (Auto) 0.0 Immature Gran # (Auto) 0.15 H Absolute Nucleated RBC 0.02 H Immature Gran % 1 H Nucleated RBC % 0 Sodium 134 L Potassium 3.5 Chloride 95 L Carbon Dioxide 36.6 H Anion Gap 2 L BUN 32 H Creatinine 0.7 Estim Creat Clear Calc 50.0 L eGFR > 60 BUN/Creatinine Ratio 46 H Glucose 100 Calculated Osmolality 275 Calcium 8.6 Corrected Calcium 9.4 Phosphorus 2.7 Magnesium 1.5 L Total Bilirubin 0.3 AST 16 ALT 10 Alkaline Phosphatase 41 L Total Protein 5.4 L Albumin 3.0 L Globulin 2.4 Albumin/Globulin Ratio 1.3 ABG Interpretation ABG results: 10/28/24 10/30/24 10/30/24 22:30 04:30 06:40 ABG pH 7.35 7.27 L 7.26 L ABG pCO2 62 H 76 H* D 75 H* ABG pO2 93 95 103 ABG HCO3 34 H 35 H 34 H ABG O2 Saturation 96 97 98 ABG Base Excess 7 H 6 H 5 H 10/30/24 10/30/2410/30/25 11:00 14:47 17:32 ABG pH 7.21 L 7.32 L D 7.35 ABG pCO2 81 H* 61 H D 56 H ABG pO2 106 121 H 106 ABG HCO3 33 H 31 H 31 H ABG O2 Saturation 98 98 98 ABG Base Excess 3 4 H 4 H 11/02/24 11/03/24 18:32 10:15 ABG pH 7.34 L 7.42 ABG pCO2 67 H 61 H ABG pO2 106 238 H D ABG HCO3 36 H 39 H ABG O2 Saturation 99 H 99 H ABG Base Excess 8 H 13 H Assessment & Plan A&P Narrative copd exac with neg cxr and pos smoking hx acute on chronic resp failure, hypoxic and hypercarbic (mixed) hx cva hx pvd, s/p vascular intervention [place], very possible pneumonia staph aureus bacteremia from 10/29/24 pseudomonas aeruginosa may or may not be pathogenic for her, cipro allergy noted. pos bc noted from 10/28 and neg echo from 10/29/24 neg cocci testing 10/30/24 and prior can see tuesday if she remains in house at that time. stopped iv steroids. ok to go with po and let her go back where she was living. wean steroids as you normally would. rocephin 2 gm iv daily thru 11/15 as 11/02 is day 1 of rx protocol. procal was neg but staph can cause metastatic infection that shows up later on. so likely best to treat that even with neg procal. will see again prn Time Spent With Patient Time: Total time spent is greater than 50% in coordination of care (as documented) at patient's floor/unit and/or counseling patient:
[2024-11-05] MEDS: cefTRIAXone/D5w 2gm 2 GM/50 ML BAG IV (10:09)
--- NOTE | 2024-11-05 10:40 | PD.RESPRO ---
Documentation for date of: 11/05/24 Exam Vital Signs Temp Pulse Resp BP Pulse Ox O2 Del Method O2 Flow Rate 98.0 F 102 H 19 136/76 H 100 Nasal Cannula 3 11/05/24 08:00 11/05/24 08:00 11/05/24 08:00 11/05/24 08:00 11/05/24 08:00 11/05/24 08:00 11/05/24 08:00 FiO2 60 11/04/24 23:58 Objective Labs 11/05/24 05:21 11/05/24 05:21 Labs: Laboratory Results - last 24 hr 11/05/24 05:21 WBC 10.4 RBC 2.37 L Hgb 7.9 L Hct 23.8 L MCV 100 MCH 33.3 MCHC 33.2 RDW Std Deviation 49.1 H Plt Count 306 Neut % (Auto) 61 Lymph % (Auto) 28 [place] % (Auto) 10 Eos % (Auto) 0 Baso % (Auto) 0 Neut # (Auto) 6.3 Lymph # (Auto) 2.9 [place] # (Auto) 1.1 H Eos # (Auto) 0.0 Baso # (Auto) 0.0 Immature Gran # (Auto) 0.15 H Absolute Nucleated RBC 0.02 H Immature Gran % 1 H Nucleated RBC % 0 Sodium 134 L Potassium 3.5 Chloride 95 L Carbon Dioxide 36.6 H Anion Gap 2 L BUN 32 H Creatinine 0.7 Estim Creat Clear Calc 50.0 L eGFR > 60 BUN/Creatinine Ratio 46 H Glucose 100 Calculated Osmolality 275 Calcium 8.6 Corrected Calcium 9.4 Phosphorus 2.7 Magnesium 1.5 L Total Bilirubin 0.3 AST 16 ALT 10 Alkaline Phosphatase 41 L Total Protein 5.4 L Albumin 3.0 L Globulin 2.4 Albumin/Globulin Ratio 1.3 ABG Interpretation ABG results: 10/28/24 10/30/24 10/30/24 22:30 04:30 06:40 ABG pH 7.35 7.27 L 7.26 L ABG pCO2 62 H 76 H* D 75 H* ABG pO2 93 95 103 ABG HCO3 34 H 35 H 34 H ABG O2 Saturation 96 97 98 ABG Base Excess 7 H 6 H 5 H 10/30/24 10/30/24 10/30/24 11:00 14:47 17:32 ABG pH 7.21 L 7.32 L D 7.35 ABG pCO2 81 H* 61 H D 56 H ABG pO2 106 121 H 106 ABG HCO3 33 H 31 H 31 H ABG O2 Saturation 98 98 98 ABG Base Excess 3 4 H 4 H 11/02/24 11/03/24 18:32 10:15 ABG pH 7.34 L 7.42 ABG pCO2 67 H 61 H ABG pO2 106 238 H D ABG HCO3 36 H 39 H ABG O2 Saturation 99 H 99 H ABG Base Excess 8 H 13 H Quality Measures Quality Measures sepsis Possible source: unknown Blood cultures ordered: yes Assessment & Plan Assessment Current Active Medications: Generic Name Dose Route Start Last Admin Trade Name Freq PRN Reason Stop Dose Admin Acetaminophen 650 mg 10/29/24 03:16 Acetaminophen 325 Mg Tablet PO 11/28/24 03:15 Q6H PRN PAIN SCALE 1-3 (mild Acetaminophen 650 mg 10/29/24 03:16 Acetaminophen 325 Mg Tablet PO 11/28/24 03:15 Q6H PRN Fever >100 Clopidogrel Bisulfate 75 mg 10/29/24 09:00 11/05/24 08:29 Clopidogrel Bisulfate 75 Mg Tablet PO 11/28/24 08:59 75 mg QDAY LELE Administration Guaifenesin 100 mg 11/01/24 17:00 11/05/24 05:32 Guaifenesin Syrup 200 Mg/10 Ml Udc PO 12/01/24 16:59 100 mg QID LELE Administration Protocol Heparin Sodium (Porcine) 5,000 unit 10/29/24 06:00 11/05/24 05:31 Heparin Sod Inj 5000 Unit/Ml Vial SC 11/12/24 05:59 5,000 unit Q8HR LELE Administration Magnesium Sulfate 4 gm in 50 mls @ 12.5 mls/hr 11/05/24 08:13 11/05/24 08:29 Magnesium Sulfate Ivpb IV 11/05/24 12:12 12.5 mls/hr X1 ONE Administration Ceftriaxone Sodium/Dextrose 2 gm in 50 mls @ 100 mls/hr 11/05/24 09:45 11/05/24 10:09 Rocephin/D5w 2gm IV 11/12/24 09:29 100 mls/hr QDAY LELE Administration Ipratropium [place] 0.5 mg 10/31/24 19:00 11/05/24 06:20 Ipratropium Rt 0.5 Mg/ 2.5 Ml Nebu INH 11/30/24 18:59 0.5 mg Q6HRRT LELE Administration Levalbuterol HCl 1.25 mg 10/31/24 19:00 11/05/24 06:20 Levalbuterol Rt 1.25 Mg/0.5 Ml Nebu INH 11/30/24 18:59 1.25 mg Q6HRRT LELE Administration Melatonin 6 mg 10/30/24 21:00 11/04/24 20:29 Melatonin 3 Mg Tablet PO 11/29/24 20:59 6 mg HS LELE Administration Ondansetron HCl 4 mg 10/29/24 03:16 Ondansetron Inj 2 Mg/Ml Inj 2 Ml IV 11/28/24 03:15 Q6H PRN NAUSEA OR VOMITING Protocol Pantoprazole Sodium 40 mg 10/29/24 09:00 11/05/24 08:29 Pantoprazole Inj 40 Mg Vial IVP 11/28/24 08:59 40 mg QDAY LELE Administration Pharmacy Consult 1 each 10/30/24 16:45 Pharmacy Renal Dose Adjustment 1 Ea XX 11/29/24 16:44 QDAY PRN PROTOCOL Polyethylene Glycol 17 gm 10/29/24 09:00 11/05/24 08:29 Polyethylene Glycol 17 Gm Packet PO 11/28/24 08:59 Not Given QDAY LELE Sennosides 1 tab 10/29/24 04:30 Senna/Docusate Sod 1 Tab Tablet PO 11/28/24 04:29 QDAY PRN CONSTIPATION Protocol Sodium Chloride 3 ml 10/31/24 16:00 Sodium Chloride Rt [place]hav[place] 0.9% 3 Ml Nebu INH 11/30/24 15:59 PRN PRN SOLN Sodium Chloride 1 gm 11/04/24 09:00 11/05/24 08:29 Sodium Chloride 1 Gm Tablet PO 12/04/24 08:59 1 gm DAILY LELE Administration
[2024-11-05] MEDS: MELATONIN 3 MG TABLET 6 MG PO (21:51)
[2024-11-06] VITALS (14 sets, daily range): BP systolic 112–160; BP diastolic 61–74; PULSE 10–122; RESP 14–28; TEMP 36.4–36.7; O2SAT 94–100; BMI 18.8
[2024-11-06] MEDS: ACETAMINOPHEN w/COD 300-30 TABLET 1 TAB PO ×2 (00:03→12:14)
[2024-11-06] MEDS: LEVALBUTEROL RT 1.25 MG/0.5 ML NEBU INH ×4 (00:30→18:27)
[2024-11-06] MEDS: IPRATROPIUM RT 0.5 MG/ 2.5 ML NEBU INH ×4 (00:30→18:27)
[2024-11-06] MEDS: guaiFENesin SYRUP 200 MG/10 ML UDC 100 MG PO ×4 (05:29→20:50)
[2024-11-06] MEDS: HEPARIN SOD INJ 5000 UNIT/ML VIAL SC ×2 (05:29→20:51)
[2024-11-06] MEDS: LIDOCAINE 5% 1 PATCH TOP (05:30)
[2024-11-06 05:59] LABS: Basophils % (Auto) 0 % (0-2.5); Eosinophils # (Auto) 0.1 Thou/mm3 (0.0-0.5); Eosinophils % (Auto) 1 % (0-10); Immature Granulocytes % (Auto) 1 % (0-0); Immature Granulocytes Auto 0.12 Thou/mm3 (0.00-0.00); Lymphocytes # (Auto) 2.4 Thou/mm3 (1.0-4.8); Lymphocytes % (Auto) 29 % (10-50); Mean Corpuscular HGB Conc 34.3 g/dl (31.0-37.0); Mean Corpuscular Hemoglobin 34.5 pg (25.0-35.0); Mean Corpuscular Volume 100 fL (80-100); Monocytes # (Auto) 0.9 Thou/mm3 (0.0-0.8); Monocytes % (Auto) 10 % (0-12); Neutrophils % (Auto) 59 % (37-80); Nucleated Red Blood Cell # 0.02 Thou/mm3 (0.00-0.00); Nucleated Red Blood Cell % 0 /100 WBC (0); Platelet Count 304 Thou/mm3 (140-440); RDW Standard Deviation 49.8 fL (36.4-46.3); Red Blood Count 2.29 Miln/mm3 (4.00-5.20); White Blood Count 8.5 Thou/mm3 (3.6-11.0)
[2024-11-06 06:05] LABS: Hemoglobin 7.9 g/dL (12.0-16.0)
[2024-11-06 06:53] LABS: Alanine Aminotransferase 9 U/L (10-49); Albumin, Serum 2.9 gm/dL (3.4-4.8); Albumin/Globulin Ratio 1.3 (1.2-2.2); Alkaline Phosphatase 40 U/L (46-116); Anion Gap 1 (7-16); Aspartate Amino Transferase 16 U/L (0-34); BUN/Creatinine Ratio 37 Ratio (12-20); Bilirubin,Total 0.3 mg/dL (0.3-1.2); Blood Urea Nitrogen 26 mg/dL (9-23); Calcium 8.7 mg/dL (8.3-10.6); Calcium (Corrected) 9.6 mg/dL (8.5-10.1); Carbon Dioxide 37.6 mMol/L (20.0-31.0); Chloride 96 mMol/L (98-107); Creatinine (Component) 0.7 mg/dL (0.6-1.3); Globulin 2.3 gm/dL (2.3-3.5); Glucose 99 mg/dL (74-106); Magnesium 1.7 mg/dL (1.6-2.6); Osmolality,Calculated 274 (275-295); Phosphorous 2.8 mg/dL (2.4-5.1); Potassium 3.6 mMol/L (3.4-5.1); Sodium 135 mMol/L (136-145); Total Protein 5.2 gm/dL (5.7-8.2); eGFR > 60 See Note
--- NOTE | 2024-11-06 09:16 | XR_ITS ---
Examination: Ultrasound-guided needle placement right basilic vein. Dual-lumen central line placement (PICC line). Fluoroscopy AP chest, portable, single view Exam date and time:November 06, 2024 at 1403 hrs. Indications: Need for long-term intravenous antibiotic therapy A timeout was completed verifying correct patient, procedure, site, positioning Informed consent provided Technique: The patient's site was prepped and draped in sterile fashion. Maximum Sterile Barrier Technique used including cap, mask, sterile gown, sterile gloves, and sterile full body drape. If ultrasound technique used: sterile gel and sterile probe covers. Hand Hygiene performed using proper scrub, soap and water, or alcohol-based hand rub. Ultrasound site right portable apparatus utilized to confirm patency of the right basilic vein Utilizing ultrasonographic guidance successful 21-gauge needle puncture into the right basilic vein Ultrasound images recorded and stored. 5 cc 1% lidocaine administered for local anesthetic. Successful micropuncture with a 21-gauge needle is performed. 0.18 wire guide is then introduced into the SVC under fluoroscopic guidance. Dual-lumen catheter dilator is then introduced, followed by the catheter in the SVC and proper position under fluoroscopic guidance. Successful aspiration of blood and flushing with heparinized saline is then performed in the 2 venous limbs. The catheter sutured in place. Findings: Under fluoroscopy, the tip of the catheter is in good position in the vena cava. Portable chest x-ray, post line placement is ordered. Estimated blood loss 3 cc The patient tolerated the procedure well and was in stable and satisfactory condition at completion of the procedure Impression: Successful ultrasound-guided needle placement right basilic vein Successful placement of dual lumen central line, percutaneous Fluoroscopy 30 seconds 1 spot fluoroscopic chest film. AP chest completion procedure demonstrates satisfactory position central line. May use central line.
--- NOTE | 2024-11-06 09:35 | ESPR_ITS ---
Documentation for date of: 11/06/24 Subjective Subjective Interval history: Ms. Conte is a 79-year-old female with significant past medical history of COPD on 2 L home oxygen, HFpEF, hypertension, possible A-fib, CVA, lymphoma in remission, PAD s/p vascular intervention of lower extremity presented to ED with shortness of breath and was found to have COPD exacerbation secondary to RSV pneumonia. She was initially admitted to ICU, and was on BiPAP, later downgraded to telemetry unit. Currently, patient reported mild SOB, but denied any headache, lightheadedness, nausea or vomiting, subjective fever or chills, any changes in bowel or bladder habit or leg edema. During evaluation, her vitals were significant for blood pressure 141/70, pulse rate 116, and saturating 97% on 4 L NC. Labs are significant for white count 11.8, hemoglobin 9.5, chemistry panel significant for sodium of 118, bicarb 31.6, chloride 84, BUN 51 with creatinine 0.9 and calculated osmolality 261. Echo has been significant for ejection fraction 55%. Chest x-ray significant for no pneumonia or pulmonary edema. PMH: As mentioned above PSHx: Lower extremity vascular intervention for PAD Meds: Codeine, albuterol, cetirizine, clopidogrel, docusate, famotidine, HCTZ, lactulose, metolazone, metoprolol succinate, prednisone, Entresto, senna, Trelegy. Allergies: Sulfa drugs Social history: Remote history of smoking, denies alcohol or drug use. Nephrology consultation was done for further management of severe hyponatremia. 11/02/2024: The patient reported doing well, and admitted mild abdominal upset. She denied any headache, chest pain, fever or chills. Her vitals were significant for blood pressure 133/82, pulse 111, saturating 99% on 3 L NC. Physical examination was significant for distant breath sound and wheezing. CBC at baseline, sodium overnight increased up to 121, but this morning again came back to 118. She was started on 3% hypertonic saline, we will continue to monitor her sodium level every 4 hourly, and goal level of correction would be 124. We will also continue with salt tablet 1 g 3 times daily. 11/03/2024: The patient was interviewed and examined at the bed side this morning. She was placed on BiPAP, vitals were significant for blood pressure 127/82 and saturating 100% on 80% FiO2. Labs are significant for hemoglobin 9.1, ABG revealed pCO2 61, bicarb 39 and pH 7.42. Chemistry pane significant for sodium of 130, hypertonic saline was discontinued yesterday evening, we will continue with sodium tablet 1 g twice daily. The patient seems to have respiratory acidosis compensated by metabolic alkalosis. We will continue to monitor sodium. 11/05/2024: The patient was interviewed and examined at the bedside this morning. She was saturating 100% on 3 L NC. Her vitals were fairly stable with pulse rate 102. Her hemoglobin trended down to 7.9 chemistry panel significant for sodium 134, potassium 3.5, chloride 95, bicarb 36, BUN 32 and creatinine 0.7 magnesium 1.5. 11/06/2024: The patient was interviewed and examined at the bedside this morning. She reported doing better. Her vitals were fairly stable saturating 99% on 2 L nasal cannula. CBC significant for hemoglobin 7.9, sodium 135, potassium 3.6, chloride 96, bicarb 37.6, BUN 26 and creatinine 0.7 with GFR greater than 60. W e can continue sodium tablet 1 g daily during discharge, and follow-up with renal panel with Dr. Zafar in 1 to 2 weeks after discharge. We will sign off on this case. Exam Vital Signs Temp Pulse Resp BP Pulse Ox O2 Del Method O2 Flow Rate 98.0 F 99 19 146/72 H 99 Oxy Mask 2 11/06/24 08:00 11/06/24 08:00 11/06/24 08:00 11/06/24 08:00 11/06/24 08:00 11/06/24 08:00 11/06/24 08:00 FiO2 60 11/06/24 08:00 Narrative Exam General: Elderly cooperative female, hard of hearing, no acute distress, Alert and Oriented x 3, on nasal cannula HEENT: Moist mucous membranes, oropharynx clear Neck: Supple, No masses, No JVD CVS: Tachycardic, no murmur or rubs Lungs: Mild wheezing throughout the lung field, no crackles or rhonchi appreciated Abd: Soft, NT/ND, +BS, no organomegaly Ext: No edema, warm and well perfused, bilateral leg darkening skin changes Psych: Appropriate mood and affect Objective Labs 11/07/24 05:14 11/07/24 14:54 Labs: Laboratory Results - last 24 hr 11/06/24 05:25 WBC 8.5 RBC 2.29 L Hgb 7.9 L Hct 23.0 L MCV 100 MCH 34.5 MCHC 34.3 RDW Std Deviation 49.8 H Plt Count 304 Neut % (Auto) 59 Lymph % (Auto) 29 [place] % (Auto) 10 Eos % (Auto) 1 Baso % (Auto) 0 Neut # (Auto) 5.0 Lymph # (Auto) 2.4 [place] # (Auto) 0.9 H Eos # (Auto) 0.1 Baso # (Auto) 0.0 Immature Gran # (Auto) 0.12 H Absolute Nucleated RBC 0.02 H Immature Gran % 1 H Nucleated RBC % 0 Sodium 135 L Potassium 3.6 Chloride 96 L Carbon Dioxide 37.6 H Anion Gap 1 L BUN 26 H Creatinine 0.7 Estim Creat Clear Calc 50.0 L eGFR > 60 BUN/Creatinine Ratio 37 H Glucose 99 Calculated Osmolality 274 L Calcium 8.7 Corrected Calcium 9.6 Phosphorus 2.8 Magnesium 1.7 Total Bilirubin 0.3 AST 16 ALT 9 L Alkaline Phosphatase 40 L Total Protein 5.2 L Albumin 2.9 L Globulin 2.3 Albumin/Globulin Ratio 1.3 ABG Interpretation ABG results: 10/28/24 10/30/24 10/30/24 22:30 04:30 06:40 ABG pH 7.35 7.27 L 7.26 L ABG pCO2 62 H 76 H* D 75 H* ABG pO2 93 95 103 ABG HCO3 34 H 35 H 34 H ABG O2 Saturation 96 97 98 ABG Base Excess 7 H 6 H 5 H 10/30/24 10/30/24 10/30/24 11:00 14:47 17:32 ABG pH 7.21 L 7.32 L D 7.35 ABG pCO2 81 H* 61 H D 56 H ABG pO2 106 121 H 106 ABG HCO3 33 H 31 H 31 H ABG O2 Saturation 98 98 98 ABG Base Excess 3 4 H 4 H 11/02/24 11/03/24 18:32 10:15 ABG pH 7.34 L 7.42 ABG pCO2 67 H 61 H ABG pO2 106 238 H D ABG HCO3 36 H 39 H ABG O2 Saturation 99 H 99 H ABG Base Excess 8 H 13 H Quality Measures Quality Measures sepsis Current suspected stage: ruled out Possible source: unknown Blood cultures ordered: yes Antibiotic ordered: Yes Advance care planning discussed with:: patient Assessment & Plan Assessment Current Active Medications: Generic Name Dose Route Start Last Admin Trade Name Freq PRN Reason Stop Dose Admin Acetaminophen 650 mg 10/29/24 03:16 Acetaminophen 325 Mg Tablet PO 11/28/24 03:15 Q6H PRN PAIN SCALE 1-3 (mild Acetaminophen 650 mg 10/29/24 03:16 Acetaminophen 325 Mg Tablet PO 11/28/24 03:15 Q6H PRN Fever >100 Clopidogrel Bisulfate 75 mg 10/29/24 09:00 11/05/24 08:29 Clopidogrel Bisulfate 75 Mg Tablet PO 11/28/24 08:59 75 mg QDAY LELE Administration Guaifenesin 100 mg 11/01/24 17:00 11/06/24 05:29 Guaifenesin Syrup 200 Mg/10 Ml Udc PO 12/01/24 16:59 100 mg QID LELE Administration Protocol Heparin Sodium (Porcine) 5,000 unit 10/29/24 06:00 11/06/24 05:29 Heparin Sod Inj 5000 Unit/Ml Vial SC 11/12/24 05:59 5,000 unit Q8HR LELE Administration Ceftriaxone Sodium/Dextrose 2 gm in 50 mls @ 100 mls/hr 11/05/24 09:45 11/05/24 10:09 Rocephin/D5w 2gm IV 11/12/24 09:29 100 mls/hr QDAY LELE Administration Magnesium Sulfate 2 gm in 50 mls @ 25 mls/hr 11/06/24 07:39 Magnesium Sulfate Ivpb IV 11/06/24 09:38 X1 ONE Ipratropium [place] 0.5 mg 10/31/24 19:00 11/06/24 07:52 Ipratropium Rt 0.5 Mg/ 2.5 Ml Nebu INH 11/30/24 18:59 0.5 mg Q6HRRT LELE Administration Levalbuterol HCl 1.25 mg 10/31/24 19:00 11/06/24 07:52 Levalbuterol Rt 1.25 Mg/0.5 Ml Nebu INH 11/30/24 18:59 1.25 mg Q6HRRT LELE Administration Lidocaine 1 patch 11/06/24 05:29 Lidocaine 5% 1 Patch TOP 12/06/24 05:04 Q24H PRN Back Pain Melatonin 6 mg 10/30/24 21:00 11/05/24 21:51 Melatonin 3 Mg Tablet PO 11/29/24 20:59 6 mg HS LELE Administration Ondansetron HCl 4 mg 10/29/24 03:16 Ondansetron Inj 2 Mg/Ml Inj 2 Ml IV 11/28/24 03:15 Q6H PRN NAUSEA OR VOMITING Protocol Pantoprazole Sodium 40 mg 11/06/24 09:00 Pantoprazole 40 Mg Tablet PO 12/06/24 08:59 QDAY LELE Protocol Pharmacy Consult 1 each 10/30/24 16:45 Pharmacy Renal Dose Adjustment 1 Ea XX 11/29/24 16:44 QDAY PRN PROTOCOL Polyethylene Glycol 17 gm 10/29/24 09:00 11/05/24 08:29 Polyethylene Glycol 17 Gm Packet PO 11/28/24 08:59 Not Given QDAY LELE Sennosides 1 tab 10/29/24 04:30 Senna/Docusate Sod 1 Tab Tablet PO 11/28/24 04:29 QDAY PRN CONSTIPATION Protocol Sodium Chloride 3 ml 10/31/24 16:00 Sodium Chloride Rt [place]hav[place] 0.9% 3 Ml Nebu INH 11/30/24 15:59 PRN PRN SOLN Sodium Chloride 1 gm 11/04/24 09:00 11/05/24 08:29 Sodium Chloride 1 Gm Tablet PO 12/04/24 08:59 1 gm DAILY LELE Administration Plan The patient is a 79-year-old female with significant past medical history of COPD on 2 L home oxygen, HFpEF, hypertension, possible A-fib, CVA, lymphoma in remission, PAD s/p vascular intervention of lower extremity presented to ED with shortness of breath and was found to have COPD exacerbation secondary to RSV pneumonia further complicated by Pseudomonas aeruginosa pneumonia. Nephrology consultation was done for further management of severe hypoosmolar hypervolemic hyponatremia. #Mild hypoosmolar hypervolemic hyponatremia, stable Likely secondary to SIADH in the setting of acute exacerbation of COPD secondary to RSV pneumonia. 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 Presented with sodium level up 128 that slowly trended down to 118 this morning, with possible CHF exacerbation and calculated osmolality 261. 11/06/2024: Sodium 135 -Continue with sodium tablet 1 g daily -Sodium level daily -During discharge, we can continue sodium tablet 1 g daily. #Hypomagnesemia Magnesium level 1.5 on 11/05/2024 -Repleted with 4 g magnesium sulfate -Daily a.m. labs for any #Elevated BUN, improving Likely catabolic state in the setting of severe current illness with bacteremia, COPD exacerbation and possible UTI, steroids -Continue to monitor BUN levels daily -Treat underlying cause #Respiratory acidosis fully compensated by metabolic alkalosis ABG revealed pCO2 61, bicarb 39 and pH 7.42 on 11/05/2024 -Continue to treat underlying COPD exacerbation -May consider adding acetylcysteine inhalation for thickening secretions #Acute on chronic hypoxic and hypercapnic respiratory failure likely secondary to #COPD exacerbation in the setting of #Pneumonia, RSV positive and Pseudomonas #Respiratory acidosis, improving #Hx of COPD #MSSA bacteremia #E. Faecalis in urine #Hypoosmolar hyponatremia, chronic #Hx of HFpEF (55% on 10/2023) #Hypertensive urgency #Hx of hypertension #Hx of CVA #Hx of PAD #Hx of chronic constipation in the setting of #Chronic back pain on narcotics -Management deferred to primary hospitalist team Your opportunity to participate nephrology team in this patient care. We will sign off on this case at this point, and if needed we will be happy to participate in this patient care. The patient's management plan was discussed with my attending physician MD Raciel Mahan MD, PGY2 Attending Provider Attestation/Addendum Patient seen and examined with resident physician Dr. Hernandez. Note reviewed, agree with findings and recommendations. Patient noted to have severe hyponatremia-asymptomatic. Did drop from 122-118. Suspect SIADH from underlying pulmonary process. Agree with starting him on salt tablets. Fluid restriction. If no improvement will consider 3% hypertonic saline and close monitoring of the serum sodium. Medications have been reviewed. Significant elevation in BUN probably related to catabolic state from steroids, underlying infection 11/02/2024 patient was started on 3% hypertonic saline as sodium did not improve. Will monitor closely. No more than 4 to 6 mEq in 24 hours. Her pulmonary status still remains poor with significant wheezing and rhonchi. Patient has a severe COPD exacerbation. On steroids. 11/03/2024 patient currently seen in telemetry. On BiPAP. Still with a significant hypercarbic respiratory failure. Sodium improved and 3% hypertonic saline was discontinued. Currently on salt tablets. Spoke to family at bedside and Dr. Santana. 11/05/2024 patient currently seen in telemetry. Transition to nasal cannula. Feeling much better. Sodium improved. Decrease salt tablets to daily. 11/06 patient currently seen in medical floor. Resting comfortably. Sodium better. Continue with salt tablets. Renal clemente no further recommendations. Stable for discharge.
[2024-11-06] MEDS: POLYETHYLENE GLYCOL 17 GM PACKET PO (10:17)
[2024-11-06] MEDS: cefTRIAXone/D5w 2gm 2 GM/50 ML BAG IV (10:17)
[2024-11-06] MEDS: PANTOPRAZOLE 40 MG TABLET PO (10:18)
[2024-11-06] MEDS: POTASSIUM CHLORIDE 10% 20 MEQ/15 ML UDC PO (10:18)
[2024-11-06] MEDS: SODIUM CHLORIDE 1 GM TABLET PO (10:18)
[2024-11-06] MEDS: CLOPIDOGREL BISULFATE 75 MG TABLET PO (10:18)
--- NOTE | 2024-11-06 11:33 | ESPR_ITS ---
<Statement entered by Loreto Estrella MD - 11/06/24 13:46> I discussed with and supervised my co-resident involved in the care of this patient. I agree with the assessment and plan as documented above. Patient seen and examined this morning. Clinically patient appears significantly improved. Per chart review, patient had two episodes of dark black stool and her Hb dropped a unit. Will get FOBT to screen for occult GIB. ID recommends ceftriaxone IV until 11/15, for MSSA bacteremia. PICC line ordered. Anticipate patient to be discharged to SNF tomorrow. Loreto Estrella MD PGY-3 Documentation for date of: 11/06/24 Subjective Subjective Interval history: Patient was seen at bedside this morning. She was doing a lot better and she felt better CV stated. She did have some mild crackles on auscultation, but otherwise was saturating well. His shoulder has been better and currently 135. Physical therapy worked with patient today and stated that she did a lot better than 3 days ago. It was noted that the patient has been having copious stools with one of them being dark and has her hemoglobin has downtrended we have ordered FOBT. Also ordered Lasix 40 mg x 1 due to her crackles. PICC line insertion also ordered to continue IV antibiotics as outpatient. No other complaints. Exam Vital Signs Temp Pulse Resp BP Pulse Ox O2 Del Method O2 Flow Rate 98.0 F 99 19 146/72 H 99 Oxy Mask 2 11/06/24 08:00 11/06/24 08:00 11/06/24 08:00 11/06/24 08:00 11/06/24 08:00 11/06/24 08:00 11/06/24 08:00 FiO2 60 11/06/24 08:00 Narrative Exam General: A/O x3, no acute distress, ill appearing thin elderly on NC 3L. Eyes: PERRL, EOMI. Anicteric, vision grossly intact. Ears: No ear pain, no ear discharge, Hearing impaired Nose: No nasal discharge. Mouth/Throat: Dry mucous membranes Neck: Neck supple, non-tender, no cervical lymphadenopathy. Lungs: mild crackles АНДРЕЙ, No accessory muscle use, on Bipap Cardio: Normal S1/S2, regular rhythm, no murmurs, b/L JVD, tachycardic Abdomen: Soft, non-tender, no palpable masses, peristalsis present, no guarding or rebound. Extremities: no significant deformities, no peripheral edema , non-tender Skin: АНДРЕЙ LE venous stasis changes and L UE with red discoloration from elbow level to wrist. АНДРЕЙ UE swollen, improving . Neuro: No focal neurological deficits. motor and sensory intact Psych: Cooperative, appropriate mood and effect. Objective Labs 11/07/24 05:14 11/07/24 05:14 Labs: Laboratory Results - last 24 hr 11/06/24 05:25 WBC 8.5 RBC 2.29 L Hgb 7.9 L Hct 23.0 L MCV 100 MCH 34.5 MCHC 34.3 RDW Std Deviation 49.8 H Plt Count 304 Neut % (Auto) 59 Lymph % (Auto) 29 Foard % (Auto) 10 Eos % (Auto) 1 Baso % (Auto) 0 Neut # (Auto) 5.0 Lymph # (Auto) 2.4 Foard # (Auto) 0.9 H Eos # (Auto) 0.1 Baso # (Auto) 0.0 Immature Gran # (Auto) 0.12 H Absolute Nucleated RBC 0.02 H Immature Gran % 1 H Nucleated RBC % 0 Sodium 135 L Potassium 3.6 Chloride 96 L Carbon Dioxide 37.6 H Anion Gap 1 L BUN 26 H Creatinine 0.7 Estim Creat Clear Calc 50.0 L eGFR > 60 BUN/Creatinine Ratio 37 H Glucose 99 Calculated Osmolality 274 L Calcium 8.7 Corrected Calcium 9.6 Phosphorus 2.8 Magnesium 1.7 Total Bilirubin 0.3 AST 16 ALT 9 L Alkaline Phosphatase 40 L Total Protein 5.2 L Albumin 2.9 L Globulin 2.3 Albumin/Globulin Ratio 1.3 ABG Interpretation ABG results: 10/28/24 10/30/24 10/30/24 22:30 04:30 06:40 ABG pH 7.35 7.27 L 7.26 L ABG pCO2 62 H 76 H* D 75 H* ABG pO2 93 95 103 ABG HCO3 34 H 35 H 34 H ABG O2 Saturation 96 97 98 ABG Base Excess 7 H 6 H 5 H 10/30/24 10/30/24 10/30/24 11:00 14:47 17:32 ABG pH 7.21 L 7.32 L D 7.35 ABG pCO2 81 H* 61 H D 56 H ABG pO2 106 121 H 106 ABG HCO3 33 H 31 H 31 H ABG O2 Saturation 98 98 98 ABG Base Excess 3 4 H 4 H 11/02/24 11/03/24 18:32 10:15 ABG pH 7.34 L 7.42 ABG pCO2 67 H 61 H ABG pO2 106 238 H D ABG HCO3 36 H 39 H ABG O2 Saturation 99 H 99 H ABG Base Excess 8 H 13 H Quality Measures Quality Measures sepsis Current suspected stage: ruled out Possible source: unknown Blood cultures ordered: yes Antibiotic ordered: Yes Advance care planning discussed with:: patient Assessment & Plan Assessment Current Active Medications: Generic Name Dose Route Start Last Admin Trade Name Freq PRN Reason Stop Dose Admin Acetaminophen 650 mg 10/29/24 03:16 Acetaminophen 325 Mg Tablet PO 11/28/24 03:15 Q6H PRN PAIN SCALE 1-3 (mild Acetaminophen 650 mg 10/29/24 03:16 Acetaminophen 325 Mg Tablet PO 11/28/24 03:15 Q6H PRN Fever >100 Protocol Acetaminophen/Codeine Phosphate 1 tab 11/06/24 11:05 Acetaminophen W/Cod 300-30 Tablet PO 11/11/24 11:04 Q6HR PRN PAIN Protocol Clopidogrel Bisulfate 75 mg 10/29/24 09:00 11/06/24 10:18 Clopidogrel Bisulfate 75 Mg Tablet PO 11/28/24 08:59 75 mg QDAY LELE Administration Guaifenesin 100 mg 11/01/24 17:00 11/06/24 05:29 Guaifenesin Syrup 200 Mg/10 Ml Udc PO 12/01/24 16:59 100 mg QID LELE Administration Protocol Heparin Sodium (Porcine) 5,000 unit 10/29/24 06:00 11/06/24 05:29 Heparin Sod Inj 5000 Unit/Ml Vial SC 11/12/24 05:59 5,000 unit Q8HR LELE Administration Ceftriaxone Sodium/Dextrose 2 gm in 50 mls @ 100 mls/hr 11/05/24 09:45 11/06/24 10:17 Rocephin/D5w 2gm IV 11/12/24 09:29 100 mls/hr QDAY LELE Administration Ipratropium [place] 0.5 mg 10/31/24 19:00 11/06/24 07:52 Ipratropium Rt 0.5 Mg/ 2.5 Ml Nebu INH 11/30/24 18:59 0.5 mg Q6HRRT LELE Administration Levalbuterol HCl 1.25 mg 10/31/24 19:00 11/06/24 07:52 Levalbuterol Rt 1.25 Mg/0.5 Ml Nebu INH 11/30/24 18:59 1.25 mg Q6HRRT LELE Administration Lidocaine 1 patch 11/06/24 05:29 Lidocaine 5% 1 Patch TOP 12/06/24 05:04 Q24H PRN Back Pain Melatonin 6 mg 10/30/24 21:00 11/05/24 21:51 Melatonin 3 Mg Tablet PO 11/29/24 20:59 6 mg HS LELE Administration Ondansetron HCl 4 mg 10/29/24 03:16 Ondansetron Inj 2 Mg/Ml Inj 2 Ml IV 11/28/24 03:15 Q6H PRN NAUSEA OR VOMITING Protocol Pantoprazole Sodium 40 mg 11/06/24 09:00 11/06/24 10:18 Pantoprazole 40 Mg Tablet PO 12/06/24 08:59 40 mg QDAY LELE Administration Protocol Pharmacy Consult 1 each 10/30/24 16:45 Pharmacy Renal Dose Adjustment 1 Ea XX 11/29/24 16:44 QDAY PRN PROTOCOL Polyethylene Glycol 17 gm 10/29/24 09:00 11/06/24 10:17 Polyethylene Glycol 17 Gm Packet PO 11/28/24 08:59 17 gm QDAY LELE Administration Sennosides 1 tab 10/29/24 04:30 Senna/Docusate Sod 1 Tab Tablet PO 11/28/24 04:29 QDAY PRN CONSTIPATION Protocol Sodium Chloride 3 ml 10/31/24 16:00 Sodium Chloride Rt Bhavana 0.9% [address] [facility] 11/30/24 15:59 PRN PRN SOLN Sodium Chloride 1 gm 11/04/24 09:00 11/06/24 10:18 Sodium Chloride 1 Gm Tablet PO 12/04/24 08:59 1 gm DAILY LELE Administration Plan 79-year-old female with past medical history of COPD (2 L O2 at home), HFpEF (55 to 60% on 2022), hypertension, CVA, lymphoma currently on remission, chronic back pain on narcotics, and chronic constipation, and PAD who was admitted to the hospital on 10/29/2024 due to acute on chronic hypoxic respiratory failure likely secondary to COPD exacerbation in the setting of community-acquired pneumonia. #Macrocytic normochromic anemia ?Patient's hemoglobin today is 7.9 when compared from her initial hemoglobin of 11.2 on admission. ? Patient apparently had some dark stools around 2 days ago ? No active signs of bleeding Plan: ? Ordered FOBT ? Will transfuse hemoglobin less than 7 ? Will continue to monitor #Acute on chronic hypoxic and hypercapnic respiratory failure likely secondary to #COPD exacerbation in the setting of #Pneumonia, RSV positive and Pseudomonas #Respiratory acidosis, improving #Hx of COPD #MSSA bacteremia #E. Faecalis in urine ? Patient came in initially with complaints of cough, shortness of breath, and increased requirements of oxygen. ? Patient has a history of COPD ?Patient met SIRS 4 out of 4 criteria on admission, but there was no signs of endorgan damage ? qSOFA score of 1 ? Initial chest x-ray showed vascular congestion ?Initial Chest CTA showed bilateral pneumonia ?Repeat chest x-ray on 10/30/2024 showed no pneumonia pulmonary edema ? Latest ABG showed pH 7.32, pCO2 61, pO2 121 - Rocephin [10/29/2024?11/01/2024] ? Blood culture grew MSSA ? Urine cultures grew Enterococcus faecalis ? Sputum cultures grew Pseudomonas -DC'd azithromycin and Zosyn ? DC'd methylprednisolone ?Finished Doxycycline 100 mg BID [11/02/2024-11/05/2024] Plan: - Continue Rocephin [11/05/2024-11/15/2024] by ID -PICC line insertion ordered ? Continue breathing treatments ? Blade Groover consulted, appreciate recommendations ? ID consulted, appreciate commendations ?Will continue to monitor #Hypoosmolar hyponatremia, chronic ?Patient came in with sodium of 127, currently 135. ? Patient sodium appears to be low in the past was 122 on September. ? DDx includes SIADH versus dehydration versus medication induced as he was on hydrochlorothiazide and metolazone ?Urine sodium less than 10 Plan: ? Fluid restrictions - Na tab qday ? Holding hydrochlorothiazide metolazone ?Will continue to monitor #Hyperkalemia ? Patient potassium yesterday was 5.6 and down trended to 5 point 2 in the evening ? Potassium today 3.6 Plan: ? Hold Entresto ? Will continue to monitor #Hx of HFpEF (55% on 10/2023) ?Patient came in initially with complaints of shortness of breath and requiring increased levels of oxygen ? Patient does not seem to be in CHF exacerbation at this time she does not appear to be fluid overloaded and there is no pulmonary edema. ? BNP initially was 1001 ? Echo showed 55% EF Plan: Lasix 40mg x1 ?Will hold Entresto given hyponatremia and hyperkalemia ? Fluid restrictions ? Cardiac diet ? Will continue to monitor #Hypertensive urgency #Hx of hypertension ? Patient came in with blood pressure of 207/109 ? Patient's blood pressure 138/66 this AM Plan: ? Will hold Entresto given hyponatremia and hyperkalemia ? Will hold off on patient's home medication beta-yola as she is on [employer] exacerbation. #Hx of CVA #Hx of PAD ? Continue Plavix #Hx of chronic constipation in the setting of #Chronic back pain on narcotics ? Continue patient's Tylenol?codeine 1 tablet 3 times daily prn for pain ? Continue scheduled daily senna and MiraLAX Disposition: Patient seen in telemetry, continue Rocephin to cover MSSA, Pseudo, E. faecalis. Continue Na tab, pending PICC line and FOBT Diet: Dysphagia 3 GI prophylaxis: protonix DVT prophylaxis: heparin sc Code: full code Case disclosed with Attending Dr. Santana and my senior Dr. Estrella PGY3 Naresh Camargo PGY1 Attending Provider Attestation/Addendum Mulu Mooney, DO, attest that I was physically present for the jones portions of the service and evaluated the patient with the resident and I reviewed and discussed the case with the resident and agree with the resident's findings and plans of care as documented above Patient seen and eval this a.m. She is currently on 2 L nasal cannula. She continues to have some mild rhonchi. However, patient was able to work with physical therapy and was much improved. Patient will need a CPAP at SNF upon discharge. Hemoglobin appears to be downtrending. Will obtain an FOBT. Patient has not had a bowel movement since the . However, it is noted that she had some black stools per documentation. If hemoglobin is stable tomorrow, anticipate discharge within 24 hours. [id number] is at bedside and states that she makes medical decisions with her for the patient. They are unclear if they should have patient be sent to SNF versus home with home health. Patient will get a PICC line today to continue with IV antibiotics for MSSA bacteremia.
--- NOTE | 2024-11-06 11:46 | PC.SS ---
SS met with pt and her dtr in law at bedside in regards to DC plan, pt is requiring rocephin 2 gm iv daily thru 11/15. Per dtr in law Lisa, her Negro Conte [phone] is the main DM and is at [employer]. She stated they are open to SNF but unsure of which one other then NOT wanting [facility]. Lisa requested SS come back around 12-1300 when he is at bedside to discuss options. SS informed Lisa we will submit now, and hopefully we can provide options at the time of discussion. SNF referral submitted via [employer] pending responses.
[2024-11-06] MEDS: Magnesium Sulfate 2 GM Ivpb 2 GM/50 ML BAG IV (12:14)
[2024-11-06] MEDS: FUROSEMIDE INJ 10 MG/ML 4ML VIAL 40 MG IVP (12:14)
[2024-11-06 13:51] LABS: Partial Thromboplastin Time 35.9 Seconds (22.0-36.0); Prothrombin Time 10.8 Seconds (9.0-12.2)
[2024-11-06] MEDS: HEPARIN SOD LOCK SYR 100 UNIT/ML 500 UNIT STFIELD (14:40)
[2024-11-06] MEDS: LIDOCAINE INJ PF 1% 5 ML VIAL 20 ML INFL (14:40)
--- NOTE | 2024-11-06 15:43 | PC.SS ---
SS contacted patient's sonNegro in regards to chosen SNF. Patient's son would like for patient to discharge to [facility], however [facility] won't have any beds available until . Second choice would be [facility], however Female beds are pending. [facility] is willing to accept patient. SS will need to follow up with patient's son tomorrow to determine what SNF patient will discharge too.
[2024-11-06] MEDS: MELATONIN 3 MG TABLET 6 MG PO (20:50)
[2024-11-07] VITALS (16 sets, daily range): BP systolic 122–168; BP diastolic 68–116; PULSE 80–133; RESP 19–31; TEMP 36.1–37.1; O2SAT 90–100
[2024-11-07] MEDS: ACETAMINOPHEN w/COD 300-30 TABLET 1 TAB PO ×2 (01:13→14:02)
[2024-11-07] MEDS: HEPARIN SOD INJ 5000 UNIT/ML VIAL SC ×3 (05:18→21:02)
[2024-11-07] MEDS: guaiFENesin SYRUP 200 MG/10 ML UDC 100 MG PO ×4 (05:18→21:01)
[2024-11-07 05:43] LABS: Basophils % (Auto) 0 % (0-2.5); Eosinophils # (Auto) 0.1 Thou/mm3 (0.0-0.5); Eosinophils % (Auto) 1 % (0-10); Hematocrit 22.9 % (36.0-46.0); Immature Granulocytes % (Auto) 1 % (0-0); Immature Granulocytes Auto 0.09 Thou/mm3 (0.00-0.00); Lymphocytes # (Auto) 2.7 Thou/mm3 (1.0-4.8); Lymphocytes % (Auto) 33 % (10-50); Mean Corpuscular HGB Conc 33.6 g/dl (31.0-37.0); Mean Corpuscular Hemoglobin 33.9 pg (25.0-35.0); Mean Corpuscular Volume 101 fL (80-100); Monocytes # (Auto) 0.8 Thou/mm3 (0.0-0.8); Monocytes % (Auto) 10 % (0-12); Neutrophils # (Auto) 4.5 Thou/mm3 (1.8-7.7); Neutrophils % (Auto) 55 % (37-80); Nucleated Red Blood Cell % 0 /100 WBC (0); Platelet Count 288 Thou/mm3 (140-440); RDW Standard Deviation 50.1 fL (36.4-46.3); Red Blood Count 2.27 Miln/mm3 (4.00-5.20); White Blood Count 8.1 Thou/mm3 (3.6-11.0)
[2024-11-07 05:49] LABS: Hemoglobin 7.7 g/dL (12.0-16.0)
[2024-11-07 06:19] LABS: Alanine Aminotransferase 8 U/L (10-49); Albumin, Serum 2.9 gm/dL (3.4-4.8); Albumin/Globulin Ratio 1.2 (1.2-2.2); Alkaline Phosphatase 38 U/L (46-116); Anion Gap 3 (7-16); Aspartate Amino Transferase 16 U/L (0-34); BUN/Creatinine Ratio 40 Ratio (12-20); Bilirubin,Total 0.3 mg/dL (0.3-1.2); Blood Urea Nitrogen 24 mg/dL (9-23); Calcium 8.8 mg/dL (8.3-10.6); Calcium (Corrected) 9.7 mg/dL (8.5-10.1); Carbon Dioxide 39.3 mMol/L (20.0-31.0); Chloride 93 mMol/L (98-107); Creatinine (Component) 0.6 mg/dL (0.6-1.3); Estimated Creatinine Clearance 56.7 mL/min (>60); Globulin 2.4 gm/dL (2.3-3.5); Glucose 97 mg/dL (74-106); Magnesium 1.6 mg/dL (1.6-2.6); Osmolality,Calculated 274 (275-295); Phosphorous 4.3 mg/dL (2.4-5.1); Sodium 135 mMol/L (136-145); Total Protein 5.3 gm/dL (5.7-8.2); eGFR > 60 See Note
[2024-11-07] MEDS: LEVALBUTEROL RT 1.25 MG/0.5 ML NEBU INH ×2 (07:22→13:02)
[2024-11-07] MEDS: IPRATROPIUM RT 0.5 MG/ 2.5 ML NEBU INH ×2 (07:23→13:02)
[2024-11-07] MEDS: POLYETHYLENE GLYCOL 17 GM PACKET PO (08:59)
[2024-11-07] MEDS: cefTRIAXone/D5w 2gm 2 GM/50 ML BAG IV (08:59)
[2024-11-07] MEDS: PANTOPRAZOLE 40 MG TABLET PO (09:00)
[2024-11-07] MEDS: CLOPIDOGREL BISULFATE 75 MG TABLET PO (09:00)
[2024-11-07] MEDS: SODIUM CHLORIDE 1 GM TABLET PO (09:00)
--- NOTE | 2024-11-07 09:48 | PC.SS ---
Addendum entered by ANTHONY Jauregui 11/07/24 14:31: Rounding note: patient has picc line, however patient's hemoglobin has dropped, not ready for d/c. Addendum entered by ANTHONY Jauregui 11/07/24 13:50: SS update: received update from Melany at [facility] informs she can accept the patient if patient has picc line for the IV abx. Addendum entered by ANTHONY Jauregui 11/07/24 10:03: SS follow up: spoke with Lisa , patient's sons in regards to SNF choices. She informs that preferred SNF is [facility]. Open bed to [facility] could be available on 11/08/23 per Melany the admissions point of contact, however she will confirm later today on bed availability. Original Note: SS follow up: attempted contact with patient's son Negro to discuss SNF choices, he was unavailable and voicemail was provided requesting call back.
--- NOTE | 2024-11-07 12:53 | ESPR_ITS ---
<Statement entered by Loreto Estrella MD - 11/07/24 17:30> I discussed with and supervised my co-resident involved in the care of this patient. I agree with the assessment and plan as documented above. Patient doing well this morning, no acute events overnight. In the afternoon, patient had episode of tachycardia and dyspnea in the afternoon, so was placed back on BIPAP. Pending FOBT. Hb stable at 7.7. If FOBT negative, patient to be discharged to SNF. Loreto Estrella MD PGY-3 Documentation for date of: 11/07/24 Subjective Subjective Interval history: Patient was seen at bedside this morning. No overnight events. Patient's lungs today sound clearer than yesterday and there was no crackles or wheezing. Patient is doing okay, but her hemoglobin was 7.7 today from 7.9 yesterday therefore will we will wait for FOBT given the acute drop in hemoglobin. Patient got her PICC line inserted yesterday with no complications. No other complaints at this time. Patient had some increased work of breathing later on the afternoon therefore ordered the patient to be back on BiPAP and order an EKG as her heart rate went to the 140s, but there was no A-fib only sinus tachycardia with no ST changes. Ordered renal panel as well at this time given that patient's potassium in the past have been high and there appears to be some mild peaked T waves in the EKG. Gave labetalol 5 mg x 1 and Haldol 5 mg x 1 so the patient can tolerate the BiPAP and to lower her blood pressure that was in the 160s over 100s at this time. Patient did not have any chest pain during this time. Exam Vital Signs Temp Pulse Resp BP Pulse Ox O2 Del Method O2 Flow Rate 98.8 F 103 H 19 122/81 96 Room Air 1 11/07/24 12:00 11/07/24 12:00 11/07/24 12:00 11/07/24 12:00 11/07/24 12:00 11/07/24 12:11/07/24 08:00 FiO2 60 11/07/24 04:00 Narrative Exam General: A/O x3, no acute distress, ill appearing thin elderly on NC. Eyes: PERRL, EOMI. Anicteric, vision grossly intact. Ears: No ear pain, no ear discharge, Hearing impaired Nose: No nasal discharge. Mouth/Throat: Dry mucous membranes Neck: Neck supple, non-tender, no cervical lymphadenopathy. Lungs: Clear АНДРЕЙ, No accessory muscle use, on Bipap Cardio: Normal S1/S2, regular rhythm, no murmurs, b/L JVD, Abdomen: Soft, non-tender, no palpable masses, peristalsis present, no guarding or rebound. Extremities: no significant deformities, no peripheral edema , non-tender Skin: АНДРЕЙ LE venous stasis changes and L UE with red discoloration from elbow level to wrist. Neuro: No focal neurological deficits. motor and sensory intact Psych: Cooperative, appropriate mood and effect. Objective Labs 11/08/24 04:40 11/08/24 04:40 Labs: Laboratory Results - last 24 hr 11/06/24 11/07/24 05:25 05:14 WBC 8.1 RBC 2.27 L Hgb 7.7 L Hct 22.9 L MCV 101 H MCH 33.9 MCHC 33.6 RDW Std Deviation 50.1 H Plt Count 288 Neut % (Auto) 55 Lymph % (Auto) 33 [place] % (Auto) 10 Eos % (Auto) 1 Baso % (Auto) 0 Neut # (Auto) 4.5 Lymph # (Auto) 2.7 [place] # (Auto) 0.8 Eos # (Auto) 0.1 Baso # (Auto) 0.0 Immature Gran # (Auto) 0.09 H Absolute Nucleated RBC 0.00 Immature Gran % 1 H Nucleated RBC % 0 PT 10.8 INR 1.0 APTT 35.9 D Sodium 135 L Potassium 4.0 Chloride 93 L Carbon Dioxide 39.3 H Anion Gap 3 L BUN 24 H Creatinine 0.6 Estim Creat Clear Calc 56.7 L eGFR > 60 BUN/Creatinine Ratio 40 H Glucose 97 Calculated Osmolality 274 L Calcium 8.8 Corrected Calcium 9.7 Phosphorus 4.3 Magnesium 1.6 Total Bilirubin 0.3 AST 16 ALT 8 L Alkaline Phosphatase 38 L Total Protein 5.3 L Albumin 2.9 L Globulin 2.4 Albumin/Globulin Ratio 1.2 ABG Interpretation ABG results: 10/28/24 10/30/24 10/30/24 22:30 04:30 06:40 ABG pH 7.35 7.27 L 7.26 L ABG pCO2 62 H 76 H* D 75 H* ABG pO2 93 95 103 ABG HCO3 34 H 35 H 34 H ABG O2 Saturation 96 97 98 ABG Base Excess 7 H 6 H 5 H 10/30/24 10/30/24 10/30/24 11:00 14:47 17:32 ABG pH 7.21 L 7.32 L D 7.35 ABG pCO2 81 H* 61 H D 56 H ABG pO2 106 121 H 106 ABG HCO3 33 H 31 H 31 H ABG O2 Saturation 98 98 98 ABG Base Excess 3 4 H 4 H 11/02/24 11/03/24 18:32 10:15 ABG pH 7.34 L 7.42 ABG pCO2 67 H 61 H ABG pO2 106 238 H D ABG HCO3 36 H 39 H ABG O2 Saturation 99 H 99 H ABG Base Excess 8 H 13 H Quality Measures Quality Measures sepsis Current suspected stage: ruled out Possible source: unknown Blood cultures ordered: yes Antibiotic ordered: Yes Advance care planning discussed with:: patient Assessment & Plan Assessment Current Active Medications: Generic Name Dose Route Start Last Admin Trade Name Freq PRN Reason Stop Dose Admin Acetaminophen 650 mg 10/29/24 03:16 Acetaminophen 325 Mg Tablet PO 11/28/24 03:15 Q6H PRN PAIN SCALE 1-3 (mild Acetaminophen 650 mg 10/29/24 03:16 Acetaminophen 325 Mg Tablet PO 11/28/24 03:15 Q6H PRN Fever >100 Protocol Acetaminophen/Codeine Phosphate 1 tab 11/06/24 11:05 11/07/24 01:13 Acetaminophen W/Cod 300-30 Tablet PO 11/11/24 11:04 1 tab Q6HR PRN Administration PAIN Protocol Clopidogrel Bisulfate 75 mg 10/29/24 09:00 11/07/24 09:00 Clopidogrel Bisulfate 75 Mg Tablet PO 11/28/24 08:59 75 mg QDAY LELE Administration Guaifenesin 100 mg 11/01/24 17:00 11/07/24 11:38 Guaifenesin Syrup 200 Mg/10 Ml Udc PO 12/01/24 16:59 100 mg QID LELE Administration Protocol Heparin Sodium (Porcine) 5,000 unit 10/29/24 06:00 11/07/24 05:18 Heparin Sod Inj 5000 Unit/Ml Vial SC 11/12/24 05:59 5,000 unit Q8HR LLEE Administration Ceftriaxone Sodium/Dextrose 2 gm in 50 mls @ 100 mls/hr 11/05/24 09:45 11/07/24 08:59 Rocephin/D5w 2gm IV 11/12/24 09:29 100 mls/hr QDAY LELE Administration Ipratropium [place] 0.5 mg 10/31/24 19:00 11/07/24 07:23 Ipratropium Rt 0.5 Mg/ 2.5 Ml Nebu INH 11/30/24 18:59 0.5 mg Q6HRRT LELE Administration Levalbuterol HCl 1.25 mg 10/31/24 19:00 11/07/24 07:22 Levalbuterol Rt 1.25 Mg/0.5 Ml Nebu INH 11/30/24 18:59 1.25 mg Q6HRRT LELE Administration Lidocaine 1 patch 11/06/24 05:29 Lidocaine 5% 1 Patch TOP 12/06/24 05:04 Q24H PRN Back Pain Protocol Melatonin 6 mg 10/30/24 21:00 11/06/24 20:50 Melatonin 3 Mg Tablet PO 11/29/24 20:59 6 mg HS LELE Administration Ondansetron HCl 4 mg 10/29/24 03:16 Ondansetron Inj 2 Mg/Ml Inj 2 Ml IV 11/28/24 03:15 Q6H PRN NAUSEA OR VOMITING Protocol Pantoprazole Sodium 40 mg 11/06/24 09:00 11/07/24 09:00 Pantoprazole 40 Mg Tablet PO 12/06/24 08:59 40 mg QDAY LELE Administration Protocol Pharmacy Consult 1 each 10/30/24 16:45 Pharmacy Renal Dose Adjustment 1 Ea XX 11/29/24 16:44 QDAY PRN PROTOCOL Polyethylene Glycol 17 gm 10/29/24 09:00 11/07/24 08:59 Polyethylene Glycol 17 Gm Packet PO 11/28/24 08:59 17 gm QDAY LELE Administration Sennosides 1 tab 10/29/24 04:30 Senna/Docusate Sod 1 Tab Tablet PO 11/28/24 04:29 QDAY PRN CONSTIPATION Protocol Sodium Chloride 3 ml 10/31/24 16:00 Sodium Chloride Rt Bhavana 0.9% 3 Ml Nebu INH 11/30/24 15:59 PRN PRN SOLN Sodium Chloride 1 gm 11/04/24 09:00 11/07/24 09:00 Sodium Chloride 1 Gm Tablet PO 12/04/24 08:59 1 gm DAILY LELE Administration Plan 79-year-old female with past medical history of COPD (2 L O2 at home), HFpEF (55 to 60% on 2022), hypertension, CVA, lymphoma currently on remission, chronic back pain on narcotics, and chronic constipation, and PAD who was admitted to the hospital on 10/29/2024 due to acute on chronic hypoxic respiratory failure likely secondary to COPD exacerbation in the setting of community-acquired pneumonia. #Macrocytic normochromic anemia ?Patient's hemoglobin today is 7.7 when compared from her initial hemoglobin of 11.2 on admission. ? Patient apparently had some dark stools around 2 days ago ? No active signs of bleeding Plan: ? Pending FOBT, will get GI involved if positive ? Will transfuse hemoglobin less than 7 ? Will continue to monitor #Acute on chronic hypoxic and hypercapnic respiratory failure likely secondary to #COPD exacerbation in the setting of #Pneumonia, RSV positive and Pseudomonas #Respiratory acidosis, improving #Hx of COPD #MSSA bacteremia #E. Faecalis in urine ? Patient came in initially with complaints of cough, shortness of breath, and increased requirements of oxygen. ? Patient has a history of COPD ?Patient met SIRS 4 out of 4 criteria on admission, but there was no signs of endorgan damage ? qSOFA score of 1 ? Initial chest x-ray showed vascular congestion ?Initial Chest CTA showed bilateral pneumonia ?Repeat chest x-ray on 10/30/2024 showed no pneumonia pulmonary edema ? Latest ABG showed pH 7.32, pCO2 61, pO2 121 - Rocephin [10/29/2024?11/01/2024] ? Blood culture grew MSSA ? Urine cultures grew Enterococcus faecalis ? Sputum cultures grew Pseudomonas -DC'd azithromycin and Zosyn ? DC'd methylprednisolone ?Finished Doxycycline 100 mg BID [11/02/2024-11/05/2024] Plan: - Continue Rocephin [11/05/2024-11/15/2024] by ID ? Continue breathing treatments ? Promotional Representative consulted, appreciate recommendations ? ID consulted, appreciate commendations ?Will continue to monitor #Hypoosmolar hyponatremia, chronic ?Patient came in with sodium of 127, currently 135. ? Patient sodium appears to be low in the past was 122 on September. ? DDx includes SIADH versus dehydration versus medication induced as he was on hydrochlorothiazide and metolazone ?Urine sodium less than 10 Plan: ? Fluid restrictions - Na tab qday ? Holding hydrochlorothiazide metolazone ?Will continue to monitor #Hyperkalemia ? Patient potassium yesterday was 5.6 and down trended to 5 point 2 in the evening ? Potassium today 4 Plan: ? Hold Entresto ? Will continue to monitor #Hx of HFpEF (55% on 10/2023) ?Patient came in initially with complaints of shortness of breath and requiring increased levels of oxygen ? Patient does not seem to be in CHF exacerbation at this time she does not appear to be fluid overloaded and there is no pulmonary edema. ? BNP initially was 1001 ? Echo showed 55% EF Plan: ?Will hold Entresto given hyponatremia and hyperkalemia ? Fluid restrictions ? Cardiac diet ? Will continue to monitor #Hypertensive urgency #Hx of hypertension ? Patient came in with blood pressure of 207/109 ? Patient's blood pressure 126/68 this AM Plan: ? Will hold Entresto given hyponatremia and hyperkalemia ? Will hold off on patient's home medication beta-yola as she is on [employer] exacerbation. #Hx of CVA #Hx of PAD ? Continue Plavix #Hx of chronic constipation in the setting of #Chronic back pain on narcotics ? Continue patient's Tylenol?codeine 1 tablet 3 times daily prn for pain ? Continue scheduled daily senna and MiraLAX Disposition: Patient seen in telemetry, continue Rocephin to cover MSSA, Pseudo, E. faecalis. Continue Na tab, FOBT Diet: Dysphagia 3 GI prophylaxis: protonix DVT prophylaxis: heparin sc Code: full code Case disclosed with Attending Dr. Chapa and my senior Dr. Estrella PGY3 Naresh Camargo PGY1 Attending Provider Attestation/Addendum I have discussed and was present for the essential components of the history, physical examination, diagnosis, and treatment plan with the resident. I agree with the patient's care as documented by the resident and amended herein by me. Favio Chapa, DO. Although this document has been carefully reviewed, there may still be some phonetic and other typographical errors. These errors are purely grammatical due to imperfections in the software program and should not be construed in any way to compromise the substance of the patient's medical care during this visit.
--- NOTE | 2024-11-07 13:45 | XR_ITS ---
Examination: AP chest single view Technique one AP portable upright chest single view Exam date and time: November 07, 2024 1434 hours Comparison November 02, 2024 INDICATIONS: Onset shortness of breath today. FINDINGS: Normal heart size Pneumonia at the lung bases Small to moderate bilateral pleural effusions Right arm dual-lumen PICC line tip SVC satisfactory position No pulmonary edema Prominent osteopenia IMPRESSION: Bibasilar pneumonia
--- NOTE | 2024-11-07 14:00 | PC.NURSE ---
Pt c/o difficulty breathing, pt has increased WOB HR 144, BP 168/116, Rafita Trejo notified came and saw pt, pt placed on Bipap, IV medication for BP and to relax pt, Labs and chest xray ordered
--- NOTE | 2024-11-07 14:11 | EKG_ITS ---
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
[2024-11-07] MEDS: HALOPERIDOL LACT INJ 5 MG/ML VIAL IV (14:24)
[2024-11-07] MEDS: LABETALOL INJ 5 MG/ML VIAL 20 ML IVP (14:24)
[2024-11-07] MEDS: Magnesium Sulfate 2 GM Ivpb 2 GM/50 ML BAG IV (14:59)
[2024-11-07 16:01] LABS: Albumin, Serum 3.2 gm/dL (3.4-4.8); Anion Gap 1 (7-16); BUN/Creatinine Ratio 41 Ratio (12-20); Blood Urea Nitrogen 29 mg/dL (9-23); Calcium (Corrected) 9.6 mg/dL (8.5-10.1); Carbon Dioxide 37.4 mMol/L (20.0-31.0); Chloride 93 mMol/L (98-107); Creatinine (Component) 0.7 mg/dL (0.6-1.3); Glucose 154 mg/dL (74-106); Magnesium 1.7 mg/dL (1.6-2.6); Osmolality,Calculated 271 (275-295); Phosphorous 4.3 mg/dL (2.4-5.1); Potassium 4.2 mMol/L (3.4-5.1); Sodium 131 mMol/L (136-145); eGFR > 60 See Note
[2024-11-07] MEDS: MELATONIN 3 MG TABLET 6 MG PO (21:01)
[2024-11-07] MEDS: LACTULOSE SYRUP 20 GM/30 ML UDC PO (21:01)
[2024-11-08] VITALS (17 sets, daily range): BP systolic 117–180; BP diastolic 69–122; PULSE 84–118; RESP 16–31; TEMP 36.1–36.7; O2SAT 95–100
[2024-11-08] MEDS: IPRATROPIUM RT 0.5 MG/ 2.5 ML NEBU INH ×4 (00:32→18:24)
[2024-11-08] MEDS: LEVALBUTEROL RT 1.25 MG/0.5 ML NEBU INH ×4 (00:32→18:24)
[2024-11-08] MEDS: ACETAMINOPHEN w/COD 300-30 TABLET 1 TAB PO (03:52)
--- NOTE | 2024-11-08 05:22 | PC.RT ---
fio2 increased to 35% for about 5 min at 0452 spo2 at 90% improved to 96% titrate back to 30%.
[2024-11-08] MEDS: guaiFENesin SYRUP 200 MG/10 ML UDC 100 MG PO (05:40)
[2024-11-08] MEDS: HEPARIN SOD INJ 5000 UNIT/ML VIAL SC ×3 (05:40→21:54)
[2024-11-08 05:59] LABS: OBS Card Lot # 22002; OBS Developer Lot # 23005; OBS Performed By martc6; OBS QC OK? Yes; Occult Blood, Stool Negative (Negative)
[2024-11-08 06:14] LABS: Basophils % (Auto) 0 % (0-2.5); Eosinophils # (Auto) 0.1 Thou/mm3 (0.0-0.5); Eosinophils % (Auto) 1 % (0-10); Hematocrit 27.2 % (36.0-46.0); Hemoglobin 9.1 g/dL (12.0-16.0); Immature Granulocytes % (Auto) 1 % (0-0); Immature Granulocytes Auto 0.09 Thou/mm3 (0.00-0.00); Lymphocytes % (Auto) 42 % (10-50); Mean Corpuscular HGB Conc 33.5 g/dl (31.0-37.0); Mean Corpuscular Hemoglobin 33.6 pg (25.0-35.0); Mean Corpuscular Volume 100 fL (80-100); Monocytes # (Auto) 1.1 Thou/mm3 (0.0-0.8); Monocytes % (Auto) 9 % (0-12); Neutrophils # (Auto) 5.6 Thou/mm3 (1.8-7.7); Neutrophils % (Auto) 47 % (37-80); Nucleated Red Blood Cell % 0 /100 WBC (0); Platelet Count 383 Thou/mm3 (140-440); RDW Standard Deviation 50.9 fL (36.4-46.3); Red Blood Count 2.71 Miln/mm3 (4.00-5.20)
[2024-11-08] MEDS: LABETALOL INJ 5 MG/ML VIAL 20 ML 10 MG IVP (06:21)
[2024-11-08 06:42] LABS: Alanine Aminotransferase < 7 U/L (10-49); Albumin, Serum 3.5 gm/dL (3.4-4.8); Albumin/Globulin Ratio 1.2 (1.2-2.2); Alkaline Phosphatase 49 U/L (46-116); Anion Gap 5 (7-16); Aspartate Amino Transferase 23 U/L (0-34); BUN/Creatinine Ratio 33 Ratio (12-20); Bilirubin,Total 0.3 mg/dL (0.3-1.2); Blood Urea Nitrogen 23 mg/dL (9-23); Calcium 9.4 mg/dL (8.3-10.6); Calcium (Corrected) 9.8 mg/dL (8.5-10.1); Carbon Dioxide 38.1 mMol/L (20.0-31.0); Chloride 90 mMol/L (98-107); Creatinine (Component) 0.7 mg/dL (0.6-1.3); Glucose 145 mg/dL (74-106); Osmolality,Calculated 273 (275-295); Phosphorous 4.6 mg/dL (2.4-5.1); Potassium 4.5 mMol/L (3.4-5.1); Sodium 133 mMol/L (136-145); Total Protein 6.5 gm/dL (5.7-8.2); eGFR > 60 See Note
--- NOTE | 2024-11-08 08:14 | PC.NURSE ---
Patient arrived to unit via bed per NOE Spears with RT at bedside. Patient on bipap. Patient awake and alert. Vital signs stable: BP 153/85, heart rate 88.
[2024-11-08] MEDS: PANTOPRAZOLE 40 MG TABLET PO (08:28)
[2024-11-08] MEDS: CLOPIDOGREL BISULFATE 75 MG TABLET PO (08:28)
[2024-11-08] MEDS: SODIUM CHLORIDE 1 GM TABLET PO (08:28)
[2024-11-08] MEDS: cefTRIAXone/D5w 2gm 2 GM/50 ML BAG IV (09:07)
--- NOTE | 2024-11-08 10:00 | XR_ITS ---
Examination: AP chest single view Technique one AP portable sitting chest single view Exam date and time: November 08, 2024 1018 hours Comparison November 07, 2024 INDICATIONS: Hypoxia today. FINDINGS: Moderate hyperexpansion Normal heart size Pneumonia left base with small left pleural effusion Right dual lumen central line tip SVC satisfactory position IMPRESSION: Left base pneumonia Small left pleural effusion
[2024-11-08] MEDS: predniSONE 20 MG TABLET 40 MG PO (11:18)
--- NOTE | 2024-11-08 11:55 | ESPR_ITS ---
<Statement entered by Loreto Estrella MD - 11/08/24 12:04> I discussed with and supervised my co-resident involved in the care of this patient. I agree with the assessment and plan as documented above. This morning when patient was taken off BIPAP, she desaturated down to the 70s. She was placed on NC and saturation improved. Will get CXR to assess for etiology of hypoxia and wean O2 as tolerated. At bedside, patient is awake, sitting upright. FOB negative and Hb stable. If patient oxygen saturations remain stable, anticipate discharge to SNF within the next 24-48 hours. Loreto Estrella MD PGY-3 Documentation for date of: 11/08/24 Subjective Subjective Interval history: Patient was seen at bedside this morning. No overnight events. Patient was on the BiPAP all night, but when it was taken out this morning she desaturated to 70%. At this time patient was laying on her back and she did not have any oxygen administration when she desaturated, asked nurse placed patient on nasal cannula 5 L. After the patient was started on nasal cannula she desaturated to 100% and then titrated to 2 L and patient was still saturating well. Ordered chest x-ray which showed a small left pleural effusion and some left base pneumonia and start the patient back on prednisone 40 mg for 14 days. Will see if patient continues to saturate well on nasal cannula and most likely will discharge in the next 24 to 48 hours as patient's FOBT was negative Exam Vital Signs Temp Pulse Resp BP Pulse Ox O2 Del Method O2 Flow Rate 96.9 F 90 21 H 153/85 H 97 BiPAP 3 11/08/24 08:00 11/08/24 08:00 11/08/24 08:00 11/08/24 08:00 11/08/24 08:00 11/08/24 08:00 11/07/24 19:29 FiO2 30 11/08/24 08:00 Narrative Exam General: A/O x3, no acute distress, ill appearing thin elderly on NC. Eyes: PERRL, EOMI. Anicteric, vision grossly intact. Ears: No ear pain, no ear discharge, Hearing impaired Nose: No nasal discharge. Mouth/Throat: Dry mucous membranes Neck: Neck supple, non-tender, no cervical lymphadenopathy. Lungs: Clear АНДРЕЙ, No accessory muscle use, on Bipap Cardio: Normal S1/S2, regular rhythm, no murmurs, b/L JVD, Abdomen: Soft, non-tender, no palpable masses, peristalsis present, no guarding or rebound. Extremities: no significant deformities, no peripheral edema , non-tender Skin: АНДРЕЙ LE venous stasis changes and L UE with red discoloration from elbow level to wrist. Neuro: No focal neurological deficits. motor and sensory intact Psych: Cooperative, appropriate mood and effect. Objective Labs 11/08/24 04:40 11/08/24 04:40 Labs: Laboratory Results - last 24 hr 11/07/24 11/08/24 11/08/24 14:54 04:17 04:40 WBC 12.0 H D RBC 2.71 L Hgb 9.1 L Hct 27.2 L MCV 100 MCH 33.6 MCHC 33.5 RDW Std Deviation 50.9 H Plt Count 383 D Neut % (Auto) 47 Lymph % (Auto) 42 Hughes % (Auto) 9 Eos % (Auto) 1 Baso % (Auto) 0 Neut # (Auto) 5.6 Lymph # (Auto) 5.0 H Hughes # (Auto) 1.1 H Eos # (Auto) 0.1 Baso # (Auto) 0.0 Immature Gran # (Auto) 0.09 H Absolute Nucleated RBC 0.00 Immature Gran % 1 H Nucleated RBC % 0 Sodium 131 L 133 L Potassium 4.2 4.5 Chloride 93 L 90 L Carbon Dioxide 37.4 H 38.1 H Anion Gap 1 L 5 L BUN 29 H 23 Creatinine 0.7 0.7 Estim Creat Clear Calc 50.0 L 50.0 L eGFR > 60 > 60 BUN/Creatinine Ratio 41 H 33 H Glucose 154 H D 145 H Calculated Osmolality 271 L 273 L Calcium 9.0 9.4 Corrected Calcium 9.6 9.8 Phosphorus 4.3 4.6 Magnesium 1.7 2.0 Total Bilirubin 0.3 AST 23 ALT < 7 L Alkaline Phosphatase 49 D Total Protein 6.5 Albumin 3.2 L 3.5 Globulin 3.0 Albumin/Globulin Ratio 1.2 Stool Occult Blood Negative ABG Interpretation ABG results: 10/28/24 10/30/24 10/30/24 22:30 04:30 06:40 ABG pH 7.35 7.27 L 7.26 L ABG pCO2 62 H 76 H* D 75 H* ABG pO2 93 95 103 ABG HCO3 34 H 35 H 34 H ABG O2 Saturation 96 97 98 ABG Base Excess 7 H 6 H 5 H 10/30/24 10/30/24 10/30/24 11:00 14:47 17:32 ABG pH 7.21 L 7.32 L D 7.35 ABG pCO2 81 H* 61 H D 56 H ABG pO2 106 121 H 106 ABG HCO3 33 H 31 H 31 H ABG O2 Saturation 98 98 98 ABG Base Excess 3 4 H 4 H 11/02/24 11/03/24 18:32 10:15 ABG pH 7.34 L 7.42 ABG pCO2 67 H 61 H ABG pO2 106 238 H D ABG HCO3 36 H 39 H ABG O2 Saturation 99 H 99 H ABG Base Excess 8 H 13 H Quality Measures Quality Measures sepsis Current suspected stage: ruled out Possible source: unknown Blood cultures ordered: yes Antibiotic ordered: Yes Advance care planning discussed with:: patient Assessment & Plan Assessment Current Active Medications: Generic Name Dose Route Start Last Admin Trade Name Freq PRN Reason Stop Dose Admin Acetaminophen 650 mg 10/29/24 03:16 Acetaminophen 325 Mg Tablet PO 11/28/24 03:15 Q6H PRN PAIN SCALE 1-3 (mild Acetaminophen 650 mg 10/29/24 03:16 Acetaminophen 325 Mg Tablet PO 11/28/24 03:15 Q6H PRN Fever >100 Protocol Acetaminophen/Codeine Phosphate 1 tab 11/06/24 11:05 11/08/24 03:52 Acetaminophen W/Cod 300-30 Tablet PO 11/11/24 11:04 1 tab Q6HR PRN Administration PAIN Protocol Clopidogrel Bisulfate 75 mg 10/29/24 09:00 11/08/24 08:28 Clopidogrel Bisulfate 75 Mg Tablet PO 11/28/24 08:59 75 mg QDAY LELE Administration Guaifenesin 100 mg 11/01/24 17:00 11/08/24 11:21 Guaifenesin Syrup 200 Mg/10 Ml Udc PO 12/01/24 16:59 Not Given QID LELE Protocol Heparin Sodium (Porcine) 5,000 unit 10/29/24 06:00 11/08/24 05:40 Heparin Sod Inj 5000 Unit/Ml Vial SC 11/12/24 05:59 5,000 unit Q8HR LELE Administration Ceftriaxone Sodium/Dextrose 2 gm in 50 mls @ 100 mls/hr 11/05/24 09:45 11/08/24 09:07 Rocephin/D5w 2gm IV 11/15/24 18:04 100 mls/hr QDAY LELE Administration Ipratropium [place] 0.5 mg 10/31/24 19:00 11/08/24 06:59 Ipratropium Rt 0.5 Mg/ 2.5 Ml Nebu INH 11/30/24 18:59 0.5 mg Q6HRRT LELE Administration Lactulose 20 gm 11/07/24 22:00 11/08/24 05:41 Lactulose Syrup 20 Gm/30 Ml Udc PO 12/07/24 21:59 Not Given TID LELE Protocol Levalbuterol HCl 1.25 mg 10/31/24 19:00 11/08/24 06:59 Levalbuterol Rt 1.25 Mg/0.5 Ml Nebu INH 11/30/24 18:59 1.25 mg Q6HRRT LELE Administration Lidocaine 1 patch 11/06/24 05:29 Lidocaine 5% 1 Patch TOP 12/06/24 05:04 Q24H PRN Back Pain Protocol Melatonin 6 mg 10/30/24 21:00 11/07/24 21:01 Melatonin 3 Mg Tablet PO 11/29/24 20:59 6 mg HS LELE Administration Ondansetron HCl 4 mg 10/29/24 03:16 Ondansetron Inj 2 Mg/Ml Inj 2 Ml IV 11/28/24 03:15 Q6H PRN NAUSEA OR VOMITING Protocol Pantoprazole Sodium 40 mg 11/06/24 09:00 11/08/24 08:28 Pantoprazole 40 Mg Tablet PO 12/06/24 08:59 40 mg QDAY LELE Administration Protocol Pharmacy Consult 1 each 10/30/24 16:45 Pharmacy Renal Dose Adjustment 1 Ea XX 11/29/24 16:44 QDAY PRN PROTOCOL Prednisone 40 mg 11/08/24 10:00 11/08/24 11:18 Prednisone 20 Mg Tablet PO 12/08/24 09:59 40 mg QDAY LELE Administration Sennosides 1 tab 10/29/24 04:30 Senna/Docusate Sod 1 Tab Tablet PO 11/28/24 04:29 QDAY PRN CONSTIPATION Protocol Sodium Chloride 3 ml 10/31/24 16:00 Sodium Chloride Rt Bhavana 0.9% 3 Ml Nebu INH 11/30/24 15:59 PRN PRN SOLN Sodium Chloride 1 gm 11/04/24 09:00 11/08/24 08:28 Sodium Chloride 1 Gm Tablet PO 12/04/24 08:59 1 gm DAILY LELE Administration Plan 79-year-old female with past medical history of COPD (2 L O2 at home), HFpEF (55 to 60% on 2022), hypertension, CVA, lymphoma currently on remission, chronic back pain on narcotics, and chronic constipation, and PAD who was admitted to the hospital on 10/29/2024 due to acute on chronic hypoxic respiratory failure likely secondary to COPD exacerbation in the setting of community-acquired pneumonia. #Macrocytic normochromic anemia ?Patient's hemoglobin today is 9.1 when compared from her initial hemoglobin of 11.2 on admission. ? Patient apparently had some dark stools around 2 days ago ? No active signs of bleeding Plan: ? FOBT negative ? Will transfuse hemoglobin less than 7 ? Will continue to monitor #Acute on chronic hypoxic and hypercapnic respiratory failure likely secondary to #COPD exacerbation in the setting of #Pneumonia, RSV positive and Pseudomonas #Respiratory acidosis, improving #Hx of COPD #MSSA bacteremia #E. Faecalis in urine #L pleural effusion ? Patient came in initially with complaints of cough, shortness of breath, and increased requirements of oxygen. ? Patient has a history of COPD ?Patient met SIRS 4 out of 4 criteria on admission, but there was no signs of endorgan damage ? qSOFA score of 1 ? Initial chest x-ray showed vascular congestion ?Initial Chest CTA showed bilateral pneumonia ?Repeat chest x-ray on 10/30/2024 showed no pneumonia pulmonary edema ? Latest ABG showed pH 7.32, pCO2 61, pO2 121 - Rocephin [10/29/2024?11/01/2024] ? Blood culture grew MSSA ? Urine cultures grew Enterococcus faecalis ? Sputum cultures grew Pseudomonas -DC'd azithromycin and Zosyn ? DC'd methylprednisolone ?Finished Doxycycline 100 mg BID [11/02/2024-11/05/2024] - 11/08/2024 chest x-ray which showed a small left pleural effusion and some left base pneumonia Plan: - Continue Rocephin [11/05/2024-11/15/2024] by ID -Prednisone 40mg qdya for 14 days [11/08-11/22/2024] ? Continue breathing treatments ? Director Of Content Marketing consulted, appreciate recommendations ? ID consulted, appreciate commendations ?Will continue to monitor #Hypoosmolar hyponatremia, chronic ?Patient came in with sodium of 127, currently 133. ? Patient sodium appears to be low in the past was 122 on September. ? DDx includes SIADH versus dehydration versus medication induced as he was on hydrochlorothiazide and metolazone ?Urine sodium less than 10 Plan: ? Fluid restrictions - Na tab qday ? Holding hydrochlorothiazide metolazone ?Will continue to monitor #Hyperkalemia ? Patient potassium yesterday was 5.6 and down trended to 5 point 2 in the evening ? Potassium today 4.5 Plan: ? Hold Entresto ? Will continue to monitor #Hx of HFpEF (55% on 10/2023) ?Patient came in initially with complaints of shortness of breath and requiring increased levels of oxygen ? Patient does not seem to be in CHF exacerbation at this time she does not appear to be fluid overloaded and there is no pulmonary edema. ? BNP initially was 1001 ? Echo showed 55% EF Plan: ?Will hold Entresto given hyponatremia and hyperkalemia ? Fluid restrictions ? Cardiac diet ? Will continue to monitor #Hypertensive urgency #Hx of hypertension ? Patient came in with blood pressure of 207/109 ? Patient's blood pressure well controlled Plan: ? Will hold Entresto given hyponatremia and hyperkalemia ? 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 #Hx of CVA #Hx of PAD ? Continue Plavix #Hx of chronic constipation in the setting of #Chronic back pain on narcotics ? Continue patient's Tylenol?codeine 1 tablet 3 times daily prn for pain ? Continue scheduled daily senna and MiraLAX Disposition: Patient seen in telemetry, continue Rocephin to cover MSSA, Pseudo, E. faecalis. Continue Na tab, FOBT negative, pending stable O2 Diet: Dysphagia 3 GI prophylaxis: protonix DVT prophylaxis: heparin sc Code: full code Case disclosed with Attending Dr. Chapa and my senior Dr. Estrella PGY3 Naresh Camargo PGY1 Attending Provider Attestation/Addendum I have discussed and was present for the essential components of the history, physical examination, diagnosis, and treatment plan with the resident. I agree with the patient's care as documented by the resident and amended herein by me. Favio Chapa DO. Although this document has been carefully reviewed, there may still be some phonetic and other typographical errors. These errors are purely grammatical due to imperfections in the software program and should not be construed in any way to compromise the substance of the patient's medical care during this visit.
[2024-11-08] MEDS: LACTULOSE SYRUP 20 GM/30 ML UDC PO ×2 (14:26→21:54)
--- NOTE | 2024-11-08 15:41 | PC.SS ---
SS update: Patient desaturated over night, not ready for d/c. Updated Melany at [facility] to make aware.
[2024-11-08] MEDS: METOPROLOL SUCCINATE XL 25 MG TABCR PO (17:25)
--- NOTE | 2024-11-08 18:06 | PC.NURSE ---
Dr. Estrella made aware of patients current blood pressure status post administration of metoprolol. BP 163/109 with a heart rate of 118. Per Dr. Estrella blood pressure is okay for right now, we will see if there are any PRN medications we can get on board. Night team will be notified.
[2024-11-08] MEDS: MELATONIN 3 MG TABLET 6 MG PO (21:54)
[2024-11-09] VITALS (15 sets, daily range): BP systolic 134–169; BP diastolic 75–102; PULSE 96–128; RESP 17–31; TEMP 36.1–37.2; O2SAT 90–100; BMI 20.9
[2024-11-09] MEDS: IPRATROPIUM RT 0.5 MG/ 2.5 ML NEBU INH ×4 (01:39→19:25)
[2024-11-09] MEDS: LEVALBUTEROL RT 1.25 MG/0.5 ML NEBU INH ×4 (01:39→19:25)
[2024-11-09] MEDS: HEPARIN SOD INJ 5000 UNIT/ML VIAL SC ×3 (05:57→22:21)
[2024-11-09 05:58] LABS: Basophils % (Auto) 0 % (0-2.5); Eosinophils % (Auto) 0 % (0-10); Hematocrit 26.9 % (36.0-46.0); Hemoglobin 9.3 g/dL (12.0-16.0); Immature Granulocytes % (Auto) 1 % (0-0); Immature Granulocytes Auto 0.06 Thou/mm3 (0.00-0.00); Lymphocytes # (Auto) 1.9 Thou/mm3 (1.0-4.8); Lymphocytes % (Auto) 17 % (10-50); Mean Corpuscular HGB Conc 34.6 g/dl (31.0-37.0); Mean Corpuscular Hemoglobin 34.4 pg (25.0-35.0); Mean Corpuscular Volume 100 fL (80-100); Monocytes # (Auto) 0.7 Thou/mm3 (0.0-0.8); Monocytes % (Auto) 6 % (0-12); Neutrophils # (Auto) 8.7 Thou/mm3 (1.8-7.7); Neutrophils % (Auto) 76 % (37-80); Nucleated Red Blood Cell % 0 /100 WBC (0); Platelet Count 347 Thou/mm3 (140-440); RDW Standard Deviation 49.2 fL (36.4-46.3); White Blood Count 11.5 Thou/mm3 (3.6-11.0)
[2024-11-09 06:40] LABS: Alanine Aminotransferase 13 U/L (10-49); Albumin, Serum 3.7 gm/dL (3.4-4.8); Albumin/Globulin Ratio 1.1 (1.2-2.2); Alkaline Phosphatase 52 U/L (46-116); Anion Gap 9 (7-16); Aspartate Amino Transferase 29 U/L (0-34); BUN/Creatinine Ratio 29 Ratio (12-20); Bilirubin,Total 0.2 mg/dL (0.3-1.2); Blood Urea Nitrogen 23 mg/dL (9-23); Calcium 10.1 mg/dL (8.3-10.6); Calcium (Corrected) 10.3 mg/dL (8.5-10.1); Chloride 90 mMol/L (98-107); Creatinine (Component) 0.8 mg/dL (0.6-1.3); Estimated Creatinine Clearance 43.7 mL/min (>60); Globulin 3.3 gm/dL (2.3-3.5); Glucose 140 mg/dL (74-106); Osmolality,Calculated 268 (275-295); Phosphorous 4.7 mg/dL (2.4-5.1); Sodium 131 mMol/L (136-145); eGFR > 60 See Note
[2024-11-09] MEDS: cefTRIAXone/D5w 2gm 2 GM/50 ML BAG IV (09:02)
[2024-11-09] MEDS: SODIUM CHLORIDE 1 GM TABLET PO (09:02)
[2024-11-09] MEDS: CLOPIDOGREL BISULFATE 75 MG TABLET PO (09:03)
[2024-11-09] MEDS: PANTOPRAZOLE 40 MG TABLET PO (09:03)
[2024-11-09] MEDS: amLODIPine BESYLATE 5 MG TABLET PO (09:03)
[2024-11-09] MEDS: predniSONE 20 MG TABLET 40 MG PO (09:03)
[2024-11-09] MEDS: METOPROLOL SUCCINATE XL 25 MG TABCR PO (09:04)
[2024-11-09] MEDS: guaiFENesin SYRUP 200 MG/10 ML UDC 100 MG PO ×3 (12:40→22:18)
[2024-11-09] MEDS: FUROSEMIDE INJ 10 MG/ML VIAL 2 ML 20 MG IVP (14:16)
[2024-11-09] MEDS: LACTULOSE SYRUP 20 GM/30 ML UDC PO ×2 (14:30→22:19)
--- NOTE | 2024-11-09 15:53 | PC.SS ---
Rounding note: patient to d/c tomorrow. Updated Melany at [facility].
--- NOTE | 2024-11-09 16:28 | ESPR_ITS ---
<Statement entered by Loreto Estrella MD - 11/09/24 17:02> I discussed with and supervised my co-resident involved in the care of this patient. I agree with the assessment and plan as documented above. Patient intermittently on NC and BIPAP. Lungs sound congested on auscultation. Extra dose of Lasix 20 IV given. Will try to optimize lungs and get patient back on baseline O2 prior to discharge. Continuing IV antibiotics for MSSA bacteremia through PICC line until Nov 15. Hemoglobin in stable, FOBT negative. Spoke to patient's son and daughter-in law at bedside regarding patient and overall prognosis. Explained BIPAP and patient's COPD. Family verbalized understanding of progression of COPD and are discussing possibility of hospice at home or at SNF, versus continuing regular management. Anticipate discharge within 24-48 hours to SNF ([facility]) pending respiratory status and if able to have patient off BIPAP during the day reliabily and be at baseline O2 (2L). Loreto Estrella MD PGY-3 Documentation for date of: 11/09/24 Subjective Subjective Interval history: Patient seen and examined at bedside. She remains on BiPAP saturating at 90- 94%. Continue to hold Entresto and metoprolol in setting of hyperkalemia and CHF exacerbation. She was started on prednisone 40 mg for 14 days after repeat cxr showed no significant improvement. Vitals significant for htn 168/100, tachy 110. Wheezing auscultated bilaterally. Was given 20mg IV Lasix x1. Started amlodipine 5 mg daily. Patient's family was updated and are considering hospice at this time. Continue rocephin for until 11/15 per ID Exam Vital Signs Temp Pulse Resp BP Pulse Ox O2 Del Method O2 Flow Rate 97.1 F 110 H 31 H 159/100 H 94 L BiPAP 6 11/09/24 16:00 11/09/24 16:00 11/09/24 16:00 11/09/24 16:00 11/09/24 16:00 11/09/24 16:00 11/09/24 16:00 FiO2 30 11/09/24 16:00 Narrative Exam General: A/O x3, no acute distress, ill appearing thin elderly on NC. Eyes: PERRL, EOMI. Anicteric, vision grossly intact. Ears: No ear pain, no ear discharge, Hearing impaired Nose: No nasal discharge. Mouth/Throat: Dry mucous membranes Neck: Neck supple, non-tender, no cervical lymphadenopathy. Lungs: Clear АНДРЕЙ, No accessory muscle use, on Bipap Cardio: Normal S1/S2, regular rhythm, no murmurs, b/L JVD, Abdomen: Soft, non-tender, no palpable masses, peristalsis present, no guarding or rebound. Extremities: no significant deformities, no peripheral edema , non-tender Skin: АНДРЕЙ LE venous stasis changes and L UE with red discoloration from elbow level to wrist. Neuro: No focal neurological deficits. motor and sensory intact Psych: Cooperative, appropriate mood and effect. Objective Labs 11/10/24 05:10 11/10/24 05:10 Labs: Laboratory Results - last 24 hr 11/09/24 05:12 WBC 11.5 H RBC 2.70 L Hgb 9.3 L Hct 26.9 L MCV 100 MCH 34.4 MCHC 34.6 RDW Std Deviation 49.2 H Plt Count 347 D Neut % (Auto) 76 Lymph % (Auto) 17 [place] % (Auto) 6 Eos % (Auto) 0 Baso % (Auto) 0 Neut # (Auto) 8.7 H Lymph # (Auto) 1.9 Bates # (Auto) 0.7 Eos # (Auto) 0.0 Baso # (Auto) 0.0 Immature Gran # (Auto) 0.06 H Absolute Nucleated RBC 0.00 Immature Gran % 1 H Nucleated RBC % 0 Sodium 131 L Potassium 5.0 D Chloride 90 L Carbon Dioxide 32.0 H Anion Gap 9 BUN 23 Creatinine 0.8 Estim Creat Clear Calc 43.7 L eGFR > 60 BUN/Creatinine Ratio 29 H Glucose 140 H Calculated Osmolality 268 L Calcium 10.1 Corrected Calcium 10.3 H Phosphorus 4.7 Magnesium 2.0 Total Bilirubin 0.2 L AST 29 ALT 13 Alkaline Phosphatase 52 Total Protein 7.0 Albumin 3.7 Globulin 3.3 Albumin/Globulin Ratio 1.1 L ABG Interpretation ABG results: 10/28/24 10/30/24 10/30/24 22:30 04:30 06:40 ABG pH 7.35 7.27 L 7.26 L ABG pCO2 62 H 76 H* D 75 H* ABG pO2 93 95 103 ABG HCO3 34 H 35 H 34 H ABG O2 Saturation 96 97 98 ABG Base Excess 7 H 6 H 5 H 10/30/24 10/30/24 10/30/24 11:00 14:47 17:32 ABG pH 7.21 L 7.32 L D 7.35 ABG pCO2 81 H* 61 H D 56 H ABG pO2 106 121 H 106 ABG HCO3 33 H 31 H 31 H ABG O2 Saturation 98 98 98 ABG Base Excess 3 4 H 4 H 11/02/24 11/03/24 18:32 10:15 ABG pH 7.34 L 7.42 ABG pCO2 67 H 61 H ABG pO2 106 238 H D ABG HCO3 36 H 39 H ABG O2 Saturation 99 H 99 H ABG Base Excess 8 H 13 H Quality Measures Quality Measures sepsis Current suspected stage: sepsis Possible source: unknown Blood cultures ordered: yes Antibiotic ordered: Yes Advance care planning discussed with:: child Assessment & Plan Assessment Current Active Medications: Generic Name Dose Route Start Last Admin Trade Name Freq PRN Reason Stop Dose Admin Acetaminophen 650 mg 10/29/24 03:16 Acetaminophen 325 Mg Tablet PO 11/28/24 03:15 Q6H PRN PAIN SCALE 1-3 (mild Acetaminophen 650 mg 10/29/24 03:16 Acetaminophen 325 Mg Tablet PO 11/28/24 03:15 Q6H PRN Fever >100 Protocol Acetaminophen/Codeine Phosphate 1 tab 11/06/24 11:05 11/08/24 03:52 Acetaminophen W/Cod 300-30 Tablet PO 11/11/24 11:04 1 tab Q6HR PRN Administration PAIN Protocol Amlodipine Besylate 5 mg 11/09/24 09:00 11/09/24 09:03 Amlodipine Besylate 5 Mg Tablet PO 12/09/24 08:59 5 mg QDAY LELE Administration Clopidogrel Bisulfate 75 mg 10/29/24 09:00 11/09/24 09:03 Clopidogrel Bisulfate 75 Mg Tablet PO 11/28/24 08:59 75 mg QDAY LELE Administration Guaifenesin 100 mg 11/01/24 17:00 11/09/24 12:40 Guaifenesin Syrup 200 Mg/10 Ml Udc PO 12/01/24 16:59 100 mg QID LELE Administration Protocol Heparin Sodium (Porcine) 5,000 unit 10/29/24 06:00 11/09/24 14:31 Heparin Sod Inj 5000 Unit/Ml Vial SC 11/12/24 05:59 5,000 unit Q8HR LELE Administration Ceftriaxone Sodium/Dextrose 2 gm in 50 mls @ 100 mls/hr 11/05/24 09:45 11/09/24 09:02 Rocephin/D5w 2gm IV 11/15/24 18:04 100 mls/hr QDAY LELE Administration Ipratropium [place] 0.5 mg 10/31/24 19:00 11/09/24 12:51 Ipratropium Rt 0.5 Mg/ 2.5 Ml Nebu INH 11/30/24 18:59 0.5 mg Q6HRRT LELE Administration Lactulose 20 gm 11/07/24 22:00 11/09/24 14:30 Lactulose Syrup 20 Gm/30 Ml Udc PO 12/07/24 21:59 20 gm TID LELE Administration Protocol Levalbuterol HCl 1.25 mg 10/31/24 19:00 11/09/24 12:51 Levalbuterol Rt 1.25 Mg/0.5 Ml Nebu INH 11/30/24 18:59 1.25 mg Q6HRRT LELE Administration Lidocaine 1 patch 11/06/24 05:29 Lidocaine 5% 1 Patch TOP 12/06/24 05:04 Q24H PRN Back Pain Protocol Melatonin 6 mg 10/30/24 21:00 11/08/24 21:54 Melatonin 3 Mg Tablet PO 11/29/24 20:59 6 mg HS LELE Administration Metoprolol Succinate 25 mg 11/08/24 17:15 11/09/24 09:04 Metoprolol Succinate Xl 25 Mg Tabcr PO 12/08/24 17:14 25 mg QDAY LELE Administration Ondansetron HCl 4 mg 10/29/24 03:16 Ondansetron Inj 2 Mg/Ml Inj 2 Ml IV 11/28/24 03:15 Q6H PRN NAUSEA OR VOMITING Protocol Pantoprazole Sodium 40 mg 11/06/24 09:00 11/09/24 09:03 Pantoprazole 40 Mg Tablet PO 12/06/24 08:59 40 mg QDAY LELE Administration Protocol Pharmacy Consult 1 each 10/30/24 16:45 Pharmacy Renal Dose Adjustment 1 Ea XX 11/29/24 16:44 QDAY PRN PROTOCOL Prednisone 40 mg 11/08/24 10:00 11/09/24 09:03 Prednisone 20 Mg Tablet PO 11/21/24 09:01 40 mg QDAY LELE Administration Sennosides 1 tab 10/29/24 04:30 Senna/Docusate Sod 1 Tab Tablet PO 11/28/24 04:29 QDAY PRN CONSTIPATION Protocol Sodium Chloride 3 ml 10/31/24 16:00 Sodium Chloride Rt Bhavana 0.9% 3 Ml Nebu INH 11/30/24 15:59 PRN PRN SOLN Sodium Chloride 1 gm 11/04/24 09:00 11/09/24 09:02 Sodium Chloride 1 Gm Tablet PO 12/04/24 08:59 1 gm DAILY LELE Administration Plan 79-year-old female with past medical history of COPD (2 L O2 at home), HFpEF (55 to 60% on 2022), hypertension, CVA, lymphoma currently on remission, chronic back pain on narcotics, and chronic constipation, and PAD who was admitted to the hospital on 10/29/2024 due to acute on chronic hypoxic respiratory failure likely secondary to COPD exacerbation in the setting of community-acquired pneumonia. #Macrocytic normochromic anemia ?Patient's hemoglobin today is 9.1 when compared from her initial hemoglobin of 11.2 on admission. ? Patient apparently had some dark stools around 2 days ago ? No active signs of bleeding Plan: ? FOBT negative ? Will transfuse hemoglobin less than 7 ? Will continue to monitor #Acute on chronic hypoxic and hypercapnic respiratory failure likely secondary to #COPD exacerbation in the setting of #Pneumonia, RSV positive and Pseudomonas #Respiratory acidosis, improving #Hx of COPD #MSSA bacteremia #E. Faecalis in urine #L pleural effusion ? Patient came in initially with complaints of cough, shortness of breath, and increased requirements of oxygen. ? Patient has a history of COPD ?Patient met SIRS 4 out of 4 criteria on admission, but there was no signs of endorgan damage ? qSOFA score of 1 ? Initial chest x-ray showed vascular congestion ?Initial Chest CTA showed bilateral pneumonia ?Repeat chest x-ray on 10/30/2024 showed no pneumonia pulmonary edema ? Latest ABG showed pH 7.32, pCO2 61, pO2 121 - Rocephin [10/29/2024?11/01/2024] ? Blood culture grew MSSA ? Urine cultures grew Enterococcus faecalis ? Sputum cultures grew Pseudomonas -DC'd azithromycin and Zosyn ? DC'd methylprednisolone ?Finished Doxycycline 100 mg BID [11/02/2024-11/05/2024] - 11/08/2024 chest x-ray which showed a small left pleural effusion and some left base pneumonia Plan: - Continue Rocephin [11/05/2024-11/15/2024] by ID -Prednisone 40mg qdya for 14 days [11/08-11/22/2024] ? Continue breathing treatments ? Healthcare Administration Internship consulted, appreciate recommendations ? ID consulted, appreciate commendations ?Will continue to monitor #Hypoosmolar hyponatremia, chronic ?Patient came in with sodium of 127, currently 133. ? Patient sodium appears to be low in the past was 122 on September. ? DDx includes SIADH versus dehydration versus medication induced as he was on hydrochlorothiazide and metolazone ?Urine sodium less than 10 Plan: ? Fluid restrictions - Na tab qday ? Holding hydrochlorothiazide metolazone ?Will continue to monitor #Hyperkalemia ? Patient potassium yesterday was 5.6 and down trended to 5 point 2 in the evening ? Potassium today 4.5 Plan: ? Hold Entresto ? Will continue to monitor #Hx of HFpEF (55% on 10/2023) ?Patient came in initially with complaints of shortness of breath and requiring increased levels of oxygen ? Patient does not seem to be in CHF exacerbation at this time she does not appear to be fluid overloaded and there is no pulmonary edema. ? BNP initially was 1001 ? Echo showed 55% EF Plan: ?Will hold Entresto given hyponatremia and hyperkalemia ? Fluid restrictions ? Cardiac diet ? Will continue to monitor #Hypertensive urgency #Hx of hypertension ? Patient came in with blood pressure of 207/109 ? Patient's blood pressure well controlled -start amlodipine 5mg daily Plan: ? Will hold Entresto given hyponatremia and hyperkalemia ? 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 #Hx of CVA #Hx of PAD ? Continue Plavix #Hx of chronic constipation in the setting of #Chronic back pain on narcotics ? Continue patient's Tylenol?codeine 1 tablet 3 times daily prn for pain ? Continue scheduled daily senna and MiraLAX Disposition: Rocephin for bacteremia. Family considering hospice. Diet: Dysphagia 3 GI prophylaxis: protonix DVT prophylaxis: heparin sc Code: full code Case disclosed with Attending Dr. Chapa and my senior Dr. Estrella PGY3 Damaris Ragsdale PGY1 Attending Provider Attestation/Addendum I have discussed and was present for the essential components of the history, physical examination, diagnosis, and treatment plan with the resident. I agree with the patient's care as documented by the resident and amended herein by me. Favio Chapa, DO. Although this document has been carefully reviewed, there may still be some phonetic and other typographical errors. These errors are purely grammatical due to imperfections in the software program and should not be construed in any way to compromise the substance of the patient's medical care during this visit.
[2024-11-09] MEDS: MELATONIN 3 MG TABLET 6 MG PO (22:19)
[2024-11-09 22:27] LABS: Procalcitonin 0.28 ng/ml (0.0-0.49)
[2024-11-10] VITALS (15 sets, daily range): BP systolic 126–157; BP diastolic 73–95; PULSE 91–117; RESP 15–26; TEMP 36.1–37.1; O2SAT 94–100; BMI 21.2
[2024-11-10] MEDS: IPRATROPIUM RT 0.5 MG/ 2.5 ML NEBU INH ×3 (01:07→20:15)
[2024-11-10] MEDS: LEVALBUTEROL RT 1.25 MG/0.5 ML NEBU INH ×3 (01:07→20:15)
[2024-11-10 05:39] LABS: Basophils % (Auto) 0 % (0-2.5); Eosinophils % (Auto) 0 % (0-10); Immature Granulocytes % (Auto) 1 % (0-0); Immature Granulocytes Auto 0.07 Thou/mm3 (0.00-0.00); Lymphocytes # (Auto) 2.5 Thou/mm3 (1.0-4.8); Lymphocytes % (Auto) 21 % (10-50); Mean Corpuscular HGB Conc 33.2 g/dl (31.0-37.0); Mean Corpuscular Hemoglobin 33.5 pg (25.0-35.0); Mean Corpuscular Volume 101 fL (80-100); Monocytes # (Auto) 1.2 Thou/mm3 (0.0-0.8); Monocytes % (Auto) 10 % (0-12); Neutrophils % (Auto) 68 % (37-80); Nucleated Red Blood Cell % 0 /100 WBC (0); Platelet Count 358 Thou/mm3 (140-440); RDW Standard Deviation 50.4 fL (36.4-46.3); Red Blood Count 2.48 Miln/mm3 (4.00-5.20); White Blood Count 11.8 Thou/mm3 (3.6-11.0)
[2024-11-10] MEDS: LACTULOSE SYRUP 20 GM/30 ML UDC PO ×3 (06:02→21:20)
[2024-11-10] MEDS: HEPARIN SOD INJ 5000 UNIT/ML VIAL SC ×3 (06:02→21:20)
[2024-11-10] MEDS: guaiFENesin SYRUP 200 MG/10 ML UDC 100 MG PO ×4 (06:02→21:20)
[2024-11-10 06:03] LABS: Hemoglobin 8.3 g/dL (12.0-16.0)
[2024-11-10 06:12] LABS: Alanine Aminotransferase 12 U/L (10-49); Albumin, Serum 3.4 gm/dL (3.4-4.8); Albumin/Globulin Ratio 1.2 (1.2-2.2); Alkaline Phosphatase 45 U/L (46-116); Anion Gap 3 (7-16); Aspartate Amino Transferase 27 U/L (0-34); BUN/Creatinine Ratio 35 Ratio (12-20); Bilirubin,Total 0.2 mg/dL (0.3-1.2); Blood Urea Nitrogen 28 mg/dL (9-23); Calcium 9.5 mg/dL (8.3-10.6); Carbon Dioxide 37.7 mMol/L (20.0-31.0); Chloride 89 mMol/L (98-107); Creatinine (Component) 0.8 mg/dL (0.6-1.3); Estimated Creatinine Clearance 43.7 mL/min (>60); Globulin 2.9 gm/dL (2.3-3.5); Glucose 105 mg/dL (74-106); Magnesium 1.7 mg/dL (1.6-2.6); Osmolality,Calculated 266 (275-295); Phosphorous 3.8 mg/dL (2.4-5.1); Potassium 4.6 mMol/L (3.4-5.1); Sodium 130 mMol/L (136-145); Total Protein 6.3 gm/dL (5.7-8.2); eGFR > 60 See Note
[2024-11-10] MEDS: SODIUM CHLORIDE 1 GM TABLET PO (08:30)
[2024-11-10] MEDS: predniSONE 20 MG TABLET 40 MG PO (08:30)
[2024-11-10] MEDS: CLOPIDOGREL BISULFATE 75 MG TABLET PO (08:30)
[2024-11-10] MEDS: amLODIPine BESYLATE 5 MG TABLET PO (08:30)
[2024-11-10] MEDS: PANTOPRAZOLE 40 MG TABLET PO (08:30)
[2024-11-10] MEDS: METOPROLOL SUCCINATE XL 25 MG TABCR PO (08:31)
[2024-11-10] MEDS: cefTRIAXone/D5w 2gm 2 GM/50 ML BAG IV (09:24)
--- NOTE | 2024-11-10 11:22 | ESPR_ITS ---
Documentation for date of: 11/10/24 Subjective Subjective Interval history: Patient seen and examined at bedside. No complaints but is eager to leave. Family was contacted, and spoke over the phone with daughter in law Lisa. Patient's condition and prognosis were fully explained and all concerns/questions were addressed. Family is open to hospice for care. They will speak with patient and come to decision for her wishes. WBCs stable, Hb 8.3, sodium 130, bicarb slightly elevated 37 likely due to BiPAP use. If sodium continue to drop, will fluid restrict. Exam Vital Signs Temp Pulse Resp BP Pulse Ox O2 Del Method O2 Flow Rate 97.0 F 98 24 H 146/86 H 94 L BiPAP 4 11/10/24 07:41 11/10/24 10:36 11/10/24 10:36 11/10/24 08:31 11/10/24 10:36 11/10/24 07:41 11/10/24 04:00 FiO2 30 11/10/24 10:36 Narrative Exam General: A/O x3, no acute distress, thin elderly on NC. Eyes: PERRL, EOMI. Anicteric, vision grossly intact. Ears: No ear pain, no ear discharge, Hearing impaired Nose: No nasal discharge. Mouth/Throat: Dry mucous membranes Neck: Neck supple, non-tender, no cervical lymphadenopathy. Lungs: Clear АНДРЕЙ, No accessory muscle use, on Bipap Cardio: Normal S1/S2, regular rhythm, no murmurs, b/L JVD, Abdomen: Soft, non-tender, no palpable masses, peristalsis present, no guarding or rebound. Extremities: no significant deformities, no peripheral edema , non-tender Skin: АНРДЕЙ LE venous stasis changes and L UE with red discoloration from elbow level to wrist. Neuro: No focal neurological deficits. motor and sensory intact Psych: Cooperative, upset, iiritable. Objective Labs 11/10/24 05:10 11/10/24 05:10 Labs: Laboratory Results - last 24 hr 11/09/24 11/10/24 21:30 05:10 WBC 11.8 H RBC 2.48 L Hgb 8.3 L Hct 25.0 L MCV 101 H MCH 33.5 MCHC 33.2 RDW Std Deviation 50.4 H Plt Count 358 Neut % (Auto) 68 Lymph % (Auto) 21 [place] % (Auto) 10 Eos % (Auto) 0 Baso % (Auto) 0 Neut # (Auto) 8.0 H Lymph # (Auto) 2.5 [place] # (Auto) 1.2 H Eos # (Auto) 0.0 Baso # (Auto) 0.0 Immature Gran # (Auto) 0.07 H Absolute Nucleated RBC 0.00 Immature Gran % 1 H Nucleated RBC % 0 Sodium 130 L Potassium 4.6 Chloride 89 L Carbon Dioxide 37.7 H Anion Gap 3 L BUN 28 H Creatinine 0.8 Estim Creat Clear Calc 43.7 L eGFR > 60 BUN/Creatinine Ratio 35 H Glucose 105 Calculated Osmolality 266 L Calcium 9.5 Corrected Calcium 10.0 Phosphorus 3.8 Magnesium 1.7 Total Bilirubin 0.2 L AST 27 ALT 12 Alkaline Phosphatase 45 L Total Protein 6.3 Albumin 3.4 Globulin 2.9 Albumin/Globulin Ratio 1.2 Procalcitonin 0.28 ABG Interpretation ABG results: 10/28/24 10/30/24 10/30/24 22:30 04:30 06:40 ABG pH 7.35 7.27 L 7.26 L ABG pCO2 62 H 76 H* D 75 H* ABG pO2 93 95 103 ABG HCO3 34 H 35 H 34 H ABG O2 Saturation 96 97 98 ABG Base Excess 7 H 6 H 5 H 10/30/24 10/30/24 10/30/24 11:00 14:47 17:32 ABG pH 7.21 L 7.32 L D 7.35 ABG pCO2 81 H* 61 H D 56 H ABG pO2 106 121 H 106 ABG HCO3 33 H 31 H 31 H ABG O2 Saturation 98 98 98 ABG Base Excess 3 4 H 4 H 11/02/24 11/03/24 18:32 10:15 ABG pH 7.34 L 7.42 ABG pCO2 67 H 61 H ABG pO2 106 238 H D ABG HCO3 36 H 39 H ABG O2 Saturation 99 H 99 H ABG Base Excess 8 H 13 H Quality Measures Quality Measures sepsis Current suspected stage: sepsis Possible source: unknown Blood cultures ordered: yes Antibiotic ordered: Yes Advance care planning discussed with:: patient and child Assessment & Plan Assessment Current Active Medications: Generic Name Dose Route Start Last Admin Trade Name Freq PRN Reason Stop Dose Admin Acetaminophen 650 mg 10/29/24 03:16 Acetaminophen 325 Mg Tablet PO 03/05/25 03:15 Q6H PRN PAIN SCALE 1-3 (mild Acetaminophen 650 mg 10/29/24 03:16 Acetaminophen 325 Mg Tablet PO 11/28/24 03:15 Q6H PRN Fever >100 Protocol Acetaminophen/Codeine Phosphate 1 tab 11/06/24 11:05 11/08/24 03:52 Acetaminophen W/Cod 300-30 Tablet PO 11/11/24 11:04 1 tab Q6HR PRN Administration PAIN Protocol Amlodipine Besylate 5 mg 11/09/24 09:00 11/10/24 08:30 Amlodipine Besylate 5 Mg Tablet PO 12/09/24 08:59 5 mg QDAY LELE Administration Clopidogrel Bisulfate 75 mg 10/29/24 09:00 11/10/24 08:30 Clopidogrel Bisulfate 75 Mg Tablet PO 11/28/24 08:59 75 mg QDAY LELE Administration Guaifenesin 100 mg 11/01/24 17:00 11/10/24 06:02 Guaifenesin Syrup 200 Mg/10 Ml Udc PO 12/01/24 16:59 100 mg QID LELE Administration Protocol Heparin Sodium (Porcine) 5,000 unit 10/29/24 06:00 11/10/24 06:02 Heparin Sod Inj 5000 Unit/Ml Vial SC 11/12/24 05:59 5,000 unit Q8HR LELE Administration Ceftriaxone Sodium/Dextrose 2 gm in 50 mls @ 100 mls/hr 11/05/24 09:45 11/10/24 09:24 Rocephin/D5w 2gm IV 11/15/24 18:04 100 mls/hr QDAY LELE Administration Ipratropium [place] 0.5 mg 10/31/24 19:00 11/10/24 07:30 Ipratropium Rt 0.5 Mg/ 2.5 Ml Nebu INH 11/30/24 18:59 0.5 mg Q6HRRT LELE Administration Lactulose 20 gm 11/07/24 22:00 11/10/24 06:02 Lactulose Syrup 20 Gm/30 Ml Udc PO 12/07/24 21:59 20 gm TID LELE Administration Protocol Levalbuterol HCl 1.25 mg 10/31/24 19:00 11/10/24 07:31 Levalbuterol Rt 1.25 Mg/0.5 Ml Nebu INH 11/30/24 18:59 1.25 mg Q6HRRT LELE Administration Lidocaine 1 patch 11/06/24 05:29 Lidocaine 5% 1 Patch TOP 12/06/24 05:04 Q24H PRN Back Pain Protocol Melatonin 6 mg 10/30/24 21:00 11/09/24 22:19 Melatonin 3 Mg Tablet PO 11/29/24 20:59 6 mg HS LELE Administration Metoprolol Succinate 25 mg 11/08/24 17:15 11/10/24 08:31 Metoprolol Succinate Xl 25 Mg Tabcr PO 12/08/24 17:14 25 mg QDAY LELE Administration Ondansetron HCl 4 mg 10/29/24 03:16 Ondansetron Inj 2 Mg/Ml Inj 2 Ml IV 11/28/24 03:15 Q6H PRN NAUSEA OR VOMITING Protocol Pantoprazole Sodium 40 mg 11/06/24 09:00 11/10/24 08:30 Pantoprazole 40 Mg Tablet PO 12/06/24 08:59 40 mg QDAY LELE Administration Protocol Pharmacy Consult 1 each 10/30/24 16:45 Pharmacy Renal Dose Adjustment 1 Ea XX 11/29/24 16:44 QDAY PRN PROTOCOL Prednisone 40 mg 11/08/24 10:00 11/10/24 08:30 Prednisone 20 Mg Tablet PO 11/21/24 09:01 40 mg QDAY LELE Administration Sennosides 1 tab 10/29/24 04:30 Senna/Docusate Sod 1 Tab Tablet PO 11/28/24 04:29 QDAY PRN CONSTIPATION Protocol Sodium Chloride 3 ml 10/31/24 16:00 Sodium Chloride Rt Bhavana 0.9% 3 Ml Nebu INH 11/30/24 15:59 PRN PRN SOLN Sodium Chloride 1 gm 11/04/24 09:00 11/10/24 08:30 Sodium Chloride 1 Gm Tablet PO 12/04/24 08:59 1 gm DAILY LELE Administration Plan 79-year-old female with past medical history of COPD (2 L O2 at home), HFpEF (55 to 60% on 2022), hypertension, CVA, lymphoma currently on remission, chronic back pain on narcotics, and chronic constipation, and PAD who was admitted to the hospital on 10/29/2024 due to acute on chronic hypoxic respiratory failure likely secondary to COPD exacerbation in the setting of community-acquired pneumonia. #Acute on chronic hypoxic and hypercapnic respiratory failure likely secondary to #COPD exacerbation in the setting of #Pneumonia, RSV positive and Pseudomonas #Respiratory acidosis, improving #Hx of COPD #MSSA bacteremia #E. Faecalis in urine #L pleural effusion ? Patient came in initially with complaints of cough, shortness of breath, and increased requirements of oxygen. ? Patient has a history of COPD ?Patient met SIRS 4 out of 4 criteria on admission, but there was no signs of endorgan damage ? qSOFA score of 1 ? Initial chest x-ray showed vascular congestion ?Initial Chest CTA showed bilateral pneumonia ?Repeat chest x-ray on 10/30/2024 showed no pneumonia pulmonary edema ? Latest ABG showed pH 7.32, pCO2 61, pO2 121 - Rocephin [10/29/2024?11/01/2024] ? Blood culture grew MSSA ? Urine cultures grew Enterococcus faecalis ? Sputum cultures grew Pseudomonas -DC'd azithromycin and Zosyn ? DC'd methylprednisolone ?Finished Doxycycline 100 mg BID [11/02/2024-11/05/2024] - 11/08/2024 chest x-ray which showed a small left pleural effusion and some left base pneumonia Plan: - Continue Rocephin [11/05/2024-11/15/2024] by ID -Prednisone 40mg qdya for 14 days [11/08-11/22/2024] ? Continue breathing treatments ? Psychiatric Mental Health Nurse consulted, appreciate recommendations ? ID consulted, appreciate commendations ?Will continue to monitor -family is considering hospice #Hypoosmolar hyponatremia, chronic ?Patient came in with sodium of 127, currently 133. ? Patient sodium appears to be low in the past was 122 on September. ? DDx includes SIADH versus dehydration versus medication induced as he was on hydrochlorothiazide and metolazone ?Urine sodium less than 10 Plan: ? Holding hydrochlorothiazide metolazone ?Will continue to monitor #Macrocytic normochromic anemia ?Patient's hemoglobin today is 9.1 when compared from her initial hemoglobin of 11.2 on admission. ? Patient apparently had some dark stools around 2 days ago ? No active signs of bleeding Plan: ? FOBT negative ? Will transfuse hemoglobin less than 7 ? Will continue to monitor #Hyperkalemia-resolved ? Patient potassium yesterday was 5.6 and down trended to 5 point 2 in the evening Plan: ? Hold Entresto ? Will continue to monitor #Hx of HFpEF (55% on 10/2023) ?Patient came in initially with complaints of shortness of breath and requiring increased levels of oxygen ? Patient does not seem to be in CHF exacerbation at this time she does not appear to be fluid overloaded and there is no pulmonary edema. ? BNP initially was 1001 ? Echo showed 55% EF Plan: ?Will hold Entresto given hyponatremia and hyperkalemia ? Cardiac diet ? Will continue to monitor #Hypertensive urgency #Hx of hypertension ? Patient came in with blood pressure of 207/109 ? Patient's blood pressure well controlled -start amlodipine 5mg daily Plan: -continue amlodipine 5 mg daily ? Will hold Entresto given hyponatremia and hyperkalemia ? Will hold off on patient's home medication beta-yola as she is on VIDEO [employer]INE[employer] exacerbation. #Hx of CVA #Hx of PAD ? Continue Plavix #Hx of chronic constipation in the setting of #Chronic back pain on narcotics ? Continue patient's Tylenol?codeine 1 tablet 3 times daily prn for pain ? Continue scheduled daily senna and MiraLAX Disposition: Rocephin for bacteremia. Family considering hospice. Diet: Dysphagia 3 GI prophylaxis: protonix DVT prophylaxis: heparin sc Code: full code Case discussed with my attending Dr. Chapa. Damaris Ragsdale PGY1 Attending Provider Attestation/Addendum I have discussed and was present for the essential components of the history, physical examination, diagnosis, and treatment plan with the resident. I agree with the patient's care as documented by the resident and amended herein by me. Favio Chapa, DO. Patient seen and evaluated this AM. Vital signs stable, patient afebrile overnight, patient presently on 4 L via NC, SpO2 94% however will transition back and forth to BiPAP. Significant labs included WBC of 11.8, hemoglobin stable 11.3, sodium 130 and potassium 4.6. Will continue prednisone at this time and ceftriaxone for MSSA bacteremia until 15 November. Infectious disease consulted, appreciate recommendations. I did have a discussion with the patient's son and oflpeuic-gh-rar today in regards to plan going forward and difficulty weaning the patient from oxygen, I know the patient is frustrated as well however her COPD is very difficult to treat an exacerbation to the extensive nature of the disease. I did discuss hospice with the family and they are going to consider their options and discuss with the patient, we will revisit tomorrow or Tuesday. In the meantime we will continue to titrate down the patient's oxygen as tolerated and continue prednisone 40 mg daily. Continue to monitor closely while she is here Although this document has been carefully reviewed, there may still be some phonetic and other typographical errors. These errors are purely grammatical due to imperfections in the software program and should not be construed in any way to compromise the substance of the patient's medical care during this visit.
[2024-11-10] MEDS: ACETAzolaMIDE 250 MG TABLET 500 MG PO (13:39)
[2024-11-10] MEDS: MELATONIN 3 MG TABLET 6 MG PO (21:20)
[2024-11-11] VITALS (16 sets, daily range): BP systolic 123–160; BP diastolic 72–88; PULSE 87–126; RESP 15–28; TEMP 35.9–37.2; O2SAT 10–100; BMI 21.4
[2024-11-11] MEDS: LEVALBUTEROL RT 1.25 MG/0.5 ML NEBU INH ×4 (00:12→19:25)
[2024-11-11] MEDS: IPRATROPIUM RT 0.5 MG/ 2.5 ML NEBU INH ×3 (00:12→12:32)
--- NOTE | 2024-11-11 03:50 | PC.NURSE ---
Received call from information technology manager, Karey; pts cardiac rhythm will sometimes be in A-fib. At this time, pt is currently sinus rhythm 80-90s. Pt is resting with eyes closed with Bipap in place. Resident Dr. Costa made aware, no new orders received at this time, per MD will let day team know.
[2024-11-11] MEDS: guaiFENesin SYRUP 200 MG/10 ML UDC 100 MG PO ×4 (05:22→20:44)
[2024-11-11] MEDS: HEPARIN SOD INJ 5000 UNIT/ML VIAL SC ×2 (05:23→20:44)
[2024-11-11] MEDS: LACTULOSE SYRUP 20 GM/30 ML UDC PO (05:23)
[2024-11-11 05:53] LABS: Basophils % (Auto) 0 % (0-2.5); Eosinophils % (Auto) 0 % (0-10); Hematocrit 25.7 % (36.0-46.0); Immature Granulocytes % (Auto) 1 % (0-0); Immature Granulocytes Auto 0.06 Thou/mm3 (0.00-0.00); Lymphocytes # (Auto) 3.1 Thou/mm3 (1.0-4.8); Lymphocytes % (Auto) 28 % (10-50); Mean Corpuscular HGB Conc 33.1 g/dl (31.0-37.0); Mean Corpuscular Hemoglobin 33.9 pg (25.0-35.0); Mean Corpuscular Volume 102 fL (80-100); Monocytes # (Auto) 0.9 Thou/mm3 (0.0-0.8); Monocytes % (Auto) 8 % (0-12); Neutrophils # (Auto) 7.1 Thou/mm3 (1.8-7.7); Neutrophils % (Auto) 63 % (37-80); Nucleated Red Blood Cell % 0 /100 WBC (0); Platelet Count 349 Thou/mm3 (140-440); RDW Standard Deviation 50.1 fL (36.4-46.3); Red Blood Count 2.51 Miln/mm3 (4.00-5.20); White Blood Count 11.3 Thou/mm3 (3.6-11.0)
[2024-11-11 06:03] LABS: Hemoglobin 8.5 g/dL (12.0-16.0)
[2024-11-11 06:37] LABS: Alanine Aminotransferase 12 U/L (10-49); Albumin, Serum 3.4 gm/dL (3.4-4.8); Albumin/Globulin Ratio 1.2 (1.2-2.2); Alkaline Phosphatase 43 U/L (46-116); Anion Gap 3 (7-16); Aspartate Amino Transferase 22 U/L (0-34); BUN/Creatinine Ratio 34 Ratio (12-20); Bilirubin,Total 0.3 mg/dL (0.3-1.2); Blood Urea Nitrogen 24 mg/dL (9-23); Calcium 9.4 mg/dL (8.3-10.6); Calcium (Corrected) 9.9 mg/dL (8.5-10.1); Carbon Dioxide 36.4 mMol/L (20.0-31.0); Chloride 90 mMol/L (98-107); Creatinine (Component) 0.7 mg/dL (0.6-1.3); Globulin 2.8 gm/dL (2.3-3.5); Glucose 102 mg/dL (74-106); Magnesium 1.8 mg/dL (1.6-2.6); Osmolality,Calculated 262 (275-295); Phosphorous 3.3 mg/dL (2.4-5.1); Sodium 129 mMol/L (136-145); Total Protein 6.2 gm/dL (5.7-8.2); eGFR > 60 See Note
--- NOTE | 2024-11-11 07:55 | XR_ITS ---
Examination: AP chest single view Technique one AP portable supine chest single view Exam date and time: November 11, 2024 at 0801 hrs. Comparison November 08, 2024 Indications: Left base pneumonia on earlier imaging this week, shortness of breath Findings: Prominent hyperexpansion Normal heart size No current pneumonia There is accentuation of the basilar bronchovascular markings Right dual lumen central PICC line tip satisfactory position SVC Impression: COPD Basilar bronchitis pattern No lobar pneumonia
[2024-11-11] MEDS: cefTRIAXone/D5w 2gm 2 GM/50 ML BAG IV (09:52)
[2024-11-11] MEDS: ACETAzolaMIDE 250 MG TABLET 500 MG PO (09:53)
[2024-11-11] MEDS: FUROSEMIDE INJ 10 MG/ML 4ML VIAL 40 MG IVP (09:54)
[2024-11-11] MEDS: predniSONE 20 MG TABLET 40 MG PO (09:54)
[2024-11-11] MEDS: PANTOPRAZOLE 40 MG TABLET PO (09:55)
[2024-11-11] MEDS: SODIUM CHLORIDE 1 GM TABLET PO ×2 (09:55→20:44)
[2024-11-11] MEDS: METOPROLOL SUCCINATE XL 25 MG TABCR PO (09:55)
[2024-11-11] MEDS: amLODIPine BESYLATE 5 MG TABLET PO (09:55)
[2024-11-11] MEDS: CLOPIDOGREL BISULFATE 75 MG TABLET PO (09:55)
[2024-11-11] MEDS: Magnesium Sulfate 2 GM Ivpb 2 GM/50 ML BAG IV (09:58)
--- NOTE | 2024-11-11 12:37 | PC.SS ---
Trilogy Machine Trilogy Machine has been ordered due to, J96.10 Chronic Respiratory Failure, J44.9 for COPD. Pt needs Mechanical ventilator due to chronic respiratory failure due to severe COPD. Patient needs to keep the tidal volume to prevent CO2 retention. A Ventilator is required to improve the pts pulmonary status. Without this respiratory support in the home it could lead to serious harm or . The BiPAP therapy did not improve the pts respiratory status and failed.
--- NOTE | 2024-11-11 12:59 | ESPR_ITS ---
<Statement entered by Loreto Estrella MD - 11/11/24 13:37> Patient seen and examined at bedside. O2 requirements fluctuating. Internal medicine team spoke with family about hospice versus home oxygen, [place]. ABG was ordered to assess mentation and assess improvement on intermittent BIPAP. ABG showed pH within normal range and hypercapnia at 67; patient likely a chronic retainer due to severe COPD. Will follow up on family and patient preferenes for discharge planning. Loreto Estrella MD PGY-3 Documentation for date of: 11/11/24 Subjective Subjective Interval history: Patient was seen at bedside this morning. No overnight events. Patient was saturating well on 5 L of O2, blood when titrated down and she dropped to below 85% O2. Will keep patient on nasal cannula at 5 L for now. Had an extensive discussion with patient and her son about her current condition and the need for her to be on oxygen and possibly needing a Trelegy machine versus a CPAP at home. Patient wanted to be full code for now and does not want hospice at this time. The son was understanding and the patient as well. Patient appears to be congested. Ordered ABG for the patient as she was a little bit slower to respond than normal and her pupils were minimally responsive to light. She was still AO x 3. Exam Vital Signs Temp Pulse Resp BP Pulse Ox O2 Del Method O2 Flow Rate 97.2 F 94 19 137/72 H 100 Oxy Mask 4 11/11/24 12:00 11/11/24 12:34 11/11/24 12:34 11/11/24 12:00 11/11/24 12:34 11/11/24 12:00 11/11/24 12:34 FiO2 30 11/11/24 12:00 Narrative Exam General: A/O x3, no acute distress, ill appearing thin elderly on NC. Eyes: PERRL, EOMI. Anicteric, vision grossly intact. Ears: No ear pain, no ear discharge, Hearing impaired Nose: No nasal discharge. Mouth/Throat: Dry mucous membranes Neck: Neck supple, non-tender, no cervical lymphadenopathy. Lungs: upper airway congestion and decreased breath sounds АНДРЕЙ, No accessory muscle use, on Bipap Cardio: Normal S1/S2, regular rhythm, no murmurs, b/L JVD, Abdomen: Soft, non-tender, no palpable masses, peristalsis present, no guarding or rebound. Extremities: no significant deformities, no peripheral edema , non-tender Skin: АНДРЕЙ LE venous stasis changes and L UE with red discoloration from elbow level to wrist. Neuro: No focal neurological deficits. motor and sensory intact Objective Labs 11/11/24 05:30 11/11/24 05:30 Labs: Laboratory Results - last 24 hr 11/11/24 05:30 WBC 11.3 H RBC 2.51 L Hgb 8.5 L Hct 25.7 L MCV 102 H MCH 33.9 MCHC 33.1 RDW Std Deviation 50.1 H Plt Count 349 Neut % (Auto) 63 Lymph % (Auto) 28 [place] % (Auto) 8 Eos % (Auto) 0 Baso % (Auto) 0 Neut # (Auto) 7.1 Lymph # (Auto) 3.1 [place] # (Auto) 0.9 H Eos # (Auto) 0.0 Baso # (Auto) 0.0 Immature Gran # (Auto) 0.06 H Absolute Nucleated RBC 0.00 Immature Gran % 1 H Nucleated RBC % 0 Sodium 129 L Potassium 4.0 D Chloride 90 L Carbon Dioxide 36.4 H Anion Gap 3 L BUN 24 H Creatinine 0.7 Estim Creat Clear Calc 50.0 L eGFR > 60 BUN/Creatinine Ratio 34 H Glucose 102 Calculated Osmolality 262 L Calcium 9.4 Corrected Calcium 9.9 Phosphorus 3.3 Magnesium 1.8 Total Bilirubin 0.3 AST 22 ALT 12 Alkaline Phosphatase 43 L Total Protein 6.2 Albumin 3.4 Globulin 2.8 Albumin/Globulin Ratio 1.2 ABG Interpretation ABG results: 10/28/24 10/30/24 10/30/24 22:30 04:30 06:40 ABG pH 7.35 7.27 L 7.26 L ABG pCO2 62 H 76 H* D 75 H* ABG pO2 93 95 103 ABG HCO3 34 H 35 H 34 H ABG O2 Saturation 96 97 98 ABG Base Excess 7 H 6 H 5 H 10/30/24 10/30/24 10/30/24 11:00 14:47 17:32 ABG pH 7.21 L 7.32 L D 7.35 ABG pCO2 81 H* 61 H D 56 H ABG pO2 106 121 H 106 ABG HCO3 33 H 31 H 31 H ABG O2 Saturation 98 98 98 ABG Base Excess 3 4 H 4 H 11/02/24 11/03/24 18:32 10:15 ABG pH 7.34 L 7.42 ABG pCO2 67 H 61 H ABG pO2 106 238 H D ABG HCO3 36 H 39 H ABG O2 Saturation 99 H 99 H ABG Base Excess 8 H 13 H Quality Measures Quality Measures sepsis Current suspected stage: ruled out Possible source: unknown Blood cultures ordered: yes Antibiotic ordered: Yes Advance care planning discussed with:: patient Assessment & Plan Assessment Current Active Medications: Generic Name Dose Route Start Last Admin Trade Name Freq PRN Reason Stop Dose Admin Acetaminophen 650 mg 10/29/24 03:16 Acetaminophen 325 Mg Tablet PO 11/28/24 03:15 Q6H PRN PAIN SCALE 1-3 (mild Acetaminophen 650 mg 10/29/24 03:16 Acetaminophen 325 Mg Tablet PO 11/28/24 03:15 Q6H PRN Fever >100 Protocol Amlodipine Besylate 5 mg 11/09/24 09:00 11/11/24 09:55 Amlodipine Besylate 5 Mg Tablet PO 12/09/24 08:59 5 mg QDAY LELE Administration Clopidogrel Bisulfate 75 mg 10/29/24 09:00 11/11/24 09:55 Clopidogrel Bisulfate 75 Mg Tablet PO 11/28/24 08:59 75 mg QDAY LELE Administration Guaifenesin 100 mg 11/01/24 17:00 11/11/24 11:32 Guaifenesin Syrup 200 Mg/10 Ml Udc PO 12/01/24 16:59 100 mg QID LELE Administration Protocol Heparin Sodium (Porcine) 5,000 unit 11/11/24 21:00 Heparin Sod Inj 5000 Unit/Ml Vial SC 11/25/24 20:59 Q12HR LELE Ceftriaxone Sodium/Dextrose 2 gm in 50 mls @ 100 mls/hr 11/05/24 09:45 11/11/24 09:52 Rocephin/D5w 2gm IV 11/15/24 18:04 100 mls/hr QDAY LELE Administration Ipratropium [place] 0.5 mg 10/31/24 19:00 11/11/24 12:32 Ipratropium Rt 0.5 Mg/ 2.5 Ml Nebu INH 11/30/24 18:59 0.5 mg Q6HRRT LELE Administration Lactulose 20 gm 11/11/24 07:53 Lactulose Syrup 20 Gm/30 Ml Udc PO 12/07/24 21:59 TID PRN constipation Protocol Levalbuterol HCl 1.25 mg 10/31/24 19:00 11/11/24 12:32 Levalbuterol Rt 1.25 Mg/0.5 Ml Nebu INH 11/30/24 18:59 1.25 mg Q6HRRT LLEE Administration Lidocaine 1 patch 11/06/24 05:29 Lidocaine 5% 1 Patch TOP 12/06/24 05:04 Q24H PRN Back Pain Protocol Melatonin 6 mg 10/30/24 21:00 11/10/24 21:20 Melatonin 3 Mg Tablet PO 11/29/24 20:59 6 mg HS LELE Administration Metoprolol Succinate 25 mg 11/08/24 17:15 11/11/24 09:55 Metoprolol Succinate Xl 25 Mg Tabcr PO 12/08/24 17:14 25 mg QDAY LELE Administration Ondansetron HCl 4 mg 10/29/24 03:16 Ondansetron Inj 2 Mg/Ml Inj 2 Ml IV 11/28/24 03:15 Q6H PRN NAUSEA OR VOMITING Protocol Pantoprazole Sodium 40 mg 11/06/24 09:00 11/11/24 09:55 Pantoprazole 40 Mg Tablet PO 12/06/24 08:59 40 mg QDAY LELE Administration Protocol Pharmacy Consult 1 each 10/30/24 16:45 Pharmacy Renal Dose Adjustment 1 Ea XX 11/29/24 16:44 QDAY PRN PROTOCOL Prednisone 40 mg 11/08/24 10:00 11/11/24 09:54 Prednisone 20 Mg Tablet PO 11/21/24 09:01 40 mg QDAY LELE Administration Sennosides 1 tab 10/29/24 04:30 Senna/Docusate Sod 1 Tab Tablet PO 11/28/24 04:29 QDAY PRN CONSTIPATION Protocol Sodium Chloride 3 ml 10/31/24 16:00 Sodium Chloride Rt [place]hav[place] 0.9% 3 Ml Nebu INH 11/30/24 15:59 PRN PRN SOLN Sodium Chloride 1 gm 11/11/24 21:00 Sodium Chloride 1 Gm Tablet PO 12/11/24 20:59 BID LELE Plan 79-year-old female with past medical history of COPD (2 L O2 at home), HFpEF (55 to 60% on 2022), hypertension, CVA, lymphoma currently on remission, chronic back pain on narcotics, and chronic constipation, and PAD who was admitted to the hospital on 10/29/2024 due to acute on chronic hypoxic respiratory failure likely secondary to COPD exacerbation in the setting of community-acquired pneumonia. #Acute on chronic hypoxic and hypercapnic respiratory failure likely secondary to #COPD exacerbation in the setting of #Pneumonia, RSV positive and Pseudomonas #Respiratory acidosis, improving #Hx of COPD #MSSA bacteremia #E. Faecalis in urine #L pleural effusion ? Patient came in initially with complaints of cough, shortness of breath, and increased requirements of oxygen. ? Patient has a history of COPD ?Patient met SIRS 4 out of 4 criteria on admission, but there was no signs of endorgan damage ? qSOFA score of 1 ? Initial chest x-ray showed vascular congestion ?Initial Chest CTA showed bilateral pneumonia ?Repeat chest x-ray on 10/30/2024 showed no pneumonia pulmonary edema ? Latest ABG showed pH 7.32, pCO2 61, pO2 121 - Rocephin [10/29/2024?11/01/2024] ? Blood culture grew MSSA ? Urine cultures grew Enterococcus faecalis ? Sputum cultures grew Pseudomonas -DC'd azithromycin and Zosyn ? DC'd methylprednisolone ?Finished Doxycycline 100 mg BID [11/02/2024-11/05/2024] - 11/08/2024 chest x-ray which showed a small left pleural effusion and some left base pneumonia Plan: - Continue Rocephin [11/05/2024-11/15/2024] by ID -Prednisone 40mg qday for 14 days [11/08-11/22/2024] ? Continue breathing treatments ? Adjunct Faculty consulted, appreciate recommendations ? ID consulted, appreciate commendations ?Will continue to monitor #Hypoosmolar hyponatremia, chronic ?Patient came in with sodium of 127, currently 129. ? Patient sodium appears to be low in the past was 122 on September. ? DDx includes SIADH versus dehydration versus medication induced as he was on hydrochlorothiazide and metolazone ?Urine sodium less than 10 Plan: ? Fluid restrictions - Na tab BID ? Holding hydrochlorothiazide metolazone ?Will continue to monitor #Macrocytic normochromic anemia ?Patient's hemoglobin today is 8.5 when compared from her initial hemoglobin of 11.2 on admission. ? Patient apparently had some dark stools around 2 days ago ? No active signs of bleeding Plan: ? FOBT negative ? Will transfuse hemoglobin less than 7 ? Will continue to monitor #Hx of HFpEF (55% on 10/2023) ?Patient came in initially with complaints of shortness of breath and requiring increased levels of oxygen ? Patient does not seem to be in CHF exacerbation at this time she does not appear to be fluid overloaded and there is no pulmonary edema. ? BNP initially was 1001 ? Echo showed 55% EF Plan: ?Will hold Entresto given hyponatremia and hyperkalemia ? Continue Metoprolol XL 25mg qday ? Fluid restrictions ? Cardiac diet ? Will continue to monitor #Hypertensive urgency #Hx of hypertension ? Patient came in with blood pressure of 207/109 Plan: ? Continue Metoprolol XL 25mg qday and amlodipine 5mg qday #Hx of CVA #Hx of PAD ? Continue Plavix #Hx of chronic constipation in the setting of #Chronic back pain on narcotics ? Continue patient's Tylenol?codeine 1 tablet 3 times daily prn for pain ? Continue scheduled daily senna and MiraLAX #Hyperkalemia, resolved Disposition: Patient seen in telemetry, continue Rocephin to cover MSSA, Pseudo, E. faecalis. Pending Trelegy machine for home discharge with home health Diet: Dysphagia 3 GI prophylaxis: protonix DVT prophylaxis: heparin sc Code: full code Case disclosed with Attending Dr. Chapa and my senior Dr. Estrella PGY3 Naresh Camargo PGY1 Attending Provider Attestation/Addendum I have discussed and was present for the essential components of the history, physical examination, diagnosis, and treatment plan with the resident. I agree with the patient's care as documented by the resident and amended herein by me. Favio Chapa DO. Although this document has been carefully reviewed, there may still be some phonetic and other typographical errors. These errors are purely grammatical due to imperfections in the software program and should not be construed in any way to compromise the substance of the patient's medical care during this visit.
[2024-11-11 13:21] LABS: Base Excess 11 (-3-3); HCO3 38 mEq/L (20-26); Inspired O2, VO2 Liters 4 L/min; Inspired Oxygen, FIO2 21 %; O2 Saturation 99 % (91-98); PCO2 67 mmHg (32.0-48.0); PO2 108 mmHg (83-108); pH, Arterial 7.36 (7.35-7.45)
[2024-11-11 13:23] LABS: Allen Test Performed/OK; Puncture Site Right Radial
--- NOTE | 2024-11-11 13:24 | PC.SS ---
SS sent Trilogy referral to [facility], spoke to Patrick and she stated it will be processed tomorrow
[2024-11-11] MEDS: TIOTROPIUM BR 2.5 MCG 120 PUFF/4 GM INHALER INH (17:01)
[2024-11-11] MEDS: SODIUM CHLORIDE RT SOL 0.9% 3 ML NEBU INH (19:25)
[2024-11-11] MEDS: MELATONIN 3 MG TABLET 6 MG PO (20:44)
[2024-11-12] VITALS (15 sets, daily range): BP systolic 109–149; BP diastolic 63–85; PULSE 82–96; RESP 14–30; TEMP 35.9–36.5; O2SAT 97–100; BMI 20.9
[2024-11-12] MEDS: LEVALBUTEROL RT 1.25 MG/0.5 ML NEBU INH ×4 (00:10→18:16)
[2024-11-12] MEDS: SODIUM CHLORIDE RT SOL 0.9% 3 ML NEBU INH ×4 (00:10→18:16)
[2024-11-12 05:55] LABS: Basophils % (Auto) 0 % (0-2.5); Eosinophils % (Auto) 0 % (0-10); Hematocrit 22.4 % (36.0-46.0); Immature Granulocytes % (Auto) 0 % (0-0); Immature Granulocytes Auto 0.04 Thou/mm3 (0.00-0.00); Lymphocytes % (Auto) 22 % (10-50); Mean Corpuscular HGB Conc 33.5 g/dl (31.0-37.0); Mean Corpuscular Hemoglobin 33.6 pg (25.0-35.0); Mean Corpuscular Volume 100 fL (80-100); Monocytes # (Auto) 0.7 Thou/mm3 (0.0-0.8); Monocytes % (Auto) 8 % (0-12); Neutrophils # (Auto) 6.2 Thou/mm3 (1.8-7.7); Neutrophils % (Auto) 69 % (37-80); Nucleated Red Blood Cell % 0 /100 WBC (0); Platelet Count 317 Thou/mm3 (140-440); RDW Standard Deviation 49.7 fL (36.4-46.3); Red Blood Count 2.23 Miln/mm3 (4.00-5.20); White Blood Count 8.9 Thou/mm3 (3.6-11.0)
[2024-11-12] MEDS: guaiFENesin SYRUP 200 MG/10 ML UDC 100 MG PO ×4 (05:58→21:48)
[2024-11-12] MEDS: TIOTROPIUM BR 2.5 MCG 120 PUFF/4 GM INHALER INH (06:05)
[2024-11-12 06:10] LABS: Hemoglobin 7.5 g/dL (12.0-16.0)
[2024-11-12 06:22] LABS: Alanine Aminotransferase 10 U/L (10-49); Albumin/Globulin Ratio 1.2 (1.2-2.2); Alkaline Phosphatase 38 U/L (46-116); Anion Gap 4 (7-16); Aspartate Amino Transferase 17 U/L (0-34); BUN/Creatinine Ratio 42 Ratio (12-20); Bilirubin,Total 0.2 mg/dL (0.3-1.2); Blood Urea Nitrogen 25 mg/dL (9-23); Calcium 9.3 mg/dL (8.3-10.6); Calcium (Corrected) 10.1 mg/dL (8.5-10.1); Carbon Dioxide 36.2 mMol/L (20.0-31.0); Chloride 94 mMol/L (98-107); Creatinine (Component) 0.6 mg/dL (0.6-1.3); Estimated Creatinine Clearance 58.3 mL/min (>60); Globulin 2.6 gm/dL (2.3-3.5); Glucose 103 mg/dL (74-106); Magnesium 1.8 mg/dL (1.6-2.6); Osmolality,Calculated 272 (275-295); Phosphorous 3.7 mg/dL (2.4-5.1); Potassium 3.5 mMol/L (3.4-5.1); Sodium 134 mMol/L (136-145); Total Protein 5.6 gm/dL (5.7-8.2); eGFR > 60 See Note
[2024-11-12] MEDS: METOPROLOL SUCCINATE XL 25 MG TABCR PO (08:42)
[2024-11-12] MEDS: PANTOPRAZOLE 40 MG TABLET PO (08:42)
[2024-11-12] MEDS: predniSONE 20 MG TABLET 40 MG PO (08:42)
[2024-11-12] MEDS: HEPARIN SOD INJ 5000 UNIT/ML VIAL SC ×2 (08:42→21:48)
[2024-11-12] MEDS: SODIUM CHLORIDE 1 GM TABLET PO (08:43)
[2024-11-12] MEDS: CLOPIDOGREL BISULFATE 75 MG TABLET PO (08:43)
[2024-11-12] MEDS: amLODIPine BESYLATE 5 MG TABLET PO (08:43)
[2024-11-12] MEDS: cefTRIAXone/D5w 2gm 2 GM/50 ML BAG IV (09:31)
[2024-11-12] MEDS: SACUBITRIL 24 MG/VALSARTAN 26 MG TABLET 1 TAB PO ×2 (11:12→21:48)
--- NOTE | 2024-11-12 11:44 | PC.SS ---
SS received Trilogy Order Form from [facility], had it reviewed and signed by Dr. Chapa and sent back to . SS also uploaded to [facility] to [facility].
--- NOTE | 2024-11-12 13:11 | ESPR_ITS ---
<Statement entered by Loreto Estrella MD - 11/12/24 13:21> I discussed with and supervised my co-resident involved in the care of this patient. I agree with the assessment and plan as documented above. Patient seen at bedside. This morning, she is awake, alert and interacting with family. Pending Trilogy machine for discharge. Continuing ceftriaxone for MSSA bacteremia until Nov 15. Loreto Estrella MD PGY-3 Documentation for date of: 11/12/24 Subjective Subjective Interval history: Patient was seen at bedside this morning. No overnight events. Patient has no complaints today and she is currently saturating well on nasal cannula. We are still pending on trilogy machine. No other complaints this time. Exam Vital Signs Temp Pulse Resp BP Pulse Ox O2 Del Method O2 Flow Rate 96.9 F 89 20 123/64 100 BiPAP 4 11/12/24 12:00 11/12/24 13:08 11/12/24 13:08 11/12/24 12:00 11/12/24 13:08 11/12/24 12:00 11/12/24 13:08 FiO2 30 11/12/24 12:00 Narrative Exam General: A/O x3, no acute distress, ill appearing thin elderly on NC. Eyes: PERRL, EOMI. Anicteric, vision grossly intact. Ears: No ear pain, no ear discharge, Hearing impaired Nose: No nasal discharge. Mouth/Throat: Dry mucous membranes Neck: Neck supple, non-tender, no cervical lymphadenopathy. Lungs: mild wheezing АНДРЕЙ, No accessory muscle use, on Bipap Cardio: Normal S1/S2, regular rhythm, no murmurs, b/L JVD, Abdomen: Soft, non-tender, no palpable masses, peristalsis present, no guarding or rebound. Extremities: no significant deformities, no peripheral edema , non-tender Skin: АНДРЕЙ LE venous stasis changes and L UE with red discoloration from elbow level to wrist. Neuro: No focal neurological deficits. motor and sensory intact Objective Labs 11/12/24 05:23 11/12/24 05:23 Labs: Laboratory Results - last 24 hr 11/11/24 11/12/24 13:08 05:23 WBC 8.9 RBC 2.23 L Hgb 7.5 L Hct 22.4 L MCV 100 MCH 33.6 MCHC 33.5 RDW Std Deviation 49.7 H Plt Count 317 D Neut % (Auto) 69 Lymph % (Auto) 22 [place] % (Auto) 8 Eos % (Auto) 0 Baso % (Auto) 0 Neut # (Auto) 6.2 Lymph # (Auto) 2.0 [place] # (Auto) 0.7 Eos # (Auto) 0.0 Baso # (Auto) 0.0 Immature Gran # (Auto) 0.04 H Absolute Nucleated RBC 0.00 Immature Gran % 0 Nucleated RBC % 0 Puncture Site Right Radial ABG pH 7.36 ABG pCO2 67 H ABG pO2 108 ABG HCO3 38 H ABG O2 Saturation 99 H ABG Base Excess 11 H Oxygen Liter Flow 4 FiO2 21 Sodium 134 L Potassium 3.5 D Chloride 94 L Carbon Dioxide 36.2 H Anion Gap 4 L BUN 25 H Creatinine 0.6 Estim Creat Clear Calc 58.3 L eGFR > 60 BUN/Creatinine Ratio 42 H Glucose 103 Calculated Osmolality 272 L Calcium 9.3 Corrected Calcium 10.1 Phosphorus 3.7 Magnesium 1.8 Total Bilirubin 0.2 L AST 17 ALT 10 Alkaline Phosphatase 38 L Total Protein 5.6 L Albumin 3.0 L Globulin 2.6 Albumin/Globulin Ratio 1.2 ABG Interpretation ABG results: 10/28/24 10/30/24 10/30/24 22:30 04:30 06:40 ABG pH 7.35 7.27 L 7.26 L ABG pCO2 62 H 76 H* D 75 H* ABG pO2 93 95 103 ABG HCO3 34 H 35 H 34 H ABG O2 Saturation 96 97 98 ABG Base Excess 7 H 6 H 5 H 10/30/24 10/30/24 10/30/24 11:00 14:47 17:32 ABG pH 7.21 L 7.32 L D 7.35 ABG pCO2 81 H* 61 H D 56 H ABG pO2 106 121 H 106 ABG HCO3 33 H 31 H 31 H ABG O2 Saturation 98 98 98 ABG Base Excess 3 4 H 4 H 11/02/24 11/03/24 11/11/24 18:32 10:15 13:08 ABG pH 7.34 L 7.42 7.36 ABG pCO2 67 H 61 H 67 H ABG pO2 106 238 H D 108 ABG HCO3 36 H 39 H 38 H ABG O2 Saturation 99 H 99 H 99 H ABG Base Excess 8 H 13 H 11 H Quality Measures Quality Measures sepsis Current suspected stage: ruled out Possible source: unknown Blood cultures ordered: yes Antibiotic ordered: Yes Advance care planning discussed with:: patient Assessment & Plan Assessment Current Active Medications: Generic Name Dose Route Start Last Admin Trade Name Freq PRN Reason Stop Dose Admin Acetaminophen 650 mg 10/29/24 03:16 Acetaminophen 325 Mg Tablet PO 11/28/24 03:15 Q6H PRN PAIN SCALE 1-3 (mild Acetaminophen 650 mg 10/29/24 03:16 Acetaminophen 325 Mg Tablet PO 11/28/24 03:15 Q6H PRN Fever >100 Protocol Amlodipine Besylate 5 mg 11/09/24 09:00 11/12/24 08:43 Amlodipine Besylate 5 Mg Tablet PO 12/09/24 08:59 5 mg QDAY LELE Administration Clopidogrel Bisulfate 75 mg 10/29/24 09:00 11/12/24 08:43 Clopidogrel Bisulfate 75 Mg Tablet PO 11/28/24 08:59 75 mg QDAY LELE Administration Guaifenesin 100 mg 11/01/24 17:00 11/12/24 13:04 Guaifenesin Syrup 200 Mg/10 Ml Udc PO 12/01/24 16:59 100 mg QID LELE Administration Protocol Heparin Sodium (Porcine) 5,000 unit 11/11/24 21:00 11/12/24 08:42 Heparin Sod Inj 5000 Unit/Ml Vial SC 11/25/24 20:59 5,000 unit Q12HR LELE Administration Ceftriaxone Sodium/Dextrose 2 gm in 50 mls @ 100 mls/hr 11/05/24 09:45 11/12/24 09:31 Rocephin/D5w 2gm IV 11/15/24 18:04 100 mls/hr QDAY LELE Administration Lactulose 20 gm 11/11/24 07:53 Lactulose Syrup 20 Gm/30 Ml Udc PO 12/07/24 21:59 TID PRN constipation Protocol Levalbuterol HCl 1.25 mg 10/31/24 19:00 11/12/24 13:06 Levalbuterol Rt 1.25 Mg/0.5 Ml Nebu INH 11/30/24 18:59 1.25 mg Q6HRRT LELE Administration Lidocaine 1 patch 11/06/24 05:29 Lidocaine 5% 1 Patch TOP 12/06/24 05:04 Q24H PRN Back Pain Protocol Melatonin 6 mg 10/30/24 21:00 11/11/24 20:44 Melatonin 3 Mg Tablet PO 11/29/24 20:59 6 mg HS LELE Administration Metoprolol Succinate 25 mg 11/08/24 17:15 11/12/24 08:42 Metoprolol Succinate Xl 25 Mg Tabcr PO 12/08/24 17:14 25 mg QDAY LELE Administration Ondansetron HCl 4 mg 10/29/24 03:16 Ondansetron Inj 2 Mg/Ml Inj 2 Ml IV 11/28/24 03:15 Q6H PRN NAUSEA OR VOMITING Protocol Pantoprazole Sodium 40 mg 11/06/24 09:00 11/12/24 08:42 Pantoprazole 40 Mg Tablet PO 12/06/24 08:59 40 mg QDAY LELE Administration Protocol Pharmacy Consult 1 each 10/30/24 16:45 Pharmacy Renal Dose Adjustment 1 Ea XX 11/29/24 16:44 QDAY PRN PROTOCOL Prednisone 40 mg 11/08/24 10:00 11/12/24 08:42 Prednisone 20 Mg Tablet PO 11/21/24 09:01 40 mg QDAY LELE Administration Sacubitril/Valsartan 1 tab 11/12/24 09:00 11/12/24 11:12 Sacubitril 24 Mg/Valsartan 26 Mg Tablet PO 12/12/24 08:59 1 tab BID LELE Administration Sennosides 1 tab 10/29/24 04:30 Senna/Docusate Sod 1 Tab Tablet PO 11/28/24 04:29 QDAY PRN CONSTIPATION Protocol Sodium Chloride 3 ml 10/31/24 16:00 11/12/24 13:06 Sodium Chloride Rt Bhav[place] 0.9% 3 Ml Nebu INH 11/30/24 15:59 3 ml PRN PRN Administration SOLN Sodium Chloride 1 gm 11/13/24 09:00 Sodium Chloride 1 Gm Tablet PO 12/13/24 08:59 QDAY LELE Tiotropium [place] 2 puff 11/11/24 14:00 11/12/24 06:05 Tiotropium Br 2.5 Mcg 120 Puff/4 Gm Inhaler INH 12/11/24 13:59 2 puff QDAY LELE Administration Plan 79-year-old female with past medical history of COPD (2 L O2 at home), HFpEF (55 to 60% on 2022), hypertension, CVA, lymphoma currently on remission, chronic back pain on narcotics, and chronic constipation, and PAD who was admitted to the hospital on 10/29/2024 due to acute on chronic hypoxic respiratory failure likely secondary to COPD exacerbation in the setting of community-acquired pneumonia. #Acute on chronic hypoxic and hypercapnic respiratory failure likely secondary to #COPD exacerbation in the setting of #Pneumonia, RSV positive and Pseudomonas #Respiratory acidosis, improving #Hx of COPD #MSSA bacteremia #E. Faecalis in urine #L pleural effusion ? Patient came in initially with complaints of cough, shortness of breath, and increased requirements of oxygen. ? Patient has a history of COPD ?Patient met SIRS 4 out of 4 criteria on admission, but there was no signs of endorgan damage ? qSOFA score of 1 ? Initial chest x-ray showed vascular congestion ?Initial Chest CTA showed bilateral pneumonia ?Repeat chest x-ray on 10/30/2024 showed no pneumonia pulmonary edema ? Latest ABG showed pH 7.32, pCO2 61, pO2 121 - Rocephin [10/29/2024?11/01/2024] ? Blood culture grew MSSA ? Urine cultures grew Enterococcus faecalis ? Sputum cultures grew Pseudomonas -DC'd azithromycin and Zosyn ? DC'd methylprednisolone ?Finished Doxycycline 100 mg BID [11/02/2024-11/05/2024] - 11/08/2024 chest x-ray which showed a small left pleural effusion and some left base pneumonia Plan: - Continue Rocephin [11/05/2024-11/15/2024] by ID - Prednisone 40mg qday for 14 days [11/08-11/21/2024] ? Continue breathing treatments with tiotropium ? Formulation Chemist consulted, appreciate recommendations ? ID consulted, appreciate commendations ?Will continue to monitor #Hypoosmolar hyponatremia, chronic ?Patient came in with sodium of 127, currently 134. ? Patient sodium appears to be low in the past was 122 on September. ? DDx includes SIADH versus dehydration versus medication induced as he was on hydrochlorothiazide and metolazone ?Urine sodium less than 10 Plan: ? Fluid restrictions - Na tab qday ? Holding hydrochlorothiazide metolazone ?Will continue to monitor #Macrocytic normochromic anemia ?Patient's hemoglobin today is 7.5 when compared from her initial hemoglobin of 11.2 on admission. ? Patient apparently had some dark stools around 2 days ago ? No active signs of bleeding Plan: ? FOBT negative ? Will transfuse hemoglobin less than 7 ? Will continue to monitor #Hx of HFpEF (55% on 10/2023) ?Patient came in initially with complaints of shortness of breath and requiring increased levels of oxygen ? Patient does not seem to be in CHF exacerbation at this time she does not appear to be fluid overloaded and there is no pulmonary edema. ? BNP initially was 1001 ? Echo showed 55% EF Plan: ?Will continue Entresto given hyponatremia and hyperkalemia ? Continue Metoprolol XL 25mg qday ? Fluid restrictions ? Cardiac diet ? Will continue to monitor #Hypertensive urgency, resolved #Hx of hypertension ? Patient came in with blood pressure of 207/109 Plan: ? Continue Metoprolol XL 25mg qday and amlodipine 5mg qday #Hx of CVA #Hx of PAD ? Continue Plavix #Hx of chronic constipation in the setting of #Chronic back pain on narcotics ? Continue patient's Tylenol?codeine 1 tablet 3 times daily prn for pain ? Continue scheduled daily senna and MiraLAX #Hyperkalemia, resolved Disposition: Patient seen in telemetry, continue Rocephin to cover MSSA, Pseudo, E. faecalis. Pending trilogy machine for home discharge with home health Diet: Dysphagia 3 GI prophylaxis: protonix DVT prophylaxis: heparin sc Code: full code Case disclosed with Attending Dr. Chapa and my senior Dr. Estrella PGY3 Naresh Camargo PGY1 Attending Provider Attestation/Addendum I have discussed and was present for the essential components of the history, physical examination, diagnosis, and treatment plan with the resident. I agree with the patient's care as documented by the resident and amended herein by me. Favio Chapa DO. Patient seen and evaluated this AM. No acute events overnight, patient on nasal cannula, 5 L this morning, significant labs include a hemoglobin of 7.5, BMP largely unremarkable. I did have extensive conversations with the family in regards to possible hospice care however at this time we will proceed home when O2 was titrated down a bit more, a trilogy machine has been ordered, the paperwork has been submitted via protective services social worker. We will attempt to have a POLST form signed today for the patient. I would suspect likely DC in 1 to 2 days pending the trilogy machine, in the meantime we will continue ceftriaxone for MSSA bacteremia, infectious disease on board, and steroids. I also restarted the patient's Entresto back today as her potassium has been low. Will continue to monitor closely while she is here. Although this document has been carefully reviewed, there may still be some phonetic and other typographical errors. These errors are purely grammatical due to imperfections in the software program and should not be construed in any way to compromise the substance of the patient's medical care during this visit.
--- NOTE | 2024-11-12 17:33 | PD.RESEVENT ---
Documentation for date of: 11/12/24 Event Note Event Note: Today at around 4:50 pm had discussion with patient and her family at bedside concerning the patient's code status. Patient and family wished for her code status to be changed from Full code to DNR/DNI. At this time a POLST form was filled out and signed by the patient who was A/Ox3. Patient's RN, Beth was at bedside during the discussion and filling out of the POLST form. Patient will now proceed with DNR/DNI after the POLST form was signed. Case disclosed with Attending Dr. Sammi Camargo PGY1
[2024-11-12] MEDS: HYDROcodone/APAP 5/325 TABLET 1 TAB PO (17:46)
[2024-11-12] MEDS: MELATONIN 3 MG TABLET 6 MG PO (21:48)
[2024-11-13] VITALS (14 sets, daily range): BP systolic 102–127; BP diastolic 54–66; PULSE 76–90; RESP 13–21; TEMP 36.1–36.8; O2SAT 98–100; BMI 20.7; BMI 15.0
[2024-11-13] MEDS: SODIUM CHLORIDE RT SOL 0.9% 3 ML NEBU INH ×3 (00:27→13:10)
[2024-11-13] MEDS: LEVALBUTEROL RT 1.25 MG/0.5 ML NEBU INH ×4 (00:27→19:18)
[2024-11-13] MEDS: LIDOCAINE 5% 1 PATCH TOP (04:02)
[2024-11-13] MEDS: HYDROcodone/APAP 5/325 TABLET 1 TAB PO ×2 (04:24→20:20)
[2024-11-13 05:28] LABS: Basophils % (Auto) 0 % (0-2.5); Eosinophils % (Auto) 0 % (0-10); Hematocrit 24.6 % (36.0-46.0); Immature Granulocytes % (Auto) 0 % (0-0); Immature Granulocytes Auto 0.04 Thou/mm3 (0.00-0.00); Lymphocytes # (Auto) 1.9 Thou/mm3 (1.0-4.8); Lymphocytes % (Auto) 18 % (10-50); Mean Corpuscular HGB Conc 33.7 g/dl (31.0-37.0); Mean Corpuscular Hemoglobin 33.9 pg (25.0-35.0); Mean Corpuscular Volume 100 fL (80-100); Monocytes # (Auto) 0.7 Thou/mm3 (0.0-0.8); Monocytes % (Auto) 6 % (0-12); Neutrophils # (Auto) 7.9 Thou/mm3 (1.8-7.7); Neutrophils % (Auto) 75 % (37-80); Nucleated Red Blood Cell % 0 /100 WBC (0); Platelet Count 367 Thou/mm3 (140-440); RDW Standard Deviation 49.7 fL (36.4-46.3); Red Blood Count 2.45 Miln/mm3 (4.00-5.20); White Blood Count 10.5 Thou/mm3 (3.6-11.0)
[2024-11-13 05:50] LABS: Hemoglobin 8.3 g/dL (12.0-16.0)
[2024-11-13 05:59] LABS: Alanine Aminotransferase 9 U/L (10-49); Albumin/Globulin Ratio 1.3 (1.2-2.2); Alkaline Phosphatase 38 U/L (46-116); Anion Gap 6 (7-16); Aspartate Amino Transferase 15 U/L (0-34); BUN/Creatinine Ratio 40 Ratio (12-20); Bilirubin,Total 0.2 mg/dL (0.3-1.2); Blood Urea Nitrogen 24 mg/dL (9-23); Calcium 8.8 mg/dL (8.3-10.6); Calcium (Corrected) 9.6 mg/dL (8.5-10.1); Carbon Dioxide 32.8 mMol/L (20.0-31.0); Chloride 92 mMol/L (98-107); Creatinine (Component) 0.6 mg/dL (0.6-1.3); Estimated Creatinine Clearance 58.3 mL/min (>60); Globulin 2.4 gm/dL (2.3-3.5); Glucose 113 mg/dL (74-106); Magnesium 1.7 mg/dL (1.6-2.6); Osmolality,Calculated 267 (275-295); Phosphorous 2.7 mg/dL (2.4-5.1); Potassium 3.7 mMol/L (3.4-5.1); Sodium 131 mMol/L (136-145); Total Protein 5.4 gm/dL (5.7-8.2); eGFR > 60 See Note
[2024-11-13] MEDS: guaiFENesin SYRUP 200 MG/10 ML UDC 100 MG PO ×4 (06:05→20:19)
[2024-11-13] MEDS: TIOTROPIUM BR 2.5 MCG 120 PUFF/4 GM INHALER INH (06:33)
[2024-11-13] MEDS: cefTRIAXone/D5w 2gm 2 GM/50 ML BAG IV (08:29)
[2024-11-13] MEDS: SACUBITRIL 24 MG/VALSARTAN 26 MG TABLET 1 TAB PO ×2 (08:29→20:19)
[2024-11-13] MEDS: predniSONE 20 MG TABLET 40 MG PO (08:29)
[2024-11-13] MEDS: METOPROLOL SUCCINATE XL 25 MG TABCR PO (08:29)
[2024-11-13] MEDS: HEPARIN SOD INJ 5000 UNIT/ML VIAL SC ×2 (08:29→20:20)
[2024-11-13] MEDS: amLODIPine BESYLATE 5 MG TABLET PO (08:30)
[2024-11-13] MEDS: PANTOPRAZOLE 40 MG TABLET PO (08:30)
[2024-11-13] MEDS: SODIUM CHLORIDE 1 GM TABLET PO (08:30)
[2024-11-13] MEDS: CLOPIDOGREL BISULFATE 75 MG TABLET PO (08:30)
[2024-11-13] MEDS: Furosemide 20 MG TABLET PO (10:24)
--- NOTE | 2024-11-13 10:37 | PC.SS ---
TYPESETTING SUPERVISOR confirmed with patient's daughter in law, Lisa ; plan is to discharge the patient home. Family requesting hospital bed. technical services rep to submit DME referral.
--- NOTE | 2024-11-13 11:08 | PC.SS ---
ANTHONY received phone call from [facility] [place] that authorization for trilogy has been approved. DIGITAL MARKETING CONSULTANT provided [facility] staff with patient's daughter in law contact information to schedule deliver of DME to the home.
--- NOTE | 2024-11-13 11:52 | ESDS_ITS ---
Planned Discharge Date 11/13/24 DS: Providers Provider Date of admission: 10/29/24 03:16 Primary care physician: Dutch Casillas MD Admitting Provider: Nasrin Sanchez MD Attending Provider on Admission: Mulu Santana DO Consults: 10/29/24 10:05 Referral Respiratory Therapy Routine Comment: 10/30/24 16:15 Consult to Physicist Astrophysics Routine Comment: Consulting Provider: Rajni Ross 11/01/24 09:54 Consult to Infectious Diseases Routine Comment: Consulting Provider: Adrian Marin 11/01/24 14:12 Consult to Nephrology Routine Comment: Consulting Provider: Mariela Zafar 11/02/24 09:50 Referral Physical Therapy Routine Comment: Physician Instructions: 11/06/24 10:36 Referral Speech Therapy Routine Comment: 11/06/24 18:45 Referral Nutritional Services Routine Comment: Referral Wound Care Routine Comment: family request has concerns over left heel scab Attending Provider on DC: Riccardo Flores MD Discharging Provider: Riccardo Flores MD DS: Diagnosis Problem List Completed Was Problem List Reviewed/Reconciled?: Yes Hospital Course Hospital Course Hospital course: 79-year-old female with past medical history of COPD (2 L O2 at home), HFpEF (55 to 60% on 2022), hypertension, CVA, lymphoma currently on remission, chronic back pain on narcotics, and chronic constipation, and PAD who was admitted to the hospital on 10/29/2024 due to acute on chronic hypoxic respiratory failure likely secondary to COPD exacerbation in the setting of RSV and Psuedomonas pneumonia as well as MSSA bacteremia, E. Faecalis UTI, and hypoosmolar hyponatremia. In the ED patient initially came in with worsening shortness of breath for 2 days prior to admission. Patient was initially placed on ceftriaxone, azithromycin, and steroids. Patient was also hyponatremic in the 128 initially. Patient's hospital stay was complicated due to increased work of breathing and patient becoming very short of breath and she had multiple rapid response due to tachypnea and hypoxia. During these times patient was acidotic, but she was placed on BiPAP and given extra doses of steroids. Patient had a short admission to the ICU for monitoring due to possible need of intubation, but she was downgraded back to the medical floors on the next day. Patient's sodium also continued to drop throughout the hospital stay and went as low as 118 for which she was placed on hypertonic saline briefly after nephrology was consulted and recommended to start this. Patient's blood culture also grew MSSA, sputum cultures grew Pseudomonas, and urine grew E faecalis therefore infectious disease specialist was consulted and placed the patient on doxycycline. Patient finished a course of doxycycline on 11/09/2024 and afterwards infectious disease went to place patient on Rocephin 2 gm until 11/15/2024 therefore PICC line was inserted to the patient could continue IV antibiotics. Patient sodium then improved throughout the hospital stay and her respiratory status also improved significantly, but patient was continued on BiPAP at night. Patient had an acute drop of hemoglobin and she had some black stool documented therefore FOBT was ordered, but that came back negative. Patient remained stable the rest of the hospital stay, but her hospital stay was further delayed due to increased oxygen requirements when she was taken off the BiPAP and patient's family were undecided if they would like to proceed with SNF or if they would like to take patient home with follow-up. Trilogy machine was ordered for the patient as he would require this in order to possibly avoid hospital readmission. At the time of discharge she was stable enough to be discharged home with home health and trilogy machine. Of note patient also signed a POLST form indicating she wanted to be DNR/DNI. Discharge plan: Please follow-up with primary care physician 1 week after discharge Please follow-up with your client solutions specialist in 3 to 5 days after discharge Please ensure to have a low-sodium diet restricted to 2 g/day, restrict fluid intake to 2 L/day, weight yourself daily. If you notice shortness of breath or shortness of breath while laying flat, leg swelling, close fitting tighter, or decreased urination please call your client solutions specialist or visit the ER. Please continue taking Rocephin 2 g daily until 11/15/2024 followed with PICC line removal. You have been started on amlodipine 5 mg daily and furosemide 20 mg daily You have been started on Medrol pack for steroid tapering. Your metolazone has been stopped as well as your hydrochlorothiazide and prednisone 5 mg tablets. Please continue taking all other home medications as prescribed Please come back to the ER if symptoms persist or worsen Problem list: #Acute on chronic hypoxic and hypercapnic respiratory failure likely secondary to #COPD exacerbation in the setting of #Pneumonia, RSV positive and Pseudomonas #Respiratory acidosis, improving #Hx of COPD #MSSA bacteremia #E. Faecalis in urine #Macrocytic normochromic anemia #Hypoosmolar hyponatremia, chronic #Hyperkalemia, resolved #Hx of HFpEF (55% on 10/2023) #Hypertensive urgency #Hx of hypertension #Hx of CVA #Hx of PAD #Hx of chronic constipation in the setting of #Chronic back pain on narcotics Case disclosed with Attending Dr. Flores and my senior Dr. Estrella PGY3 Naresh Camargo PGY1 Status at Discharge Overall status at discharge: patient is progressing back to baseline Time Spent with Patient Time attestation: Total time spent providing and/or coordinating discharge services:>35 min Home Health Home Health Referral Orders: 11/13/24 11:31 Home Health Referral Routine Reason For Exam: Home PT Home-Bound The patient must either because of illness or injury, need the aid of supportive devices such as crutches, canes, wheelchairs, and walkers; the use of special transportation; or the assistance of another person in order to leave their place of residence; OR have a condition such that leaving his or her home is medically contraindicated. In addition, the patient also meets the following criteria: patient is normally unable to leave the home and leaving home requires c onsiderable taxing effort. Addendum to Home Health Certification Practitioner's Certification: I certify that the patient has been under my care in the hospital and the care of attending physician (see below). We had a qkbf-[id number] encounter on (see date below). My clinical findings indicate that the patient is home bound per the above criteria and the Home Health Services noted in these orders are medically necessary. The primary reason for the [id number] encounter is related to the fact that the patient requires home health services. Date Certifying [id number] Physician Encounter: 10/29/24 Physician's Name who will Assume Oversight for HH Services: Physician No Primary/Family PLANT PULLER - Community Resources: Yes PT to Evaluate: Yes PT to evaluate and provide a treatmnet plan to increase patient's mobility and strength. Wound Care: No IV Therapy: Yes IV Medication: Rocephin IV Dose: 2 Grams IV Frequency: Daily IV Stop Date: 11/15/24 Discontinue PICC Line Once Treatment Complete: Yes RN Safety Evaluation: Yes RN to evaluate and create a plan of care that will produce positive outcomes. Palliative Treatment: No Palliative treatment and evaluate the need for hospice. Home Health Aide - Personal Care: Yes Home Health Aide to assist with any ADL's. Exam Vital Signs Temp Pulse Resp BP Pulse Ox O2 Del Method O2 Flow Rate 97.2 F 86 17 115/61 100 Nasal Cannula 2 11/13/24 08:00 11/13/24 10:24 11/13/24 08:00 11/13/24 10:24 11/13/24 08:00 11/13/24 08:00 11/13/24 08:00 FiO2 30 11/12/24 16:00 Narrative Exam General: A/O x3, no acute distress, ill appearing thin elderly on NC. Eyes: PERRL, EOMI. Anicteric, vision grossly intact. Ears: No ear pain, no ear discharge, Hearing impaired Nose: No nasal discharge. Mouth/Throat: Dry mucous membranes Neck: Neck supple, non-tender, no cervical lymphadenopathy. Lungs: Clear АНДРЕЙ, No accessory muscle use, on Bipap Cardio: Normal S1/S2, regular rhythm, no murmurs, b/L JVD, Abdomen: Soft, non-tender, no palpable masses, peristalsis present, no guarding or rebound. Extremities: no significant deformities, no peripheral edema , non-tender Skin: АНДРЕЙ LE venous stasis changes and L UE with red discoloration from elbow level to wrist. Neuro: No focal neurological deficits. motor and sensory intact Discharge Plan Plan Patient Disposition: Home w/HOME HEALTH Patient condition on transfer: Stable Care Plan Goals: Please follow-up with primary care physician 1 week after discharge Please follow-up with your client solutions specialist in 3 to 5 days after discharge Please ensure to have a low-sodium diet restricted to 2 g/day, restrict fluid intake to 2 L/day, weight yourself daily. If you notice shortness of breath or shortness of breath while laying flat, leg swelling, close fitting tighter, or decreased urination please call your client solutions specialist or visit the ER. Please continue taking Rocephin 2 g daily until 11/15/2024 followed with PICC line removal. You have been started on amlodipine 5 mg daily and furosemide 20 mg daily You have been started on Medrol pack for steroid tapering. Your metolazone has been stopped as well as your hydrochlorothiazide and prednisone 5 mg tablets. Please continue taking all other home medications as prescribed Please come back to the ER if symptoms persist or worsen Wound care: 1) Fissure to left lateral heel with blanchable redness. Blanchable redness to right heel and sacrum: cleanse with wound cleanser, pat dry, apply allyven dressing. Change PRN for falling off or soiling. Side to side repositioning except for meals Negative heel pressure bilaterally Prescriptions/Referrals Prescriptions/Med Rec: New amlodipine 5 mg tablet 5 mg PO QDAY 30 Days Qty: 30 0RF furosemide 20 mg tablet 20 mg PO QDAY 30 Days Qty: 30 0RF methylprednisolone [Medrol (Christoph)] 4 mg tablets,dose pack 4 mg PO QAM Qty: 21 0RF Continued docusate sodium 100 mg Capsule 200 mg PO BID albuterol sulfate 90 mcg/actuation HFA aerosol inhaler 2 puff inhalation Q6H PRN (Reason: shortness of breath or wheezing) Qty: 6.7 0RF Trelegy Ellipta 200-62.5-25 mcg blister with device 2 inh INHALATION QDAY PRN (Reason: shortness of breath) cetirizine 10 mg tablet 10 mg PO DAILY PRN (Reason: Allergy Symptoms) famotidine 20 mg tablet 20 mg PO DAILY PRN (Reason: Acid Reflux) acetaminophen-codeine 300-30 mg tablet 1 tab PO TID PRN (Reason: Pain) metoprolol succinate 25 mg tablet extended release 24 hr 25 mg PO DAILY sacubitril-valsartan [Entresto] 24-26 mg tablet 1 tab PO BID senna 8.6 mg capsule 8.6 mg PO QDAY PRN (Reason: constipation) Qty: 30 0RF clopidogrel 75 mg tablet 75 mg PO DAILY lactulose 10 gram/15 mL solution 15 ml PO DAILY PRN (Reason: constipation) Discontinued metolazone 2.5 mg tablet 2.5 mg PO DAILY prednisone 5 mg tablet 5 mg PO DAILY hydrochlorothiazide 25 mg tablet 25 mg PO DAILY Referrals: Dutch Casillas MD [Primary Care Provider] - Patient/Caregiver Discharge Instructions Other Discharge Activity Instructions:: Please follow-up with primary care physician 1 week after discharge Please follow-up with your client solutions specialist in 3 to 5 days after discharge Please ensure to have a low-sodium diet restricted to 2 g/day, restrict fluid intake to 2 L/day, weight yourself daily. If you notice shortness of breath or shortness of breath while laying flat, leg swelling, close fitting tighter, or decreased urination please call your client solutions specialist or visit the ER. Please continue taking Rocephin 2 g daily until 11/15/2024 followed with PICC line removal. You have been started on amlodipine 5 mg daily and furosemide 20 mg daily You have been started on Medrol pack for steroid tapering. Your metolazone has been stopped as well as your hydrochlorothiazide and prednisone 5 mg tablets. Please continue taking all other home medications as prescribed Please come back to the ER if symptoms persist or worsen Wound care: 1) Fissure to left lateral heel with blanchable redness. Blanchable redness to right heel and sacrum: cleanse with wound cleanser, pat dry, apply allyven dressing. Change PRN for falling off or soiling. Side to side repositioning except for meals Negative heel pressure bilaterally Education Materials: Discharge Instructions: COPD, Heart Failure Dc Print Language: Greek Stand Alone Forms: Sanju[employer] Award Info., Patient Portal Info Letter Discharge Order Discharge Orders: Discharge (Routine); Ordered 11/13/24 Ordered By: Naresh Camargo Quality Discharge Quality Measures VTE prophylaxis Attestestation MD Attestation I reviewed labs, imaging, EKG, home medications and prior available records. Face to face evaluation was performed by me. I have personally examined the patient and discussed assessment and plan with the IM team. I reviewed the resident note and agree with the plan with exceptions as below. COPD exacerbation Chronic hypoxic respiratory failure MSSA bacteremia RSV infection HFpEF EF 55% Hyponatremia Goals of care discussion/counseling Debility Rocephin IV till 11/15 given the MSSA bacteremia Continue salt tablets. Monitor sodium level Trelegy machine at home Continue home COPD inhalers Patient is now DNR/DNI Discussed with mental health social worker: May need SNF placement
--- NOTE | 2024-11-13 12:27 | PC.CC ---
Addendum entered and electronically signed by Rachael López [facility] 11/13/24 14:26: Per ANTHONY Crane, patient may go to SNF. If disposition is home, [facility] has accepted. The following HH agencies have accepted with [facility] 11/14: [facility], [facility], [facility], [facility]. Addendum entered and electronically signed by Rachael López [facility] 11/13/24 13:22: Received call from son. He wished to speak with bedside nurse regarding patient's physical condition. He will return call regarding HH preferences. NOE Campos unavailable. Extension for RN given to son for call back. Original Note: Received order for HH + IV Abx. S/W daughter in law, she reports they have had [facility] in the past but she would like to confirm with patient's son before proceeding with [facility]. Son is currently at work until 4pm, but she will attempt to contact him at work and have him call in. She reports both herself and son will be able to receive teaching and assist with administration. Referrals sent to local HH agencies and [facility] pending family's final preferences.
--- NOTE | 2024-11-13 12:31 | PC.CM ---
Addendum entered by Etta Hernandez RN 11/13/24 16:37: I reviewed Rachael's notes and patient may discharge to SNF. Patient was only needing IV ABX for 2 more days. Original Note: 1200 I received a referral for home health with antibiotics for discharge. I called Rachael and asked if she would take car of the referral. Rachael stated she would take care of it.
--- NOTE | 2024-11-13 14:34 | PC.SS ---
COTTON STOMPER confirmed with hospitalist that patient's discharge will be held to allow patient and family to confirm discharge plan. Home w/HH vs SNF.
--- NOTE | 2024-11-13 14:38 | PC.SS ---
Rounding Note: Patient will need 2 days of IV Rocephin.
--- NOTE | 2024-11-13 16:45 | PC.SS ---
TRANSFER CONTROLLER confirmed with patient and patient's son discharge plan is transition patient to SNF. Preferred SNF is [facility], [facility] is secondary choice. Patient does not want [facility]. SNF referral pending.
[2024-11-13] MEDS: MELATONIN 3 MG TABLET 6 MG PO (20:19)
[2024-11-14] VITALS (11 sets, daily range): BP systolic 103–120; BP diastolic 55–70; PULSE 73–96; RESP 13–21; TEMP 36.3–36.8; O2SAT 97–100
[2024-11-14] MEDS: LEVALBUTEROL RT 1.25 MG/0.5 ML NEBU INH ×2 (00:43→06:10)
[2024-11-14] MEDS: LIDOCAINE 5% 1 PATCH TOP (05:31)
[2024-11-14] MEDS: guaiFENesin SYRUP 200 MG/10 ML UDC 100 MG PO ×3 (05:31→16:33)
[2024-11-14 05:49] LABS: Basophils % (Auto) 0 % (0-2.5); Eosinophils % (Auto) 0 % (0-10); Hematocrit 24.9 % (36.0-46.0); Immature Granulocytes % (Auto) 0 % (0-0); Immature Granulocytes Auto 0.03 Thou/mm3 (0.00-0.00); Lymphocytes # (Auto) 2.1 Thou/mm3 (1.0-4.8); Lymphocytes % (Auto) 23 % (10-50); Mean Corpuscular HGB Conc 33.7 g/dl (31.0-37.0); Mean Corpuscular Hemoglobin 33.9 pg (25.0-35.0); Mean Corpuscular Volume 100 fL (80-100); Monocytes # (Auto) 0.6 Thou/mm3 (0.0-0.8); Monocytes % (Auto) 7 % (0-12); Neutrophils # (Auto) 6.4 Thou/mm3 (1.8-7.7); Neutrophils % (Auto) 70 % (37-80); Nucleated Red Blood Cell % 0 /100 WBC (0); Platelet Count 362 Thou/mm3 (140-440); RDW Standard Deviation 51.4 fL (36.4-46.3); Red Blood Count 2.48 Miln/mm3 (4.00-5.20); White Blood Count 9.2 Thou/mm3 (3.6-11.0)
[2024-11-14 05:50] LABS: Hemoglobin 8.4 g/dL (12.0-16.0)
[2024-11-14 06:23] LABS: Alanine Aminotransferase 8 U/L (10-49); Albumin, Serum 2.8 gm/dL (3.4-4.8); Albumin/Globulin Ratio 1.1 (1.2-2.2); Alkaline Phosphatase 36 U/L (46-116); Anion Gap 4 (7-16); Aspartate Amino Transferase 16 U/L (0-34); BUN/Creatinine Ratio 56 Ratio (12-20); Bilirubin,Total 0.3 mg/dL (0.3-1.2); Blood Urea Nitrogen 28 mg/dL (9-23); Calcium 8.6 mg/dL (8.3-10.6); Calcium (Corrected) 9.6 mg/dL (8.5-10.1); Carbon Dioxide 35.8 mMol/L (20.0-31.0); Chloride 92 mMol/L (98-107); Creatinine (Component) 0.5 mg/dL (0.6-1.3); Globulin 2.5 gm/dL (2.3-3.5); Glucose 86 mg/dL (74-106); Magnesium 1.7 mg/dL (1.6-2.6); Osmolality,Calculated 269 (275-295); Phosphorous 2.4 mg/dL (2.4-5.1); Potassium 3.4 mMol/L (3.4-5.1); Sodium 132 mMol/L (136-145); Total Protein 5.3 gm/dL (5.7-8.2); eGFR > 60 See Note
--- NOTE | 2024-11-14 07:29 | PC.SS ---
Updated clinicals submitted on [facility] for SNF placement. Responses are pending.
--- NOTE | 2024-11-14 07:41 | PC.SS ---
PASSR completed. Patient meets Level I criteria.
[2024-11-14] MEDS: METOPROLOL SUCCINATE XL 25 MG TABCR PO (08:03)
[2024-11-14] MEDS: SODIUM CHLORIDE 1 GM TABLET PO (08:03)
[2024-11-14] MEDS: amLODIPine BESYLATE 5 MG TABLET PO (08:05)
[2024-11-14] MEDS: PANTOPRAZOLE 40 MG TABLET PO (08:05)
[2024-11-14] MEDS: Furosemide 20 MG TABLET PO (08:05)
[2024-11-14] MEDS: CLOPIDOGREL BISULFATE 75 MG TABLET PO (08:14)
[2024-11-14] MEDS: HEPARIN SOD INJ 5000 UNIT/ML VIAL SC (08:14)
[2024-11-14] MEDS: SACUBITRIL 24 MG/VALSARTAN 26 MG TABLET 1 TAB PO (08:14)
[2024-11-14] MEDS: predniSONE 20 MG TABLET PO (08:14)
--- NOTE | 2024-11-14 10:06 | PD.RESDS ---
Planned Discharge Date 11/14/24 DS: Providers Provider Date of admission: 10/29/24 03:16 Primary care physician: Dutch Casillas MD Admitting Provider: Nasrin Sanchez MD Attending Provider on Admission: Riccardo Flores MD Consults: 10/29/24 10:05 Referral Respiratory Therapy Routine Comment: 10/30/24 16:15 Consult to Emergency Medical Technician Routine Comment: Consulting Provider: Rajni Ross 11/01/24 09:54 Consult to Infectious Diseases Routine Comment: Consulting Provider: Adrian Marin 11/01/24 14:12 Consult to Nephrology Routine Comment: Consulting Provider: Mariela Zafar 11/02/24 09:50 Referral Physical Therapy Routine Comment: Physician Instructions: 11/06/24 10:36 Referral Speech Therapy Routine Comment: 11/06/24 18:45 Referral Nutritional Services Routine Comment: Referral Wound Care Routine Comment: family request has concerns over left heel scab Attending Provider on DC: Riccardo Flores MD Discharging Provider: Riccardo Flores MD DS: Diagnosis Problem List Completed Was Problem List Reviewed/Reconciled?: Yes Hospital Course Hospital Course Hospital course: 79-year-old female with past medical history of COPD (2 L O2 at home), HFpEF (55 to 60% on 2022), hypertension, CVA, lymphoma currently on remission, chronic back pain on narcotics, and chronic constipation, and PAD who was admitted to the hospital on 10/29/2024 due to acute on chronic hypoxic respiratory failure likely secondary to COPD exacerbation in the setting of RSV and Psuedomonas pneumonia as well as MSSA bacteremia, E. Faecalis UTI, and hypoosmolar hyponatremia. In the ED patient initially came in with worsening shortness of breath for 2 days prior to admission. Patient was initially placed on ceftriaxone, azithromycin, and steroids. Patient was also hyponatremic in the 128 initially. Patient's hospital stay was complicated due to increased work of breathing and patient becoming very short of breath and she had multiple rapid response due to tachypnea and hypoxia. During these times patient was acidotic, but she was placed on BiPAP and given extra doses of steroids. Patient had a short admission to the ICU for monitoring due to possible need of intubation, but she was downgraded back to the medical floors on the next day. Patient's sodium also continued to drop throughout the hospital stay and went as low as 118 for which she was placed on hypertonic saline briefly after nephrology was consulted and recommended to start this. Patient's blood culture also grew MSSA, sputum cultures grew Pseudomonas, and urine grew E faecalis therefore infectious disease specialist was consulted and placed the patient on doxycycline. Patient finished a course of doxycycline on 11/09/2024 and afterwards infectious disease went to place patient on Rocephin 2 gm until 11/15/2024 therefore PICC line was inserted to the patient could continue IV antibiotics. Patient sodium then improved throughout the hospital stay and her respiratory status also improved significantly, but patient was continued on BiPAP at night. Patient had an acute drop of hemoglobin and she had some black stool documented therefore FOBT was ordered, but that came back negative. Patient remained stable the rest of the hospital stay, but her hospital stay was further delayed due to increased oxygen requirements when she was taken off the BiPAP and patient's family were undecided if they would like to proceed with SNF or if they would like to take patient home with follow-up. Trilogy machine was ordered for the patient as he would require this in order to possibly avoid hospital readmission. At the time of discharge she was stable enough to be discharged to retirement facility. Of note patient also signed a POLST form indicating she wanted to be DNR/DNI. 11/14/2024: Patient's discharge was delayed given that patient was seen by physical therapy and recommended SNF and the patient agreed to going to SNF rather than home with home health in the afternoon. No new complaints today and patient was doing well. Patient will be discharged to a retirement facility for continuation of physical therapy. Discharge plan: Please follow-up with primary care physician 1 week after discharge Please follow-up with your design consultant in 3 to 5 days after discharge Please ensure to have a low-sodium diet restricted to 2 g/day, restrict fluid intake to 2 L/day, weight yourself daily. If you notice shortness of breath or shortness of breath while laying flat, leg swelling, close fitting tighter, or decreased urination please call your design consultant or visit the ER. Please continue taking Rocephin 2 g daily until 11/15/2024 followed with PICC line removal. You have been started on amlodipine 5 mg daily and furosemide 20 mg daily You have been started on Medrol pack for steroid tapering. You have beed started on sodium tablets 1gm twice daily Your metolazone has been stopped as well as your hydrochlorothiazide and prednisone 5 mg tablets. Please continue taking all other home medications as prescribed Please come back to the ER if symptoms persist or worsen Problem list: #Acute on chronic hypoxic and hypercapnic respiratory failure likely secondary to #COPD exacerbation in the setting of #Pneumonia, RSV positive and Pseudomonas #Respiratory acidosis, improving #Hx of COPD #MSSA bacteremia #E. Faecalis in urine #Macrocytic normochromic anemia #Hypoosmolar hyponatremia, chronic #Hyperkalemia, resolved #Hx of HFpEF (55% on 10/2023) #Hypertensive urgency #Hx of hypertension #Hx of CVA #Hx of PAD #Hx of chronic constipation in the setting of #Chronic back pain on narcotics Case disclosed with Attending Dr. Flores and my senior Dr. Estrella PGY3 Naresh Camargo PGY1 Status at Discharge Overall status at discharge: patient is progressing back to baseline Time Spent with Patient Time attestation: Total time spent providing and/or coordinating discharge services:>35 min Home Health Home Health Referral Orders: 11/13/24 11:31 Home Health Referral Routine Reason For Exam: Home PT Home-Bound The patient must either because of illness or injury, need the aid of supportive devices such as crutches, canes, wheelchairs, and walkers; the use of special transportation; or the assistance of another person in order to leave their place of residence; OR have a condition such that leaving his or her home is medically contraindicated. In addition, the patient also meets the following criteria: patient is normally unable to leave the home and leaving home requires considerable taxing effort. Addendum to Home Health Certification Practitioner's Certification: I certify that the patient has been under my care in the hospital and the care of attending physician (see below). We had a [id number]-gs-[id number] encounter on (see date below). My clinical findings indicate that the patient is home bound per the above criteria and the Home Health Services noted in these orders are medically necessary. The primary reason for the [id number]-aj-[id number] encounter is related to the fact that the patient requires home health services. Date Certifying [id number]-[id number] Physician Encounter: 10/29/24 Physician's Name who will Assume Oversight for HH Services: Physician No Primary/Family HANGER OFF - Community Resources: Yes PT to Evaluate: Yes PT to evaluate and provide a treatmnet plan to increase patient's mobility and strength. Wound Care: No IV Therapy: Yes IV Medication: Rocephin IV Dose: 2 Grams IV Frequency: Daily IV Stop Date: 11/15/24 Discontinue PICC Line Once Treatment Complete: Yes RN Safety Evaluation: Yes RN to evaluate and create a plan of care that will produce positive outcomes. Palliative Treatment: No Palliative treatment and evaluate the need for hospice. Home Health Aide - Personal Care: Yes Home Health Aide to assist with any ADL's. Exam Vital Signs Temp Pulse Resp BP Pulse Ox O2 Del Method O2 Flow Rate 98.3 F 86 21 H 103/55 L 99 Nasal Cannula 2 11/14/24 08:00 11/14/24 08:05 11/14/24 08:00 11/14/24 08:05 11/14/24 08:00 11/14/24 08:00 11/14/24 08:00 FiO2 30 11/14/24 08:00 Narrative Exam General: A/O x3, no acute distress, thin elderly on NC. Eyes: PERRL, EOMI. Anicteric, vision grossly intact. Ears: No ear pain, no ear discharge, Hearing impaired Nose: No nasal discharge. Mouth/Throat: Dry mucous membranes Neck: Neck supple, non-tender, no cervical lymphadenopathy. Lungs: Clear АНДРЕЙ, No accessory muscle use, on Bipap Cardio: Normal S1/S2, regular rhythm, no murmurs, b/L JVD, Abdomen: Soft, non-tender, no palpable masses, peristalsis present, no guarding or rebound. Extremities: no significant deformities, no peripheral edema , non-tender Skin: АНДРЕЙ LE venous stasis changes and L UE with red discoloration from elbow level to wrist. Neuro: No focal neurological deficits. motor and sensory intact Discharge Plan Plan Patient Disposition: Xfer Skilled Nsg Fac (SNF) Patient condition on transfer: Stable Care Plan Goals: Please follow-up with primary care physician 1 week after discharge Please follow-up with your design consultant in 3 to 5 days after discharge Please ensure to have a low-sodium diet restricted to 2 g/day, restrict fluid intake to 2 L/day, weight yourself daily. If you notice shortness of breath or shortness of breath while laying flat, leg swelling, close fitting tighter, or decreased urination please call your design consultant or visit the ER. Please continue taking Rocephin 2 g daily until 11/15/2024 followed with PICC line removal. You have been started on amlodipine 5 mg daily and furosemide 20 mg daily You have been started on Medrol pack for steroid tapering. You have been started on sodium tablet 1gm twice a day. Your metolazone has been stopped as well as your hydrochlorothiazide and prednisone 5 mg tablets. Please continue taking all other home medications as prescribed Please come back to the ER if symptoms persist or worsen Wound care: 1) Fissure to left lateral heel with blanchable redness. Blanchable redness to right heel and sacrum: cleanse with wound cleanser, pat dry, apply allyven dressing. Change PRN for falling off or soiling. Side to side repositioning except for meals Negative heel pressure bilaterally Prescriptions/Referrals Prescriptions/Med Rec: New amlodipine 5 mg tablet 5 mg PO QDAY 30 Days Qty: 30 0RF furosemide 20 mg tablet 20 mg PO QDAY 30 Days Qty: 30 0RF methylprednisolone [Medrol (Christoph)] 4 mg tablets,dose pack 4 mg PO QAM Qty: 21 0RF sodium chloride 1,000 mg tablet,soluble 1,000 mg PO BID 30 Days Qty: 60 0RF Continued docusate sodium 100 mg Capsule 200 mg PO BID albuterol sulfate 90 mcg/actuation HFA aerosol inhaler 2 puff inhalation Q6H PRN (Reason: shortness of breath or wheezing) Qty: 6.7 0RF Trelegy Ellipta 200-62.5-25 mcg blister with device 2 inh INHALATION QDAY PRN (Reason: shortness of breath) cetirizine 10 mg tablet 10 mg PO DAILY PRN (Reason: Allergy Symptoms) famotidine 20 mg tablet 20 mg PO DAILY PRN (Reason: Acid Reflux) acetaminophen-codeine 300-30 mg tablet 1 tab PO TID PRN (Reason: Pain) metoprolol succinate 25 mg tablet extended release 24 hr 25 mg PO DAILY sacubitril-valsartan [Entresto] 24-26 mg tablet 1 tab PO BID senna 8.6 mg capsule 8.6 mg PO QDAY PRN (Reason: constipation) Qty: 30 0RF clopidogrel 75 mg tablet 75 mg PO DAILY lactulose 10 gram/15 mL solution 15 ml PO DAILY PRN (Reason: constipation) Discontinued metolazone 2.5 mg tablet 2.5 mg PO DAILY prednisone 5 mg tablet 5 mg PO DAILY hydrochlorothiazide 25 mg tablet 25 mg PO DAILY Referrals: Dutch Casillas MD [Primary Care Provider] - Patient/Caregiver Discharge Instructions Other Discharge Activity Instructions:: Please follow-up with primary care physician 1 week after discharge Please follow-up with your design consultant in 3 to 5 days after discharge Please ensure to have a low-sodium diet restricted to 2 g/day, restrict fluid intake to 2 L/day, weight yourself daily. If you notice shortness of breath or shortness of breath while laying flat, leg swelling, close fitting tighter, or decreased urination please call your design consultant or visit the ER. Please continue taking Rocephin 2 g daily until 11/15/2024 followed with PICC line removal. You have been started on amlodipine 5 mg daily and furosemide 20 mg daily You have been started on Medrol pack for steroid tapering. You have been started on sodium tablet 1gm twice a day. Your metolazone has been stopped as well as your hydrochlorothiazide and prednisone 5 mg tablets. Please continue taking all other home medications as prescribed Please come back to the ER if symptoms persist or worsen Wound care: 1) Fissure to left lateral heel with blanchable redness. Blanchable redness to right heel and sacrum: cleanse with wound cleanser, pat dry, apply allyven dressing. Change PRN for falling off or soiling. Side to side repositioning except for meals Negative heel pressure bilaterally Education Materials: Discharge Instructions: COPD, Heart Failure Dc Print Language: Luxembourger Stand Alone Forms: [employer] Award Info., Patient Portal Info Letter Discharge Order Discharge Orders: Discharge (Routine); Ordered 11/14/24 Ordered By: Naresh Camargo Quality Discharge Quality Measures VTE prophylaxis Attestestation Attestation I reviewed labs, imaging, EKG, home medications and prior available records. Face to face evaluation was performed by me. I have personally examined the patient and discussed assessment and plan with the IM team. I reviewed the resident note and agree with the plan with exceptions as below. COPD exacerbation Chronic hypoxic respiratory failure MSSA bacteremia RSV infection HFpEF EF 55% Hyponatremia Goals of care discussion/counseling Debility Rocephin IV till 11/15 given the MSSA bacteremia Continue salt tablets. Monitor sodium level Trelegy machine at home Continue Trelegy Ellipta and albuterol as needed Continue metoprolol and Entresto Lasix 20 mg p.o. daily Discussed with psychosocial rehabilitation counselor: Patient and her son agreed on SNF Time spent is 40 minutes. More than 50% of the time was spent on patient education and coordination of care.
[2024-11-14] MEDS: cefTRIAXone/D5w 2gm 2 GM/50 ML BAG IV (10:27)
--- NOTE | 2024-11-14 10:33 | PC.SS ---
Addendum entered by Marilyn Baez 11/14/24 11:39: SS was contacted [facility] to set up transportation for 6PM. SS contacted patient's daughter in law, Telly as well as patients nurse, Monae. SS updated Melany as well. Original Note: SS follow up note; SS contacted patient's daughter in law Telly to provide SNF choices. Telly reported that patient's son Negro would like patient to discharge to [facility]. SS contacted Melany from [facility] and she reported they are able to accept patient this evening. SS set up transportation with [facility], Reference # [id number]. SS will stand by for further needs.
== END 2024-11-14 18:33 | disposition skilled nursing facility (03) | DRG 190 ==
LOC: SERX 22:17 → SERHOLD 10-29 03:44 → S3SX 10-29 09:16 → S2SX 10-31 07:23 → S3SX 11-01 07:51 → S2SX 11-01 07:51 → S2NX 11-01 08:25 → S3NX 11-05 18:34 → S2NX 11-08 08:21
PROVIDERS: Internal Medicine; Internal Medicine Infectious Disease; Radiology Diagnostic Radiology; Student in an Organized Health Care Education/Training Program; Admitting Provider Student in an Organized Health Care Education/Training Program; Emergency Provider Emergency Medicine; PCP Family Medicine; Visit Provider Student in an Organized Health Care Education/Training Program
DX: J44.0 Chronic obstructive pulmonary disease with (acute) lower respiratory infection (principal); J12.1 Respiratory syncytial virus pneumonia; J96.21 Acute and chronic respiratory failure with hypoxia; J96.22 Acute and chronic respiratory failure with hypercapnia; J15.1 Pneumonia due to Pseudomonas; I50.32 Chronic diastolic (congestive) heart failure; C85.9A Non-Hodgkin lymphoma, unspecified, in remission; E87.1 Hypo-osmolality and hyponatremia; E46 Unspecified protein-calorie malnutrition; N39.0 Urinary tract infection, site not specified; E87.4 Mixed disorder of acid-base balance; J44.1 Chronic obstructive pulmonary disease with (acute) exacerbation; J43.9 Emphysema, unspecified; I11.0 Hypertensive heart disease with heart failure; I48.91 Unspecified atrial fibrillation; E87.5 Hyperkalemia; E83.42 Hypomagnesemia; I16.0 Hypertensive urgency; D50.9 Iron deficiency anemia, unspecified; I73.9 Peripheral vascular disease, unspecified; Z99.81 Dependence on supplemental oxygen; Z68.20 Body mass index [BMI] 20.0-20.9, adult; Z86.73 Personal history of transient ischemic attack (TIA), and cerebral infarction without residual deficits; R74.01 Elevation of levels of liver transaminase levels; K59.09 Other constipation; G89.29 Other chronic pain; M54.50 Low back pain, unspecified; Z66 Do not resuscitate; Z87.891 Personal history of nicotine dependence; E87.6 Hypokalemia; F41.9 Anxiety disorder, unspecified; R23.4 Changes in skin texture; B95.61 Methicillin susceptible Staphylococcus aureus infection as the cause of diseases classified elsewhere; B95.2 Enterococcus as the cause of diseases classified elsewhere; E03.8 Other specified hypothyroidism; Z79.891 Long term (current) use of opiate analgesic; Z11.52 Encounter for screening for COVID-19; Z88.8 Allergy status to other drugs, medicaments and biological substances; Z79.02 Long term (current) use of antithrombotics/antiplatelets; Z78.9 Other specified health status
CPT/HCPCS: 36415; 36600; 71045; 71275; 80048; 80053; 80069; 80307; 81001; 82270; 82803; 83605; 83735; 83880; 84100; 84132; 84145; 84295; 84300; 84439; 84443; 84484; 84550; 85025; 85610; 85730; 86331; 86635; 86803; 87040; 87077; 87086; 87186; 87205; 87400; 87634; 87811; 89220; 92526; 92610; 93005; 93225; 93306; 93970; 94640; 94644; 94660; 94667; 96365; 96367; 96372; 96375; 97161; 99291; A4649; A9270; C1751; C1894; J0131; J0456; J0696; J1630; J1642; J1643; J1885; J1940; J2060; J2470; J2543; J2919; J3475; J3480; J3490; J7030; J7050; J7131; J7512; Q9967; Z7610; J1920

== ENCOUNTER → 2025-01-29 | Outpatient (CLI) | payer MEDICARE, MEDICAID, SELFPAY ==
--- NOTE | 2025-01-29 13:00 | XR_ITS ---
Examination: CT chest, without intravenous contrast. Sagittal and coronal 2-D reconstructions. Exam date and time: The 2024 1253 hours Comparison October 29, 2024 Smoking history CTDI:vol (mGy) 5.48 DLP: (mGycm) 196 Technique: Multiple 3.0 mm axial sections of the chest to been obtained. Bone and lung density settings are obtained. Sagittal and coronal 2-D reconstructions have been obtained. Low dose protocols were performed. One or more of the following dose reduction techniques were used; automated exposure control, adjustment of the mA and/or KV according to patient size, use of iterative reconstruction technique. Findings: Thoracic aortic calcification no aneurysmal dilatation Pulmonary artery segments are not enlarged Heavy calcification coronary arteries Mild enlargement cardiac contour 3 mm pulmonary nodule left upper lobe image 113 6 mm pulmonary nodule right lower lobe image 132 3 mm pulmonary nodule left upper lobe image 163 3 mm pulmonary nodule right middle lobe image 252 COPD with areas of airspace destruction No visualized liver or splenic lesion No pancreatic mass Renal calcifications probably arterial IMPRESSION: COPD Pulmonary nodules as above, with this study as baseline recommend 6 month follow-up CT chest without contrast
[2025-01-29 14:08] LABS: Basophils % (Auto) 1 % (0-2.5); Eosinophils # (Auto) 0.3 Thou/mm3 (0.0-0.5); Eosinophils % (Auto) 4 % (0-10); Hematocrit 31.1 % (36.0-46.0); Hemoglobin 10.3 g/dL (12.0-16.0); Immature Granulocytes % (Auto) 0 % (0-0); Immature Granulocytes Auto 0.02 Thou/mm3 (0.00-0.00); Lymphocytes % (Auto) 48 % (10-50); Mean Corpuscular HGB Conc 33.1 g/dl (31.0-37.0); Mean Corpuscular Hemoglobin 31.7 pg (25.0-35.0); Mean Corpuscular Volume 96 fL (80-100); Monocytes # (Auto) 0.8 Thou/mm3 (0.0-0.8); Monocytes % (Auto) 10 % (0-12); Neutrophils # (Auto) 3.2 Thou/mm3 (1.8-7.7); Neutrophils % (Auto) 38 % (37-80); Nucleated Red Blood Cell % 0 /100 WBC (0); Platelet Count 306 Thou/mm3 (140-440); RDW Standard Deviation 48.8 fL (36.4-46.3); Red Blood Count 3.25 Miln/mm3 (4.00-5.20); White Blood Count 8.4 Thou/mm3 (3.6-11.0)
[2025-01-29 14:25] LABS: Alanine Aminotransferase < 7 U/L (10-49); Albumin, Serum 3.8 gm/dL (3.4-4.8); Albumin/Globulin Ratio 0.9 (1.2-2.2); Alkaline Phosphatase 51 U/L (46-116); Anion Gap 6 (7-16); Aspartate Amino Transferase 21 U/L (0-34); BUN/Creatinine Ratio 27 Ratio (12-20); Bilirubin,Total 0.4 mg/dL (0.3-1.2); Blood Urea Nitrogen 19 mg/dL (9-23); Calcium 9.2 mg/dL (8.3-10.6); Calcium (Corrected) 9.4 mg/dL (8.5-10.1); Carbon Dioxide 36.4 mMol/L (20.0-31.0); Chloride 92 mMol/L (98-107); Creatinine (Component) 0.7 mg/dL (0.6-1.3); Globulin 4.3 gm/dL (2.3-3.5); Glucose 101 mg/dL (74-106); Osmolality,Calculated 270 (275-295); Sed Rate (ESR) 43 mm/hr (0-30); Sodium 134 mMol/L (136-145); Total Protein 8.1 gm/dL (5.7-8.2); eGFR > 60 See Note
[2025-01-30 12:59] LABS: Cocci Serology, IgM Negative (Negative)
[2025-01-31 12:52] LABS: Cocci Serology, IgG Negative (Negative)
== END | disposition home or self-care (01) ==
PROVIDERS: PCP Physician Assistant; Referring Provider Internal Medicine Critical Care Medicine; Visit Provider Internal Medicine Critical Care Medicine
DX: J44.9 Chronic obstructive pulmonary disease, unspecified (principal); R91.8 Other nonspecific abnormal finding of lung field; J96.11 Chronic respiratory failure with hypoxia; I50.9 Heart failure, unspecified; E87.1 Hypo-osmolality and hyponatremia; Z87.09 Personal history of other diseases of the respiratory system; Z85.72 Personal history of non-Hodgkin lymphomas
CPT/HCPCS: 36415; 71250; 80053; 82785; 85025; 85652; 86038; 86331; 86635

== ENCOUNTER → 2025-03-12 | Outpatient (CLI) | payer MEDICARE, MEDICAID, SELFPAY ==
[2025-03-12 14:44] LABS: Basophils % (Auto) 0 % (0-2.5); Eosinophils # (Auto) 0.1 Thou/mm3 (0.0-0.5); Eosinophils % (Auto) 1 % (0-10); Hematocrit 30.4 % (36.0-46.0); Hemoglobin 10.1 g/dL (12.0-16.0); Immature Granulocytes % (Auto) 0 % (0-0); Immature Granulocytes Auto 0.04 Thou/mm3 (0.00-0.00); Lymphocytes # (Auto) 4.2 Thou/mm3 (1.0-4.8); Lymphocytes % (Auto) 43 % (10-50); Mean Corpuscular HGB Conc 33.2 g/dl (31.0-37.0); Mean Corpuscular Hemoglobin 30.7 pg (25.0-35.0); Mean Corpuscular Volume 92 fL (80-100); Monocytes # (Auto) 0.9 Thou/mm3 (0.0-0.8); Monocytes % (Auto) 9 % (0-12); Neutrophils # (Auto) 4.6 Thou/mm3 (1.8-7.7); Neutrophils % (Auto) 47 % (37-80); Nucleated Red Blood Cell % 0 /100 WBC (0); Platelet Count 431 Thou/mm3 (140-440); Red Blood Count 3.29 Miln/mm3 (4.00-5.20); White Blood Count 9.8 Thou/mm3 (3.6-11.0)
[2025-03-12 14:58] LABS: B-Type Natriuretic Peptide 2516 pg/mL (0-100)
[2025-03-12 15:02] LABS: Albumin, Serum 3.4 gm/dL (3.4-4.8); Anion Gap 10 (7-16); BUN/Creatinine Ratio 19 Ratio (12-20); Blood Urea Nitrogen 13 mg/dL (9-23); Calcium 8.8 mg/dL (8.3-10.6); Calcium (Corrected) 9.3 mg/dL (8.5-10.1); Carbon Dioxide 37.2 mMol/L (20.0-31.0); Chloride 95 mMol/L (98-107); Creatinine (Component) 0.7 mg/dL (0.6-1.3); Glucose 149 mg/dL (74-106); Osmolality,Calculated 286 (275-295); Sodium 142 mMol/L (136-145); eGFR > 60 See Note
[2025-03-12 15:06] LABS: Potassium 2.9 mMol/L (3.4-5.1)
== END | disposition home or self-care (01) ==
LOC: COPL 13:43
PROVIDERS: PCP Physician Assistant; Referring Provider Specialist; Visit Provider Specialist
DX: I11.0 Hypertensive heart disease with heart failure (principal); I50.33 Acute on chronic diastolic (congestive) heart failure
CPT/HCPCS: 36415; 80069; 83880; 85025

== ENCOUNTER → 2025-04-08 | Outpatient (CLI) | payer MEDICARE, MEDICAID, SELFPAY ==
[2025-04-08 12:19] LABS: Quantiferon-TB* See Sep Rpt
[2025-04-08 13:19] LABS: Basophils # (Auto) 0.1 Thou/mm3 (0.0-0.2); Basophils % (Auto) 1 % (0-2.5); Eosinophils # (Auto) 0.2 Thou/mm3 (0.0-0.5); Eosinophils % (Auto) 2 % (0-10); Hematocrit 31.1 % (36.0-46.0); Hemoglobin 10.4 g/dL (12.0-16.0); Immature Granulocytes Auto 0.04 Thou/mm3 (0.00-0.00); Lymphocytes # (Auto) 3.5 Thou/mm3 (1.0-4.8); Lymphocytes % (Auto) 34 % (10-50); Mean Corpuscular HGB Conc 33.4 g/dl (31.0-37.0); Mean Corpuscular Hemoglobin 30.9 pg (25.0-35.0); Mean Corpuscular Volume 92 fL (80-100); Monocytes # (Auto) 1.1 Thou/mm3 (0.0-0.8); Monocytes % (Auto) 11 % (0-12); Neutrophils # (Auto) 5.4 Thou/mm3 (1.8-7.7); Neutrophils % (Auto) 53 % (37-80); Nucleated Red Blood Cell # 0.00 Thou/mm3 (0.00-0.00); Nucleated Red Blood Cell % 0 /100 WBC (0); Platelet Count 347 Thou/mm3 (140-440); RDW Standard Deviation 53.4 fL (36.4-46.3); Red Blood Count 3.37 Miln/mm3 (4.00-5.20); White Blood Count 10.4 Thou/mm3 (3.6-11.0)
[2025-04-08 13:42] LABS: Alanine Aminotransferase < 7 U/L (10-49); Albumin, Serum 3.7 gm/dL (3.4-4.8); Alkaline Phosphatase 49 U/L (46-116); Anion Gap 12 (7-16); Aspartate Amino Transferase 23 U/L (0-34); BUN/Creatinine Ratio 29 Ratio (12-20); Bilirubin,Direct 0.1 mg/dL (0.0-0.3); Bilirubin,Total 0.3 mg/dL (0.3-1.2); Blood Urea Nitrogen 40 mg/dL (9-23); Calcium 9.0 mg/dL (8.3-10.6); Carbon Dioxide 30.2 mMol/L (20.0-31.0); Cardiac Risk Estimate 3.0 RATIO (3.7-5.6); Chloride 94 mMol/L (98-107); Cholesterol 149 mg/dL (132-200); Creatinine (Component) 1.4 mg/dL (0.6-1.3); Glucose 85 mg/dL (74-106); HDL Cholesterol 50 mg/dL (40-60); LDL Cholesterol,Calculated 85 mg/dL (0-130); Osmolality,Calculated 280 (275-295); Phosphorous 4.3 mg/dL (2.4-5.1); Potassium 3.6 mMol/L (3.4-5.1); Sodium 136 mMol/L (136-145); Total Protein 7.9 gm/dL (5.7-8.2); Triglycerides 70 mg/dL (30-150); eGFR 39 See Note
[2025-04-08 14:30] LABS: Sed Rate (ESR) 107 mm/hr (0-30)
[2025-04-22 06:51] LABS: ANA Screen, IFA POSITIVE (NEGATIVE); ANA Titer >=1:1280 titer; IgE, Serum* <2 kU/L (114 OR LESS)
== END | disposition home or self-care (01) ==
LOC: COPL 11:31
PROVIDERS: PCP Physician Assistant; Referring Provider Specialist; Visit Provider Specialist
DX: J44.9 Chronic obstructive pulmonary disease, unspecified (principal); I11.0 Hypertensive heart disease with heart failure; I50.9 Heart failure, unspecified; J96.11 Chronic respiratory failure with hypoxia; E87.1 Hypo-osmolality and hyponatremia; E78.00 Pure hypercholesterolemia, unspecified; Z85.72 Personal history of non-Hodgkin lymphomas; Z87.09 Personal history of other diseases of the respiratory system
CPT/HCPCS: 36415; 80048; 80061; 80076; 82785; 84100; 85025; 85652; 86038; 86480

== ENCOUNTER → 2025-04-22 | Outpatient (CLI) | payer MEDICARE, MEDICAID, SELFPAY ==
[2025-04-22 13:43] LABS: Basophils # (Auto) 0.0 Thou/mm3 (0.0-0.2); Basophils % (Auto) 1 % (0-2.5); Eosinophils # (Auto) 0.2 Thou/mm3 (0.0-0.5); Eosinophils % (Auto) 3 % (0-10); Hematocrit 28.5 % (36.0-46.0); Hemoglobin 9.3 g/dL (12.0-16.0); Immature Granulocytes Auto 0.02 Thou/mm3 (0.00-0.00); Lymphocytes # (Auto) 3.9 Thou/mm3 (1.0-4.8); Lymphocytes % (Auto) 44 % (10-50); Mean Corpuscular HGB Conc 32.6 g/dl (31.0-37.0); Mean Corpuscular Hemoglobin 31.1 pg (25.0-35.0); Mean Corpuscular Volume 95 fL (80-100); Monocytes # (Auto) 0.8 Thou/mm3 (0.0-0.8); Monocytes % (Auto) 10 % (0-12); Neutrophils # (Auto) 3.8 Thou/mm3 (1.8-7.7); Neutrophils % (Auto) 43 % (37-80); Nucleated Red Blood Cell # 0.00 Thou/mm3 (0.00-0.00); Nucleated Red Blood Cell % 0 /100 WBC (0); Platelet Count 389 Thou/mm3 (140-440); RDW Standard Deviation 53.1 fL (36.4-46.3); Red Blood Count 2.99 Miln/mm3 (4.00-5.20); White Blood Count 8.8 Thou/mm3 (3.6-11.0)
[2025-04-22 14:12] LABS: Alanine Aminotransferase < 7 U/L (10-49); Albumin, Serum 3.6 gm/dL (3.4-4.8); Albumin/Globulin Ratio 0.9 (1.2-2.2); Alkaline Phosphatase 55 U/L (46-116); Anion Gap 11 (7-16); Aspartate Amino Transferase 22 U/L (0-34); BUN/Creatinine Ratio 42 Ratio (12-20); Bilirubin,Total 0.2 mg/dL (0.3-1.2); Blood Urea Nitrogen 38 mg/dL (9-23); Calcium 9.8 mg/dL (8.3-10.6); Calcium (Corrected) 10.1 mg/dL (8.5-10.1); Carbon Dioxide 26.8 mMol/L (20.0-31.0); Chloride 99 mMol/L (98-107); Creatinine (Component) 0.9 mg/dL (0.6-1.3); Globulin 4.1 gm/dL (2.3-3.5); Glucose 87 mg/dL (74-106); Osmolality,Calculated 281 (275-295); Potassium 3.7 mMol/L (3.4-5.1); Sodium 137 mMol/L (136-145); Total Protein 7.7 gm/dL (5.7-8.2); eGFR > 60 See Note
== END | disposition home or self-care (01) ==
LOC: SCTO 12:23
PROVIDERS: PCP Physician Assistant; Referring Provider Nurse Practitioner Family; Visit Provider Nurse Practitioner Family
DX: C85.85 Other specified types of non-Hodgkin lymphoma, lymph nodes of inguinal region and lower limb (principal)
CPT/HCPCS: 36415; 80053; 85025

== ENCOUNTER 2025-04-29 10:49 | Outpatient (RCR) | payer MEDICARE, MEDICAID, SELFPAY ==
--- NOTE | 2025-05-06 00:34 | CTCFLWUP_ITS ---
Patient: CHOCO BAUER : 1945 Page 3 of 4 FOLLOW UP NOTE DATE OF SERVICE: 04/29/2025 NAME: CHOCO BAUER ACCOUNT: [id number] : 1945 AGE: 79 INTERVAL HISTORY: Mr. Ordoñez is here for follow-uP. patient is accompanied by [id number]. Labs from 10/16/2024 show hemoglobin 10.7, MCV 97, sodium is 124, Iron saturation 36%, B12 is 484. Patient is using wheelchair for long distances, ambulatory for short distances. Patient also uses home oxygen for COPD. Patient complaining of feeling tired, dizzy,? foggy? these last 2 weeks. Patient admits to having a decreased appetite. Patient denies nausea, denies vomiting. 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 History of anemia secondary to B12 deficiency and iron deficiency (10/22/2021). 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 History of anemia secondary to B12 deficiency and iron deficiency (10/22/2021). Hypertension TREATMENT HISTORY: Care?Plan Start?Date Cycle Day Intent [facility]?-?Cyclophos,?DOXOrubicin,?VinCRIStine,?Rx?Pred 10/22/2014 1 21 Curative?(primary) FERAheme 05/16/2019 1 30 Palliative B?12 11/11/2021 1 28 Palliative VENOfer?200mg?IV?wkly?for?10?weeks 11/11/2021 1 70 Palliative HISTORY OF PRESENT ILLNESS: OTHER MEDICAL HISTORY/CONDITIONS: FAMILY HISTORY: SOCIAL HISTORY: KAYAK MAKER HISTORY: Vaginal?Bleeding:?0-None MEDICATIONS: 1. albuterol - 90 mcg/actuation As directed 2. Aldactone - 25 mg 1 tab Each Day 3. aspirin - 81 mg 1 tab Daily 4. atorvastatin - 10 mg 1 tab Daily 5. Bisacodyl EC - 5 mg 2 tab Twice a Day 6. clopidogrel - 75 mg 1 tab Daily 7. cyanocobalamin (vitamin B-12) - 1,000 mcg 1 tab Daily 8. docusate sodium - 100 mg 1 tab Each Day 9. Entresto - 24-26 mg 1 tab Twice a Day 10. ferrous fumarate - 325 mg 1 tab Daily 11. furosemide - 20 mg 1 tab Daily 12. hydrochlorothiazide - 25 mg 1 tab Daily 13. metOLazone - 2.5 mg 1 tab Daily 14. metoprolol succinate - 25 mg 1 tab Daily Medications Last Reconciled by Cindy Soto MD on 04/29/2025 ALLERGIES: Sulfur, Elemental; Sulfur, Elemental REVIEW OF SYSTEMS: A complete 14-point review of systems was performed and is negative except as noted in interval history. PHYSICAL EXAMINATION: VITAL SIGNS: Temperature?96.1, B/P?142/61, Oxygen?Saturation?92% Weight?98?lbs PAIN: 0 - No pain ECOG Performance Status: 2 - Symptomatic; ambulatory; capable of self-care; >50% of waking hrs. not in bed GENERAL APPEARANCE: Appears well, in no apparent distress, appropriately interactive. HEENT: Normocephalic, normal conjunctiva, lips without lesions, neck normal range of motion. CARDIOVASCULAR: Not assessed. PULMONARY: Using portable home oxygen, no use of accessory muscles, speaking in full sentences, no tachypnea. EXTREMITIES: No edema SKIN: Normal skin appearance. NEUROLOGIC: Alert and oriented x4. PSHYCHIATRIC: Appropriate affect, mood normal, behavior normal, intact thought and speech. LABORATORY DATA: I have personally reviewed and interpreted each of the patient?s relevant lab tests, abnormal findings are below: Date 03/12/25 04/08/25 ??WHITE?BLOOD?COUNT?(Thou/mm3) 9.8 10.4 ??RED?BLOOD?COUNT?(Miln/mm3) 3.29?L 3.37?L ??HEMOGLOBIN?(gm/dl) 10.1?L 10.4?L ??HEMATOCRIT?(%) 30.4?L 31.1?L ??PLATELET?COUNT?(Thou/mm3) 431 347 ??NEUTROPHILS?%,?AUTO?(%) 47 53 ??LYMPH?%,?AUTO?(%) 43 34 ??NEUTROPHILS,?AUTO?(Thou/mm3) 4.6 5.4 ??GLUCOSE,RANDOM?(mg/dL) ? 85 ??BLOOD?UREA?NITROGEN?(mg/dL) ? 40?H ??CREATININE?(mg/dL) ? 1.40?H ??SODIUM?(mmol/L) ? 136 ??POTASSIUM?(mmol/L) ? 3.6 ??CHLORIDE?(mmol/L) ? 94?L ??AST/SGOT?(Unit/L) ? 23 ??ALT/SGPT?(Unit/L) ? <?7?L ??ALKALINE?PHOSPHATASE?(Unit/L) ? 49 ??BILIRUBIN,?TOTAL?(mg/dL) ? 0.3 ??PROTEIN?TOTAL?(gm/dl) ? 7.9 ??ALBUMIN,?SERUM?(gm/dl) ? 3.7 ??CALCIUM,?SERUM?(mg/dL) ? 9.0 ASSESSMENT/PLAN: 1. History of anemia secondary to B12 deficiency as well as iron deficiency. has received B12 injections in the past. Taking oral B12 supplement every other day. History of iron deficiency anemia, has received Venofer in the past Venofer. Stopped ferrous fumarate 03/07/2024 as iron saturation was 68%, (03/05/2024). Labs from 10/16/2024 show hemoglobin 10.7, iron saturation 36%, B12 is 484. No iron supplementation needed at this time as iron saturation is within normal limits. Continue with oral supplementation of B12. Will do workup for anemia 2. 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 Bone marrow biopsy and aspiration done on 06/16/2020 showed normocellular marrow with trilineage hematopoiesis as well as T-cell receptor beta gene rearrangement positivity. LDH 138 on 10/16/2024. Patient complaining of feeling tired. 01/29/2025 CT of chest abdomen and pelvis reveals subcentimeter nodules Continue to monitor as per radiology guidelines in 6 months 3. Hyponatremia Labs from 10/16/2024 show sodium 124. Patient complaining of dizziness, feeling ?foggy? for 2 weeks. Denies nausea vomiting headache Patient and patient's [id number] as patient had low sodium and I do not have any repeat labs aw advised to follow-up in ER for complaints of dizziness and feeling foggy. Advised to go to the emergency room 4. Continue following up with PCP and other specialist for chronic conditions. COPD , currently on portable home oxygen via nasal cannula. Hypertension, follows up with Dr. Marx, cardiology. Follows up with with GI, Dr. Nam Desouza As patient have hyponatremia history of smoking, CT scan obtained showed only bilateral nodules which are subcentimeter and are not advised to do the biopsy Will repeat CT scan in 6 months ORDERS: Order # Description [id number] MD Follow Up 3 Months [id number] Reticulocyte Count + Iron Panel + Ferritin + Vitamin B-12 + Folic Acid; Serum + Lactate Dehydrogenase (LDH) + Assay Of Haptoglobin Quant [id number] MD Follow Up 2 Months [id number] Comprehensive Metabolic Panel - 12 [id number] Erythropoieten Level RETURN TO CLINIC: I reviewed the diagnosis, prognosis, and recommended treatment/procedure options with the patient (and/or their legal lead generation representative), including the potential benefits, risks, side effects and alternative therapies. We also discussed the option of no treatment and the possibility of clinical trial participation, if applicable. All questions were addressed, and they demonstrated understanding. They provided informed consent to proceed with the proposed plan of care. BILLING AND COMPLIANCE: I reviewed external records from providers outside my specialty as summarized above. I spent a total of 50 minutes on this patient?s care on the day of their visit excluding time spent related to any billed procedures. This time includes time spent with the patient as well as time spent documenting in the medical record, reviewing patients records and tests, obtaining history, placing orders, communicating with other healthcare professionals, counseling the patient, family or caregiver, and/or care coordination for the diagnoses above. Electronically Signed by: {Object.Sanct_ID*PnP.NameFL@M}, {Object.Sanct_ID*PnP.Suffix@U} D: {Object.Sanct_Date} T: {Object.Sanct_Time} CC: Lefty?Cleopatra,? PCP: Marta Casillas Referring: Marta Casillas This document was completed utilizing speech recognition software. Grammatical errors, random word insertions, pronoun errors, and incomplete sentences are an occasional consequence of this system due to software limitations, ambient noise, and hardware issues. Any formal questions or concerns about the content, text or information contained within the body of this dictation should be directly addressed to the provider for clarification.
== END 2025-05-26 23:59 | disposition home or self-care (01) ==
LOC: SCTC 10:49
PROVIDERS: PCP Physician Assistant; Referring Provider Physician Assistant; Visit Provider Internal Medicine Hematology & Oncology
DX: Z08 Encounter for follow-up examination after completed treatment for malignant neoplasm (principal); Z85.71 Personal history of Hodgkin lymphoma; E87.1 Hypo-osmolality and hyponatremia; Z86.2 Personal history of diseases of the blood and blood-forming organs and certain disorders involving the immune mechanism; Z92.21 Personal history of antineoplastic chemotherapy; R91.8 Other nonspecific abnormal finding of lung field; J44.9 Chronic obstructive pulmonary disease, unspecified; Z99.81 Dependence on supplemental oxygen; I10 Essential (primary) hypertension; Z87.891 Personal history of nicotine dependence
CPT/HCPCS: 99212; G0463

== ENCOUNTER → 2025-05-09 | Outpatient (CLI) | payer MEDICARE, MEDICAID, SELFPAY ==
--- NOTE | 2025-05-09 07:30 | XR_ITS ---
Examination: MRI pelvis with intravenous contrast. MRI pelvis without intravenous contrast. Date and time of exam: May 09, 2025 0716 hours INDICATIONS: Pelvic pain constipation 2.5 months, diagnosis T-cell lymphoma Technique: Multiple axial, sagittal and coronal sections of the pelvis obtained. Transverse images, TR 6020, TE 107. T1 weighted transverse images, TR 582, TE 9.5. T2-weighted sagittal images, TR 4000, TE 105. T2-weighted sagittal images, TR 4000, TE 5. Coronal images, TR 4210, TE 107. Axial and coronal images are obtained post 9 cc intravenous injection, gadolinium. 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
== END | disposition home or self-care (01) ==
LOC: SMRI 07:01
PROVIDERS: PCP Physician Assistant; Referring Provider Internal Medicine Gastroenterology; Visit Provider Internal Medicine Gastroenterology
DX: K59.04 Chronic idiopathic constipation (principal)
CPT/HCPCS: 72197; A9577

== ENCOUNTER → 2025-08-05 | Outpatient (CLI) | payer MEDICARE, MEDICAID, SELFPAY | END | disposition home or self-care (01) | PROVIDERS: PCP Physician Assistant; Referring Provider Physician Assistant; Visit Provider Student in an Organized Health Care Education/Training Program | DX: S81.802A Unspecified open wound, left lower leg, initial encounter (principal); X58.XXXA Exposure to other specified factors, initial encounter; J44.9 Chronic obstructive pulmonary disease, unspecified; I50.9 Heart failure, unspecified; D64.9 Anemia, unspecified; I48.91 Unspecified atrial fibrillation; E78.5 Hyperlipidemia, unspecified; I11.0 Hypertensive heart disease with heart failure | CPT/HCPCS: 97597; 99213; A9270; G0463 ==

== ENCOUNTER → 2025-08-12 | Outpatient (CLI) | payer MEDICARE, MEDICAID, SELFPAY | END | disposition home or self-care (01) | LOC: SWHD 13:26 | PROVIDERS: PCP Physician Assistant; Referring Provider Physician Assistant; Visit Provider Student in an Organized Health Care Education/Training Program | DX: S81.802A Unspecified open wound, left lower leg, initial encounter (principal); X58.XXXA Exposure to other specified factors, initial encounter; J44.9 Chronic obstructive pulmonary disease, unspecified; I50.9 Heart failure, unspecified; D64.9 Anemia, unspecified; I48.91 Unspecified atrial fibrillation; E78.5 Hyperlipidemia, unspecified; I11.0 Hypertensive heart disease with heart failure | CPT/HCPCS: 97597; A9270 ==

== ENCOUNTER 2025-08-17 18:17 | Inpatient (IN) | payer MEDICARE, MEDICAID, SELFPAY ==
[2025-08-17] VITALS (12 sets, daily range): BP systolic 162–186; BP diastolic 57–102; PULSE 84–121; RESP 12–37; TEMP 36.5–37; O2SAT 97–100; BMI 20.7
--- NOTE | 2025-08-17 18:37 | PD.EDSOB ---
ED SOB =RME/HPI General Chief Complaint: Shortness of Breath/Dyspnea Stated Complaint: SOB Time Seen by Provider: 08/17/25 18:20 Arrival date/time: 08/17/25 18:17 RME / HPI RME / HPI Narrative: DR. THOMAS MAIN ED EVALUATION: Patient with Hx of COPD on 2L/min NC at home with initial oxygen saturation of 92% per paramedics, increased to 6L and improved to 96% saturation in the field, presents with progressively worsening difficulty breathing of several days duration. Patient has been using her inhalers and home nebulizers consistently with no relief. No reported fever, vomiting, diarrhea. Patient notably hypertensive in the field with systolic blood pressure in the 200's. PMH: Cerebrovascular Accident, Transient Ischemic Attacks, Atherosclerotic Heart Disease, Peripheral Vascular Disease, Hypercholesterolemia, Congestive Heart Failure, Deep Vein Thrombosis, Hypertension, Chronic Obstructive Pulmonary Disease (COPD), Asthma, Obstructive Bowel, Arthritis, Cataracts, Deafness, Anemia, Depression, Anxiety PSH: Coronary Stent, Hysterectomy Allergies: Cipro, Sulfa Social: Negative Related Data Home Medications ?Medication ?Instructions ?Recorded ?Confirmed docusate sodium 100 mg capsule 200 mg PO BID 10/20/22 10/28/24 cetirizine 10 mg tablet 10 mg PO DAILY PRN Allergy Symptoms 05/03/23 10/28/24 famotidine 20 mg tablet 20 mg PO DAILY PRN Acid Reflux 05/03/23 10/28/24 fluticasone fur. 200 mcg-umeclid 2 inh inhalation QDAY PRN 05/03/23 10/28/24 62.5 mcg-vilant 25 mcg shortness of breath inhalat.powder (Trelegy Ellipta) acetaminophen 300 mg-codeine 30 mg 1 tab PO TID PRN Pain 06/07/23 10/28/24 tablet metoprolol succinate 25 mg 25 mg PO DAILY 08/01/23 10/28/24 tablet,extended release 24 hr sacubitril 24 mg-valsartan 26 mg 1 tab PO BID 08/01/23 10/28/24 tablet (Entresto) clopidogrel 75 mg tablet 75 mg PO DAILY 10/28/24 10/28/24 lactulose 10 gram/15 mL oral 15 ml PO DAILY PRN constipation 10/28/24 10/28/24 solution Previous Rx's ?Medication ?Instructions ?Recorded albuterol sulfate 90 mcg/actuation 2 puff inhalation Q6H PRN 10/23/22 aerosol inhaler shortness of breath or wheezing #6.7 grams sennosides 8.6 mg capsule (senna) 8.6 mg PO QDAY PRN constipation 08/03/23 #30 caps methylprednisolone 4 mg tablets in 4 mg PO QAM #21 tabs 11/13/24 a dose pack (Medrol (Christoph)) Allergies Allergy/AdvReac Type Severity Reaction Status Date / Time ciprofloxacin (From Cipro) Allergy Severe Rash Verified 10/28/24 21:18 Sulfa (Sulfonamide Allergy Severe nausea, Verified 10/28/24 21:18 Antibiotics) itchy all over Review of Systems Review of Systems Systems Reviewed: All systems reviewed, normal except as documented Past Medical History Past Medical History NEUROLOGIC: Positive Neurological Disorders, Cerebrovascular Accident and Transient Ischemic Attacks (TIA) CARDIAC: Positive Cardiac Disorders, Atherosclerotic Heart Disease, Peripheral Vascular Disease, Hypercholesterolemia, Congestive Heart Failure, Deep Vein Thrombosis and Hypertension RESPIRATORY: Positive Chronic Obstructive Pulmonary Disease (COPD), Asthma (COPD), Bronchitis and Pneumonia GASTROINTESTINAL: Positive Gastrointestinal Disorders and Obstructive Bowel REPRODUCTIVE: Positive Previous Pregnancies MUSCULOSKELETAL: Positive Musculoskeletal Disorders and Arthritis ENT: Positive Cataracts and Deafness (Yun Hearing Aides) HEMATOLOGIC: Positive Anemia and Clotting Problems PSYCHO/SOCIAL: Positive Depression and Anxiety OTHER HISTORY: Positive Hospitalization, Falls, Blood Transfusions, Chemotherapy, Chicken Pox, Measles, Mumps, Pertussis and Cancer Family History FAMILY HISTORY: Positive Family Respiratory Disorders, Family Cancer and Family Surgery Surgical History SURGICAL: Positive Vascular Surgery, Coronary Stent, Eye Surgery and Hysterectomy (+ yun salpingoophorectomy) Social History SMOKING STATUS: Former smoker ED Exam Narrative Physical exam: GEN. APPEARANCE: The patient is alert awake oriented X-3 under no distress, lying down comfortably, does not look ill/toxic. Patient has good eye contact. Patient is cooperative. Moderately tachypneic with conversational dyspnea. VITALS: All vitals were reviewed and the pulse ox is 100% on 6L/min via NC, which is normal according to my interpretation HEENT: Normocephalic, atraumatic and nontender. Pupils are equal and reactive. Oral mucosa is moist. NECK: Supple, nontender, no meningismus, with JVD. There is no thyromegaly and no lymphadenopathy. CHEST: Nontender on palpation no deformity and no crepitus. CARDIOVASCULAR: Heart regular rhythm, no murmur or gallop rub or extra beats. LUNGS: Diminished breath sounds bilaterally with symmetrical chest rise. No laboring tachypnea or wheezing. No intercostal subcostal retraction. No rales and no rhonchi. ABDOMEN: Soft, flat, nontender to palpation, no guarding or rebound tenderness. There are no abnormal masses palpated. No pulsatile masses or bruits. Active and normal bowel sounds. EXTREMITIES: Normal inspection and palpation. No edema. No cyanosis. Patient is able to move all 4 extremities well SKIN: Warm and dry, no rashes noted. MUSCULOSKELETAL: No lumbar or midline bony tenderness. There is no CVA tenderness. No paraspinal muscle spasm or tenderness. NEURO: Cranial nerves II through XII grossly intact. There are no focal neurologic deficits noted. GCS is 15 PSYCHIATRIC: Patient is in normal mood and affect, cooperative. LYMPHATICS: No major lymphadenopathy noted. Course Quality Measures none Orders Category Date Time Status Bedside COVID-19 Antigen Test NOW Care 08/17/25 20:23 Active Bedside Influenza A&B Antigen Test NOW Care 08/17/25 20:[address] Screening NOW Care 08/17/25 20:49 Active Bariatric Surgeon NOW Care 08/17/25 18:38 Active Continuous Pulse Oximetry NOW Care 08/17/25 18:38 Completed EKG (ED ONLY) *Do not use* NOW Care 08/17/25 18:[address] angio chest Stat Exams 08/17/25 20:48 Ordered EKG (ED Only) Stat Exams 08/17/25 18:38 Draft XR chest 1V portable Stat Exams 08/17/25 18:38 Completed B-Type Natriuretic Peptide Stat Lab 08/17/25 19:13 Completed CBC Stat Lab 08/17/25 19:13 Completed Comprehensive Metabolic Panel Stat Lab 08/17/25 20:04 Completed D-Dimer Stat Lab 08/17/25 19:13 Completed FLU A&B [Influenza A & B Rapid Panel] Stat Lab 08/17/25 21:06 Ordered Magnesium Stat Lab 08/17/25 20:04 Completed RSV [Respiratory Syncytial Virus Ag] Stat Lab 08/17/25 20:25 Ordered Troponin I Stat Lab 08/17/25 20:04 Completed Urinalysis, C/S if Indicated Stat Lab 08/17/25 18:41 Ordered Albuterol/Ipratr Rt Bhavana [Duoneb Rt Bhavana] Med 08/17/25 18:38 Discontinued 6 ml INH X1 ONE Cefuroxime Sod Inj [Zinacef Inj] Med 08/17/25 20:31 Discontinued 1,000 mg IV X1 ONE Cefuroxime Sod Inj [Zinacef Inj] 1,000 mg Med 08/17/25 20:45 Active Sodium Chloride 0.9% (Pop) [NS 0.9% mini bag] 100 ml IV X1 Furosemide Inj [Lasix Inj] Med 08/17/25 20:28 Discontinued 20 mg IVP X1 ONE MethylPREDNISolone.* [SoluMEDROL Inj] Med 08/17/25 18:38 Discontinued 125 mg IV X1 ONE Nitroglycerin Oint 2% [Nitro-paste Oint 2%] Med 08/17/25 20:28 Discontinued 1 inch TOP X1 ONE Sodium Chloride 0.9% 1000 ml [Ns] 1,000 ml Med 08/17/25 18:38 Discontinued IV 100 mls/hr BiPAP / CPAP NOW RT 08/17/25 20:49 Active Oxygen Delivery NOW RT 08/17/25 18:38 Active Vital Signs Vital signs: Vital Signs Temperature 97.7 F 08/17/25 18:31 Pulse Rate 84 08/17/25 18:31 Respiratory Rate 18 08/17/25 18:31 Blood Pressure 162/57 H 08/17/25 18:31 Pulse Oximetry (%) 100 08/17/25 18:31 Oxygen Delivery Method Nasal Cannula 08/17/25 18:31 Oxygen Flow Rate 6 08/17/25 18:31 Shortness of Breath / Dyspnea MDM Narrative MDM Narrative:: Scribe Attestation: I, Hellen Finn am scribing for and in the presence of Dr. Chavez. Provider Notation: Although this document has been carefully reviewed, there may still be some phonetic and other typographical errors. These errors are purely grammatical due to imperfections in the software program and should not be construed in any way to compromise the substance of the patient's medical care during this visit. Patient with Hx of COPD on 2L/min NC at home with initial oxygen saturation of 92% per paramedics, increased to 6L and improved to 96% saturation in the field, presents with progressively worsening difficulty breathing of several days duration. Patient has been using her inhalers and home nebulizers consistently with no relief. Please see PE findings. Laboratory markers, including CBC and serum chemistries, demonstrated a WBC of 7.5, stanle hemoglobin, thrombocytopenia with platelet count of 549, no left shift or associated bandemia. D-Dimer markedly elevated at 1610, and serum chemistries essentially unremarkable, with Troponin I slightly elevated at 0.047, BNP markedly elevated at 3049. Patient was treated with nebulizer therapy and IV steroids. CXR demonstrated mild fluid overload, IV Lasix and topical nitrates administered. Given elevation in BNP, will consider admission for further evaluation as patient may require formal echocardiography and goal-directed medical therapy. Final diagnoses include Exacerbation of COPD, Bronchitits, and New Onset CHF. Review of medical records show patient has history of CHF and has been maintained on Entresto, and is most likely experiencing exacerbation of CHF. Patient data External records reviewed:: [facility] previous records (Reviewed records from 10/28/24. Patient was seen for Acute exacerbation of chronic obstructive pulmonary disease.) and EMS form Clinical information provided by:: patient and EMS Social determinants that could affect healthcare access:: none Patient has the following chronic illnesses:: Cerebrovascular Accident, Transient Ischemic Attacks, Atherosclerotic Heart Disease, Peripheral Vascular Disease, Hypercholesterolemia, Congestive Heart Failure, Deep Vein Thrombosis, Hypertension, Chronic Obstructive Pulmonary Disease (COPD), Asthma, Obstructive Bowel, Arthritis, Cataracts, Deafness, Anemia, Depression, Anxiety How is presenting disease/condition affected by chronic disease/condition?: exacerbated by Evaluation data The following diagnostics were reviewed and interpreted by me:: lab results, radiology exam(s) and EKG tracing(s) (EKG at 19:32 shows normal sinus rhythm at 84, rightward axis, no acute ST segment elevations, no ventricular ectopy, evidence of LVH by voltage criteria, intervals are normal, per my interpretation.) Lab and/or radiology exams considered but not ordered:: None Interpretation Summary: RADIOLOGY Chest X-Ray: FINDINGS: COPD with significant hyperexpansion Prominent central pulmonary arteries Pleural disease at both lung bases Pulmonary vascular redistribution. No lobar pneumonia or pulmonary edema IMPRESSION: COPD Pulmonary artery hypertension Mild pleural disease at the lung bases Mild bronchitis pattern Medications / Prescriptions Medications or Prescriptions considered but not ordered:: None Medication administrations:: Medication Administration History Cefuroxime Sodium 1,000 mg/ (Sodium Chloride) 100 mls @ 100 mls/hr IV X1 ONE Stop: 08/17/25 21:44 Discontinued Medications Albuterol/Ipratropium (Albuterol/Ipratropium (Duoneb) Rt Bhavana 3 Ml Nebu) 6 ml INH X1 ONE Stop: 08/17/25 18:39 Last Admin: 08/17/25 19:24 Dose: 6 ml Documented By: KARINA Cefuroxime Sodium (Cefuroxime Sod Inj 1,500 Mg Vial) 1,000 mg IV X1 ONE Stop: 08/17/25 20:32 Last Admin: 08/17/25 20:52 Dose: Not Given Documented By: DT Non-Admin Reason: Cancelled by Provider Furosemide (Furosemide Inj 10 Mg/Ml 4ml Vial) 20 mg IVP X1 ONE Stop: 08/17/25 20:29 Last Admin: 08/17/25 20:55 Dose: 20 mg Documented By: DT Sodium Chloride (Ns) 1,000 mls @ 100 mls/hr IV .Q10H ONE Stop: 08/18/25 04:37 Last Infusion: 08/17/25 20:36 Dose: 0 mls/hr Documented By: Admin: 08/17/25 19:06 Dose: 100 mls/hr Documented By: DT Methylprednisolone Sodium Succinate (Methylprednisolone Sod Succ 62.5 Mg/Ml 2ml Vial) 125 mg IV X1 ONE Stop: 08/17/25 18:39 Last Admin: 08/17/25 19:05 Dose: 125 mg Documented By: DT Nitroglycerin (Nitroglycerin Oint 2% 1 Inch Packet) 1 inch TOP X1 ONE Stop: 08/17/25 20:29 Last Admin: 08/17/25 20:52 Dose: 1 inch Documented By: DT See above if any Consultations Consultation(s) initiated? (list below): Yes Consultation #1 (Physician, Specialty, Details): Discussed with resident physician, Dr. Mari, for admission. Reviewed the patient?s HPI, PMHx, lab and/or radiology results. Discussed treatment plan. Will consult an admission to the hospitalist. Time: 20:45 Diagnosis Shortness of Breath Differential Diagnosis: acute exacerbation of chronic obstructive airways disease, congestive heart failure, community acquired pneumonia, asthma with exacerbation and pulmonary embolism Most likely diagnosis given after review of the tests above:: Exacerbation of COPD, Bronchitits, and CHF Exacerbation Admission Indicated Admission indicated?: indicated Explain why admission is indicated or not indicated:: Exacerbation of COPD, Bronchitits, and CHF Exacerbation Admission Request Was there a request for admission?: Yes Admission Attestation Admission request attestation: Discussed case with [] from Hospitalist service regarding admission. Discussed patients ED course, exam findings, labs, and radiology results. The Hospitalist [agrees,declines] to accept the patient for admission. Disposition Plan Disposition Plan: Admit Critical Care Time Critical Care Time Critical Care Time: Yes Total Critical Care Time (min.): 35 Attestation: The high probability of sudden, clinically significant deterioration in the patient?s condition required the highest level of my preparedness to intervene urgently. The services I provided to this patient were to treat and/or prevent clinically significant deterioration. Services included the following: chart data review, reviewing nursing notes and/or old charts, documentation time, senior solutions workflow consultant collaboration regarding findings and treatment options, medication orders and management, direct patient care, vital sign assessments and ordering, interpreting and reviewing diagnostic studies and lab tests. Aggregate critical care time includes only time during which I was engaged in work directly related to the patient?s care, as described above, whether at bedside or elsewhere in the Emergency Department. It did not include time spent performing other reported procedures or the services of residents, students, nurses or physician assistants. Discharge Plan Plan Patient Disposition: Admit Acute Care w/in Hospital Prescriptions/Referrals Prescriptions/Med Rec: No Action docusate sodium 100 mg Capsule 200 mg PO BID albuterol sulfate 90 mcg/actuation HFA aerosol inhaler 2 puff inhalation Q6H PRN (Reason: shortness of breath or wheezing) Qty: 6.7 0RF Trelegy Ellipta 200-62.5-25 mcg blister with device 2 inh INHALATION QDAY PRN (Reason: shortness of breath) cetirizine 10 mg tablet 10 mg PO DAILY PRN (Reason: Allergy Symptoms) famotidine 20 mg tablet 20 mg PO DAILY PRN (Reason: Acid Reflux) acetaminophen-codeine 300-30 mg tablet 1 tab PO TID PRN (Reason: Pain) metoprolol succinate 25 mg tablet extended release 24 hr 25 mg PO DAILY sacubitril-valsartan [Entresto] 24-26 mg tablet 1 tab PO BID senna 8.6 mg capsule 8.6 mg PO QDAY PRN (Reason: constipation) Qty: 30 0RF clopidogrel 75 mg tablet 75 mg PO DAILY lactulose 10 gram/15 mL solution 15 ml PO DAILY PRN (Reason: constipation) methylprednisolone [Medrol (Christoph)] 4 mg tablets,dose pack 4 mg PO QAM Qty: 21 0RF Referrals: No Primary/Family,Physician [Primary Care Provider] - In 1 week Problem List Clinical Impression: COPD exacerbation, Bronchitis, CHF exacerbation Patient/Caregiver Discharge Instructions Print Language: Georgian Stand Alone Forms: [employer] Award Info., Patient Portal Info Letter
--- NOTE | 2025-08-17 18:38 | XR_ITS ---
EXAMINATION: AP chest single view TECHNIQUE: AP portable semiupright chest single view Date and time: August 17, 2025, 1851 hours, comparison November 11, 2024 INDICATIONS: Shortness of breath chest pain today. FINDINGS: COPD with significant hyperexpansion Prominent central pulmonary arteries Pleural disease at both lung bases Pulmonary vascular redistribution. No lobar pneumonia or pulmonary edema IMPRESSION: COPD Pulmonary artery hypertension Mild pleural disease at the lung bases Mild bronchitis pattern
--- NOTE | 2025-08-17 18:38 | EKG_ITS ---
[facility] Test Date: 2025-08-17 Pat Name: CHOCO BAUER Department: Room: - Gender: Female [employer] Clerk: : 1945 Requested By: Alek Suarez Order Number: [id number] Reading MD: Alek Suarez Measurements Intervals Moro Rate: 84 P: 72 AK: 164 QRS: 71 QRSD: 84 T: 69 QT: 360 QTc: 426 Interpretive Statements SINUS RHYTHM Compared to ECG 11/07/2024 14:22:21 Sinus tachycardia no longer present Short AK interval no longer present T-wave abnormality no longer present /store/S0/[id number].pdf
[2025-08-17] MEDS: MethylPREDNISolone SOD SUCC 62.5 MG/ML 2ML VIAL 125 MG IV (19:05)
[2025-08-17] MEDS: SODIUM CHLORIDE 0.9% 1000 ML 1,000 ML 100 ML IV (19:06)
[2025-08-17 19:21] LABS: Basophils # (Auto) 0.0 Thou/mm3 (0.0-0.2); Basophils % (Auto) 0 % (0-2.5); Eosinophils # (Auto) 0.0 Thou/mm3 (0.0-0.5); Eosinophils % (Auto) 0 % (0-10); Hematocrit 28.1 % (36.0-46.0); Hemoglobin 9.1 g/dL (12.0-16.0); Immature Granulocytes Auto 0.05 Thou/mm3 (0.00-0.00); Lymphocytes # (Auto) 1.5 Thou/mm3 (1.0-4.8); Lymphocytes % (Auto) 20 % (10-50); Mean Corpuscular HGB Conc 32.4 g/dl (31.0-37.0); Mean Corpuscular Hemoglobin 31.9 pg (25.0-35.0); Mean Corpuscular Volume 99 fL (80-100); Monocytes # (Auto) 0.7 Thou/mm3 (0.0-0.8); Monocytes % (Auto) 10 % (0-12); Neutrophils # (Auto) 5.2 Thou/mm3 (1.8-7.7); Neutrophils % (Auto) 69 % (37-80); Nucleated Red Blood Cell # 0.04 Thou/mm3 (0.00-0.00); Nucleated Red Blood Cell % 1 /100 WBC (0); Platelet Count 549 Thou/mm3 (140-440); RDW Standard Deviation 50.4 fL (36.4-46.3); Red Blood Count 2.85 Miln/mm3 (4.00-5.20); White Blood Count 7.5 Thou/mm3 (3.6-11.0)
[2025-08-17] MEDS: ALBUTEROL/IPRATROPIUM (Duoneb) RT SOL 3 ML NEBU 6 ML INH (19:24)
[2025-08-17 19:39] LABS: B-Type Natriuretic Peptide 3049 pg/mL (0-100)
[2025-08-17 19:45] LABS: D-Dimer 1610 ng/mL (<600)
[2025-08-17 20:26] LABS: Alanine Aminotransferase 35 U/L (10-49); Albumin, Serum 3.9 gm/dL (3.4-4.8); Albumin/Globulin Ratio 1.1 (1.2-2.2); Alkaline Phosphatase 73 U/L (46-116); Anion Gap 9 (7-16); Aspartate Amino Transferase 53 U/L (0-34); BUN/Creatinine Ratio 20 Ratio (12-20); Bilirubin,Total 0.3 mg/dL (0.3-1.2); Blood Urea Nitrogen 14 mg/dL (9-23); Calcium 9.1 mg/dL (8.3-10.6); Calcium (Corrected) 9.2 mg/dL (8.5-10.1); Carbon Dioxide 28.3 mMol/L (20.0-31.0); Chloride 98 mMol/L (98-107); Creatinine (Component) 0.7 mg/dL (0.6-1.3); Estimated Creatinine Clearance 42.8 mL/min (>60); Globulin 3.6 gm/dL (2.3-3.5); Glucose 104 mg/dL (74-106); Magnesium 1.9 mg/dL (1.6-2.6); Osmolality,Calculated 270 (275-295); Potassium 4.5 mMol/L (3.4-5.1); Sodium 135 mMol/L (136-145); Total Protein 7.5 gm/dL (5.7-8.2); eGFR > 60 See Note
[2025-08-17 20:29] LABS: Troponin I 0.047 ng/mL (0.0-0.045)
--- NOTE | 2025-08-17 20:48 | XR_ITS ---
Examination: CTA chest with intravenous contrast 2-D reconstructions 3-D reconstructions, vascular Date and time of exam: August 18, 2025, 1918 hours INDICATIONS: Onset shortness of breath chest pain today CTDI: vol (mGy) 4.87 DLP: (mGycm) 178 Technique: Multiple axial sections of the thorax have been obtained. 3 mm slice thickness, from below the hemidiaphragms to above the apices of the lungs. Mediastinal and lung density settings have been obtained. 2-D sagittal and coronal reconstructions. 3-D angiographic renderings, 3-D volume renderings, 3D post processing, vascular maximum intensity projections obtained. Contrast administered is 100 cc Isovue-370. Low dose protocols were performed. One or more of the following dose reduction techniques were used; automated exposure control, adjustment of the mA and/or KV according to patient size, use of iterative reconstruction technique. Findings: No thoracic aortic aneurysmal dilatation Pulmonary artery segments are not enlarged No pulmonary artery emboli Mild enlargement left atrium left ventricle Mild hilar lymphadenopathy 4 mm pulmonary nodule left upper lobe image 136 4 mm pulmonary nodule left lower lobe image 168 Pneumonia left base Atelectasis right base 26 mm pulmonary mass in the left upper lobe image 121 No visualized liver or splenic lesion No pancreatic mass Kidneys partially visualized no hydronephrosis Moderate osteopenia IMPRESSION: Negative for pulmonary artery emboli Mild hilar lymphadenopathy Pulmonary nodules as above including 26 mm pulmonary nodule left upper lobe, the 26 mm pulmonary nodule increased in size compared to the January 29, 2025 exam
[2025-08-17] MEDS: NITROGLYCERIN OINT 2% 1 INCH PACKET TOP (20:52)
[2025-08-17] MEDS: FUROSEMIDE INJ 10 MG/ML 4ML VIAL 20 MG IVP (20:55)
[2025-08-17 21:59] LABS: Influenza A Ag Negative; Influenza B Ag Negative; Respiratory Syncytial Virus Ag Negative (Negative)
--- NOTE | 2025-08-17 22:24 | ESHP_ITS ---
<Statement entered by Damaris Ragsdale MD - 08/18/25 02:55> Patient is 79 yr female with PMH of COPD (2 L O2 at home), Stage II diastolic dysfunction (EF 55% 10/2024), PAH, hypertension, CVA, lymphoma in remission, anemia, chronic back pain on narcotics, PAD presenting to ED due to worsening SOB since past 1-2 days. Patient last saw her cereal chemist in [place] last Tuesday. Her inhaler was changed and given one week course of prednisone (last day today). Ash Handler is Dr. Marx. En route to ED, she was place on 6L NC which brought her oxygen sats up to 94%. D-Dimer elevated at 1610, and serum chemistries essentially unremarkable, with Troponin I slightly elevated at 0.047, BNP 3049. CXR demonstrated mild fluid overload. Not concerned for COPD exacerbation at this time as she is at baseline oxygen needs and just completed prednisone course. Crackles heard on exam, +2 pitting edema, apprx 5x2cm ulcer in left lower extremity. Dr. Lund has refused doing surgery at his time due severity of her underlying COPD. Admit for CHF exacerbation and start IV diuresis with fluid restriction, INos, weights, Bipap. Trend troponins for NSTEMI II. Dugumebs prn. Note reviewed, I agree with most of its contents and agree with the patient's care as documented by Dr. Mari. The patient's management plan was discussed with my attending physician Dr. Sosa. Damaris Ragsdale, PGY-2 Documentation for date of: 08/17/25 HPI History of Present Illness History of present illness: This is a 71-year-old female with PMHx of COPD on 2 L home oxygen on Bipap, Stage II diastolic dysfunction (EF 55% 10/2024), HTN, possible A-fib, CVA, lymphoma in remission, PAD s/p vascular intervention of lower extremity, presenting to the ED with shortness of breath. ED Course Summary Vitals: BP 162/57 HR 84 RR 18 T 97.7F O2 100% 5L NC Labs: Hgb 9.1 D-dimer 1610, ABG (pH 7.33 pCO2 55 pO2 155 HCO3 29), Na 135 AST 53 Trop 0.047 BNP 3049, procalcitonin 0.18, UA unremarkable Imaging: EKG sinus rhythm 84 QTc 426. CXR COPD, pulmonary artery hypertension, mild pleural disease at the lung base, mild bronchitis pattern Treatment: Duonebs, methylprednisone 125mcg, lasix 20, NaCl 1L, albuterol/ipratropium 6mL, nitroglycerin Upon initial examination, patient's son and daughter in law were present. They confirm the narrative presented to the ED. She has had 3 days of SOB and increased respirations. She has had an unproductive cough and denies chest pain, fever. She has home oxygen 2L and Bipap but she does not like using bipap. She denies sick contacts. Ash Handler Dr. Marx ([place]). Code: DNR/DNI Insulin: None Medical Hx: COPD on 2 L home oxygen on Bipap, Stage II diastolic dysfunction (EF 55% 10/2024), HTN, possible A-fib, CVA, lymphoma in remission, PAD s/p vascular intervention of lower extremity Medications: pending med rec Allergies: cipro and sulfa Surgical history: R leg bypass, hysterectomy Fhx: Noncontributory Living: with son last 5 years Work: retired, worked on [employer] Alcohol: None Cigarettes/tobacco: Quit 8 years ago, 40pack years Recreational drugs: None All 12 systems reviewed and were negative except otherwise stated in HPI. Exam Vital Signs Temp Pulse Resp BP Pulse Ox O2 Del Method O2 Flow Rate 98.6 F 100 22 H 178/99 H 99 Nasal Cannula 2 08/17/25 20:21 08/17/25 22:24 08/17/25 22:24 08/17/25 22:00 08/17/25 22:24 08/17/25 22:00 08/17/25 22:00 Narrative Exam GENERAL APPEARANCE: AOx3. NAD, activity normal for age, well developed/ well nourished, no cyanosis, pallor, or diaphoresis. Increased work of breathing, paradoxical breathing HEENT: Normocephalic atraumatic, no facial trauma, neck is supple. Lids/conjunctiva normal. Mucous membranes moist, nares normal, lips/teeth normal uvula midline without oral pharyngeal erythema, exudate or swelling TMs normal bilaterally. No lymphangitis/lymphedema. - dysarthria CARDIAC: Regular rate and rhythm, S1+S2 heard. No murmurs, rubs, or gallops noted. orthopnea (-) JVD (-) RESPIRATORY: Paradoxical breathing, speaks in full sentences, no tripod position, + accessory muscle use. Ronchi+ Bilateral crackles + wheezes (-) ABDOMINAL: NBS. Soft, ND/NT. No evidence of fluid wave. No pulsatile masses on exam, rebound tenderness, Shaffer sign or pain over Mcburney's point. MUSCLES/EXTREMITIES: No abnormal range of motion. +1 pedal edema DERM: Warm, pink and dry. Bilateral pedal bronzing, superficial left leg wound 2x5cm ulceration NEUROLOGICAL: Speech is clear and appropriate. Normal level of consciousness. Gait and coordination are normal. 5/5 strength in all extremities. PSYCH: Normal mood and affect. Judgement/competence is appropriate Results: Labs 08/18/25 02:40 08/18/25 02:40 Labs: Short CBC 08/17/25 Range/Units 19:13 WBC 7.5 (3.6-11.0) Thou/mm3 Hgb 9.1 L (12.0-16.0) g/dL Hct 28.1 L (36.0-46.0) % Plt Count 549 H (140-440) Thou/mm3 BMP 08/17/25 20:04 Sodium 135 L Potassium 4.5 Chloride 98 Carbon Dioxide 28.3 BUN 14 Creatinine 0.7 Glucose 104 Calcium 9.1 Cardiac Enzymes 08/17/25 Range/Units 20:04 Troponin I 0.047 H* (0.0-0.045) ng/mL Liver Function 08/17/25 Range/Units 20:04 Total Bilirubin 0.3 (0.3-1.2) mg/dL AST 53 H (0-34) U/L ALT 35 (10-49) U/L Alkaline Phosphatase 73 (46-116) U/L Albumin 3.9 (3.4-4.8) gm/dL Quality Measures Quality Measures VTE prophylaxis Advance care planning discussed with:: patient Medications Home Medications and Allergies Home Medications ?Medication ?Instructions ?Recorded ?Confirmed ?Type docusate sodium 100 mg capsule 200 mg PO BID 10/20/22 08/18/25 History famotidine 20 mg tablet 20 mg PO DAILY PRN Acid Refl ux 05/03/23 08/18/25 History fluticasone fur. 200 mcg-umeclid 2 inh inhalation QDAY PRN 05/03/23 08/18/25 History 62.5 mcg-vilant 25 mcg shortness of breath inhalat.powder (Trelegy Ellipta) acetaminophen 300 mg-codeine 30 mg 1 tab PO TID PRN Pa in 06/07/23 08/18/25 History tablet metoprolol succinate 25 mg 25 mg PO DAILY 08/01/23 History tablet,extended release 24 hr clopidogrel 75 mg tablet 75 mg PO DAILY 10/28/2407/28 History arformoterol 15 mcg/2 mL solution 2 ml inhalation BID 08/18/25 08/18/25 History for nebulization azelastine 137 mcg (0.1 %) nasal 1 spray intranasal Q1 2H 08/18/25 08/18/25 History spray budesonide 160 mcg-glycopyr 9 2 inh inhalation BID 08/18/25 History mcg-formot 4.8 mcg/actuation HFA inhaler (Runnitztri Aerosphere) fluticasone propionate 50 1 spray intranasal Q12H 07/2808/18/25 History mcg/actuation nasal spray,suspension revefenacin 175 mcg/3 mL solution 175 mcg inhalation Q DAY 08/18/25 08/18/25 History for nebulization (Kiley) sacubitril 49 mg-valsartan 51 mg 1 tab PO BID 08/18/25 08/18/25 History tablet (Entresto) Allergies Allergy/AdvReac Type Severity Reaction Status Date / Time ciprofloxacin (From Cipro) Allergy Severe Rash Verified 10/28/24 21:18 Sulfa (Sulfonamide Allergy Severe nausea, Verified 10/28/24 21:18 Antibiotics) itchy all over Visit Medications Acetaminophen (Acetaminophen 325 Mg Tablet) 650 mg PO Q6H PRN PRN Reason: Fever >100.4 or pain 1-3 Stop: 09/16/25 22:03 Hydrocodone Bitart/Acetaminophen (Hydrocodone/Apap 5/325 Tablet) 1 tab PO Q4HR PRN PRN Reason: PAIN SCALE 4-6 (Moderate Stop: 08/22/25 22:03 Albuterol/Ipratropium (Albuterol/Ipratropium (Duoneb) Rt Bhavana 3 Ml Nebu) 3 ml INH Q4HRRT PRN PRN Reason: SOB or wheezing Stop: 09/16/25 22:59 Clopidogrel Bisulfate (Clopidogrel Bisulfate 75 Mg Tablet) 75 mg PO QDAY [facility] Stop: 09/17/25 08:59 Docusate Sodium (Docusate Sod 100 Mg Capsule) 100 mg PO QDAY [facility]; Protocol Stop: 09/17/25 08:59 Famotidine (Famotidine Inj 10 Mg/Ml Vial 2 Ml) 20 mg IVP Q12HR [facility] Stop: 09/17/25 08:59 Furosemide (Furosemide Inj 10 Mg/Ml 4ml Vial) 40 mg IVP QDAY [facility] Stop: 09/17/25 08:59 Heparin Sodium (Porcine) (Heparin Sod Inj 5000 Unit/Ml Vial) 5,000 unit SC Q12HR [facility] Stop: 09/01/25 08:59 Metoprolol Succinate (Metoprolol Succinate Xl 25 Mg Tabcr) 25 mg PO QDAY [facility] Stop: 09/17/25 08:59 Morphine Sulfate (Morphine Sulf Inj 4 Mg/Ml Vial) 1 mg IVP Q4HR PRN PRN Reason: PAIN SCALE 7-10 (Severe Stop: 08/22/25 22:03 Ondansetron HCl (Ondansetron Inj 2 Mg/Ml Inj 2 Ml) 4 mg IVP Q6H PRN; Protocol PRN Reason: NAUSEA OR VOMITING Stop: 09/16/25 22:03 Discontinued Medications Albuterol/Ipratropium (Albuterol/Ipratropium (Duoneb) Rt Bhavana 3 Ml Nebu) 6 ml INH X1 ONE Stop: 08/17/25 18:39 Last Admin: 08/17/25 19:24 Dose: 6 ml Cefuroxime Sodium (Cefuroxime Sod Inj 1,500 Mg Vial) 1,000 mg IV X1 ONE Stop: 08/17/25 20:32 Last Admin: 08/17/25 20:52 Dose: Not Given Cefuroxime Sodium (Cefuroxime Sod Inj 1,500 Mg Vial) 1,500 mg IV X1 ONE Stop: 08/17/25 21:11 Last Admin: 08/17/25 21:11 Dose: Not Given Cefuroxime Sodium (Cefuroxime Sod Inj 1,500 Mg Vial) 1,500 mg IV X1 ONE Stop: 08/17/25 21:09 Last Admin: 08/17/25 21:20 Dose: Not Given Furosemide (Furosemide Inj 10 Mg/Ml 4ml Vial) 20 mg IVP X1 ONE Stop: 08/17/25 20:29 Last Admin: 08/17/25 20:55 Dose: 20 mg Furosemide (Furosemide Inj 10 Mg/Ml Vial 2 Ml) 20 mg IVP X1 ONE Stop: 08/17/25 22:14 Sodium Chloride (Ns) 1,000 mls @ 100 mls/hr IV .Q10H ONE Stop: 08/18/25 04:37 Last Infusion: 08/17/25 20:36 Dose: 0 mls/hr Cefuroxime Sodium 1,000 mg/ (Sodium Chloride) 100 mls @ 100 mls/hr IV X1 ONE Stop: 08/17/25 21:44 Last Admin: 08/17/25 21:11 Dose: Not Given Cefruroxi 1,500 mg/ Sodium (Chloride) 250 mls @ 0 mls/hr IV X1 ONE Stop: 08/17/25 21:15 Last Admin: 08/17/25 21:44 Dose: Not Given Ceftriaxone Sodium/Dextrose (Rocephin/D5w 1gm Iv Premix) 1 gm in 50 mls @ 100 mls/hr IV X1 ONE Stop: 08/17/25 22:12 Last Admin: 08/17/25 22:09 Dose: Not Given Methylprednisolone Sodium Succinate (Methylprednisolone Sod Succ 62.5 Mg/Ml 2ml Vial) 125 mg IV X1 ONE Stop: 08/17/25 18:39 Last Admin: 08/17/25 19:05 Dose: 125 mg Nitroglycerin (Nitroglycerin Oint 2% 1 Inch Packet) 1 inch TOP X1 ONE Stop: 08/17/25 20:29 Last Admin: 08/17/25 20:52 Dose: 1 inch Sodium Chloride (Sodium Chloride Rt 10% 15 Ml Nebu) 5 ml INH X1 ONE Stop: 08/17/25 22:10 Assessment & Plan Plan This is a 71-year-old female with PMHx of COPD on 2 L home oxygen on Bipap, Stage II diastolic dysfunction (EF 55% 10/2024), HTN, possible A-fib, CVA, lymphoma in remission, PAD s/p vascular intervention of lower extremity, presenting to the ED with shortness of breath. Initial weight 44.906kg #AHHRF #acute on chronic CHF exacerbation #Respiratory acidosis #Stage 2 diastolic dysfunction (EF 55% 10/2024) #A fib #NSTEMI II 3 days of SOB and increased respirations. She has had an unproductive cough and denies chest pain, fever. She has home oxygen 2L and Bipap but she does not like using bipap. She denies sick contacts. She has increased work of breathing and paradoxical breathing with bilateral rhonchi bilareral crackles and +1 pedal edema. Troponins 0.047 BNP 3049, trops downtrended to 0.035. EKG unremarkable. CXR shows costophrenic angle blunting. History of afib mentioned per chart review. Unlikely to be COPD exacerbation due to no wheezing heard on exam. PE unlikely since O2 sats stayed above 91% even at home, patient also had cessation of shortness of breath (returned to O2 saturation baseline), no signs of hypotension, heart rate was within normal limits, EKG did not show any signs of RV strain, Wells score 0-1 due to recent immobility. Little to no clinical suspicion of PE. Plan: -Trend troponins -Daily weights -Fluid restriction 1.2L -BIPAP -Strict I/O -Metoprolol 25mf PO QD (home dose) -Lasix 40mg IVP QD -FUP CTA for PE r/o #2x5cm superficial leg ulceration Plan: -Wound referral placed -Wound vitamins placed #COPD No wheezes on examination. Not likely to be CODP exacerbation. Plan: -ISS -Duonebs prn #HTN Patient on home metoprolol #Hx of CVA #PAD Bilateral shins bronzing. No residual stroke like symptoms, family states she has dysarthria at times, but none noticed on physical exam. Plan: -Continue home plavix 75mg pO QD #Hx of lymphoma in remission Plan: -Nothing to do at the moment -CTM Health Maintenance: Code status: DNR/DNI DVT prophylaxis: Heparin subq GI prophylaxis: Famotidine Diet: Cardiac Jerry: Purewick Lines: PIV Supplemental O2: NC, oxy mask and Bipap Disposition: Admit to [facility] for [facility]F Patient seen and reviewed with attending Dr. Sosa. Note written by Philipp Mari MD PGY-1 Attending Provider Attestation/Addendum After examination of the patient and review of the clinical data I feel that this patient needs admission to the hospital for further treatment/evaluation. Plan of care discussed with patient and is in agreement. I Ronnie Sosa MD, attest that I was physically present for jones portions of evaluation, and examined patient, labs and imagings and plan of care were discussed with IM residents team, and I agree with the findings and plans documented above.
[2025-08-17 22:33] LABS: Allen Test Not Performed; Base Excess 2 (-3-3); HCO3 29 mEq/L (20-26); Inspired Oxygen, FIO2 28 %; O2 Saturation 98 % (91-98); PCO2 55 mmHg (32.0-48.0); PO2 155 mmHg (83-108); Puncture Site Left Brachial; pH, Arterial 7.33 (7.35-7.45)
[2025-08-17 22:45] LABS: Procalcitonin 0.18 ng/ml (0.0-0.49)
--- NOTE | 2025-08-17 22:50 | PC.NURSE ---
THIS RN INFORMED PROVIDER AL PATIENT SOB AND UNABLE TO LIE FLAT FOR CT. PER PROVIDER AL PT OKAY TO NOT COMPLETE CT AT THIS MOMENT. PATIENT AND FAMILY AT BEDSIDE INFORMED OF PLAN OF CARE.
[2025-08-17] MEDS: FUROSEMIDE INJ 10 MG/ML VIAL 2 ML 20 MG IVP (23:07)
[2025-08-17 23:18] LABS: Collection Type, Urine Clean Catch; Squamous Epithelial Cell,Urine 0 /hpf (0-5)
[2025-08-17 23:32] LABS: Bilirubin,Urine Negative (Negative); Blood,Urine Negative (Negative); Clarity,Urine Clear (Clear/Hazy); Color,Urine Colorless (Lt Yel-Yel); Culture Indicated,Urine Not Indicated; Glucose, Urine Negative (Negative); Hyaline Casts,Urine < 1 /hpf (0-1); Ketones,Urine Negative (Negative); Leukocyte Esterase,Urine Negative (Negative); Nitrite,Urine Negative (Negative); PH,Urine 5.5 (5.0-7.0); Protein,Urine Trace (Neg - Trace); RBC,Urine 1 /hpf (0-3); Specific Gravity,Urine 1.005 (1.001-1.035); Urobilinogen,Urine Negative mg/dL (0.0-1.0); WBC,Urine < 1 /hpf (0-5)
[2025-08-18] VITALS (16 sets, daily range): BP systolic 152–173; BP diastolic 79–96; PULSE 76–92; RESP 12–27; TEMP 36.1–36.8; O2SAT 95–100; BMI 20.5
[2025-08-18] MEDS: MORPHINE SULF INJ 4 MG/ML VIAL 1 MG IVP (01:08)
[2025-08-18] MEDS: HYDROcodone/APAP 5/325 TABLET 1 TAB PO ×4 (01:37→20:51)
[2025-08-18] MEDS: SODIUM CHLORIDE RT 10% 15 ML NEBU 5 ML INH (01:45)
--- NOTE | 2025-08-18 01:59 | PC.RT ---
Unable to obtain any sputum with induction, MD made aware. Patient removed off of NIV and left on 3L NC, no distess noted. NIV on standby if needed.
[2025-08-18] MEDS: MELATONIN 3 MG TABLET PO (02:39)
[2025-08-18 03:05] LABS: Basophils # (Auto) 0.0 Thou/mm3 (0.0-0.2); Basophils % (Auto) 0 % (0-2.5); Eosinophils # (Auto) 0.0 Thou/mm3 (0.0-0.5); Eosinophils % (Auto) 0 % (0-10); Hematocrit 29.7 % (36.0-46.0); Hemoglobin 9.8 g/dL (12.0-16.0); Immature Granulocytes Auto 0.02 Thou/mm3 (0.00-0.00); Lymphocytes # (Auto) 1.3 Thou/mm3 (1.0-4.8); Lymphocytes % (Auto) 24 % (10-50); Mean Corpuscular HGB Conc 33.0 g/dl (31.0-37.0); Mean Corpuscular Hemoglobin 32.7 pg (25.0-35.0); Mean Corpuscular Volume 99 fL (80-100); Monocytes # (Auto) 0.1 Thou/mm3 (0.0-0.8); Monocytes % (Auto) 2 % (0-12); Neutrophils # (Auto) 4.0 Thou/mm3 (1.8-7.7); Neutrophils % (Auto) 74 % (37-80); Nucleated Red Blood Cell # 0.00 Thou/mm3 (0.00-0.00); Nucleated Red Blood Cell % 0 /100 WBC (0); Platelet Count 317 Thou/mm3 (140-440); RDW Standard Deviation 48.0 fL (36.4-46.3); Red Blood Count 3.00 Miln/mm3 (4.00-5.20); White Blood Count 5.3 Thou/mm3 (3.6-11.0)
[2025-08-18 03:26] LABS: Alanine Aminotransferase 30 U/L (10-49); Albumin, Serum 3.9 gm/dL (3.4-4.8); Albumin/Globulin Ratio 1.1 (1.2-2.2); Alkaline Phosphatase 67 U/L (46-116); Anion Gap 9 (7-16); Aspartate Amino Transferase 44 U/L (0-34); BUN/Creatinine Ratio 18 Ratio (12-20); Bilirubin,Total 0.3 mg/dL (0.3-1.2); Blood Urea Nitrogen 14 mg/dL (9-23); Calcium 8.7 mg/dL (8.3-10.6); Calcium (Corrected) 8.8 mg/dL (8.5-10.1); Carbon Dioxide 30.0 mMol/L (20.0-31.0); Chloride 95 mMol/L (98-107); Creatinine (Component) 0.8 mg/dL (0.6-1.3); Estimated Creatinine Clearance 37.4 mL/min (>60); Globulin 3.7 gm/dL (2.3-3.5); Glucose 120 mg/dL (74-106); Magnesium 1.7 mg/dL (1.6-2.6); Osmolality,Calculated 269 (275-295); Phosphorous 4.4 mg/dL (2.4-5.1); Potassium 4.4 mMol/L (3.4-5.1); Sodium 134 mMol/L (136-145); Total Protein 7.6 gm/dL (5.7-8.2); Troponin I 0.035 ng/mL (0.0-0.045); eGFR > 60 See Note
[2025-08-18] MEDS: FUROSEMIDE INJ 10 MG/ML 4ML VIAL 40 MG IVP (08:53)
[2025-08-18] MEDS: FAMOTIDINE INJ 10 MG/ML VIAL 2 ML 20 MG IVP ×2 (08:54→20:45)
[2025-08-18] MEDS: DOCUSATE SOD 100 MG CAPSULE PO (08:54)
[2025-08-18] MEDS: ASCORBIC ACID 250 MG TABLET 500 MG PO ×2 (08:54→20:45)
[2025-08-18] MEDS: ZINC SULFATE 220 MG CAPSULE PO (08:54)
[2025-08-18] MEDS: CLOPIDOGREL BISULFATE 75 MG TABLET PO (08:54)
[2025-08-18] MEDS: MULTIVITAMINS TABLET 1 TAB PO (08:55)
[2025-08-18] MEDS: METOPROLOL SUCCINATE XL 25 MG TABCR PO (08:55)
[2025-08-18] MEDS: HEPARIN SOD INJ 5000 UNIT/ML VIAL SC ×2 (09:02→20:49)
--- NOTE | 2025-08-18 10:37 | ESPR_ITS ---
<Statement entered by Jessie Arias MD - 08/27/25 08:33> I reviewed above note and agree with findings and plans. I have also personally examined the patient with medicine team and went over assessment and plan with medical team including internet retailer and resident physician. <Statement entered by Antwan Mcpherson MD - 08/18/25 16:43> Pt is seen at bedside, currently saturating on 3L of O2 via NC. Pt home O2 is 2L. SOB have minimally improved, denies chest pain, palpitation or pressure. Will continue IV diuresis. Pt also complains of discomfort from severe constipation and requested bowel regimen. Will order warm water enema, glycerin suppository and lactulose 30mg x1. Patient was seen and examined by me personally. I have directly supervised and reviewed documentation by the team resident and agree with its findings. ------- Plan of care was discussed with the attending, Dr. Hugo Mcpherson, PGY-2 Documentation for date of: 08/18/25 Subjective Subjective Interval history: * Patient seen and examined at bedside. * Patient given a glycerin suppository, lactulose 30 ordered * Continuing to diurese Exam Vital Signs Temp Pulse Resp BP Pulse Ox O2 Del Method O2 Flow Rate 98.2 F 84 17 152/83 H 99 Nasal Cannula 3 08/18/25 08:00 08/18/25 08:55 08/18/25 08:09 08/18/25 08:55 08/18/25 08:09 08/18/25 08:00 08/18/25 08:09 FiO2 30 08/18/25 00:38 Narrative Exam General: Frail elderly lady, temporal wasting. Awake and in no acute distress. Conversational and non-toxic appearing. Neurologic: GCS 15. Alert and oriented x3, no gross neurological deficit, and patient able to move all 4 extremities. HEENT: Normocephalic, atraumatic, mucous membranes moist. Pupils reactive to light. Heart: Regular rate and rhythm, normal S1 and S2, no murmurs. Lungs: 2 L nasal cannula, crackles in the bases bilaterally. Abdomen: Soft, nondistended, nontender, positive bowel sounds. No guarding or rebound tenderness. Extremities: No edema. 2+ radial and dorsalis pedis pulses bilaterally. Skin: Ecchymosis throughout the patient's extremities. Objective Labs 08/20/25 04:45 08/20/25 04:45 Labs: Laboratory Results - last 24 hr 08/17/25 08/17/25 08/17/25 19:13 20:04 21:05 WBC 7.5 RBC 2.85 L Hgb 9.1 L Hct 28.1 L MCV 99 MCH 31.9 MCHC 32.4 RDW Std Deviation 50.4 H Plt Count 549 H Neut % (Auto) 69 Lymph % (Auto) 20 [place] % (Auto) 10 Eos % (Auto) 0 Baso % (Auto) 0 Neut # (Auto) 5.2 Lymph # (Auto) 1.5 [place] # (Auto) 0.7 Eos # (Auto) 0.0 Baso # (Auto) 0.0 Immature Gran # (Auto) 0.05 H Absolute Nucleated RBC 0.04 H Immature Gran % 1 H Nucleated RBC % 1 H D-Dimer 1610 H Puncture Site ABG pH ABG pCO2 ABG pO2 ABG HCO3 ABG O2 Saturation ABG Base Excess FiO2 Sodium 135 L Potassium 4.5 Chloride 98 Carbon Dioxide 28.3 Anion Gap 9 BUN 14 Creatinine 0.7 Estim Creat Clear Calc 42.8 L eGFR > 60 BUN/Creatinine Ratio 20 Glucose 104 Calculated Osmolality 270 L Calcium 9.1 Corrected Calcium 9.2 Phosphorus Magnesium 1.9 Total Bilirubin 0.3 AST 53 H ALT 35 Alkaline Phosphatase 73 Troponin I 0.047 H* B-Natriuretic Peptide 3049 H* Total Protein 7.5 Albumin 3.9 Globulin 3.6 H Albumin/Globulin Ratio 1.1 L Procalcitonin 0.18 Ur Collection Type Urine Color Urine Clarity Urine pH Ur Specific [place] Urine Protein Urine Glucose (UA) Urine Ketones Urine Blood Urine Nitrite Urine Bilirubin Urine Urobilinogen (Auto) Ur Leukocyte Esterase Urine RBC Urine WBC Ur Squamous Epith Cells Urine Bacteria Hyaline Casts Ur Culture Indicated? Influenza A (Rapid) Negative Influenza B (Rapid) Negative RSV Rapid Negative 08/17/25 08/17/25 08/18/25 22:25 22:57 02:40 WBC 5.3 RBC 3.00 L Hgb 9.8 L Hct 29.7 L MCV 99 MCH 32.7 MCHC 33.0 RDW Std Deviation 48.0 H Plt Count 317 D Neut % (Auto) 74 Lymph % (Auto) 24 [place] % (Auto) 2 Eos % (Auto) 0 Baso % (Auto) 0 Neut # (Auto) 4.0 Lymph # (Auto) 1.3 [place] # (Auto) 0.1 Eos # (Auto) 0.0 Baso # (Auto) 0.0 Immature Gran # (Auto) 0.02 H Absolute Nucleated RBC 0.00 Immature Gran % 0 Nucleated RBC % 0 D-Dimer Puncture Site Left Brachial ABG pH 7.33 L ABG pCO2 55 H ABG pO2 155 H ABG HCO3 29 H ABG O2 Saturation 98 ABG Base Excess 2 FiO2 28 Sodium 134 L Potassium 4.4 Chloride 95 L Carbon Dioxide 30.0 Anion Gap 9 BUN 14 Creatinine 0.8 Estim Creat Clear Calc 37.4 L eGFR > 60 BUN/Creatinine Ratio 18 Glucose 120 H Calculated Osmolality 269 L Calcium 8.7 Corrected Calcium 8.8 Phosphorus 4.4 Magnesium 1.7 Total Bilirubin 0.3 AST 44 H ALT 30 Alkaline Phosphatase 67 Troponin I 0.035 B-Natriuretic Peptide Total Protein 7.6 Albumin 3.9 Globulin 3.7 H Albumin/Globulin Ratio 1.1 L Procalcitonin Ur Collection Type Clean Catch Urine Color Colorless A Urine Clarity Clear Urine pH 5.5 Ur Specific [place] 1.005 Urine Protein Trace Urine Glucose (UA) Negative Urine Ketones Negative Urine Blood Negative Urine Nitrite Negative Urine Bilirubin Negative Urine Urobilinogen (Auto) Negative Ur Leukocyte Esterase Negative Urine RBC 1 Urine WBC < 1 Ur Squamous Epith Cells 0 Urine Bacteria None Hyaline Casts < 1 Ur Culture Indicated? Not Indicated Influenza A (Rapid) Influenza B (Rapid) RSV Rapid ABG Interpretation ABG results: 08/17/25 22:25 ABG pH 7.33 L ABG pCO2 55 H ABG pO2 155 H ABG HCO3 29 H ABG O2 Saturation 98 ABG Base Excess 2 Quality Measures Quality Measures none Advance care planning discussed with:: patient Assessment & Plan Assessment Current Active Medications: Generic Name Dose Route Start Last Admin Trade Name Freq PRN Reason Stop Dose Admin Acetaminophen 650 mg 08/17/25 22:04 Acetaminophen 325 Mg Tablet PO 09/16/25 22:03 Q6H PRN Fever >100.4 or pain 1-3 Hydrocodone Bitart/Acetaminophen 1 tab 08/17/25 22:04 08/18/25 06:31 Hydrocodone/Apap 5/325 Tablet PO 08/22/25 22:03 1 tab Q4HR PRN Administration PAIN SCALE 4-6 (Moderate Albuterol/Ipratropium 3 ml 08/17/25 22:04 Albuterol/Ipratropium (Duoneb) Rt Bhavana 3 Ml Nebu INH 09/16/25 22:59 Q4HRRT PRN SOB or wheezing Ascorbic Acid 500 mg 08/18/25 09:00 08/18/25 08:54 Ascorbic Acid 250 Mg Tablet PO 09/17/25 08:59 500 mg BID LELE Administration Clopidogrel Bisulfate 75 mg 08/18/25 09:00 08/18/25 08:54 Clopidogrel Bisulfate 75 Mg Tablet PO 09/17/25 08:59 75 mg QDAY LELE Administration Docusate Sodium 100 mg 08/18/25 09:00 08/18/25 08:54 Docusate Sod 100 Mg Capsule PO 09/17/25 08:59 100 mg QDAY LELE Administration Protocol Famotidine 20 mg 08/18/25 09:00 08/18/25 08:54 Famotidine Inj 10 Mg/Ml Vial 2 Ml IVP 09/17/25 08:59 20 mg Q12HR LELE Administration Furosemide 40 mg 08/18/25 09:00 08/18/25 08:53 Furosemide Inj 10 Mg/Ml 4ml Vial IVP 09/17/25 08:59 40 mg QDAY LELE Administration Heparin Sodium (Porcine) 5,000 unit 08/18/25 09:00 08/18/25 09:02 Heparin Sod Inj 5000 Unit/Ml Vial SC 09/01/25 08:59 5,000 unit Q12HR LELE Administration Melatonin 6 mg 08/18/25 21:00 Melatonin 3 Mg Tablet PO 09/17/25 20:59 [facility] Metoprolol Succinate 25 mg 08/18/25 09:00 08/18/25 08:55 Metoprolol Succinate Xl 25 Mg Tabcr PO 09/17/25 08:59 25 mg QDAY LELE Administration Morphine Sulfate 1 mg 08/17/25 22:04 08/18/25 01:08 Morphine Sulf Inj 4 Mg/Ml Vial IVP 08/22/25 22:03 1 mg Q4HR PRN Administration PAIN SCALE 7-10 (Severe Multivitamins 1 tab 08/18/25 09:00 08/18/25 08:55 Multivitamins Tablet PO 09/17/25 08:59 1 tab QDAY LELE Administration Ondansetron HCl 4 mg 08/17/25 22:04 Ondansetron Inj 2 Mg/Ml Inj 2 Ml IVP 09/16/25 22:03 Q6H PRN NAUSEA OR VOMITING Protocol Zinc Sulfate 220 mg 08/18/25 09:00 08/18/25 08:54 Zinc Sulfate 220 Mg Capsule PO 09/17/25 08:59 220 mg QDAY LELE Administration Plan Summary: This is a 71-year-old female with PMHx of COPD on 2 L home oxygen on Bipap, Stage II diastolic dysfunction (EF 55% 10/2024), HTN, possible A-fib, CVA, lymphoma in remission, PAD s/p vascular intervention of lower extremity, who presented to the ED with shortness of breath on 08/17/2025. #CHF exacerbation #Hx of stage 2 diastolic dysfunction (EF 55% 10/2024) * Presented with 3 days of SOB and increased respirations. * She has had an unproductive cough and denies chest pain, fever. * She has home oxygen 2L and Bipap but she does not like using bipap. * Patient has crackles bilaterally in the bases on exam * CXR shows costophrenic angle blunting. * Unlikely to be COPD exacerbation due to no wheezing heard on exam. * PE unlikely since O2 sats stayed above 91% even at home, patient also had cessation of shortness of breath (returned to O2 saturation baseline) * Wells score 0-1 due to recent immobility. * BNP 3049. Plan: * Lasix 40mg IVP QD * Daily weights * Fluid restriction 1.2L * BIPAP * Strict I/O * Metoprolol 25 milligrams p.o. daily * FUP CTA for PE r/o #Hx of A fib * History of afib mentioned per chart review. Plan: * Plavix 75 mg p.o. daily * Metoprolol 25 mg p.o. daily #Hx of COPD * No wheezes on examination. * Not likely to be CODP exacerbation-no change in sputum production * Patient smoked in the past * Uses 2 L nasal cannula oxygen at home Plan: * Duonebs prn * Oxygen as needed #Pulmonary Nodules * CT on 08/17/2025 showed Mild hilar lymphadenopathy, 4 mm pulmonary nodule left upper lobe, 4 mm pulmonary nodule left lower lobe, 26 mm pulmonary mass in the left upper lobe, the 26mm pulmonary nodule in the left upper lobe increased in size compared to CT done in January Plan: * Will discuss with patient regarding these findings * Spoke to IR about biopsy, patient will need to be off of Plavix for several days prior to biopsy * Follow up outpatint to schedule a biopsy #Hx of HTN Plan: * Restarted home metoprolol succinate 25 mg #2x5cm superficial leg ulceration Plan: * Wound referral placed * Wound vitamins placed #Hx of CVA #HX of PAD * Bilateral shins bronzing. No residual stroke like symptoms * Family states she has dysarthria at times, but none noticed on physical exam. Plan: * Continue home plavix 75mg daily #Hx of lymphoma in remission Plan: * No active intervention #NSTEMI II (Resolved) * Troponins 0.047 , trops downtrended to 0.035. EKG unremarkable. Health Maintenance: Code status: DNR/DNI DVT prophylaxis: Heparin subq 5000 units every 12 hours GI prophylaxis: Famotidine Diet: Cardiac Jerry: Purewick Lines: PIV Supplemental O2: NC, oxy mask and Bipap Disposition: Pharmacy monitoring floor, continuing to diurese. Patient was seen and discussed with my attending physician Dr. Hugo ALANIZ and my senior resident Dr Ky ALANIZ PGY-2. Artis Gaytan DO PGY-1.
[2025-08-18] MEDS: GLYCERIN, ADULT 1 EA SUPP 1 EACH PR (11:29)
--- NOTE | 2025-08-18 16:27 | PC.SS ---
Environmental Monitoring Specialist (LORRIE) Belkis met with the patient at the bedside to complete an initial assessment and discuss a discharge plan. Patient is alert and oriented to person, place, time, and situation; patient provided verbal consent to participate in the assessment. Patient is Sachin Conte, 79 y/o Maltese-speaking female residing with son and [id number] at [address] [place] [address]. Patient designated her son, Negro Conte, , as her surrogate medical decision maker. Patient reports that at baseline, she is independent with no DME. Patient uses oxygen and BiPAP at home. The patient's PCP is Dr. Marta Casillas in [place]. Patient's d/c plan is home with family and private transportation. Surrogate medical decision maker: Negro Smith, Discharge plan: Home Discharge round: On IV diuretics?d/c home.
[2025-08-18] MEDS: LACTULOSE SYRUP 20 GM/30 ML UDC 30 GM PO (18:33)
[2025-08-18] MEDS: MELATONIN 3 MG TABLET 6 MG PO (20:45)
[2025-08-19] VITALS (15 sets, daily range): BP systolic 128–140; BP diastolic 69–91; PULSE 67–88; RESP 12–24; TEMP 36.1–36.5; O2SAT 94–100; BMI 20.7
[2025-08-19 06:13] LABS: Basophils # (Auto) 0.0 Thou/mm3 (0.0-0.2); Basophils % (Auto) 0 % (0-2.5); Eosinophils # (Auto) 0.1 Thou/mm3 (0.0-0.5); Eosinophils % (Auto) 1 % (0-10); Hematocrit 27.0 % (36.0-46.0); Hemoglobin 8.9 g/dL (12.0-16.0); Immature Granulocytes Auto 0.02 Thou/mm3 (0.00-0.00); Lymphocytes # (Auto) 2.3 Thou/mm3 (1.0-4.8); Lymphocytes % (Auto) 35 % (10-50); Mean Corpuscular HGB Conc 33.0 g/dl (31.0-37.0); Mean Corpuscular Hemoglobin 32.0 pg (25.0-35.0); Mean Corpuscular Volume 97 fL (80-100); Monocytes # (Auto) 0.7 Thou/mm3 (0.0-0.8); Monocytes % (Auto) 11 % (0-12); Neutrophils # (Auto) 3.3 Thou/mm3 (1.8-7.7); Neutrophils % (Auto) 52 % (37-80); Nucleated Red Blood Cell # 0.00 Thou/mm3 (0.00-0.00); Nucleated Red Blood Cell % 0 /100 WBC (0); Platelet Count 320 Thou/mm3 (140-440); RDW Standard Deviation 47.6 fL (36.4-46.3); Red Blood Count 2.78 Miln/mm3 (4.00-5.20); White Blood Count 6.4 Thou/mm3 (3.6-11.0)
[2025-08-19 06:39] LABS: Alanine Aminotransferase 22 U/L (10-49); Albumin, Serum 3.3 gm/dL (3.4-4.8); Albumin/Globulin Ratio 1.0 (1.2-2.2); Alkaline Phosphatase 52 U/L (46-116); Anion Gap 8 (7-16); Aspartate Amino Transferase 33 U/L (0-34); BUN/Creatinine Ratio 24 Ratio (12-20); Bilirubin,Total 0.3 mg/dL (0.3-1.2); Blood Urea Nitrogen 19 mg/dL (9-23); Calcium 8.3 mg/dL (8.3-10.6); Calcium (Corrected) 8.9 mg/dL (8.5-10.1); Carbon Dioxide 34.3 mMol/L (20.0-31.0); Chloride 93 mMol/L (98-107); Creatinine (Component) 0.8 mg/dL (0.6-1.3); Estimated Creatinine Clearance 37.4 mL/min (>60); Globulin 3.2 gm/dL (2.3-3.5); Glucose 96 mg/dL (74-106); Magnesium 1.7 mg/dL (1.6-2.6); Osmolality,Calculated 272 (275-295); Phosphorous 3.1 mg/dL (2.4-5.1); Potassium 3.2 mMol/L (3.4-5.1); Sodium 135 mMol/L (136-145); Total Protein 6.5 gm/dL (5.7-8.2); eGFR > 60 See Note
[2025-08-19] MEDS: HYDROcodone/APAP 5/325 TABLET 1 TAB PO ×2 (07:49→20:45)
--- NOTE | 2025-08-19 07:56 | ESPR_ITS ---
<Statement entered by Jessie Arias MD - 08/27/25 08:39> I reviewed above note and agree with findings and plans. I have also personally examined the patient with medicine team and went over assessment and plan with medical team including manufacturing engineering intern and resident physician. <Statement entered by Antwan Mcpherson MD - 08/20/25 15:10> Pt is seen at bedside, states her SOB has improved. Pt is informed of pulmonary nodule in the L lung that has increased in sized. Pt will need outpatient biopsy done. Currently pt is on plavix which will need to be discontinued for 5 days before biopsy can be obtained. Will back off on diuretics as pts symptoms have improved. and will continue on lasix 20mg daily. Pt is net negative 3L. Patient was seen and examined by me personally. I have directly supervised and reviewed documentation by the team resident and agree with its findings. ------- Plan of care was discussed with the attending, Dr. Hugo Mcpherson, PGY-2 Documentation for date of: 08/19/25 Subjective Subjective Interval history: * Patient seen and examined at bedside. * Net negative 3.8 L, evidence of contraction alkalosis, will switch Lasix to oral. * Patient requested a brreathing treatment. * Crackles still present but improving on exam. Exam Vital Signs Temp Pulse Resp BP Pulse Ox O2 Del Method O2 Flow Rate 97.7 F 83 23 H 138/88 H 99 Nasal Cannula 3 08/19/25 04:00 08/19/25 04:00 08/19/25 04:00 08/19/25 04:00 08/19/25 04:00 08/19/25 04:00 08/19/25 04:00 FiO2 30 08/18/25 00:38 Narrative Exam General: Frail elderly lady, temporal wasting. Awake and in no acute distress. Conversational and non-toxic appearing. Neurologic: GCS 15. Alert and oriented x3, no gross neurological deficit, and patient able to move all 4 extremities. HEENT: Normocephalic, atraumatic, mucous membranes moist. Pupils reactive to light. Heart: Regular rate and rhythm, normal S1 and S2, no murmurs. Lungs: 2 L nasal cannula, crackles in the bases bilaterally. Abdomen: Soft, nondistended, nontender, positive bowel sounds. No guarding or rebound tenderness. Extremities: No edema. 2+ radial and dorsalis pedis pulses bilaterally. Skin: Ecchymosis throughout the patient's extremities. Objective Labs 08/20/25 04:45 08/20/25 04:45 Labs: Laboratory Results - last 24 hr 08/19/25 05:18 WBC 6.4 RBC 2.78 L Hgb 8.9 L Hct 27.0 L MCV 97 MCH 32.0 MCHC 33.0 RDW Std Deviation 47.6 H Plt Count 320 Neut % (Auto) 52 Lymph % (Auto) 35 [place] % (Auto) 11 Eos % (Auto) 1 Baso % (Auto) 0 Neut # (Auto) 3.3 Lymph # (Auto) 2.3 [place] # (Auto) 0.7 Eos # (Auto) 0.1 Baso # (Auto) 0.0 Immature Gran # (Auto) 0.02 H Absolute Nucleated RBC 0.00 Immature Gran % 0 Nucleated RBC % 0 Sodium 135 L Potassium 3.2 L D Chloride 93 L Carbon Dioxide 34.3 H Anion Gap 8 BUN 19 Creatinine 0.8 Estim Creat Clear Calc 37.4 L eGFR > 60 BUN/Creatinine Ratio 24 H Glucose 96 Calculated Osmolality 272 L Calcium 8.3 Corrected Calcium 8.9 Phosphorus 3.1 Magnesium 1.7 Total Bilirubin 0.3 AST 33 ALT 22 Alkaline Phosphatase 52 D Total Protein 6.5 Albumin 3.3 L D Globulin 3.2 Albumin/Globulin Ratio 1.0 L ABG Interpretation ABG results: 08/17/25 22:25 ABG pH 7.33 L ABG pCO2 55 H ABG pO2 155 H ABG HCO3 29 H ABG O2 Saturation 98 ABG Base Excess 2 Quality Measures Quality Measures VTE prophylaxis Advance care planning discussed with:: patient Assessment & Plan Assessment Current Active Medications: Generic Name Dose Route Start Last Admin Trade Name Freq PRN Reason Stop Dose Admin Acetaminophen 650 mg 08/17/25 22:04 Acetaminophen 325 Mg Tablet PO 09/16/25 22:03 Q6H PRN Fever >100.4 or pain 1-3 Hydrocodone Bitart/Acetaminophen 1 tab 08/17/25 22:04 08/19/25 07:49 Hydrocodone/Apap 5/325 Tablet PO 08/22/25 22:03 1 tab Q4HR PRN Administration PAIN SCALE 4-6 (Moderate Albuterol/Ipratropium 3 ml 08/17/25 22:04 Albuterol/Ipratropium (Duoneb) Rt Bhavana 3 Ml Nebu INH 09/16/25 22:59 Q4HRRT PRN SOB or wheezing Ascorbic Acid 500 mg 08/18/25 09:00 08/18/25 20:45 Ascorbic Acid 250 Mg Tablet PO 09/17/25 08:59 500 mg BID LELE Administration Clopidogrel Bisulfate 75 mg 08/18/25 09:00 08/18/25 08:54 Clopidogrel Bisulfate 75 Mg Tablet PO 09/17/25 08:59 75 mg QDAY LELE Administration Docusate Sodium 100 mg 08/18/25 09:00 08/18/25 08:54 Docusate Sod 100 Mg Capsule PO 09/17/25 08:59 100 mg QDAY LELE Administration Protocol Famotidine 20 mg 08/18/25 09:00 08/18/25 20:45 Famotidine Inj 10 Mg/Ml Vial 2 Ml IVP 09/17/25 08:59 20 mg Q12HR LELE Administration Furosemide 40 mg 08/18/25 09:00 08/18/25 08:53 Furosemide Inj 10 Mg/Ml 4ml Vial IVP 09/17/25 08:59 40 mg QDAY LELE Administration Heparin Sodium (Porcine) 5,000 unit 08/18/25 09:00 08/18/25 20:49 Heparin Sod Inj 5000 Unit/Ml Vial SC 09/01/25 08:59 5,000 unit Q12HR LELE Administration Magnesium Sulfate 4 gm in 50 mls @ 12.5 mls/hr 08/19/25 07:52 Magnesium Sulfate Ivpb IV 08/19/25 11:51 X1 ONE Melatonin 6 mg 08/18/25 21:00 08/18/25 20:45 Melatonin 3 Mg Tablet PO 09/17/25 20:59 6 mg HS LELE Administration Metoprolol Succinate 25 mg 08/18/25 09:00 08/18/25 08:55 Metoprolol Succinate Xl 25 Mg Tabcr PO 09/17/25 08:59 25 mg QDAY LELE Administration Morphine Sulfate 1 mg 08/17/25 22:04 08/18/25 01:08 Morphine Sulf Inj 4 Mg/Ml Vial IVP 08/22/25 22:03 1 mg Q4HR PRN Administration PAIN SCALE 7-10 (Severe Multivitamins 1 tab 08/18/25 09:00 08/18/25 08:55 Multivitamins Tablet PO 09/17/25 08:59 1 tab QDAY LELE Administration Ondansetron HCl 4 mg 08/17/25 22:04 Ondansetron Inj 2 Mg/Ml Inj 2 Ml IVP 09/16/25 22:03 Q6H PRN NAUSEA OR VOMITING Protocol Potassium Chloride 40 meq 08/19/25 07:52 Potassium Chloride 20 Meq Tabcr PO 08/19/25 07:53 X1 ONE Zinc Sulfate 220 mg 08/18/25 09:00 08/18/25 08:54 Zinc Sulfate 220 Mg Capsule PO 09/17/25 08:59 220 mg QDAY LELE Administration Plan Summary: This is a 71-year-old female with PMHx of COPD on 2 L home oxygen on Bipap, Stage II diastolic dysfunction (EF 55% 10/2024), HTN, possible A-fib, CVA, lymphoma in remission, PAD s/p vascular intervention of lower extremity, who presented to the ED with shortness of breath on 08/17/2025. #CHF exacerbation #Hx of stage 2 diastolic dysfunction (EF 55% 10/2024) * Presented with 3 days of SOB and increased respirations. * She has had an unproductive cough and denied chest pain, fever. * She has home oxygen 2L and Bipap * Patient has crackles bilaterally in the bases on exam * CXR shows costophrenic angle blunting. * Unlikely to be COPD exacerbation due to no wheezing heard on exam. * PE unlikely since O2 sats stayed above 91% even at home, patient also had cessation of shortness of breath (returned to O2 saturation baseline) * Wells score 0-1 due to recent immobility. * BNP 3049. * Net -3.8 L. * Bicarb 34.3. May reflect contraction alkalosis. Plan: * Lasix 40mg IVP QD switched to 20 mg oral daily * Daily weights * Fluid restriction 1.5L * BIPAP * Strict I/O * Metoprolol 25 milligrams p.o. daily * FUP CTA for PE r/o #Hx of A fib * History of afib mentioned per chart review. Plan: * Plavix 75 mg p.o. daily * Metoprolol 25 mg p.o. daily #Hx of COPD * No wheezes on examination. * Not likely to be CODP exacerbation-no change in sputum production * Patient smoked in the past * Uses 2 L nasal cannula oxygen at home Plan: * Duonebs prn * Oxygen as needed titrated to a goal of 88-92 due to COPD history #Pulmonary Nodules * CT on 08/17/2025 showed Mild hilar lymphadenopathy, 4 mm pulmonary nodule left upper lobe, 4 mm pulmonary nodule left lower lobe, 26 mm pulmonary mass in the left upper lobe, the 26mm pulmonary nodule in the left upper lobe increased in size compared to CT done in January Plan: * Will discuss with patient regarding these findings * Spoke to IR about biopsy, patient will need to be off of Plavix for several days prior to biopsy * Follow up outpatint to schedule a biopsy #Hx of HTN Plan: * Home metoprolol succinate 25 mg #2x5cm superficial leg ulceration Plan: * Wound referral placed * Wound vitamins placed #Hx of CVA #HX of PAD * Bilateral shins bronzing. No residual stroke like symptoms * Family states she has dysarthria at times, but none noticed on physical exam. Plan: * Continue home plavix 75mg daily #Hx of lymphoma in remission Plan: * No active intervention #NSTEMI II (Resolved) * Troponins 0.047 , trops downtrended to 0.035. EKG unremarkable. Health Maintenance: Code status: DNR/DNI DVT prophylaxis: Heparin subq 5000 units every 12 hours GI prophylaxis: Not indicated Diet: Cardiac Jerry: Purewick Lines: PIV Supplemental O2: NC, oxy mask and Bipap Disposition: Telemetry monitoring floor, switched Lasix to oral. Patient was seen and discussed with my attending physician Dr. Hugo ALANIZ and my senior resident Dr Ky ALANIZ PGY-2. Artis Gaytan DO PGY-1.
[2025-08-19] MEDS: Magnesium Sulfate 4 GM Ivpb 4 GM/50 ML BAG IV (09:12)
[2025-08-19] MEDS: ZINC SULFATE 220 MG CAPSULE PO (09:12)
[2025-08-19] MEDS: DOCUSATE SOD 100 MG CAPSULE PO (09:13)
[2025-08-19] MEDS: CLOPIDOGREL BISULFATE 75 MG TABLET PO (09:13)
[2025-08-19] MEDS: MULTIVITAMINS TABLET 1 TAB PO (09:13)
[2025-08-19] MEDS: METOPROLOL SUCCINATE XL 25 MG TABCR PO (09:13)
[2025-08-19] MEDS: ASCORBIC ACID 250 MG TABLET 500 MG PO ×2 (09:13→20:45)
[2025-08-19] MEDS: FUROSEMIDE INJ 10 MG/ML 4ML VIAL 40 MG IVP (09:14)
[2025-08-19] MEDS: FAMOTIDINE INJ 10 MG/ML VIAL 2 ML 20 MG IVP (09:15)
[2025-08-19] MEDS: HEPARIN SOD INJ 5000 UNIT/ML VIAL SC ×2 (09:16→20:46)
[2025-08-19] MEDS: ALBUTEROL/IPRATROPIUM (Duoneb) RT SOL 3 ML NEBU INH (14:23)
--- NOTE | 2025-08-19 14:45 | PC.SS ---
Rounding Note: Plan is to transition the patient from IV lasix to oral lasix.
[2025-08-19] MEDS: MELATONIN 3 MG TABLET 6 MG PO (20:45)
[2025-08-20] VITALS (15 sets, daily range): BP systolic 118–154; BP diastolic 56–80; PULSE 67–87; RESP 16–26; TEMP 35.9–36.7; O2SAT 95–100; BMI 13.0
[2025-08-20 05:25] LABS: Basophils # (Auto) 0.0 Thou/mm3 (0.0-0.2); Basophils % (Auto) 0 % (0-2.5); Eosinophils # (Auto) 0.2 Thou/mm3 (0.0-0.5); Eosinophils % (Auto) 2 % (0-10); Hematocrit 29.3 % (36.0-46.0); Hemoglobin 9.6 g/dL (12.0-16.0); Immature Granulocytes Auto 0.04 Thou/mm3 (0.00-0.00); Lymphocytes # (Auto) 3.3 Thou/mm3 (1.0-4.8); Lymphocytes % (Auto) 33 % (10-50); Mean Corpuscular HGB Conc 32.8 g/dl (31.0-37.0); Mean Corpuscular Hemoglobin 31.9 pg (25.0-35.0); Mean Corpuscular Volume 97 fL (80-100); Monocytes # (Auto) 0.8 Thou/mm3 (0.0-0.8); Monocytes % (Auto) 8 % (0-12); Neutrophils # (Auto) 5.5 Thou/mm3 (1.8-7.7); Neutrophils % (Auto) 56 % (37-80); Nucleated Red Blood Cell # 0.00 Thou/mm3 (0.00-0.00); Nucleated Red Blood Cell % 0 /100 WBC (0); Platelet Count 320 Thou/mm3 (140-440); RDW Standard Deviation 47.4 fL (36.4-46.3); Red Blood Count 3.01 Miln/mm3 (4.00-5.20); White Blood Count 9.9 Thou/mm3 (3.6-11.0)
[2025-08-20] MEDS: HYDROcodone/APAP 5/325 TABLET 1 TAB PO ×2 (05:27→09:20)
[2025-08-20 06:23] LABS: Alanine Aminotransferase 18 U/L (10-49); Albumin, Serum 3.3 gm/dL (3.4-4.8); Albumin/Globulin Ratio 1.1 (1.2-2.2); Anion Gap 7 (7-16); Aspartate Amino Transferase 28 U/L (0-34); BUN/Creatinine Ratio 16 Ratio (12-20); Bilirubin,Total 0.3 mg/dL (0.3-1.2); Blood Urea Nitrogen 13 mg/dL (9-23); Calcium 8.5 mg/dL (8.3-10.6); Calcium (Corrected) 9.1 mg/dL (8.5-10.1); Carbon Dioxide 35.2 mMol/L (20.0-31.0); Chloride 91 mMol/L (98-107); Creatinine (Component) 0.8 mg/dL (0.6-1.3); Estimated Creatinine Clearance 39.3 mL/min (>60); Globulin 3.1 gm/dL (2.3-3.5); Glucose 93 mg/dL (74-106); Magnesium 2.1 mg/dL (1.6-2.6); Osmolality,Calculated 266 (275-295); Phosphorous 2.9 mg/dL (2.4-5.1); Potassium 3.7 mMol/L (3.4-5.1); Sodium 133 mMol/L (136-145); Total Protein 6.4 gm/dL (5.7-8.2); eGFR > 60 See Note
[2025-08-20 06:53] LABS: Alkaline Phosphatase 54 U/L (46-116)
[2025-08-20] MEDS: ALBUTEROL/IPRATROPIUM (Duoneb) RT SOL 3 ML NEBU INH ×2 (06:54→14:27)
[2025-08-20] MEDS: CLOPIDOGREL BISULFATE 75 MG TABLET PO (09:17)
[2025-08-20] MEDS: ASCORBIC ACID 250 MG TABLET 500 MG PO (09:18)
[2025-08-20] MEDS: DOCUSATE SOD 100 MG CAPSULE PO (09:18)
[2025-08-20] MEDS: MULTIVITAMINS TABLET 1 TAB PO (09:18)
[2025-08-20] MEDS: ZINC SULFATE 220 MG CAPSULE PO (09:18)
[2025-08-20] MEDS: METOPROLOL SUCCINATE XL 25 MG TABCR PO (09:18)
[2025-08-20] MEDS: HEPARIN SOD INJ 5000 UNIT/ML VIAL SC (09:19)
--- NOTE | 2025-08-20 10:20 | PD.RESDS ---
Planned Discharge Date 08/20/25 DS: Providers Provider Date of admission: 08/17/25 22:04 Primary care physician: Physician No Primary/Family Admitting Provider: Ronnie Sosa MD Attending Provider on Admission: Nasrin Sanchez MD Consults: 08/18/25 02:06 Referral Wound Care Routine Comment: 08/18/25 02:31 Referral Registered Dietitian Routine Comment: LEFT LEG WOUND 08/20/25 09:07 Referral Physical Therapy Stat Comment: Physician Instructions: Instructions: Possible DC today, need assessment for home/DC needs. Attending Provider on DC: Nasrin Sanchez MD Discharging Provider: Artis Gaytan DO DS: Diagnosis Discharge Diagnosis (1) CHF exacerbation: Status: Acute Problem List Completed Was Problem List Reviewed/Reconciled?: Yes Hospital Course Hospital Course Hospital course: Hospital Course: 71-year-old female with PMHx of COPD on 2 L home oxygen on Bipap, Stage II diastolic dysfunction (EF 55% 10/2024), HTN, A-fib, previous CVA, lymphoma in remission, PAD s/p vascular intervention of lower extremity, who presented to the ED on 08/17/2025 with shortness of breath. She had 3 days of SOB and increased respirations. She had an unproductive cough and denied chest pain, fever. She was found to have a troponin of 0.047. The patient was admitted and diuresed with Lasix. She was started on Plavix and metoprolol for her A-fib. Her troponins resolved and she became net fluid negative with improvement of crackles heard on auscultation. The patient is stable for discharge. Of note, the patient has pulmonary nodules on CT scan. The patient had pulmonary nodules on CT scan back in January of 2025, and 1 nodule had increased in size on CT scan compared to the previous CT scan in January. She will be instructed to follow-up outpatient for possible biopsy. Problem List: #CHF exacerbation #Hx of stage 2 diastolic dysfunction (EF 55% 10/2024) #Hx of A fib #Hx of COPD #Pulmonary Nodules #Hx of HTN #2x5cm superficial leg ulceration #Hx of CVA #HX of PAD #Hx of lymphoma in remission #NSTEMI II (Resolved) Discharge Instructions: Take your furosemide 20 mg daily Continue taking all other home medications as prescribed You have pulmonary nodules that were found on CT scan of your chest Please follow-up with PCP within 1-2 weeks of discharge in order to plan a biopsy. If you do not have a PCP, then you can follow-up at the [facility] Return to the emergency room if symptoms worsen The patient was seen and discussed with my attending physician Dr. Sanchez and my senior resident Dr. Ky ALANIZ PGY-2. Artis Gaytan DO PGY-1 Time Spent with Patient Time attestation: Total time spent providing and/or coordinating discharge services: 35 minutes Time spent: Greater than 30 minutes Exam Vital Signs Temp Pulse Resp BP Pulse Ox O2 Del Method O2 Flow Rate 97.0 F 70 18 154/80 H 97 Nasal Cannula 2 08/20/25 08:00 08/20/25 09:18 08/20/25 08:00 08/20/25 09:18 08/20/25 08:00 08/20/25 04:00 08/20/25 06:57 FiO2 30 08/19/25 22:12 Narrative Exam General: Frail elderly lady, temporal wasting. Awake and in no acute distress. Conversational and non-toxic appearing. Neurologic: GCS 15. Alert and oriented x3, no gross neurological deficit, and patient able to move all 4 extremities. HEENT: Normocephalic, atraumatic, mucous membranes moist. Pupils reactive to light. Heart: Regular rate and rhythm, normal S1 and S2, no murmurs. Lungs: 2 L nasal cannula, crackles in the bases bilaterally. Abdomen: Soft, nondistended, nontender, positive bowel sounds. No guarding or rebound tenderness. Extremities: No edema. 2+ radial and dorsalis pedis pulses bilaterally. Skin: Ecchymosis throughout the patient's extremities. Discharge Plan Plan Patient Disposition: Home w/HOME HEALTH Patient condition on transfer: Stable Care Plan Goals: Instructions: Take your furosemide 20 mg daily Continue taking all other home medications as prescribed You have a pulmonary nodule that was found on CT scan of your chest that grew in size. Please follow-up with your primary care doctor within 1-2 weeks of discharge in order to plan a biopsy. If you do not have a primary doctor, then you can follow-up at the [facility] Return to the emergency room if symptoms worsen Prescriptions/Referrals Prescriptions/Med Rec: New furosemide 20 mg Tablet 20 mg PO QDAY 30 Days Qty: 30 0RF Continued docusate sodium 100 mg Capsule 200 mg PO BID albuterol sulfate 90 mcg/actuation HFA aerosol inhaler 2 puff inhalation Q6H PRN (Reason: shortness of breath or wheezing) Qty: 6.7 0RF Trelegy Ellipta 200-62.5-25 mcg blister with device 2 inh INHALATION QDAY PRN (Reason: shortness of breath) famotidine 20 mg tablet 20 mg PO DAILY PRN (Reason: Acid Reflux) acetaminophen-codeine 300-30 mg tablet 1 tab PO TID PRN (Reason: Pain) metoprolol succinate 25 mg tablet extended release 24 hr 25 mg PO DAILY senna 8.6 mg capsule 8.6 mg PO QDAY PRN (Reason: constipation) Qty: 30 0RF clopidogrel 75 mg tablet 75 mg PO DAILY methylprednisolone [Medrol (Christoph)] 4 mg tablets,dose pack 4 mg PO QAM Qty: 21 0RF sacubitril-valsartan [Entresto] 49-51 mg tablet 1 tab PO BID Breztri Aerosphere 160-9-4.8 mcg/actuation HFA aerosol inhaler 2 inh inhalation BID Yupelri 175 mcg/3 mL solution for nebulization 175 mcg inhalation QDAY arformoterol 15 mcg/2 mL solution for nebulization 2 ml inhalation BID azelastine 137 mcg (0.1 %) spray,non-aerosol 1 spray INTRANASAL Q12H fluticasone propionate 50 mcg/actuation spray,suspension 1 spray INTRANASAL Q12H Referrals: No Primary/Family,Physician [Primary Care Provider] Patient/Caregiver Discharge Instructions Other Discharge Activity Instructions:: FOLLOW UP WITH [facility] TO SCHEDULE YOUR NEXT APPOINTMENT [phone] Education Materials: COPD: Wheezing and Chest Tightness, COPD: Coping with Fatigue, AFL/Afib, Coping with Heart Failure, COPD Meds Print Language: Lao Stand Alone Forms: Sanjuanita Award Info., Patient Portal Info Letter Discharge Order Discharge Orders: Discharge (Routine); Ordered 08/20/25 Ordered By: Antwan Mcpherson Quality Discharge Quality Measures VTE prophylaxis Attestestation Attestation I have seen and examined the patient. I was physically present for the jones portions of the services provided including history, physical exam, diagnosis, treatment plans and orders. I agree with assessment and plan of care as documented by residents. Even though this this note was carefully revised there may still be minor errors in asset coordinator due to voice recognition software. Nasrin Sanchez MD
--- NOTE | 2025-08-20 16:44 | PC.PT ---
Patient is safe to ambulate to the bathroom with a FWW and 1 staff assist. RN made aware.
--- NOTE | 2025-08-21 12:37 | PC.CM ---
Patient accepted by [facility]. They wanda open patient on 08/22.
== END 2025-08-20 17:07 | disposition home health service (06) | DRG 280 ==
LOC: SERX 20:41 → SERHOLD 22:16 → S2NX 08-18 00:28
PROVIDERS: Admitting Provider Student in an Organized Health Care Education/Training Program; Emergency Provider Emergency Medicine; Visit Provider Student in an Organized Health Care Education/Training Program
DX: I11.0 Hypertensive heart disease with heart failure (principal); I50.33 Acute on chronic diastolic (congestive) heart failure; I21.A1 Myocardial infarction type 2; C85.9A Non-Hodgkin lymphoma, unspecified, in remission; L97.909 Non-pressure chronic ulcer of unspecified part of unspecified lower leg with unspecified severity; E87.4 Mixed disorder of acid-base balance; D64.9 Anemia, unspecified; G89.29 Other chronic pain; M54.9 Dorsalgia, unspecified; K59.00 Constipation, unspecified; I48.91 Unspecified atrial fibrillation; I73.9 Peripheral vascular disease, unspecified; Z99.81 Dependence on supplemental oxygen; Z86.73 Personal history of transient ischemic attack (TIA), and cerebral infarction without residual deficits; Z88.2 Allergy status to sulfonamides; Z88.1 Allergy status to other antibiotic agents; Z66 Do not resuscitate; Z79.02 Long term (current) use of antithrombotics/antiplatelets; Z79.899 Other long term (current) drug therapy; Z87.891 Personal history of nicotine dependence; Z90.710 Acquired absence of both cervix and uterus; Z95.5 Presence of coronary angioplasty implant and graft
CPT/HCPCS: 36415; 36600; 51702; 71045; 71275; 80053; 81001; 82803; 83735; 83880; 84100; 84145; 84484; 85025; 85379; 87205; 87502; 87634; 87635; 89220; 93005; 94640; 94660; 96361; 96374; 96375; 96376; 97162; 99285; A4314; A4649; A9270; J1644; J1938; J2270; J2919; J3475; J3490; J7030; Q9967

== ENCOUNTER → 2025-09-10 | Outpatient (CLI) | payer MEDICARE, MEDICAID, SELFPAY ==
--- NOTE | 2025-09-10 12:30 | XR_ITS ---
EXAMINATION: PET/CT FUSION SKULL TO THIGH EXAM DATE AND TIME: September 10, 2025, 1310 hours, comparison CTA chest August 18, 2025 INDICATIONS: Diagnosis solitary pulmonary nodule with history lymphoma, pulmonary nodules on CT chest August 18, 2025 including 26 mm pulmonary nodule left upper lobe CTDI:vol (mGy) 2.62 DLP: (mGycm) 207 PROCEDURE: 16.7 mCi FDG was administered intravenously To allow for distribution and uptake of radiotracer, the patient was allowed to rest quietly in a shielded room. Imaging was performed on an integrated 16-slice PET/CT scanner, with scanning from the skull base to the mid thigh. Serum blood glucose at the time of the injection was measured 95 mg/dL. CT scanning was performed without oral or intravenous contrast material. FINDINGS: Head and Neck: There is no fredy hypermetabolism in the neck. The visualized portions of the brain are normal in appearance on CT. Chest: Intensely hypermetabolic pulmonary nodule left upper lobe, 26 mm No hypermetabolic lymphadenopathy Abdomen and Pelvis: There is no fredy hypermetabolism in retroperitoneal or pelvic chains. The spleen is normal in size and FDG avidity. Musculoskeletal: Marrow uptake is within normal range. IMPRESSION: Intensely hypermetabolic 26 mm pulmonary nodule left upper lobe No hypermetabolic mediastinal lymphadenopathy
== END | disposition home or self-care (01) ==
PROVIDERS: PCP Physician Assistant; Referring Provider Nurse Practitioner; Visit Provider Nurse Practitioner
DX: R91.1 Solitary pulmonary nodule (principal); Z85.72 Personal history of non-Hodgkin lymphomas
CPT/HCPCS: 78815; A9552

== ENCOUNTER → 2025-09-16 | Outpatient (CLI) | payer MEDICARE, MEDICAID, SELFPAY | END | disposition home or self-care (01) | LOC: SWHD 12:41 | PROVIDERS: PCP Physician Assistant; Referring Provider Physician Assistant; Visit Provider Surgery | DX: S81.802A Unspecified open wound, left lower leg, initial encounter (principal); X58.XXXA Exposure to other specified factors, initial encounter; J44.9 Chronic obstructive pulmonary disease, unspecified; I50.9 Heart failure, unspecified; D64.9 Anemia, unspecified; I48.91 Unspecified atrial fibrillation; E78.5 Hyperlipidemia, unspecified; I11.0 Hypertensive heart disease with heart failure | CPT/HCPCS: 99212; G0463 ==